=== PATIENT | female | born 1985 | race Caucasian/White ===

== ENCOUNTER 2017-11-26 23:09 | Emergency (ER) | payer MEDICAID, SELFPAY ==
[2017-11-26 23:10] VITALS: BP 135/77; PULSE 80; RESP 16; TEMP 37.6; O2SAT 100; BMI 34.7
--- NOTE | 2017-11-27 | ED.VISSUMM ---
- ER Visit Summary Date of Service: 11/27/17 Chief Complaint: URI-like illness History of Present Illness: The patient is a 32 F who presents with 1 week of congestion and rhinorrhea. Over the last 3 days she has also developed sore throat headache cough chills myalgias. She does have sick contacts with similar symptoms last week. No fever. No vomiting. She denies chest pain or shortness of breath. Physical Examination: Afebrile vitals unremarkable Tympanic membranes are clear Oropharynx is clear uvula midline Heart is regular rate and rhythm Lungs are clear Abdomen soft Alert Test Results: Not indicated Emergency Department Course and Treatment: Patient presents with a URI-like illness. She is well-appearing. She does not have signs suggestive of focal bacterial infection. I do not believe antibiotics are indicated. She was advised on supportive care. She understands return for new or worsening symptoms. She was discharged. Treatment Plan: [] Disposition: Discharge Impression: URI This note was generated with [employer] dictation software. It may contain incorrect words, spelling, and punctuation that were not noted in review of the chart prior to signing ED Disposition - Plan for ED Patient: Chief Complaint: Cold Sx Referrals: Mauro Kapoor MD [Primary Care Provider] -
--- NOTE | 2017-11-27 00:02 | ED.DEP ---
ED Disposition - Plan for ED Patient: Chief Complaint: Cold Sx Instructions: ED Upper Resp Infec No Abx Tx Referrals: Mauro Kapoor MD [Primary Care Provider] -
[2017-11-27 00:06] VITALS: BP 121/78; PULSE 80; RESP 17; O2SAT 97
== END 2017-11-27 00:07 | disposition home or self-care (01) ==
PROVIDERS: Emergency Provider Emergency Medicine; Family Provider Family Medicine; PCP Family Medicine
DX: J06.9 Acute upper respiratory infection, unspecified (principal)
CPT/HCPCS: 99282

== ENCOUNTER 2018-11-22 14:18 | Emergency (ER) | payer MEDICAID, SELFPAY ==
[2018-11-22 14:19] VITALS: BP 118/73; PULSE 69; RESP 18; TEMP 36.6; O2SAT 100; BMI 30.1
--- NOTE | 2018-11-22 15:14 | ED.VISSUMM ---
- ER Visit Summary Date of Service: 11/22/18 Chief Complaint: Rash History of Present Illness: The patient is a 33 F who presents with a rash to her lower legs that began 4 days ago. Patient states she was at a bonfire and thinks she may have come in contact with poison oak or poison jose m. Patient states the rash is pruritic. Patient states the rash started around her ankle and has spread proximally. Patient denies any lesions in her upper extremities. Patient denies any joint pain. Patient states she was able to express some drainage from the first vesicle prior to the rash is spreading. Patient denies any fevers or chills. Patient denies any other new exposures. Physical Examination: Vital signs are stable. Patient is afebrile. Patient is in no acute distress. Oral mucosa is pink and moist. Neck is supple. Trachea is midline. There is full range of motion. Skin is warm and dry. There are a few vesicles over the lower legs bilaterally. There is an area of linear vesicles. There is no crusting or drainage noted. There are no lesions on the palms or soles. There are no petechia noted. There is no calf tenderness or swelling. Pedal pulses are equal bilaterally. Sensation was intact to light touch in all digits. Emergency Department Course and Treatment: The rash is consistent with rhus dermatitis. Patient was given a prescription for Kenalog cream. Patient was instructed to follow-up with her primary care physician in 5 to 7 days. Patient understood and was agreeable with the plan. All questions were answered. Disposition: Discharge home Impression: Rhus dermatitis This note was generated with [employer] dictation software. It may contain incorrect words, spelling, and punctuation that were not noted in review of the chart prior to signing ED Disposition - Plan for ED Patient: Disposition: Home or Assisted Living Diagnosis: Rhus dermatitis Prescriptions: Triamcinolone 0.1% Cream [Kenalog] 1 applic TOPICAL BID #1 tube Prescription Printed Referrals: Mauro Kapoor MD [Primary Care Provider] - 5-7 Days
== END 2018-11-22 15:42 | disposition home or self-care (01) ==
LOC: ED 15:32
PROVIDERS: Emergency Provider Emergency Medicine
DX: L23.7 Allergic contact dermatitis due to plants, except food (principal); E05.90 Thyrotoxicosis, unspecified without thyrotoxic crisis or storm
CPT/HCPCS: 99282

== ENCOUNTER 2019-04-12 22:43 | Emergency (ER) | payer MEDICAID, SELFPAY ==
[2019-04-12 22:44] VITALS: BP 108/71; PULSE 78; RESP 14; TEMP 36.9; O2SAT 96; BMI 30.3
--- NOTE | 2019-04-12 22:55 | RAD_ITS ---
STUDY: X-RAY - LEFT ANKLE REASON FOR EXAM: Female, 34 years old. Rolled ankle TECHNIQUE: 3 view(s) of the ankle. COMPARISON: None. FINDINGS: Normal visualized distal tibia and fibula. Normal medial and lateral malleoli. Normal tibiotalar articulation and ankle mortise. Normal visualized talus and calcaneus. The visualized subtalar, talonavicular, calcaneocuboid and tarsal articulations are normal. The soft tissue structures are unremarkable. RAD/Ankle min 3 Views IMPRESSION: Normal x-ray examination of the ankle. Electronically Signed: Amadou Cifuentes DO at 23:21 EST Tel [phone], Service support ,
--- NOTE | 2019-04-12 22:55 | ED.VISSUMM ---
- ER Visit Summary Date of Service: 04/12/19 Chief Complaint: Left ankle pain History of Present Illness: The patient is a 34 F who has left ankle pain. She injured it about an hour ago. Somebody picked her up and when they put her back down she rolled the ankle on a step. She had an inversion injury. She has pain on the lateral part of the ankle. Worse with movement and walking. She took nothing for it. No previous injuries or surgeries to the ankle. Physical Examination: Left ankle exam reveals tenderness over the lateral malleolus. There is no swelling. She has 2+ DP pulses. No tenderness to the fifth metatarsal or fibular head. Range of motion is painful. Test Results: Left ankle x-rays interpreted by myself are negative for fracture Emergency Department Course and Treatment: Patient was given Motrin for pain. She will be given an Aircast here. She does not want crutches as she has to go to work tomorrow. She will continue NSAIDs at home. She will ice and elevate when she can. She will follow-up with her PCP Treatment Plan: [] Disposition: Discharge Impression: Left ankle sprain This note was generated with [employer] dictation software. It may contain incorrect words, spelling, and punctuation that were not noted in review of the chart prior to signing ED Disposition - Plan for ED Patient: Referrals: Jordy Hernandez MD [Primary Care Provider] -
[2019-04-12] MEDS: Ibuprofen 600 MG Tablet PO (23:00)
--- NOTE | 2019-04-12 23:11 | ED.DEP ---
ED Disposition - Plan for ED Patient: Disposition: Home or Assisted Living Instructions: Sprain, Ankle, with X-Ray Referrals: Jordy Hernandez MD [Primary Care Provider] -
== END 2019-04-12 23:38 | disposition home or self-care (01) ==
PROVIDERS: Emergency Provider Emergency Medicine; Family Provider Family Medicine; PCP Family Medicine
DX: S93.402A Sprain of unspecified ligament of left ankle, initial encounter (principal); X50.1XXA Overexertion from prolonged static or awkward postures, initial encounter; Y93.89 Activity, other specified; Y92.9 Unspecified place or not applicable
CPT/HCPCS: 73610; 99283

== ENCOUNTER 2020-11-07 13:41 | Emergency (ER) | payer MEDICAID, SELFPAY ==
[2020-11-07 13:42] VITALS: BP 122/75; PULSE 85; RESP 16; TEMP 36.9; O2SAT 97; BMI 34.9
--- NOTE | 2020-11-07 14:06 | US_ITS ---
STUDY: ABDOMINAL ULTRASOUND - RIGHT UPPER QUADRANT REASON FOR VISIT: Female, 35 years old RUQ pain, worse with eating TECHNIQUE: Ultrasound evaluation of the right upper quadrant was performed with real-time and static acosta-scale imaging. TECHNICAL QUALITY: Adequate. COMPARISON: None. FINDINGS: Liver: The liver measures 14.0 cm. There is increased echogenicity consistent with fatty infiltration. The bile ducts are within normal limits. There is hepatic color flow. The direction of portal flow is hepatopetal. There is no demonstrated mass lesion. Gallbladder: Normal distended gallbladder. The gallbladder wall measures 2 mm. There is a negative sonographic Lubin''s sign. There is no pericholecystic fluid. There are no gallstones. Common Bile Duct (C.B.D.): The common bile duct measures 5 mm. Pancreas: There is nonvisualization of the pancreas due to overlying bowel gas. t. Right Kidney: Normal size of the right kidney. The right kidney measures 10.9 cm. Normal renal cortex. The right cortex measures 2.8 cm. There is no demonstrated renal mass or cyst. There is no right hydronephrosis. US/Abdomen Limited IMPRESSION: Fatty infiltration of the liver. Electronically Signed: Melvin Lawrence MD at 15:46 EDT Tel , Service support ,
--- NOTE | 2020-11-07 14:08 | EDS_ITS ---
HPI HPI - GI History of Present Illness Chief Complaint: Flank Pain Informant: patient Narrative Narrative: Patient is a 35-year-old female with a past medical history of hypothyroidism who presents to the emergency department for right upper quadrant pain. This does wrap around to her back on that side. She has never had this before. It started 3 hours prior to arrival. She currently rates her pain as an 8 out of 10. She has not tried anything for it. She did try to eat today which seemed to make it worse. She denies any previous abdominal surgeries. She denies any urinary symptoms. No change in bowel movements. No nausea or vomiting. No fevers or chills. She denies any chest pain or shortness of breath associated with this. [facility] Medical History (Updated 11/07/20 @ 16:[address] Lester Barkley DO) Hx: UTI (urinary tract infection) Hypothyroid Home Medications fluticasone propionate 1 spray INTRANASAL DAILY PRN 11/07/20 [History Last Taken Unknown] levothyroxine 75 mcg PO DAILY 11/07/20 [History Last Taken Unknown] Allergy/AdvReac Type Severity Reaction Status Date / Time ciprofloxacin [From Cipro] AdvReac Vomiting Verified 11/07/20 13:44 ciprofloxacin HCl AdvReac Vomiting Verified 11/07/20 13:44 [From Cipro] Surgical History (Updated 11/07/20 @ 14:01 by Antonia Cortez) Hx of tonsillectomy Social History Smoking Status: Never smoker ROS ROS ED Constitutional Constitutional ED: Denies chills or fever(s) Eyes Eyes: Denies change in vision ENT ENT ED: Denies epistaxis or rhinorrhea Cardiovascular Cardiovascular: Denies chest pain or palpitations Respiratory/Chest Respiratory/Chest: Denies cough, dyspnea or dyspnea on exertion Gastrointestinal Gastrointestinal: Reports abdominal pain; Denies diarrhea, nausea or vomiting Genitourinary Genitourinary ED: Denies dysuria, hematuria or urinary frequency Musculoskeletal Musculoskeletal: Denies back pain or neck pain Integumentary Denies rash Neurologic Neurologic: Denies dizziness, headache(s) or weakness EXAM Physical Exam Const Vital Signs: 11/07/20 13:42 11/07/20 16:36 Temperature 98.5 F Temperature Source Temporal Pulse Rate 85 67 Respiratory Rate 16 18 Blood Pressure 122/75 H 110/83 H Blood Pressure Mean 90 92 Pulse Ox 97 99 Oxygen Delivery Method Room Air Room Air Positive well nourished and well developed General Appearance ED: well developed and NAD HEENT Reports normocephalic, head/scalp atraumatic and moist mucous membranes Eyes PERRL and EOMs intact bilaterally Neck supple Chest Wall inspection of chest normal Resp normal respiratory effort and clear to auscultation bilaterally Auscultation: Negative for rales, rhonchi or wheezes Cardio regular rate, regular rhythm and no murmurs GI GI Narrative: Abdomen is soft. Right upper quadrant tenderness. Positive Lubin sign. No rebound or guarding. Negative Rovsing sign no pain over McBurney's point. Back/Spine General Back: CVA tenderness Extremity normal to inspection General Extremety ED: Negative for edema or tenderness General Extremity: Negative for edema Neuro oriented x3, CN's II-XII intact bilaterally and no sensory deficits noted Sensorium / Orientation: alert Motor Exam: strength 5/5 throughout Psych mental status grossly normal Skin no rashes or lesions noted MDM MDM MDM Narrative Medical decision making narrative: Patient presents to the emergency department for right upper quadrant abdominal pain for the past 3 hours. Upon arrival to the ED vital signs within normal limits. She does appear uncomfortable but in no acute distress. She does have a positive Lubin sign. Will check basic lab work and obtain ultrasound of the right upper quadrant. She is given a dose of Dilaudid for symptomatic treatment. Patient's lab work did not reveal high white blood cell count. Her liver enzymes are within normal limits. She has mild elevation of her lipase. Ultrasound was obtained with a positive Lubin sign but this did not show any signs of cholecystitis or cholelithiasis. She still having pain so CT scan was then performed. This was only significant for corpus luteum cyst. Do not feel this is what is causing her symptoms currently. She otherwise feels like this has down. She is now saying she was eating [employer] at the time of this. This can still be gallbladder pain. She is advised to avoid fatty foods. She is to advance her diet only as tolerated. Return precautions are reviewed including any worsening pain, inability to keep down liquids and solids. She understands and agreeable to plan. Discharged home in stable condition. She is to follow- up with her PCP. Lab Data Labs: Laboratory Results - last 24 hr 11/07/20 11/07/20 11/07/20 14:15 14:15 14:15 WBC 6.3 RBC 4.82 Hgb 13.5 Hct 42.5 MCV 88.2 MCH 28.0 MCHC 31.8 L RDW Std Deviation 40.9 RDW Coeff of Todd 12.8 Plt Count 341 MPV 9.4 Immature Gran % (Auto) 0.600 Neut % (Auto) 54.1 Lymph % (Auto) 29.7 Carson % (Auto) 9.4 Eos % (Auto) 5.4 H Baso % (Auto) 0.8 Absolute Neuts (auto) 3.4 Absolute Lymphs (auto) 1.87 Nucleated RBC % 0 Sodium 140 Potassium 3.7 Chloride 106 Carbon Dioxide 28.0 Anion Gap 6 BUN 14 Creatinine 0.87 Estim Creat Clear Calc 66.81 Est GFR (MDRD) Af Amer 94 Est GFR (MDRD) Non-Af 78 BUN/Creatinine Ratio 16.1 Glucose 108 H Calcium 8.6 Total Bilirubin 0.30 AST 16 ALT 25 Alkaline Phosphatase 79 Total Protein 6.9 Albumin 3.4 Globulin 3.5 Albumin/Globulin Ratio 1.0 Lipase 472 H Urine Color Yellow Urine Clarity Sl. Cloudy Urine pH 6.0 Ur Specific Heidrick 1.020 Urine Protein Negative Urine Glucose (UA) Normal Urine Ketones Negative Urine Occult Blood Negative Urine Nitrite Negative Urine Bilirubin Negative Urine Urobilinogen Normal Ur Leukocyte Esterase 25 H Urine RBC 0 SEEN Urine WBC 0-5 SEEN Ur Squamous Epith Cells 5-10 SEEN Urine Bacteria 1+ Urine Mucus 0 SEEN Urine Test Negative Radiography Diagnostic Testing: Radiology Impression Abdomen Ultrasound 11/07/20 14:06 IMPRESSION: Fatty infiltration of the liver. Electronically Signed: Melvin Lawrence MD at 15:46 EDT Tel , Service support , Abdomen/Pelvis CT 11/07/20 16:02 IMPRESSION: 5 cm corpus luteum cyst right ovary. Electronically Signed: Melvin Lawrence MD at 16:47 EDT Tel , Service support , Discharge Plan Triage Chief Complaint: Flank Pain ED Provider: Lester Barkley Dx/Rx/DC Orders Clinical Impression: Abdominal pain, Corpus luteum cyst Instructions: Abdominal Pain, ED Ovarian Cyst Prescriptions: No Action levothyroxine 75 mcg tablet 75 mcg PO DAILY RF: 0 fluticasone propionate 50 mcg/actuation spray,suspension 1 spray INTRANASAL DAILY PRN (Reason: Allergy Symptoms) RF: 0 Primary Care Provider: Jordy Hernandez Referrals: Jordy Hernandez MD [Primary Care Provider] - 3-5 Days Disposition Disposition: Home, Self Care
[2020-11-07] MEDS: HYDROmorphone 1 MG/ML Syringe 0.5 MG IV (14:23)
[2020-11-07 14:26] LABS: Mucous, Urine 0 SEEN /hpf (<or=2+); Red Blood Cells-Urine 0 SEEN /hpf (0-5)
[2020-11-07 14:31] LABS: Absolute Lymphocyte Count 1.87 X10^3/uL (0.83-4.51); Absolute Neutrophil Count 3.4 X10^3/uL (2.0-7.7); Basophil# 0.05 X10^3/uL; Basophil% 0.8 % (0-1); Eosinophil# 0.34 X10^3/uL; Eosinophils% 5.4 % (0-5); Hematocrit 42.5 % (37-47); Hemoglobin 13.5 g/dL (12.0-15.0); Lymphocyte # 1.87 X10^3/ul (0.83-4.51); Lymphocyte % 29.7 % (19-41); Mean Corp Hgb Conc 31.8 g/dL (32-36); Mean Corpuscular Volume 88.2 fL (81-99); Mean Platelet Vol. 9.4 fl (6.2-12.0); Monocyte# 0.59 X10^3/uL; Monocyte% 9.4 % (0-10); NRBC Flagged by Analyzer 0 % (0-5); Neutrophil # 3.41 X10^3/uL (2.7-7.7); Neutrophil % 54.1 % (47-70); Platelet Count 341 K/mm3 (150-450); RBC Distribution Width CV 12.8 % (11.6-14.6); RBC Distribution Width SD 40.9 fl (35.1-43.9); Red Blood Count 4.82 M/mm3 (4.2-5.4); White Blood Count 6.3 K/mm3 (4.4-11.0)
[2020-11-07 14:35] LABS: Color, Urine Yellow (Yellow); Glucose, Dipstick Normal (Normal); Ketone-Dipstick Negative (Negative); Leukocyte Esterase-Dipstick 25 /ul (Negative); Nitrite-Dipstick Negative (Negative); Occult Blood-Urine Negative /ul (Negative); Protein-Dipstick Negative (Negative); Urine Bilirubin Dipstick Negative (Negative); Urine Clarity Sl. Cloudy (Clear); Urine Urobilinogen Normal (Normal)
[2020-11-07 14:42] LABS: Bacteria 1+ /hpf (None Seen); Internal QC Validated? YES +Cl - CLEAR BKGD; Squamous Epithelial Cells - UA 5-10 SEEN /hpf (5-10); White Blood Cells 0-5 SEEN /hpf (0-5)
[2020-11-07 14:43] LABS: Pregnancy, Urine Negative Negative
[2020-11-07 14:45] LABS: AST(SGOT) 16 U/L (15-37); Alanine Aminotransfer ALT/SGPT 25 U/L (13-56); Albumin, Serum 3.4 g/dL (3.2-5.0); Alkaline Phosphatase 79 U/L (45-117); Anion Gap 6 (5-15); BUN 14 mg/dL (7-18); BUN/Creat Ratio 16.1 RATIO (10-20); Calcium,Total 8.6 mg/dL (8.5-10.1); Chloride 106 mmol/L (98-107); Creatinine, Serum 0.87 mg/dL (0.55-1.02); EST Glomerular Filtration Rate 78 mL/min (>60); Est Glom Filt Rate - Afr Amer 94 mL/min (>60); Estimated Creatinine Clearance 66.81 ml/min; Globulin 3.5 g/dL (2.2-4.2); Glucose 108 mg/dL (74-106); Lipase 472 U/L (73-393); Potassium 3.7 mmol/L (3.5-5.1); Protein, Total 6.9 g/dL (6.4-8.2); Sodium Level 140 mmol/L (136-145)
--- NOTE | 2020-11-07 16:02 | CT_ITS ---
STUDY: CT ABDOMEN AND PELVIS WITH CONTRAST REASON FOR EXAM: Female, 35 years old. RUQ pain, flank pain RADIATION DOSAGE (If Supplied By Facility): CTDIvol = ( 13.66 ) mGy, DLP = ( 1077.57 ) mGycm TECHNIQUE: Transaxial images were obtained from the dome of the diaphragm to the symphysis pubis without oral contrast. IV 100mL Isovue-300 was administered. Sagittal and coronal images were reconstructed. Individualized dose optimization techniques were used for this CT. COMPARISON: 10/14/2012 FINDINGS: The visualized lung bases are unremarkable. The visualized portions of the heart are within normal limits. Normal liver. Normal gallbladder and extrahepatic biliary system. Normal spleen. Normal pancreas. Normal bilateral adrenal glands. Normal right kidney. Normal left kidney. Normal visualized stomach. Normal small intestine. Normal colon. The appendix is visualized and appears normal. Normal abdominal aorta. Normal inferior vena cava. Normal retroperitoneum. Normal urinary bladder. 5 cm corpus luteum cyst of the right ovary. Normal abdominal wall. Normal osseous structures. CT/Abdomen/Pelvis W IV Cont ONLY IMPRESSION: 5 cm corpus luteum cyst right ovary. Electronically Signed: Melvin Lawrence MD at 16:47 EDT Tel , Service support ,
[2020-11-07 16:36] VITALS: BP 110/83; PULSE 67; RESP 18; O2SAT 99
--- NOTE | 2020-11-07 16:50 | ED.RN ---
pt still states pain 7/10 after dilaudid. pt does not want more pain medication at this time. states she would like the lights off and to try to nap.
== END 2020-11-07 17:06 | disposition home or self-care (01) ==
PROVIDERS: Emergency Provider Emergency Medicine; PCP Family Medicine
DX: R10.11 Right upper quadrant pain (principal); N83.10 Corpus luteum cyst of ovary, unspecified side
CPT/HCPCS: 74177; 76705; 80053; 81001; 81025; 83690; 85025; 96374; 99283; Q9967; A4216

== ENCOUNTER 2021-01-07 14:08 | Emergency (ER) | payer MEDICAID, SELFPAY ==
[2021-01-07 14:10] VITALS: BP 137/91; PULSE 90; RESP 18; TEMP 37.3; O2SAT 97; BMI 35.3
[2021-01-07 14:12] VITALS: BP 137/91; PULSE 90; RESP 18; TEMP 37.3; O2SAT 97
--- NOTE | 2021-01-07 16:22 | EX.ED.DYSGE1 ---
HPI History of Present Illness Chief Complaint: Sore Throat Informant: patient Onset/Context/Timing Onset: Days Context: Gradual Onset Timing: Continuous Quality: Congested Location: Maxillary sinuses, right greater than left Worsened by: Nothing Relieved by: Nothing Narrative Narrative: Patient presents with sore throat and sinus pressure that has been getting worse over the past several days. 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 Patient states this feels similar to prior sinus infections. Patient states she has pain in both ears. Patient also admits to some mild pain in the right side of her neck. Patient denies any difficulty swallowing or difficulty breathing. Patient denies any fevers or chills. Patient states she has not been vaccinated for COVID-19. Patient states she does not want to get the COVID-19 vaccine. [facility] Medical History Hx: UTI (urinary tract infection) Hypothyroid Home Medications fluticasone propionate 1 spray INTRANASAL DAILY PRN 11/07/20 [History Last Taken Unknown] levothyroxine 75 mcg PO DAILY 11/07/20 [History Last Taken Unknown] fluticasone propionate [Flonase Allergy Relief] 2 spray INTRANASAL DAILY #16 g 01/07/21 [Rx Last Taken Unknown] Allergy/AdvReac Type Severity Reaction Status Date / Time ciprofloxacin [From Cipro] AdvReac Vomiting Verified 01/07/21 14:10 ciprofloxacin HCl AdvReac Vomiting Verified 01/07/21 14:10 [From Cipro] Surgical History Hx of tonsillectomy Social History Smoking Status: Never smoker ROS ROS ED Constitutional Constitutional ED: Denies chills or fever(s) Eyes Eyes: Denies blurry vision or change in vision ENT ENT ED: Reports ear pain and sore throat; Denies rhinorrhea Cardiovascular Cardiovascular: Denies chest pain or palpitations Respiratory/Chest Respiratory/Chest: Denies cough or dyspnea Gastrointestinal Gastrointestinal: Denies nausea or vomiting Genitourinary Genitourinary ED: Denies dysuria or hematuria Musculoskeletal Musculoskeletal: Reports neck pain; Denies back pain Integumentary Denies abscess or rash Neurologic Neurologic: Denies headache(s) or weakness Allergic/Immunologic Allergic/Immunologic ED: Denies mouth swelling or urticaria EXAM Physical Exam Const Vital Signs: 01/07/21 14:10 01/07/21 14:12 Temperature 99.1 F 99.1 F Temperature Source Temporal Temporal Pulse Rate 90 90 Respiratory Rate 18 18 Blood Pressure 137/91 H 137/91 H Blood Pressure Mean 106 106 Pulse Ox 97 97 Oxygen Delivery Method Room Air Room Air Positive well nourished and well developed General Appearance ED: well developed HEENT Reports TM's clear and moist mucous membranes HEENT Narrative: Oropharynx shows some mild erythema. There are no exudates. Tympanic Membrane ED: Yes TM's clear Eyes PERRL and EOMs intact bilaterally Neck supple and no JVD Neck Narrative: There is some mildly tender anterior cervical adenopathy on the right. Resp normal respiratory effort and clear to auscultation bilaterally Cardio regular rate and regular rhythm Neuro oriented x3, CN's II-XII intact bilaterally and no sensory deficits noted Sensorium / Orientation: alert Motor Exam: strength 5/5 throughout Psych mental status grossly normal MDM MDM MDM Narrative Medical decision making narrative: Rapid strep was obtained and was negative. COVID-19 rapid antigen was obtained and was negative. Patient was advised of her findings. Patient was instructed to drink plenty of fluids. Patient was instructed to take Tylenol or ibuprofen as needed for pain. Patient was given a prescription for Flonase. Patient was instructed to follow-up with her primary care physician in 5 to 7 days. Patient understood and was agreeable with the plan. All questions were answered. Discharge Plan Triage Chief Complaint: Sore Throat ED Provider: Lj Becerril Dx/Rx/DC Orders Clinical Impression: Sinusitis, acute maxillary Instructions: ED Sinusitis (No Antibiotics) Prescriptions: New fluticasone propionate [Flonase Allergy Relief] 50 mcg/actuation spray,suspension 2 spray intranasal DAILY Qty: 16 RF: 0 No Action levothyroxine 75 mcg tablet 75 mcg PO DAILY RF: 0 fluticasone propionate 50 mcg/actuation spray,suspension 1 spray INTRANASAL DAILY PRN (Reason: Allergy Symptoms) RF: 0 Primary Care Provider: Sujata Huynh Referrals: Sujata Huynh MD [Primary Care Provider] - 5-7 Days Disposition Disposition: Home, Self Care
== END 2021-01-07 18:18 | disposition home or self-care (01) ==
PROVIDERS: Emergency Provider Emergency Medicine
DX: J01.00 Acute maxillary sinusitis, unspecified (principal); E03.9 Hypothyroidism, unspecified; Z79.899 Other long term (current) drug therapy
CPT/HCPCS: 87426; 87880; 99282

== ENCOUNTER 2022-12-14 21:24 | Emergency (ER) | payer MEDICAID, SELFPAY ==
[2022-12-14 21:27] VITALS: BP 163/114; PULSE 105; RESP 18; TEMP 37.7; O2SAT 99; BMI 36.3
[2022-12-14 22:41] VITALS: BP 163/114; PULSE 105; RESP 18; TEMP 37.7; O2SAT 99
[2022-12-14 23:03] VITALS: BP 141/75; PULSE 100; RESP 18; TEMP 36.6; O2SAT 99
--- NOTE | 2022-12-14 23:14 | EDS_ITS ---
HPI History of Present Illness Chief Complaint: General Illness Informant: patient Narrative Narrative: Patient is a 37-year-old female with past medical history of hypothyroidism. She states she was at her daughter's softball game about 2 hours prior to arrival when she suddenly developed shaking chills and sensation of feeling unwell. She denies any known sick contacts and she states she has been just mild nasal congestion but denies any real cough or sore throat. She denies any concern for and she states there has been no nausea vomiting diarrhea or dysuria. However with the sudden onset of symptoms she was concerned for an infectious process and comes in for evaluation [facility] Medical History Hx: UTI (urinary tract infection) Hypothyroid Home Medications levothyroxine 75 mcg tablet 125 mcg PO DAILY 11/07/20 [History Last Taken Unknown] omeprazole 40 mg capsule,delayed release 40 mg PO DAILY 12/14/22 [History Last Taken Unknown] potassium chloride 20 mEq tablet,extended release(part/cryst) 20 meq PO DAILY 12/14/22 [History Last Taken Unknown] prednisone 20 mg tablet 40 mg (2 x 20 mg) PO DAILY 5 days #10 tabs 12/15/22 [Rx Last Taken Unknown] Allergy/AdvReac Type Severity Reaction Status Date / Time ciprofloxacin [From Cipro] AdvReac Vomiting Verified 12/14/22 21:27 Surgical History Hx of tonsillectomy Social History Smoking Status: Never smoker ROS ROS ED Constitutional Constitutional ED: Reports chills, fever(s) and subjective ENT ENT ED: Reports rhinorrhea; Denies sore throat Cardiovascular Cardiovascular: Denies chest pain Respiratory/Chest Respiratory/Chest: Denies cough or dyspnea Gastrointestinal Gastrointestinal: Denies abdominal pain, diarrhea, nausea or vomiting Genitourinary Genitourinary ED: Denies dysuria Musculoskeletal Musculoskeletal: Reports myalgias Integumentary Denies rash Neurologic Neurologic: Reports headache(s) Hematologic/Lymphatic Hematologic/Lymphatic: Denies easy bleeding or easy bruising EXAM Physical Exam Const Vital Signs: 12/14/22 21:27 12/14/22 22:41 12/14/22 23:03 Temperature 99.8 F H 99.8 F H 98 F Temperature Source Temporal Temporal Temporal Pulse Rate 105 H 105 H 100 Respiratory Rate 18 18 18 Blood Pressure 163/114 H 163/114 H 141/75 H Blood Pressure Mean 130 130 97 Pulse Ox 99 99 99 Oxygen Delivery Method Room Air Positive well nourished and well developed General Appearance ED: well developed HEENT Reports moist mucous membranes HEENT Narrative: Nasal mucosa is hyperemic and boggy slightly greatest on the right. There is cobblestoning in the posterior pharynx consistent with sinus drainage without airway edema or compromise. Bilateral TMs are retracted without secondary changes to suggest infection Eyes PERRL and EOMs intact bilaterally Neck supple Neck Narrative: No nuchal rigidity or meningeal signs present Resp normal respiratory effort and clear to auscultation bilaterally Cardio regular rate and regular rhythm GI normal to inspection, nondistended, normoactive bowel sounds, non-tender, non- distended and no masses GI Narrative: No voluntary guarding or rigidity Auscultation: normoactive bowel sounds Palpation: soft Back/Spine no CVA tenderness Extremity normal to inspection Neuro oriented x3, CN's II-XII intact bilaterally and no sensory deficits noted Sensorium / Orientation: alert Motor Exam: strength 5/5 throughout Psych mental status grossly normal Skin no rashes or lesions noted MDM MDM MDM Narrative Medical decision making narrative: Patient presented to the ER with low-grade fever. She reported sudden onset of subjective fevers and chills with mild congestion. Differential diagnosis is COVID versus other viral upper respiratory tract infection versus pneumonia or early viral versus bacterial pharyngitis. On exam breath sounds are clear she has no signs of respiratory distress she satting 98 to 100% on room air. Abdomen is soft without organ enlargement or pain and she denies any dysuria or concern for . Physical exam does not suggest a bacterial pharyngitis or signs of peritonsillar abscess or epiglottitis. Therefore at this time as her physical exam suggest she has the development of a viral upper respiratory tract infection without signs of respiratory distress or need for supplemental oxygen and do not feel there is need for further testing and patient can be discharged home. History & Record Review Discussion w/independent historian: Patient Discharge Plan Triage Chief Complaint: General Illness ED Provider: Malachi Goodman Dx/Rx/DC Orders Clinical Impression: Viral syndrome, Hypothyroidism Instructions: ED Viral Syndrome (Adult) Prescriptions: New prednisone 20 mg tablet 40 mg PO DAILY 5 Days Qty: 10 0RF No Action levothyroxine 75 mcg tablet 125 mcg PO DAILY Patient Comments: TK 1 T PO QD OES FOR THYROID omeprazole 40 mg capsule,delayed release(DR/EC) 40 mg PO DAILY Patient Comments: TAKE 1 CAPSULE BY MOUTH ONCE DAILY potassium chloride 20 mEq tablet,ER particles/crystals 20 meq PO DAILY Patient Comments: TAKE 1 TABLET BY MOUTH ONCE DAILY Stand Alone Forms: ED Work / School Excuse Primary Care Provider: Sujata Huynh Referrals: Sujata Huynh MD [Primary Care Provider] - Activity Restrictions/Additional Instructions: Your exam today indicate you have a viral infection. Fever from this will typically last 3 days but can go as long as a week. Take [id number] Tylenol and/or Motrin for fever control and keep yourself well-hydrated. If your fever lasts longer than 7 days or you have worsening of symptoms or any further concerns please return to the hospital for repeat evaluation Disposition Disposition: Home, Self Care Discharge Date/Time: 12/14/22 23:21
--- NOTE | 2022-12-14 23:21 | ED.RN ---
PT ON PHONE IN ROOM WITH NO SIGNS OF DISTRESS. REVIEWED WITH PT APPROPRIATE INTERVENTIONS TO ATTEMPT AND WHEN TO COME TO ER FOR SYMPTOMS.
== END 2022-12-14 23:21 | disposition home or self-care (01) ==
PROVIDERS: Emergency Provider Emergency Medicine; Visit Provider Emergency Medicine
DX: B34.9 Viral infection, unspecified (principal); E03.9 Hypothyroidism, unspecified; Z79.899 Other long term (current) drug therapy
CPT/HCPCS: 99282

== ENCOUNTER 2025-05-07 18:22 | Emergency (ER) | payer BC, SELFPAY ==
[2025-05-07 18:24] VITALS: BP 136/94; PULSE 78; RESP 18; TEMP 36.8; O2SAT 100; BMI 34.8
[2025-05-07 18:42] LABS: Mucous, Urine 0 SEEN /hpf (<or=2+); Red Blood Cells-Urine 0 SEEN /hpf (0-5)
[2025-05-07 19:01] LABS: Color, Urine Straw (Yellow); Glucose, Dipstick Normal (Normal); Ketone-Dipstick Negative (Negative); Leukocyte Esterase-Dipstick Negative /ul (Negative); Nitrite-Dipstick Negative (Negative); Occult Blood-Urine Negative /ul (Negative); Protein-Dipstick Negative (Negative); Specific Gravity, Urine 1.005 (1.002-1.030); Urine Bilirubin Dipstick Negative (Negative)
[2025-05-07 19:29] LABS: Squamous Epithelial Cells - UA 0-5 SEEN /hpf (5-10)
[2025-05-07 20:23] VITALS: BP 138/103; PULSE 72; RESP 16; O2SAT 98
--- OUTSIDE RECORDS SUMMARY | 2025-05-07 21:53 | XMS RPT_ITS | CCD ---
Author Organization [facility] Care Team Providers Care Store Facility Technician Name Role Phone Lex Ulloa Unavailable Unavailable Lex Ulloa J Unavailable Unavailable Dominick Lomax Unavailable Unavailable Dominick Lomax Unavailable Unavailable Argueta, Akila S Unavailable Unavailable Argueta, Akila S Unavailable Unavailable DayNoah J. Unavailable Unavailable Day Noah J. Unavailable Unavailable Yang, Khris R Unavailable Unavailable Yang, Khris R Unavailable Unavailable Artemio, Lex J Unavailable Unavailable Atremio, Lex J Unavailable Unavailable Lulu, Demetrio Unavailable Unavailable Lulu, Demetrio Unavailable Unavailable DayNoah J. Unavailable Unavailable DayNoah J. Unavailable Unavailable Vivar, Dillan R Unavailable Unavailable Vivar, Dillan R Unavailable Unavailable Malachi Hickman. Unavailable Unavailabl e Malachi Hickman J. Unavailable Unavailabl e ARTEMIO LEX KHRIS Unavailable Unavailable Sokari, Telemate Unavailable Unavailable Sokari, Telemate Unavailable Unavailable No Doctor Assigned, Nodr Unavailable Unavail able Ivanauskas, Saulius Unavailable Unavailable Ivanauskas, Saulius Unavailable Unavailable Alberto Kapoor Unavailable Unavailab Jordy Alvarado Primary Care Provider [phone] NO, PHYSICIAN Primary Care Unavailable LAURA CHILDRESS Attending UnavailJordy Cedillo Primary Care Provider No, Physician Primary Care Provider Unavailabl e NO, PHYSICIAN Primary Care Unavailable NICO ALMENDAREZ Attending Unavailable TANESHANICO MAYA Admitting Unavailable WIN, NYAN Attending Unavailable WIN, NYAN Referring Unavailable WIN, NYAN Primary Care Unavailable WIN, NYAN Attending Unavailable WIN, NYAN Referring Unavailable WIN, NYAN Primary Care Unavailable WIN, NYAN Attending Unavailable WIN, NYAN Referring Unavailable WIN, NYAN Primary Care Unavailable Unavailable Primary Care Provider Unavailabl e LINO, LAURIE Consulting Unavailable LINO, LAURIE Referring Unavailable JEREMY ROB MD Admitting Unavailable JEREMY ROB MD Primary Care Unavailable JEREMY ROB MD Attending Unavailable PROVIDER, UNKNOWN Consulting Unavailable PROVIDER, UNKNOWN Consulting Unavailable LINO, LAURIE Consulting Unavailable LINO, LAURIE Referring Unavailable JEFF GONZALEZ DO Admitting Unavailable JEFF GONZALEZ DO Primary Care Unavailable JEFF GONZALEZ DO Attending Unavailable PROVIDER, UNKNOWN Consulting Unavailable PROVIDER, UNKNOWN Consulting Unavailable Malachi Goodman Attending Unavailable Lino, Laurie Primary Care Unavailable Kingsley Hernandez MD Primary Care Provider [phone] PHYSICIAN, NONE Primary Care Physician Unavailab Tesha PARMAR, DR SULLIVAN Primary Care Unavailable SILVESTRE SIDDIQUI Attending Unavailable UCHE CHOI Attending Sanna morris PHYSICIAN, NONE Primary Care Unavailable LINO PARMAR, DR SULLIVAN Primary Care Physician [phone] LINO, LAURIE Primary Care Unavailable TAO HAN Attending UnavailLAURIE Garcia Primary Care Unavailable SARAH NIXON Attending Unavailable ANJALI ZHANG DO Attending Unavailab Tesha PARMAR, DR SULLIVAN Primary Care Unavailable ANJALI ZHANG DO Attending Unavailab Tesha PARMAR, DR SULLIVAN Primary Care Unavailable LINO PARMAR, DR SULLIVAN Primary Care Unavailable DAI KELLER Attending Tierra Huynh MD, Laurie Primary Care Provider Allergies Allergy Classification Reported Allergen(s) Allergy Type Date of Onset Reaction(s) Facility (2 sources) ciprofloxacin; Translations: [Cipro] Drug Allergy [facility] Repository (13 sources) Sulfamethoxazole / Trimethoprim; Translations: [Unknown] Drug Allergy 7 Nausea and Vomiting, GI Intolerance, Other: See Comments [facility] Repository (16 sources) Ciprofloxacin; Translations: [CIPROFLOXACIN] Drug Allergy 7 Nausea and Vomiting, Dyspepsia, GI Intolerance, GI Upset [facility] (1 source) Ciprofloxacin Drug Allergy 3 [facility] Repository Medications Current Medications Medication Drug Class(es) Dates Sig (Normalized) Sig (Original) acetaminophen 325 mg / HYDROcodone bitartrate 5 mg oral tablet (1 source) Opioid Agonist Start: 09-07-2024 End: 09-12-2024 take 1 tablet by mouth every four hours as needed for pain Odum 325- 5 mg oral tablet Dose = 1 tab(s), Oral, q4h, PRN as needed for pain, X 5 day(s), # 20 tab(s), 0 Refill(s), Pharmacy: [facility], Status post laparoscopy with lysis of adhesions, 154.94, cm, 09/07/24 7:19:00 EDT, Height, 81.36, kg, 09/07/24 7:19:00 EDT, Dosing Weight Start Date: 09/07/24 Stop Date: 09/12/24 Status: Ordered Quantity: 20.0 Unit: tab(s) Repeat number: 1 Indications: Other specified postprocedural states; amoxicillin 500 mg oral capsule (1 source) Penicillin-class Antibacterial Start: 06-09-2023 End: 06-19-2023 amoxicillin 500 mg oral capsule Dose : 500 mg = 1 cap(s), Oral, BID, X 10 day(s), # 20 cap(s), 0 Refill(s), 06/19/23 7:55:00 AM EST Start Date: 06/09/23 Stop Date: 06/19/23 Status: Ordered amoxicillin 875 mg / clavulanate 125 mg oral tablet (1 source) Penicillin-class Antibacterial Start: 09-30-2018 End: 10-10-2018 take 1 tablet by mouth twice daily amoxicillin-clavula mert (AUGMENTIN) 875-125 mg per tablet Indications: Sinusitis, unspecified chronicity, unspecified location Take 1 (one) tablet by mouth 2 (two) times a day for 10 days . 20 tablet 0 09/30/2018 10/10/2018 Active azithromycin 250 mg oral tablet (3 sources) Macrolide Antimicrobial Start: 12-21-2019 End: 12-25-2019 take 1 tablet by mouth once daily azithromycin 250 MG tablet 250 mg PO Once Daily X 4 days 4 tablet 0 12/21/2019 12/25/2019 Active Start: 12-21-2019 End: 12-21-2019 azithromycin 250 MG tablet T lyle 500 mg X1 then 250 mg PO Once Daily X 4 days 5 tablet 0 12/21/2019 12/21/2019 Discontinued (Reorder) Start: 12-21-2019 End: 12-21-2019 azithromycin (ZITHROMAX) tab let 500 mg ciprofloxacin 3 mg/ml / dexamethasone 1 mg/ml otic suspension (1 source) Corticosteroid, Quinolone Antimicrobial Start: 06-09-2023 End: 06-16-2023 Ciprodex 0.3%-0.1% otic suspension Dose = 4 drop(s), Ear, left, BID, X 7 day(s), # 7.5 mL, 0 Refill(s) Start Date: 06/09/23 Stop Date: 06/16/23 Status: Ordered escitalopram 10 mg oral tablet (2 sources) Serotonin Reuptake Inhibitor Start: 09-09-2020 take 1 tablet by mouth once daily escitalopram oxalate (LEXAPRO) 10 mg tablet Indications: Anxiety with depression Take 1 tablet by mouth once daily. 30 tablet 2 09/09/2020 Active Comment on above: Take 1 tablet by gayle once daily. herbal/nutritional product (1 source) Start: 08-24-2024 take 1 capsule by mouth once daily herbal/nutritiona l product 1 capsule, Oral, Daily, 0 Refill(s) Start Date: 08/24/24 Status: Ordered Repeat number: 1 ibuprofen 600 mg oral tablet (7 sources) Nonsteroidal Anti-inflammatory Drug Start: 09-07-2024 ibuprofen 600 mg oral tablet Dose : 600 mg = 1 tab(s), Oral, QID, PRN as needed for pain, # 120 tab(s), 1 Refill(s), Pharmacy: [id number], 154.94, cm, 09/07/24 7:19:00 EDT, Height, kg, 09/07/24 7:19:00 EDT, Dosing Weight Start Date: 09/07/24 Status: Ordered Quantity: 120.0 Unit: tab(s) Repeat number: 2 Start: 12-21-2019 End: 12-21-2019 ibuprofen (MOTRIN) tablet 40 0 mg Start: 07-07-2016 End: 03-28-2019 take 1 tablet by mouth every six hours as needed ibuprofen 800 MG Tab take 1 tablet by mouth every 6 hours as needed.. 20 tablet 0 07/07/2016 03/28/2019 Discontinued (Therapy completed) levothyroxine sodium 0.125 mg oral tablet (16 sources) l-Thyroxine Start: 08-24-2024 levothyroxine 125 mcg (0.125 mg) oral tablet Dose : 125 mcg = 1 tab(s), Oral, qDayAC, 0 Refill(s) Start Date: 08/24/24 Status: Ordered Repeat number: 1 Start: 11-07-2020 take 125 ug by mouth once antonio y Levothyroxine Active 125 MCG PO DAILY November 07, 2020 12:00am Start: 09-09-2020 take 1 tablet by gayle th once daily levothyroxine (SYNTHROID) 75 mcg tablet Indications: Acquired hypothyroidism Take 1 tablet by mouth once daily. 90 tablet 2 09/09/2020 Active Start: 01-18-2020 take 1 tablet by gayle th once daily levothyroxine 75 MCG tablet Take 1 tablet by mouth daily. 30 tablet 3 01/18/2020 Active Start: 05-24-2017 End: 01-18-2020 take 1 tablet by mouth once daily for thyroid dysfunction levothyroxine 50 MCG Tab tablet TK 1 T PO QD OES FOR THYROID 3 05/24/2017 01/18/2020 Discontinued Comment on above: Take 1 tablet by gayle th once daily. loratadine 10 mg oral tablet (1 source) Start: 10-01-19 End: 09-30-19 take 1 tablet by mouth once daily loratadine (CLARITIN) 10 mg tablet Indications: Sinusitis, unspecified chronicity, unspecified location Take 1 (one) tablet (10 mg total) by mouth daily . 30 tablet 0 09/30/2018 09/30/2019 Active omeprazole 40 mg delayed release oral capsule (1 source) Proton Pump Inhibitor Start: 12-15-19 take 40 mg by mouth once daily Omeprazole Active 40 MG PO DAILY December 14, 2022 12:00am ondansetron 4 mg disintegrating oral tablet (6 sources) Serotonin-3 Receptor Antagonist Start: 09-08-19 25 ondansetron 4 mg oral tablet, disintegrating Dose : 4 mg = 1 tab(s), Oral, q6h, PRN Nausea/Vomiting, # 20 tab(s), 0 Refill(s), Pharmacy: [id number], 154.94, cm, 09/07/24 7:19:00 EDT, Height, kg, 09/07/24 7:19:00 EDT, Dosing Weight Start Date: 09/07/24 Status: Ordered Quantity: 20.0 Unit: tab(s) Repeat number: 1 Start: 06-25-2017 End: 03-28-2019 take 1 tablet by mouth every eight hours as needed for nausea ondansetron 4 MG Tab Dispersible tablet Indications: Cyst of right ovary Take 1 tablet by mouth every 8 hours as needed for Nausea. Place on tongue 10 tablet 0 06/25/2017 03/28/2019 Discontinued (Therapy completed) microencapsulated potassium chloride 20 meq extended release oral tablet (1 source) Start: 12-14-2022 take 20 mEq by mouth once daily Potassium Chloride Active 20 MEQ PO DAILY December 14, 2022 12:00am progesterone 100 mg oral capsule (1 source) Progesterone Start: 08-24-2024 progesterone 1 00 mg oral capsule Dose : 100 mg = 1 cap(s), Oral, qHS, 0 Refill(s) Start Date: 08/24/24 Status: Ordered Repeat number: 1 Completed/Discontinued Medications Medication Drug Class(es) Dates Sig (Normalized) Sig (Original) 1 ml dexamethasone phosphate 4 mg/ml injection (2 sources) Corticosteroid Start: 02-28-2019 End: 02-28-2019 dexamethasone (DECADRON) injection 2 mg Start: 02-28-2019 End: 02-28-2019 dexamethasone (DECADRON) inj ection 2 mg diclofenac sodium 50 mg delayed release oral tablet (5 sources) Nonsteroidal Anti-inflammatory Drug Start: 06-25-2017 End: 03-28-2019 take 1 tablet by mouth twice daily diclofenac sodium [address] Indications: Cyst of right ovary Take 1 tablet by mouth 2 times daily. 10 tablet 0 06/25/2017 03/28/2019 Discontinued (Therapy completed) fluticasone propionate 0.05 mg/actuat metered dose nasal spray (15 sources) Corticosteroid Start: 11-07-2020 End: 12-14-2022 take 1 spray(s) nasal route once daily Fluticasone Propionate (Flonase Allergy Relief) 50 mcg/actuation spray,suspension Discontinued 2 SPRAY INTRANASAL DAILY January 07, 2021 12:00am December 14, 2022 11:03pm administer 1 spray into each nostril daily Start: 09-30-2018 End: 09-30-2019 take 2 spray(s) nasal route once daily fluticasone propionate (FLONASE) 50 mcg/actuation nasal spray Indications: Sinusitis, unspecified chronicity, unspecified location Instill 2 (two) sprays into each nostril daily . 16 g 0 09/30/2018 09/30/2019 Active Start: 07-22-2018 take 1 spray(s) nasa l route once daily fluticasone (FLONASE) 50 mcg/actuation nasal spray Indications: Sinusitis Use 1 Markesan in each nostril once daily. 16 g 5 07/22/2018 Active Start: 06-14-2015 fluticasone 50 MCG/ACT Suspension nasal spray 1 spray. 0 06/14/2015 Active Comment on above: Use 1 Markesan in each nostril once daily. 2 ml triamcinolone acetonide 40 mg/ml prefilled syringe (2 sources) Corticosteroid Start: 02-28-2019 End: 02-28-2019 triamcinolone (KENALOG-40) injection 0.5 mL Start: 02-28-2019 End: 02-28-2019 triamcinolone (KENALOG-40) i njection 0.5 mL Problems Active Problems Problem Classification Problem Date Documented Date Episodic/Chronic Abdominal pain (1 source) Abdominal pain; Translations: [Unspecified abdominal pain] 11-07-2020 Episodic Allergic reactions (2 sources) Allergy status to other antibiotic agents status; Translations: [Contact dermatitis due to Genus Toxicodendron] Onset: 10-28-2022 11-23-2018 Episodic Endometriosis (1 source) Endometriosis; Translations: [Deep endometriosis of bilateral ovaries] Onset: 09-07-2024 Fever of unknown origin (1 source) Fever, unspecified; Translations: [Fever, unspecified] Onset: 12-17-2022 Episodic Inflammatory diseases of female pelvic organs (2 sources) Female pelvic peritoneal adhesions (postinfective); Translations: [Female pelvic peritoneal adhesions] Onset: 09-07-2024 Episodic Nonmalignant breast conditions (2 sources) Pain of breast; Translations: [Breast pain] Episodic Other connective tissue disease (4 sources) Pain in right foot; Translations: [Pain in right foot] Other ear and sense organ disorders (1 source) Otitis externa of left ear; Translations: [Unspecified otitis externa, left ear] Onset: 06-09-2023 Chronic Other nutritional; endocrine; and metabolic disorders (2 sources) Obese class I; Translations: [Obesity (BMI 30.0-34.9)] Onset: 01-10-2020 01-10-2020 Other nutritional; endocrine; and metabolic disorders (1 source) Insulin resistance; Translations: [Insulin resistance] Other screening for suspected conditions (not mental disorders or infectious disease) (1 source) Patient encounter status; Translations: [Encounter for screening mammogram for malignant neoplasm of breast] 03-24-2023 Episodic Otitis media and related conditions (2 sources) Non-suppurative otitis media; Translations: [Otitis media] Onset: 06-09-2023 Episodic Ovarian cyst (2 sources) Corpus luteum cyst; Translations: [Corpus luteum cyst of ovary, unspecified side] Onset: 06-20-2024 11-07-2020 Episodic Residual codes; unclassified (1 source) Other specified postprocedural states; Translations: [Other specified postprocedural states] Onset: 09-07-2024 Episodic Residual codes; unclassified (1 source) Acquired absence of ovaries, unilateral; Translations: [Acquired absence of ovaries, unilateral] Onset: 09-07-2024 Episodic Residual codes; unclassified (1 source) Past history of procedure; Translations: [Other specified postprocedural states] Onset: 09-07-2024 Episodic Residual codes; unclassified (1 source) Acquired absence of ovary; Translations: [Acquired absence of ovaries, unilateral] Onset: 09-07-2024 Episodic Thyroid disorders (6 sources) Hypothyroidism; Translations: [Hema thyroiditis] Onset: 04-12-2018 04-12-2018 Chronic Past or Other Problems Problem Classification Problem Date Documented Date Episodic/Chronic Conditions associated with dizziness or vertigo (2 sources) Lightheadedness; Translations: [Dizziness and giddiness] Onset: 09-30-2012 09-30-2012 Episodic Medical examination/evaluatio n (2 sources) Encounter for general adult medical examination without abnormal findings; Translations: [Encounter for general adult medical examination without abnormal findings] Onset: 12-16-2016 Episodic Nonspecific chest pain (4 sources) Chest pain, unspecified; Translations: [Other chest pain] Onset: 10-28-2022 Episodic Other complications of (1 source) Asymptomatic bacteriuria in ; Translations: [Asymptomatic bacteriuria in ] Onset: 05-18-2006 Resolved: 12-21-2006 09-12-2024 Episodic Other connective tissue disease (8 sources) Plantar fasciitis; Translations: [Plantar fasciitis] Onset: 03-28-2019 03-28-2019 Episodic Other female genital disorders (2 sources) Female genital organ symptoms; Translations: [Unspecified condition associated with female genital organs and menstrual cycle] Onset: 10-22-2006 10-22-2006 Episodic Other and delivery including normal (1 source) Normal in primigravida; Translations: [Encounter for supervision of normal first , unspecified trimester] Onset: 04-15-2006 Resolved: 12-21-2006 09-12-2024 Episodic Other upper respiratory infections (4 sources) Sinusitis; Translations: [Acute maxillary sinusitis] Onset: 09-30-2012 01-07-2021 Episodic Unclassified (1 source) Bilateral endometriosis of ovaries; Translations: [Deep endometriosis of bilateral ovaries] Onset: 09-07-2024 Viral infection (3 sources) Viral disease; Translations: [Viral infection, unspecified] Onset: 07-03-2014 12-14-2022 Episodic Results Test Name Value Interpretation Reference Range Facility [facility] 10-12-2024 [facility] Telephone (GEOVANNA) MILI THOMPSON ([id number]) 1985 F Date Time Provider Department 10/12/24 ARCELIA CARDOSO During your visit today, we recorded the following information about you: Allergies As of Date: 10/12/2024 Noted Allergy Reaction BACTRIM (SULFAMETHOXAZOLE-TRIME TH*03/23/2017 14 - Other: See Comments Comments: makes me feel funny CIPRO (CIPROFLOXACIN) 05/18/2006 8 - GI Upset Date Reviewed: 06/20/2024 Reviewed by: Eliza Negro RT(R) - Fully Assessed Prescriptions as of 10/12/2024 - levothyroxine (SYNTHROID) 75 mcg tablet Take 1 tablet by mouth once daily. - escitalopram oxalate (LEXAPRO) 10 mg tablet Take 1 tablet by mouth once daily. - fluticasone (FLONASE) 50 mcg/actuation nasal spray Use 1 Markesan in each nostril once daily. 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 Pathology Reports Accession: Collected Date/Time: Received Date/Time: Pathologist: [id number] 09/07/2024 09:00 EDT 09/08/2024 08:41 EDT GIOVANNY FLETCHER MD Final Surgical Pathology Report DIAGNOSIS: RIGHT TUBE AND OVARY WITH LEFT FALLOPIAN TUBE: - ENDOMETRIOSIS CLINICAL INFORMATION: Procedure: SINGLE INCISION LAPAROSCOPIC SURGERY, RIGHT SALPINGO - OOPHORECTOMY, LEFT SALPINGECTOMY Preoperative diagnosis: RIGHT LOWER QUADRANT PAIN, ENDOMETRIOSIS OF OVARY Postoperative diagnosis: RIGHT LOWER QUADRANT PAIN, ENDOMETRIOSIS OF OVARY SPECIMEN: A RIGHT TUBE AND OVARY LEFT TUBE GROSS DESCRIPTION: All parts labelled with patient name and [id number] Received in formalin labelled right tube and ovary with left fallopian tube Are 2 undesignated fimbriated tube segments, shorter segment measuring 3 x 0.5 cm (inked black). Longer segment of fallopian tube measuring 4 x 0.6 cm. Also in the container is multiple fragments of ovarian tissue combined weighing 21 g with an aggregate measurement of 5.5 x 4 x 2.6 cm. A1 -black inked fallopian tube, A2 -longer fallopian tube, A3 -A5-traffic workforce representative right ovary. RS-5 Noah Russo, Pathologists' Dip Dyer (ASCP) Performed by NOAH RUSSO MICROSCOPIC DESCRIPTION: The microscopic examination is performed, except in the case of Gross Only. Verified by Pathology Report verified by [facility] GIOVANNY FLETCHER Sign out Date: 09/11/2024 13:35 Performing Lab: [facility], [address] [place] [address] Pathology Dept Disclaimer If ancillary studies were utilized, the following Laboratory Developed Test (LDT) disclaimer will apply: Under CLIA requirements, [facility] is qualified to perform high complexity testing. For all ancillary stains, positive and negative controls stain appropriately. Performance characteristics of immunohistochemical and chromogenic in-situ hybridization tests have been determined by [facility]. These tests are used for clinical purposes, They should not be regarded as investigational or for research. . Normal [facility] .Auto Diffon 09-07-2024 Basophil, Absolute 0.1 10 3/mcL Normal 0.0-0.3 [facility] Comment on above: Performed By: #### A BOGEL, CBC, ABSGEL, ADIFF, ANEU #### [address] [address] Basophils/100 WBC (Bld) 1.1 % Normal 0.0-2.5 [facility] Comment on above: Performed By: #### A BOGEL, CBC, ABSGEL, ADIFF, ANEU #### [address] [address] Eosinophil, Absolute 0.3 10 3/mcL Normal 0.0-0.7 [facility] Comment on above: Performed By: #### A BOGEL, CBC, ABSGEL, ADIFF, ANEU #### [address] [address] Eosinophils/100 WBC (Bld) 5.9 % Normal 0.0-6.0 [facility] Comment on above: Performed By: #### A BOGEL, CBC, ABSGEL, ADIFF, ANEU #### [address] [address] Lymphocyte, Absolute 1.5 10 3/mcL Normal 0.9-4.3 [facility] Comment on above: Performed By: #### A BOGEL, CBC, ABSGEL, ADIFF, ANEU #### [address] [address] Lymphocytes/100 WBC (Bld) 31.8 % Normal 20.0-40.0 [facility] Comment on above: Performed By: #### A BOGEL, CBC, ABSGEL, ADIFF, ANEU #### [address] [address] Monocyte, Absolute 0.5 10 3/mcL Normal 0.1-1.4 [facility] Comment on above: Performed By: #### A BOGEL, CBC, ABSGEL, ADIFF, ANEU #### [address] [address] Monocytes/100 WBC (Bld) 9.6 % Normal 2.0-13.0 [facility] Comment on above: Performed By: #### A BOGEL, CBC, ABSGEL, ADIFF, ANEU #### [address] [address] Neutrophils/100 WBC (Bld) 51.6 % Normal 50.0-75.0 [facility] Comment on above: Performed By: #### A BOGEL, CBC, ABSGEL, ADIFF, ANEU #### [address] [address] .NEUABSon 09-07-2024 Neutrophil, Absolute 2.4 10 3/mcL Normal 2.3-8.1 [facility] Comment on above: Performed By: #### A BOGEL, CBC, ABSGEL, ADIFF, ANEU #### [address] [address] ABO/Rh (Gel)on 09-07-2024 ABO/Rh Interp Positive Invalid Interpretation Code [facility] Comment on above: Performed By: #### A BOGEL, CBC, ABSGEL, ADIFF, ANEU #### [address] [address] ABS (Gel)on 09-07-2024 ABSC Interp (Gel) Negative Normal [facility] Comment on above: Performed By: #### A EMANUEL, CBC, ABSGEL, ADIFF, ANEU #### [address] [address] CBCon 09-07-2024 Erythrocyte distribution width (RBC) [Ratio] 14.0 % Normal 11.5-15.5 [facility] Comment on above: Performed By: #### A EMANUEL, CBC, ABSGEL, ADIFF, ANEU #### [place] [address] Hematocrit (Bld) [Volume fraction] 42.5 % Normal 34.0-46.0 [facility] Comment on above: Performed By: #### A EMANUEL, CBC, ABSGEL, ADIFF, ANEU #### [place] [address] Hgb 14.3 G/dL Normal 12.0-16.0 [facility] Comment on above: Performed By: #### A OCTAVIAEL, CBC, ABSGEL, ADIFF, ANEU #### [address] [address] MCH (RBC) [Entitic mass] 27.3 pg Normal 27.0-33.0 [facility] Comment on above: Performed By: #### A OCTAVIAEL, CBC, ABSGEL, ADIFF, ANEU #### [place] [address] MCHC 33.7 G/dL Normal 32.0-36.0 [facility] Comment on above: Performed By: #### A OCTAVIAEL, CBC, ABSGEL, ADIFF, ANEU #### [place] [address] MCV (RBC) [Entitic vol] 80.8 fL Normal 80.0-99.0 [facility] Comment on above: Performed By: #### A OCTAVIAEL, CBC, ABSGEL, ADIFF, ANEU #### [place] [address] Platelet 340 10 3/mcL Normal 150-450 [facility] Comment on above: Performed By: #### A OCTAVIAEL, CBC, ABSGEL, ADIFF, ANEU #### [place] [address] Platelet mean volume (Bld) [Entitic vol] 8.0 fL Normal 6.6-10.5 [facility] Comment on above: Performed By: #### A OCTAVIAEL, CBC, ABSGEL, ADIFF, ANEU #### [place] [address] RBC 5.26 10 6/mcL Normal 4.10-5.30 [facility] Comment on above: Performed By: #### A OCTAVIAEL, CBC, ABSGEL, ADIFF, ANEU #### [place] [address] WBC 4.7 10 3/mcL Normal 4.5-10.8 [facility] Comment on above: Performed By: #### A OCTAVIAEL, CBC, ABSGEL, ADIFF, ANEU #### [place] [address] LABORATORYOrdered By: Jose De Jesus Li on 09-07-2024 ABO and Rh group Nom (Bld) Blood group A Rh(D) positive Invalid Interpretation Code AO BB Auto SS Blood group antibody screen Ql Negative ABSC (09/07/24 7:13 AM) Normal AO BB Auto SS HCG ( test) Ql Negative (09/07/24 7:13 AM) Normal AO Manual Urine SS test (u) int Not detected Invalid Interpretation Code AO Manual Urine SS LABORATORYOrdered By: SYSTEM SYSTEM on 09-07-2024 Basophils (Bld) [#/Vol] 0.1 103/mcL Normal 0.0 - 0.3 10^3/mcL AO Workflow SS Basophils/100 WBC (Bld) 1.1 % Normal 0.0 - 2.5 % AO Workflow SS Eosinophil, Absolute 0.3 103/mcL Normal 0.0 - 0 .7 10^3/mcL AO Workflow SS Eosinophils/100 WBC (Bld) 5.9 % Normal 0.0 - 6.0 % AO Workflow SS Erythrocyte distribution width (RBC) [Ratio] 14.0 % Normal 11.5 - 15.5 % AO Workflow SS Hematocrit (Bld) [Volume fraction] 42.5 % Normal 34.0 - 46.0 % AO Workflow SS Hemoglobin (Bld) [Mass/Vol] 14.3 G/dL Normal 12.0 - 16.0 G/dL AO Workflow SS Lymphocytes (Bld) [#/Vol] 1.5 103/mcL Normal 0.9 - 4.3 10^3/mcL AO Workflow SS Lymphocytes/100 WBC (Bld) 31.8 % Normal 20.0 - 40.0 % AO Workflow SS MCH (RBC) [Entitic mass] 27.3 pg Normal 27.0 - 33.0 pg AO Workflow SS MCHC 33.7 G/dL Normal 32.0 - 36.0 G/dL AO Workflow SS MCV (RBC) [Entitic vol] 80.8 fL Normal 80.0 - 99.0 fL AO Workflow SS Monocytes (Bld) [#/Vol] 0.5 103/mcL Normal 0.1 - 1.4 10^3/mcL AO Workflow SS Monocytes/100 WBC (Bld) 9.6 % Normal 2.0 - 13.0 % AO Workflow SS Neutrophils (Bld) [#/Vol] 2.4 103/mcL Normal 2.3 - 8.1 10^3/mcL AO Workflow SS Neutrophils/100 WBC (Bld) 51.6 % Normal 50.0 - 75.0 % AO Workflow SS Platelet mean volume (Bld) [Entitic vol] 8.0 fL Normal 6.6 - 10.5 fL AO Workflow SS Platelets (Bld) [#/Vol] 340 103/mcL Normal 150 - 450 10^3/mcL AO Workflow SS RBC (Bld) [#/Vol] 5.26 106/mcL Normal 4.10 - 5.3 0 10^6/mcL AO Workflow SS WBC (Bld) [#/Vol] 4.7 103/mcL Normal 4.5 - 10.8 10^3/mcL AO Workflow SS PREGUon 09-07-2024 HCG ( test) Ql (U) Negative Normal [facility] Comment on above: Performed By: #### P REGU #### [place] [id number] test (u) int Not detected Invalid Interpretation Code [facility] Comment on above: Performed By: #### P REGU #### [place] [id number] [place], [place] [address] MRI PELVIS W/ +W/O CONTRASTo n 06-30-2024 MRI PELVIS W/ +W/O CONTRAST ORIGINAL EXAMINATION: MRI OF THE PELVIS WITHOUT AND WITH CONTRAST, 06/29/2024 4:03 pm TECHNIQUE: Multiplanar multisequence MRI of the pelvis was performed without and with the administration of intravenous contrast. COMPARISON: No comparison is available at time of dictation. HISTORY: Reason for exam: Right ovarian cyst noted on ultrasound performed at [facility]. FINDINGS: UTERUS: The uterus measures 8.5 x 5.7 x 5.1 cm. Borderline thickening of the junctional zone measuring 1.3 cm with heterogeneity of the myometrium. The endometrium appears heterogeneous measuring approximately 2.0 cm (4:22). CERVIX:Multiple nabothian cysts. VAGINA: Normal. RIGHT OVARY: The right ovary measures 5.5 x 3.6 x 2.1 cm. Abnormal appearance of the right ovary containing multiple T1 intrinsically hypertense lesions that demonstrate varying degrees of T2 shading. These lesions measure up to approximately 2.2 cm. There appears to be significant distension of the right fallopian tube containing T1 hyperintense material. Evaluation for enhancement is limited due to intrinsic T1 hyperintensity. No significant internal enhancement of the lesion is identified. LEFT OVARY: The left ovary measures 3.1 x 3.6 x 2.7 cm. Follicular changes are noted. There is a 2.6 cm cystic lesion within the left ovary a demonstrates peripheral wall enhancement possibly representing an involuting corpus luteal cyst. COLLECTING SYSTEM: Normal ureters, bladder, and urethra. LYMPH NODES AND MESENTERY: No pathologically enlarged pelvic lymph nodes. BONES: Normal Marrow Signal SUPERFICIAL SOFT TISSUES: Normal pelvic wall. OTHER: There is trace somewhat loculated fluid within the ureterovesical space and within the right adnexa. IMPRESSION: Multiple T1 intrinsically hyperintense lesions with T2 shading measuring up to 2.2 cm within the right ovary are favored to represent endometriomas. There appears to be associated significant right hematosalpinx. 2.6 cm left ovarian cystic lesion with peripheral wall enhancement is favored to represent a benign corpus luteal cyst. Findings suggesting mild adenomyosis. Nonspecific heterogeneous and borderline thickened appearance of the endometrium. Consider correlation with tissue sampling. Trace somewhat loculated fluid within the uterovesical space and along the right adnexa. I have personally reviewed the images of this examination and agree with the resident's findings and interpretations. Interpreted by: Giovanny Vásquez Preliminary Report By: Benjamín Ortega Electronically signed By Giovanny Vásquez Dictated Date: 06/30/2024 9:19:44 AM Prelim Date: 06/30/2024 5:33:32 PM Sign Date: 06/30/2024 5:33:32 PM Ordering Provider: DAI NOEL [facility] CBC W Auto Differential pane l (Bld)on 06-20-2024 Basophils (Bld) [#/Vol] 0.07 10*3/uL Normal <0.11 [facility] Comment on above: Order Comment: Speci men Type: BLOOD SPECIMENOrdering Facility: [facility] Address: [address] [place] [address] Performed By: #### 5 7021-8 ####[facility] LABIA [id number] [place] [address] [place] Basophils/100 WBC (Bld) 0.7 % Normal [facility] Comment on above: Order Comment: Speci men Type: BLOOD SPECIMENOrdering Facility: [facility] Address: [address] [place] [address] Performed By: #### 5 7021-8 ####[facility] LABIA [id number] [place] [address] [place] Differential cell count method Nom (Bld) Auto Normal [facility] Comment on above: Order Comment: Speci men Type: BLOOD SPECIMENOrdering Facility: [facility] Address: [address] [place] [address] Performed By: #### 5 7021-8 ####[facility] LABIA [id number] [place] [address] [place] Eosinophils (Bld) [#/Vol] 0.32 10*3/uL Normal <0.46 [facility] Comment on above: Order Comment: Speci men Type: BLOOD SPECIMENOrdering Facility: [facility] Address: [address] [place] [address] Performed By: #### 5 7021-8 ####[facility] LABIA [id number] [place] [address] [place] Eosinophils/100 WBC (Bld) 3.3 % Normal [facility] Comment on above: Order Comment: Speci men Type: BLOOD SPECIMENOrdering Facility: [facility] Address: [address] [place] [address] Performed By: #### 5 7021-8 ####[facility] LABIA [id number] [place] [address] [place] Erythrocyte distribution width (RBC) [Ratio] 13.5 % Normal 11.5-15.0 [facility] Comment on above: Order Comment: Speci men Type: BLOOD SPECIMENOrdering Facility: [facility] Address: [address] [place] [address] Performed By: #### 5 7021-8 ####[facility] [id number] [place] [address] [place] Hematocrit (Bld) [Volume fraction] 41.3 % Normal 36.0-46.0 [facility] Comment on above: Order Comment: Speci men Type: BLOOD SPECIMENOrdering Facility: [facility] Address: [address] [place] [address] Performed By: #### 5 7021-8 ####[facility] LABIA [id number] [place] [address] [place] Hemoglobin (Bld) [Mass/Vol] 13.3 g/dL Normal 11.5-15.5 [facility] Comment on above: Order Comment: Speci men Type: BLOOD SPECIMENOrdering Facility: [facility] Address: [address] [place] [address] Performed By: #### 5 7021-8 ####[facility] [id number] [address] Immature granulocytes (Bld) [#/Vol] 0.05 10*3/uL Normal <0.10 [facility] Comment on above: Order Comment: Speci men Type: BLOOD SPECIMENOrdering Facility: [facility] Address: [address] [place] [address] Performed By: #### 5 7021-8 ####[facility] LABIA [id number] [place] [address] [facility] Immature granulocytes/100 WBC (Bld) 0.5 % Normal [facility] Comment on above: Order Comment: Speci men Type: BLOOD SPECIMENOrdering Facility: [facility] Address: [address] [place] [address] Performed By: #### 5 7021-8 ####[facility] [id number] [place] [address] [place] Lymphocytes (Bld) [#/Vol] 3.00 10*3/uL Normal 1.00-4.00 [facility] Comment on above: Order Comment: Speci men Type: BLOOD SPECIMENOrdering Facility: [facility] Address: [address] [place] [address] Performed By: #### 5 7021-8 ####[facility] [id number] [address] STATES [facility] Lymphocytes/100 WBC (Bld) 30.9 % Normal [facility] Comment on above: Order Comment: Speci men Type: BLOOD SPECIMENOrdering Facility: [facility] Address: [address] [place] [address] Performed By: #### 5 7021-8 ####[facility] [id number] [place] [address] [place] MCH (RBC) [Entitic mass] 27.4 pg Normal 26.0-34.0 [facility] Comment on above: Order Comment: Speci men Type: BLOOD SPECIMENOrdering Facility: [facility] Address: [address] [place] [address] Performed By: #### 5 7021-8 ####[facility] [id number] [address] [place] MCHC (RBC) [Mass/Vol] 32.2 g/dL Normal 30.5-36.0 [facility] Comment on above: Order Comment: Speci men Type: BLOOD SPECIMENOrdering Facility: [facility] Address: [address] [place] [address] Performed By: #### 5 7021-8 ####[facility] LABIA [id number] [place] [address] [place] MCV (RBC) [Entitic vol] 85.0 fL Normal 80.0-100.0 [facility] Comment on above: Order Comment: Speci men Type: BLOOD SPECIMENOrdering Facility: [facility] Address: [address] [place] [address] Performed By: #### 5 7021-8 ####[facility] LABIA [id number] [place] [address] [place] Monocytes (Bld) [#/Vol] 0.95 10*3/uL High <0.87 [facility] Comment on above: Order Comment: Speci men Type: BLOOD SPECIMENOrdering Facility: [facility] Address: [address] [place] [address] Performed By: #### 5 7021-8 ####[facility] LABIA [id number] [place] [address] [place] Monocytes/100 WBC (Bld) 9.8 % Normal [facility] Comment on above: Order Comment: Speci men Type: BLOOD SPECIMENOrdering Facility: [facility] Address: [address] [place] [address] Performed By: #### 5 7021-8 ####[facility] LABIA [id number] [place] [address] [place] Neutrophils (Bld) [#/Vol] 5.31 10*3/uL Normal 1.45-7.50 [facility] Comment on above: Order Comment: Speci men Type: BLOOD SPECIMENOrdering Facility: [facility] Address: [address] [place] [address] Performed By: #### 5 7021-8 ####[facility] LABIA [id number] [place] [address] [place] Neutrophils/100 WBC (Bld) 54.8 % Normal [facility] Comment on above: Order Comment: Speci men Type: BLOOD SPECIMENOrdering Facility: [facility] Address: [address] [place] [address] Performed By: #### 5 7021-8 ####[facility] [id number] [place] [address] [place] Nucleated RBC (Bld) [#/Vol] 10*3/uL Normal <0.01 [facility] Comment on above: Order Comment: Speci men Type: BLOOD SPECIMENOrdering Facility: [facility] Address: [address] [place] [address] Performed By: #### 5 7021-8 ####[facility] [id number] [place] [address] [place] Nucleated RBC/100 WBC (Bld) [Ratio] 0.0 /[address] [facility] Comment on above: Order Comment: Speci men Type: BLOOD SPECIMENOrdering Facility: [facility] Address: [address] [place] [address] Performed By: #### 5 7021-8 ####[facility] [id number] [place] [address] [place] Platelet mean volume (Bld) [Entitic vol] 9.2 fL Normal 9.0-12.7 [facility] Comment on above: Order Comment: Speci men Type: BLOOD SPECIMENOrdering Facility: [facility] Address: [address] [place] [address] Performed By: #### 5 7021-8 ####[facility] [id number] [place] [address] [place] Platelets (Bld) [#/Vol] 386 10*3/uL Normal 150-400 [facility] Comment on above: Order Comment: Speci men Type: BLOOD SPECIMENOrdering Facility: [facility] Address: [address] [place] [address] Performed By: #### 5 7021-8 ####[facility] LABIA [id number] [place] [address] [place] RBC (Bld) [#/Vol] 4.86 10*6/uL Normal 3.90-5.20 [facility] Comment on above: Order Comment: Speci men Type: BLOOD SPECIMENOrdering Facility: [facility] Address: [address] [place] [address] Performed By: #### 5 7021-8 ####[facility] LABIA [id number] [place] [address] [place] WBC (Bld) [#/Vol] 9.70 10*3/uL Normal 3.70-11.00 [facility] Comment on above: Order Comment: Speci men Type: BLOOD SPECIMENOrdering Facility: [facility] Address: [address] [place] [address] Performed By: #### 5 7021-8 ####[facility] [id number] [place] [address] [facility] OF [place] CT ABD/PEL W IVCONon 025 CT ABD/PEL W IVCON * * *Final Report* * * DATE OF EXAM: Jun 20 2024 1:31AM [facility] [place]/PEL W IV[place] / PROCEDURE REASON: RLQ abdominal pain (Age >= 14y) * * * * Physician Interpretation * * * * EXAMINATION: CT ABDOMEN AND PELVIS WITH IV CONTRAST CLINICAL HISTORY: Right flank pain and right lower quadrant abdominal pain TECHNIQUE: CT of the abdomen and pelvis was performed using standard technique, scanning from just above the dome of the diaphragm to the symphysis pubis. MQ: CTAP_3 Contrast: IV: 100 ml of Omnipaque 350 : ml of CT Radiation dose: Integrated Dose-length product (DLP) for this visit = 751.5 mGy*cm. CT Dose Reduction Employed: Automated exposure control (AEC) COMPARISON: None. RESULT: Liver: No mass. Biliary: No bile duct dilation. Gallbladder is unremarkable. Spleen: No mass. No splenomegaly. Pancreas: No mass or duct dilation. Adrenals: No mass. Kidneys: Subcentimeter lesions that are too small to characterize but likely benign. Punctate, nonobstructing calculus in the left kidney (image 149/series 4). Otherwise, no nephrolithiasis, hydronephrosis or acute pyelonephritis. GI tract: No dilation or wall thickening. The distal tip of the appendix is obscured with the right ovarian mass. Otherwise, the appendix is normal with no inflammation of the mesoappendiceal fat or dilatation. Small stool burden. No pneumatosis or intra-abdominal free air. Lymph nodes: No abdominal or pelvic lymphadenopathy. Mesentery/Peritoneum: No ascites or mass. Retroperitoneum: No mass. Vasculature: - Abdominal aorta and iliac arteries: No aneurysm. - Celiac and SMA: Patent without stenosis. There is subtle stranding of fat adjacent to the celiac trunk is may suggest fibrotic changes or some inflammation with no suspicious wall thickening. - Portal venous system (SMV, splenic vein, portal vein and branches): Patent. - Hepatic veins: Pelvis: The bladder is poorly filled with no intraluminal calculi. No gross enlargement of the uterus with thickened endometrial cavity measuring 1.6 cm with a fluid tracking into the endocervical canal. Multilocular right adnexal cystic mass measuring 7.6 cm containing septations and some calcifications. Recommend further characterization with pelvic ultrasound with Doppler preferably during this admission. The left ovary is prominent in size and containing 2.2 cm cyst. Bones/Soft Tissues: No compression deformities in the spine. No bowel containing ventral or inguinal hernia. Lower thorax: The heart size is normal. Subpleural compressive atelectasis in the dependent regions of the lower lobes. No pericardial effusion, pneumothorax or pleural effusion. Localizer images: No additional findings. IMPRESSION: 7.6 cm, multilocular right adnexal cystic mass can be concerning for neoplastic process. Recommend further imaging with pelvic ultrasound with Doppler. The distal tip of the appendix is obscured by the right adnexal mass. Otherwise, the appendix is normal with no findings to suggest acute appendicitis. No bowel obstruction, pneumatosis or intra-abdominal free air. Nonobstructive, punctate, left nephrolithiasis with no hydronephrosis or findings to suggest acute obstructive uropathy. Yard Pilot: DARRIUS Transcribe Date/Time: Jun 20 2024 3:17A Dictated by : SAURAV AVALOS MD This examination was interpreted and the report reviewed and electronically signed by: SAURAV AVALOS MD on Jun 20 2024 3:25AM EST [id number] Normal [facility] Comprehensive metabolic 2000 panelon 06-20-2024 Albumin [Mass/Vol] 4.0 g/dL Normal 3.9-4.9 [facility] Comment on above: Order Comment: Speci men Type: BLOOD SPECIMENOrdering Facility: [facility] Address: [address] [place] [address] Performed By: #### 2 4323-8, 3040-3 ####[facility] LABCLIA [id number] [place] [address] [place] ALP [Catalytic activity/Vol] 66 U/L Normal 34-123 [facility] Comment on above: Order Comment: Speci men Type: BLOOD SPECIMENOrdering Facility: [facility] Address: [address] [place] [address] Performed By: #### 2 4323-8, 3040-3 ####[facility] LABCLIA [id number] [place] [address] [place] ALT [Catalytic activity/Vol] 21 U/L Normal 7-38 [facility] Comment on above: Order Comment: Speci men Type: BLOOD SPECIMENOrdering Facility: [facility] Address: [address] [place] [address] Performed By: #### 2 4323-8, 3040-3 ####[facility] LABCLIA [id number] [place] [address] [place] Anion gap [Moles/Vol] 9 mmol/L Normal 8-15 [facility] Comment on above: Order Comment: Speci men Type: BLOOD SPECIMENOrdering Facility: [facility] Address: [address] [place] [address] Performed By: #### 2 4323-8, 3040-3 ####[facility] LABCLIA [id number] [place] [address] [place] AST [Catalytic activity/Vol] 19 U/L Normal 13-35 [facility] Comment on above: Order Comment: Speci men Type: BLOOD SPECIMENOrdering Facility: [facility] Address: [address] [place] [address] Performed By: #### 2 4323-8, 0-3 ####[facility] LABCLIA [id number] [place] [address] [place] Bilirubin [Mass/Vol] 0.2 mg/dL Normal 0.2-1.3 [facility] Comment on above: Order Comment: Speci men Type: BLOOD SPECIMENOrdering Facility: [place] Address: [address] [place] [address] Performed By: #### 2 4323-8, 3039-3 ####[facility] LABIA [id number] [place] [address] [place] Calcium [Mass/Vol] 9.3 mg/dL Normal 8.5-10.2 [facility] Comment on above: Order Comment: Speci men Type: BLOOD SPECIMENOrdering Facility: [facility] Address: [address] [place] [address] Performed By: #### 2 4323-8, 3039-3 ####[facility] [id number] [place] [address] [place] Chloride [Moles/Vol] 100 mmol/L Normal 98-107 [facility] Comment on above: Order Comment: Speci men Type: BLOOD SPECIMENOrdering Facility: [facility] Address: [address] [place] [address] Performed By: #### 2 4323-8, 3039-3 ####[facility] LABIA [id number] [place] [address] [place] CO2 [Moles/Vol] 26 mmol/L Normal 22-30 [facility] Comment on above: Order Comment: Speci men Type: BLOOD SPECIMENOrdering Facility: [facility] Address: [address] [place] [address] Performed By: #### 2 4323-8, 0-3 ####[facility] LABIA [id number] [place] [address] [place] Creatinine [Mass/Vol] 0.78 mg/dL Normal 0.58-0.96 [facility] Comment on above: Order Comment: Speci men Type: BLOOD SPECIMENOrdering Facility: [facility] Address: [address] [place] [address] Performed By: #### 2 4323-8, 0-3 ####[facility] LABCLIA [id number] [place] [address] [place] Creatinine and Glomerular filtration rate.predicted panel (S/P/Bld) 98 mL/min/1.73m??? Normal >=60 [facility] Comment on above: Order Comment: Dae men Type: BLOOD SPECIMENOrdering Facility: [facility] Address: [address] [place] [address] Result Comment: Sarah mated Glomerular Filtration Rate (eGFR) is calculated using the 2020 CKD-EPI creatinine equation. This equation utilizes serum creatinine, sex, and age as parameters. The creatinine assay has traceable calibration to isotope dilution-mass spectrometry. Refer to KDIGO guidelines for clinical interpretation. In patients with unstable renal function, e.g. those with acute kidney injury, the eGFR may not accurately reflect actual GFR. Performed By: #### 2 4323-8, 0-3 ####[facility] LABIA [id number] [place] [address] [place] Glucose [Mass/Vol] 93 mg/dL Normal 74-99 [facility] Comment on above: Order Comment: Dae alex Type: BLOOD SPECIMENOrdering Facility: [facility] Address: [address] [place] [address] Result Comment: The [place] [employer] (ADA) provides guidance for cutoff values for fasting glucose and random glucose. The ADA defines fasting as no caloric intake for at least 8 hours. Fasting plasma glucose results between 100 to 125 mg/dL indicate increased risk for diabetes (prediabetes). Fasting plasma glucose results greater than or equal to 126 mg/dL meet the criteria for diagnosis of diabetes. In the absence of unequivocal hyperglycemia, results should be confirmed by repeat testing. In a patient with classic symptoms of hyperglycemia or hyperglycemic crisis, random plasma glucose results greater than or equal to 200 mg/dL meet the criteria for diagnosis of diabetes. Reference: Standards of Medical Care in Diabetes 2016, [place] [employer]. Diabetes Care. 2016.39(Suppl 1). Performed By: #### 2 4323-8, 3040-3 ####[facility] LABIA [id number] [place] [address] [place] Potassium [Moles/Vol] 4.0 mmol/L Normal 3.7-5.1 [facility] Comment on above: Order Comment: Speci men Type: BLOOD SPECIMENOrdering Facility: [facility] Address: [address] [place] [address] Performed By: #### 2 4323-8, 304-3 ####[facility] [id number] [place] [address] [place] Protein [Mass/Vol] 7.0 g/dL Normal 6.3-8.0 [facility] Comment on above: Order Comment: Speci men Type: BLOOD SPECIMENOrdering Facility: [facility] Address: [address] [place] [address] Performed By: #### 2 4323-8, 3039-3 ####[facility] [id number] [place] [address] [place] Sodium [Moles/Vol] 135 mmol/L Low 136-144 [facility] Comment on above: Order Comment: Speci men Type: BLOOD SPECIMENOrdering Facility: [place] Address: [address] [place] [address] Performed By: #### 2 4323-8, 0-3 ####[facility] LABIA [id number] [place] [address] [place] Urea nitrogen [Mass/Vol] 13 mg/dL Normal 7-21 [facility] Comment on above: Order Comment: Speci men Type: BLOOD SPECIMENOrdering Facility: [facility] Address: [address] [place] [address] Performed By: #### 2 4323-8, 3040-3 ####[facility] LABIA [id number] [place] [address] [place] ED NOTEon 06-20-2024 ED NOTE HNO ID: [id number] Author: LOPEZ, MARISSA, RN Service: Nursing Author Type: Registered Nurse Type: ED Notes Filed: 06/20/2024 02:30 Note Text: Received report from Clau Cochran RN. [facility] ED NOTE HNO ID: [id number] Author: RUFINO MARIN RN Service: ? Author Type: Registered Nurse Type: ED Notes Filed: 06/20/2024 00:10 Note Text: Pt with right sided flank pain radiating through the front. Pt unable to sleep tonight due to pain. [facility] ED PROV NOTEon 06-20-2024 ED PROV NOTE HNO ID: [id number] Author: TAO HAN MD Service: ? Author Type: Physician Type: ED Provider Notes Filed: 06/20/2024 06:39 Note Text: ED CONTINUATION OF CARE NOTE Code Status: Full Code Assumed care from: Dr. Srinivasan Presentation / Findings / Interventions / Plan / Items to Follow Up: This patient was signed out to me pending an abdominal CT. Abdominal CT does show a 7.6 cm multilocular right adnexal cystic mass which could be concerning for a neoplastic process. Therefore I did order a pelvic ultrasound. This shows an enlarged right ovary containing complex multilocular cystic lesion 6.8 cm. There are venous and arterial flow and waveforms to the bilateral ovaries. Patient felt much better after administration of Toradol. Therefore I do feel patient is appropriate for outpatient follow-up. Clinical Impressions as of 06/20/24 0640 Cyst of right ovary Medical Decision Making SIGNATURE: Tao Han MD PATIENT NAME: Mili Thompson DATE: June 20, 2024 TIME: 6:39 AM PAGER/CONTACT #: TAO HAN 06/20/24 0639 [facility] ED PROV NOTE HNO ID: [id number] Author: VERO SRINIVASAN DO Service: ? Author Type: Physician Type: ED Provider Notes Filed: 06/20/2024 00:59 Note Text: ED Provider Note Patient Name: Mili Thompson : 1985 SERVICE DATE: 06/20/24 History Patient presents with: Flank Pain Patient is a 39-year-old female presenting to the emergency department chief complaint of right sided pain and right lower quadrant pain. Patient states that this started almost 3 hours ago. She states she was lying in bed when it started. She was fine before that. She states the pain fluctuates in intensity has little bit of nausea associated with it. She states it starts in her low back radiates down to her right lower quadrant. She denies any dysuria frequency or urgency. She admits to nausea but no vomiting. She states she has a history of ovarian cyst rupturing but this feels different. She is never had kidney stone before. She denies any vaginal discharge vaginal bleeding or concerns for STDs. She states the pain does not get worse with movement. She denies any pain going down her legs. She denies any loss of bowel or bladder function. She states the pain is on the right side. She states she is never had anything quite like this before. 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: No PAST MEDICAL HISTORY Diagnosis Date Hypothyroidism Migraine, unspecified, with intractable migraine, so stated, without mention of status migrainosus Migraine Urinary tract infection, site not specified Recurrent UTI's PAST SURGICAL HISTORY Procedure Laterality Date REMOVAL OF TONSILS,<12 Y/O Tonsillectomy FAMILY HISTORY Problem Relation Age of Onset Thyroid Mother other (breast lumps) Mother benign Asthma Father Emphysema Father Diabetes Maternal Grandmother Diabetes Paternal Grandmother Cervical Cancer Paternal Grandmother Heart Paternal Grandfather IN Asthma Brother Social History Tobacco Use Smoking status: Never Smokeless tobacco: Never Substance and Sexual Activity Alcohol use: Yes Comment: once a month,NOT WHILE Drug use: No Sexual activity: Yes Partners: Male ALLERGIES Allergen Reactions Bactrim [Sulfametho* Other: See Comments makes me feel funny Cipro [Ciprofloxaci* GI Upset Review of Systems All other systems reviewed and are negative. Physical Exam Vitals [06/20/24 0011] BP Pulse Temp Temp src Resp SpO2 Weight Height 159/86 64 36.2 ?C (97.2 ?F) -- 16 97 % 87.8 kg (193 lb 9 oz) -- Physical Exam Vitals and nursing note reviewed. Constitutional: General: She is not in acute distress. Appearance: Normal appearance. She is not ill-appearing, toxic-appearing or diaphoretic. HENT: Head: Normocephalic and atraumatic. Mouth/Throat: Mouth: Mucous membranes are moist. Pharynx: Oropharynx is clear. Eyes: General: No scleral icterus. Conjunctiva/sclera: Conjunctivae normal. Cardiovascular: Rate and Rhythm: Normal rate and regular rhythm. Pulses: Normal pulses. Heart sounds: No murmur heard. Pulmonary: Effort: Pulmonary effort is normal. Breath sounds: Normal breath sounds. No stridor. No wheezing or rhonchi. Abdominal: General: Abdomen is flat. There is no distension. Palpations: Abdomen is soft. Tenderness: There is abdominal tenderness. There is no right CVA tenderness, left CVA tenderness, guarding or rebound. Comments: Right lower quadrant and right low back tenderness. No CVA tenderness. No midline tenderness or vertebral step-offs. Musculoskeletal: General: No swelling. Right lower leg: No edema. Left lower leg: No edema. Skin: General: Skin is warm and dry. Capillary Refill: Capillary refill takes less than 2 seconds. Findings: No rash. Neurological: General: No focal deficit present. Mental Status: She is alert. Mental status is at baseline. Psychiatric: Mood and Affect: Mood normal. Behavior: Behavior normal. Diagnostic Testing ED Labs Ordered and Reviewed - No data to display Procedures ED Course / Clinical Impression MDM / Disposition / Plan Patient was hemodynamically stable nonseptic nontoxic upon arrival. This point my differential diagnosis includes but is not limited to kidney stone, pyelonephritis, ectopic , ovarian cyst rupture, ovarian torsion. At this point I am to get lab work, and can start with CT scan of then pelvis get a urinalysis. Here chemistry panel did not show any significant abnormality CBC was unremarkable test was negative urinalysis did not show any obvious signs of infection lipase was normal. At this point patient is pending CT scan of then pelvis. Patient signed over to my colleague Dr. Han. I did discuss the case with Dr. Han. I felt as though if the CAT scan does not show any any etiology of the patient's symptoms that I would order a pelvic ultrasound tofurther evaluate for possible ovarian pathology S (more content not included)... Normal [facility] HCG QUALITATIVEon 06-20-2024 HCG, QUALITATIVE Negative Normal Negative [facility] Comment on above: Order Comment: Speci men Type: BLOOD SPECIMENOrdering Facility: [facility] Address: [address] [place] [address] Performed By: #### H ####[facility] LABCLIA [id number] [place] [address] [place] Lipase SerPl-cCncon 06-20-19 25 Lipase [Catalytic activity/Vol] 31 U/L Normal 16-61 [facility] Comment on above: Order Comment: Speci men Type: BLOOD SPECIMENOrdering Facility: [facility] Address: [address] [place] [address] Performed By: #### 2 4323-8, 3040-3 ####[facility] LABCLIA [id number] [place] [address] [place] US DOPPLER COMPLETEon 2024 US DOPPLER COMPLETE * * *Final Report* * * DATE OF EXAM: Jun 20 2024 4:25AM UDU 1059 - US FEMALE PELVIS TRANSABD LTD / UDU 1060 - US FEMALE PELVIS TRANSVAG / UDU 1033 - US DOPPLER COMPLETE / PROCEDURE REASON: Ovarian torsion * * * * Physician Interpretation * * * * EXAM: US FEMALE PELVIS TRANSABD LTD, US FEMALE PELVIS TRANSVAG, US DOPPLER COMPLETE INDICATION: Ovarian torsion, right flank/right lower quadrant pain COMPARISON: CT 06/20/2024 TECHNIQUE: Grayscale transverse and sagittal transabdominal and transvaginal images were obtained of the pelvis. Transvaginal images were necessary to better assess anatomic detail. The ovaries were examined with grayscale, color Doppler, and spectral waveform analysis. FINDINGS: Uterus Orientation: Anteverted Size: 10.5 x 4.9 x 4.3 cm Mass: None Cervix: Nabothian cysts. Trace fluid in the endocervical canal. Endometrium: Thickness: 1.2 cm. Right ovary: Size: 8.4 x 7.4 x 7 cm Mass/Cyst: Multilocular cystic lesion without solid component (6.8 x 4.8 x 4.6 cm). Internal echoes and septations. Inner wall appears grossly smooth, but suboptimally assessed. Unable to assess color score. Vascularity: Venous and arterial color flow and waveforms to the right ovary. Left ovary: Size: 3.5 x 4 x 2.8 cm Mass/Cyst: None Other: Normal sonographic appearance. Vascularity: Venous and arterial color flow and waveforms to the left ovary. Free fluid: No free fluid. IMPRESSION: 1. Enlarged right ovary containing complex multilocular cystic lesion (6.8 cm). Suggest gynecologic consult and short term follow-up ultrasound or MRI, if not excised. 2. Unable to exclude intermittent right ovarian torsion/detorsion in the proper clinical setting. ACTIONABLE RESULT: FOLLOW-UP Acuity: Actionable Findings: Female reproductive tract (pelvis, adnexa) Routing code: [email or web address] Recommendation: Unlisted Recommendation (see report) Time Frame: At the discretion of the clinical team. COMMUNICATION: Results will be communicated with the ordering provider via [employer] staff message or phone message by [facility] within 2 business days of report finalization. --END OF FINDING-- Yard Pilot: [email or web address] Transcribe Date/Time: Jun 20 2024 6:08A Dictated by : JENNIFER CHIANG MD This examination was interpreted and the report reviewed and electronically signed by: JENNIFER CHIANG MD on Jun 20 2024 6:25AM EST [id number] ACTIONABLE Invalid Interpretation Code [facility] US FEMALE PELVIS TRANSABD LT Don 06-20-2024 US FEMALE PELVIS TRANSABD LTD * * *Final Report* * * DATE OF EXAM: Jun 20 2024 4:25AM UDU 1059 - US FEMALE PELVIS TRANSABD LTD / UDU 1060 - US FEMALE PELVIS TRANSVAG / UDU 1033 - US DOPPLER COMPLETE / PROCEDURE REASON: Ovarian torsion * * * * Physician Interpretation * * * * EXAM: US FEMALE PELVIS TRANSABD LTD, US FEMALE PELVIS TRANSVAG, US DOPPLER COMPLETE INDICATION: Ovarian torsion, right flank/right lower quadrant pain COMPARISON: CT 06/20/2024 TECHNIQUE: Grayscale transverse and sagittal transabdominal and transvaginal images were obtained of the pelvis. Transvaginal images were necessary to better assess anatomic detail. The ovaries were examined with grayscale, color Doppler, and spectral waveform analysis. FINDINGS: Uterus Orientation: Anteverted Size: 10.5 x 4.9 x 4.3 cm Mass: None Cervix: Nabothian cysts. Trace fluid in the endocervical canal. Endometrium: Thickness: 1.2 cm. Right ovary: Size: 8.4 x 7.4 x 7 cm Mass/Cyst: Multilocular cystic lesion without solid component (6.8 x 4.8 x 4.6 cm). Internal echoes and septations. Inner wall appears grossly smooth, but suboptimally assessed. Unable to assess color score. Vascularity: Venous and arterial color flow and waveforms to the right ovary. Left ovary: Size: 3.5 x 4 x 2.8 cm Mass/Cyst: None Other: Normal sonographic appearance. Vascularity: Venous and arterial color flow and waveforms to the left ovary. Free fluid: No free fluid. IMPRESSION: 1. Enlarged right ovary containing complex multilocular cystic lesion (6.8 cm). Suggest gynecologic consult and short term follow-up ultrasound or MRI, if not excised. 2. Unable to exclude intermittent right ovarian torsion/detorsion in the proper clinical setting. ACTIONABLE RESULT: FOLLOW-UP Acuity: Actionable Findings: Female reproductive tract (pelvis, adnexa) Routing code: WH_1 Recommendation: Unlisted Recommendation (see report) Time Frame: At the discretion of the clinical team. COMMUNICATION: Results will be communicated with the ordering provider via [employer] staff message or phone message by [facility] within 2 business days of report finalization. --END OF FINDING-- Yard Pilot: [email or web address] Transcribe Date/Time: Jun 20 2024 6:08A Dictated by : JENNIFER CHIANG MD This examination was interpreted and the report reviewed and electronically signed by: JENNIFER CHIANG MD on Jun 20 2024 6:25AM EST [id number] ACTIONABLE Invalid Interpretation Code [facility] US FEMALE PELVIS TRANSVAGon 06-20-2024 US FEMALE PELVIS TRANSVAG * * *Final Report* * * DATE OF EXAM: Jun 20 2024 4:25AM UDU 1059 - US FEMALE PELVIS TRANSABD LTD / UDU 1060 - US FEMALE PELVIS TRANSVAG / UDU 1033 - US DOPPLER COMPLETE / PROCEDURE REASON: Ovarian torsion * * * * Physician Interpretation * * * * EXAM: US FEMALE PELVIS TRANSABD LTD, US FEMALE PELVIS TRANSVAG, US DOPPLER COMPLETE INDICATION: Ovarian torsion, right flank/right lower quadrant pain COMPARISON: CT 06/20/2024 TECHNIQUE: Grayscale transverse and sagittal transabdominal and transvaginal images were obtained of the pelvis. Transvaginal images were necessary to better assess anatomic detail. The ovaries were examined with grayscale, color Doppler, and spectral waveform analysis. FINDINGS: Uterus Orientation: Anteverted Size: 10.5 x 4.9 x 4.3 cm Mass: None Cervix: Nabothian cysts. Trace fluid in the endocervical canal. Endometrium: Thickness: 1.2 cm. Right ovary: Size: 8.4 x 7.4 x 7 cm Mass/Cyst: Multilocular cystic lesion without solid component (6.8 x 4.8 x 4.6 cm). Internal echoes and septations. Inner wall appears grossly smooth, but suboptimally assessed. Unable to assess color score. Vascularity: Venous and arterial color flow and waveforms to the right ovary. Left ovary: Size: 3.5 x 4 x 2.8 cm Mass/Cyst: None Other: Normal sonographic appearance. Vascularity: Venous and arterial color flow and waveforms to the left ovary. Free fluid: No free fluid. IMPRESSION: 1. Enlarged right ovary containing complex multilocular cystic lesion (6.8 cm). Suggest gynecologic consult and short term follow-up ultrasound or MRI, if not excised. 2. Unable to exclude intermittent right ovarian torsion/detorsion in the proper clinical setting. ACTIONABLE RESULT: FOLLOW-UP Acuity: Actionable Findings: Female reproductive tract (pelvis, adnexa) Routing code: WH_1 Recommendation: Unlisted Recommendation (see report) Time Frame: At the discretion of the clinical team. COMMUNICATION: Results will be communicated with the ordering provider via [employer] staff message or phone message by [facility] within 2 business days of report finalization. --END OF FINDING-- Yard Pilot: [email or web address] Transcribe Date/Time: Jun 20 2024 6:08A Dictated by : JENNIFER CHIANG MD This examination was interpreted and the report reviewed and electronically signed by: JENNIFER CHIANG MD on Jun 20 2024 6:25AM EST [id number] ACTIONABLE Invalid Interpretation Code [facility] Urinalysis complete panel (U )on 06-20-2024 Bacteria LM.HPF (Urine sed) [#/Area] Rare Abnormal None Seen [facility] Comment on above: Order Comment: Speci men Type: URINE SPECIMENOrdering Facility: [facility] Address: [address] [place] [address] [place] [address] Performed By: #### 2 4356-8 ####[facility] LABCLIA [id number] [place] [address] [place] Bilirubin Ql (U) Negative Normal Negative [facility] Comment on above: Order Comment: Speci men Type: URINE SPECIMENOrdering Facility: [facility] Address: [address] [place] [address] Performed By: #### 2 4356-8 ####[facility] LABIA [id number] [place] [address] [place] Clarity (Unsp spec) Clear Normal Clear [facility] Comment on above: Order Comment: Speci men Type: URINE SPECIMENOrdering Facility: [facility] Address: [address] [place] [address] Performed By: #### 2 4356-8 ####[facility] LABIA [id number] [place] [address] [place] Color (U) Yellow Normal Yellow [facility] Comment on above: Order Comment: Speci men Type: URINE SPECIMENOrdering Facility: [facility] Address: [address] [place] [address] Performed By: #### 2 4356-8 ####[facility] LABIA [id number] [place] [address] [place] Epithelial cells LM.HPF (Urine sed) [#/Area] Few Normal [facility] Comment on above: Order Comment: Speci men Type: URINE SPECIMENOrdering Facility: [facility] Address: [address] [place] [address] Performed By: #### 2 4356-8 ####[facility] LABCLIA [id number] [place] [address] [place] Glucose Test strip (U) [Mass/Vol] Negative Normal Negative [facility] Comment on above: Order Comment: Speci men Type: URINE SPECIMENOrdering Facility: [facility] Address: [address] [place] [address] Performed By: #### 2 4356-8 ####[facility] LABCLIA [id number] [place] [address] [place] Hemoglobin Ql (U) Negative Normal Negative [facility] Comment on above: Order Comment: Speci men Type: URINE SPECIMENOrdering Facility: [facility] Address: [address] [place] [address] Performed By: #### 2 4356-8 ####[facility] LABIA [id number] [place] [address] [place] Ketones Ql (U) Negative Normal Negative [facility] Comment on above: Order Comment: Speci men Type: URINE SPECIMENOrdering Facility: [facility] Address: [address] [place] [address] Performed By: #### 2 4356-8 ####[facility] [id number] [address] [place] [facility] Leukocyte esterase Test strip Ql (U) Negative Normal Negative [facility] Comment on above: Order Comment: Speci men Type: URINE SPECIMENOrdering Facility: [facility] Address: [address] [place] [address] Performed By: #### 2 4356-8 ####[facility] [id number] [place] [address] [place] Nitrite Ql (U) Negative Normal Negative [facility] Comment on above: Order Comment: Speci men Type: URINE SPECIMENOrdering Facility: [facility] Address: [address] [place] [address] Performed By: #### 2 4356-8 ####[facility] LABIA [id number] [place] [address] [place] pH (U) 6.5 [pH] Normal 5.0-8.0 [facility] Comment on above: Order Comment: Speci men Type: URINE SPECIMENOrdering Facility: [facility] Address: [address] [place] [address] Performed By: #### 2 4356-8 ####[facility] LABIA [id number] [place] [address] [place] Protein (U) [Mass/Vol] Negative Normal Negative [facility] Comment on above: Order Comment: Speci men Type: URINE SPECIMENOrdering Facility: [facility] Address: [address] [place] [address] Performed By: #### 2 4356-8 ####[facility] LABIA [id number] [place] [address] [place] RBC LM.HPF (Urine sed) [#/Area] 0-3 /HPF Normal 0-3 /HPF [facility] Comment on above: Order Comment: Speci men Type: URINE SPECIMENOrdering Facility: [facility] Address: [address] [place] [address] Performed By: #### 2 4356-8 ####[facility] [id number] [place] [address] [place] Specific gravity (U) [Rel density] 1.015 Normal 1.005-1.030 [facility] Comment on above: Order Comment: Speci men Type: URINE SPECIMENOrdering Facility: [facility] Address: [address] [place] [address] Performed By: #### 2 4356-8 ####[facility] [id number] [place] [address] [place] [facility] Urobilinogen Ql (U) 0.2 EU/dL Normal 0.2-1.0 EU/dL [facility] Comment on above: Order Comment: Speci men Type: URINE SPECIMENOrdering Facility: [facility] Address: [address] [place] [address] Performed By: #### 2 4356-8 ####[facility] LABIA [id number] [place] [address] [place] WBC LM.HPF (Urine sed) [#/Area] 0-5 /HPF Normal 0-5 /HPF [facility] Comment on above: Order Comment: Speci men Type: URINE SPECIMENOrdering Facility: [facility] Address: [address] [place] [address] Performed By: #### 2 4356-8 ####[facility] LABIA [id number] [place] [address] [place] CBC W Auto Differential pane l (Bld)on 11-01-2023 Basophils (Bld) [#/Vol] 0.04 10*3/uL Normal <0.11 [facility] Comment on above: Order Comment: Speci men Type: BLOOD SPECIMENOrdering Facility: [facility] Address: [address] [place] [address] Performed By: #### 5 7021-8 ####[facility] LABCLIA [id number] [place] [address] [place] Basophils/100 WBC (Bld) 0.5 % Normal [facility] Comment on above: Order Comment: Speci men Type: BLOOD SPECIMENOrdering Facility: [facility] Address: [address] [place] [address] Performed By: #### 5 7021-8 ####[facility] [id number] [address] [place] [facility] Differential cell count method Nom (Bld) Auto Normal [facility] Comment on above: Order Comment: Speci men Type: BLOOD SPECIMENOrdering Facility: [facility] Address: [address] [place] [address] Performed By: #### 5 7021-8 ####[facility] LABIA [id number] [place] [address] [place] Eosinophils (Bld) [#/Vol] 0.36 10*3/uL Normal <0.46 [facility] Comment on above: Order Comment: Speci men Type: BLOOD SPECIMENOrdering Facility: [facility] Address: [address] [place] [address] Performed By: #### 5 7021-8 ####[facility] LABIA [id number] [address] [place] [facility] Eosinophils/100 WBC (Bld) 4.4 % Normal [facility] Comment on above: Order Comment: Speci men Type: BLOOD SPECIMENOrdering Facility: [facility] Address: [address] [place] [address] Performed By: #### 5 7021-8 ####[facility] LABIA [id number] [place] [address] [place] Erythrocyte distribution width (RBC) [Ratio] 13.5 % Normal 11.5-15.0 [facility] Comment on above: Order Comment: Speci men Type: BLOOD SPECIMENOrdering Facility: [facility] Address: [address] [place] [address] Performed By: #### 5 7021-8 ####[facility] LABIA [id number] [place] [address] [place] Hematocrit (Bld) [Volume fraction] 42.1 % Normal 36.0-46.0 [facility] Comment on above: Order Comment: Speci men Type: BLOOD SPECIMENOrdering Facility: [facility] Address: [address] [place] [address] Performed By: #### 5 7021-8 ####[facility] [id number] [place] [address] [place] Hemoglobin (Bld) [Mass/Vol] 13.4 g/dL Normal 11.5-15.5 [facility] Comment on above: Order Comment: Speci men Type: BLOOD SPECIMENOrdering Facility: [facility] Address: [address] [place] [address] Performed By: #### 5 7021-8 ####[facility] [id number] [place] [address] [place] Immature granulocytes (Bld) [#/Vol] 0.03 10*3/uL Normal <0.10 [facility] Comment on above: Order Comment: Speci men Type: BLOOD SPECIMENOrdering Facility: [facility] Address: [address] [place] [address] Performed By: #### 5 7021-8 ####[facility] LABIA [id number] [address] [place] Immature granulocytes/100 WBC (Bld) 0.4 % Normal [facility] Comment on above: Order Comment: Speci men Type: BLOOD SPECIMENOrdering Facility: [facility] Address: [address] [place] [address] Performed By: #### 5 7021-8 ####[facility] LABIA [id number] [address] Lymphocytes (Bld) [#/Vol] 2.70 10*3/uL Normal 1.00-4.00 [facility] Comment on above: Order Comment: Speci men Type: BLOOD SPECIMENOrdering Facility: [facility] Address: [address] [place] [address] Performed By: #### 5 7021-8 ####[facility] LABIA [id number] [address] Lymphocytes/100 WBC (Bld) 32.8 % Normal [facility] Comment on above: Order Comment: Speci men Type: BLOOD SPECIMENOrdering Facility: [facility] Address: [address] [place] [address] Performed By: #### 5 7021-8 ####[facility] [id number] [address] STATES [facility] MCH (RBC) [Entitic mass] 27.6 pg Normal 26.0-34.0 [facility] Comment on above: Order Comment: Speci men Type: BLOOD SPECIMENOrdering Facility: [facility] Address: [address] [place] [address] Performed By: #### 5 7021-8 ####[facility] LABIA [id number] [address] MCHC (RBC) [Mass/Vol] 31.8 g/dL Normal 30.5-36.0 [facility] Comment on above: Order Comment: Speci men Type: BLOOD SPECIMENOrdering Facility: [facility] Address: [address] [place] [address] Performed By: #### 5 7021-8 ####[facility] [id number] [address] MCV (RBC) [Entitic vol] 86.8 fL Normal 80.0-100.0 [facility] Comment on above: Order Comment: Speci men Type: BLOOD SPECIMENOrdering Facility: [facility] Address: [address] [place] [address] Performed By: #### 5 7021-8 ####[facility] LABCLIA [id number] [place] [address] [place] Monocytes (Bld) [#/Vol] 0.89 10*3/uL High <0.87 [facility] Comment on above: Order Comment: Speci men Type: BLOOD SPECIMENOrdering Facility: [facility] Address: [address] [place] [address] Performed By: #### 5 7021-8 ####[facility] LABIA [id number] [address] [place] Monocytes/100 WBC (Bld) 10.8 % Normal [facility] Comment on above: Order Comment: Speci men Type: BLOOD SPECIMENOrdering Facility: [facility] Address: [address] [place] [address] Performed By: #### 5 7021-8 ####[facility] LABIA [id number] [place] [address] [place] Neutrophils (Bld) [#/Vol] 4.22 10*3/uL Normal 1.45-7.50 [facility] Comment on above: Order Comment: Speci men Type: BLOOD SPECIMENOrdering Facility: [facility] Address: [address] [place] [address] Performed By: #### 5 7021-8 ####[facility] LABIA [id number] [place] [address] [place] Neutrophils/100 WBC (Bld) 51.1 % Normal [facility] Comment on above: Order Comment: Speci men Type: BLOOD SPECIMENOrdering Facility: [facility] Address: [address] [place] [address] Performed By: #### 5 7021-8 ####[facility] LABIA [id number] [place] [address] [place] Nucleated RBC (Bld) [#/Vol] 10*3/uL Normal <0.01 [facility] Comment on above: Order Comment: Speci men Type: BLOOD SPECIMENOrdering Facility: [facility] Address: [address] [place] [address] Performed By: #### 5 7021-8 ####[facility] LABIA [id number] [place] [address] [place] Nucleated RBC/100 WBC (Bld) [Ratio] 0.0 /[address] [facility] Comment on above: Order Comment: Speci men Type: BLOOD SPECIMENOrdering Facility: [facility] Address: [address] [place] [address] Performed By: #### 5 7021-8 ####[facility] [id number] [address] [place] Platelet mean volume (Bld) [Entitic vol] 9.6 fL Normal 9.0-12.7 [facility] Comment on above: Order Comment: Speci men Type: BLOOD SPECIMENOrdering Facility: [facility] Address: [address] [place] [address] Performed By: #### 5 7021-8 ####[facility] [id number] [place] [address] [place] Platelets (Bld) [#/Vol] 343 10*3/uL Normal 150-400 [facility] Comment on above: Order Comment: Speci men Type: BLOOD SPECIMENOrdering Facility: [facility] Address: [address] [place] [address] Performed By: #### 5 7021-8 ####[facility] LABIA [id number] [place] [address] [place] RBC (Bld) [#/Vol] 4.85 10*6/uL Normal 3.90-5.20 [facility] Comment on above: Order Comment: Speci men Type: BLOOD SPECIMENOrdering Facility: [facility] Address: [address] [place] [address] Performed By: #### 5 7021-8 ####[facility] LABCLIA [id number] [place] [address] [place] WBC (Bld) [#/Vol] 8.24 10*3/uL Normal 3.70-11.00 [facility] Comment on above: Order Comment: Speci men Type: BLOOD SPECIMENOrdering Facility: [facility] Address: [address] [place] [address] Performed By: #### 5 7021-8 ####[facility] LABCLIA [id number] [place] [address] [place] [facility] [place] Comprehensive metabolic 2000 panelon 11-01-2023 Albumin [Mass/Vol] 4.0 g/dL Normal 3.9-4.9 [facility] Comment on above: Order Comment: Speci men Type: BLOOD SPECIMENOrdering Facility: [facility] Address: [address] [place] [address] Performed By: #### 1 9123-9, 79365-2, [id number] ####[facility] LABIA [id number] [place] [address] [place] ALP [Catalytic activity/Vol] 81 U/L Normal 34-123 [facility] Comment on above: Order Comment: Speci men Type: BLOOD SPECIMENOrdering Facility: [facility] Address: [address] [place] [address] Performed By: #### 1 9123-9, 00912-3, [id number] ####[facility] LABCLIA [id number] [place] [address] [place] [facility] ALT [Catalytic activity/Vol] 54 U/L High 7-38 [facility] Comment on above: Order Comment: Speci men Type: BLOOD SPECIMENOrdering Facility: [facility] Address: [address] [place] [address] Performed By: #### 1 9123-9, 01246-5, [id number] ####[facility] LABCLIA [id number] [place] [address] [place] Anion gap [Moles/Vol] 11 mmol/L Normal 8-15 [facility] Comment on above: Order Comment: Speci men Type: BLOOD SPECIMENOrdering Facility: [facility] Address: [address] [place], [place] [address] Performed By: #### 1 9123-9, 33852-2, [id number] ####[facility] LABCLIA [id number] [place] [address] [place] AST [Catalytic activity/Vol] 36 U/L High 13-35 [facility] Comment on above: Order Comment: Speci men Type: BLOOD SPECIMENOrdering Facility: [facility] Address: [address] [place] [address] Performed By: #### 1 9123-9, 42771-8, [id number] ####[facility] LABCLIA [id number] [place] [address] [place] Bilirubin [Mass/Vol] 0.2 mg/dL Normal 0.2-1.3 [facility] Comment on above: Order Comment: Speci men Type: BLOOD SPECIMENOrdering Facility: [place] Address: [address] [place] [address] Performed By: #### 1 9123-9, 77194-5, [id number] ####[facility] LABCLIA [id number] [place] [address] [place] Calcium [Mass/Vol] 8.9 mg/dL Normal 8.5-10.2 [facility] Comment on above: Order Comment: Speci men Type: BLOOD SPECIMENOrdering Facility: [facility] Address: [address] [place], [place] [address] Performed By: #### 1 9123-9, 19046-5, [id number] ####[facility] LABCLIA [id number] [place] [address] [place] Chloride [Moles/Vol] 101 mmol/L Normal 98-107 [facility] Comment on above: Order Comment: Speci men Type: BLOOD SPECIMENOrdering Facility: [facility] Address: [address] [place], [place] [address] Performed By: #### 1 9123-9, 81398-2, [id number] ####[facility] LABCLIA [id number] [place] [address] [place] CO2 [Moles/Vol] 23 mmol/L Normal 22-30 [facility] Comment on above: Order Comment: Speci men Type: BLOOD SPECIMENOrdering Facility: [facility] Address: [address] [place] [address] Performed By: #### 1 9123-9, , [id number] ####[facility] LABCLIA [id number] [place] [address] [place] Creatinine [Mass/Vol] 0.83 mg/dL Normal 0.58-0.96 [facility] Comment on above: Order Comment: Speci men Type: BLOOD SPECIMENOrdering Facility: [facility] Address: [address] [place] [address] Performed By: #### 1 9123-9, , [id number] ####[facility] [id number] [place] [address] [place] Creatinine and Glomerular filtration rate.predicted panel (S/P/Bld) 92 mL/min/1.73m??? Normal >=60 [facility] Comment on above: Order Comment: Speci men Type: BLOOD SPECIMENOrdering Facility: [facility] Address: [address] [place] [address] Result Comment: Sarah mated Glomerular Filtration Rate (eGFR) is calculated using the 2020 CKD-EPI creatinine equation. This equation utilizes serum creatinine, sex, and age as parameters. The creatinine assay has traceable calibration to isotope dilution-mass spectrometry. Refer to KDIGO guidelines for clinical interpretation. In patients with unstable renal function, e.g. those with acute kidney injury, the eGFR may not accurately reflect actual GFR. Performed By: #### 1 9123-9, , [id number] ####[facility] LABCLIA [id number] [place] [address] [place] Glucose [Mass/Vol] 92 mg/dL Normal 74-99 [facility] Comment on above: Order Comment: Speci men Type: BLOOD SPECIMENOrdering Facility: [facility] Address: [address] [place] [address] Result Comment: The [place] [employer] (ADA) provides guidance for cutoff values for fasting glucose and random glucose. The ADA defines fasting as no caloric intake for at least 8 hours. Fasting plasma glucose results between 100 to 125 mg/dL indicate increased risk for diabetes (prediabetes). Fasting plasma glucose results greater than or equal to 126 mg/dL meet the criteria for diagnosis of diabetes. In the absence of unequivocal hyperglycemia, results should be confirmed by repeat testing. In a patient with classic symptoms of hyperglycemia or hyperglycemic crisis, random plasma glucose results greater than or equal to 200 mg/dL meet the criteria for diagnosis of diabetes. Reference: Standards of Medical Care in Diabetes 2016, [place] [employer]. Diabetes Care. 2016.39(Suppl 1). Performed By: #### 1 9123-9, 21122-8, [id number] ####[facility] LABCLIA [id number] [place] [address] [place] Potassium [Moles/Vol] 4.0 mmol/L Normal 3.7-5.1 [facility] Comment on above: Order Comment: Speci men Type: BLOOD SPECIMENOrdering Facility: [facility] Address: [address] [place] [address] Performed By: #### 1 9123-9, 42179-1, [id number] ####[facility] LABCLIA [id number] [place] [address] [place] Protein [Mass/Vol] 7.1 g/dL Normal 6.3-8.0 [facility] Comment on above: Order Comment: Speci men Type: BLOOD SPECIMENOrdering Facility: [facility] Address: [address] [place] [id number] Performed By: #### 1 9123-9, 08497-9, [id number] ####[facility] LABCLIA [id number] [place] [address] [place] Sodium [Moles/Vol] 135 mmol/L Low 136-144 [facility] Comment on above: Order Comment: Speci men Type: BLOOD SPECIMENOrdering Facility: [facility] Address: [address] [place] [address] Performed By: #### 1 9123-9, 79963-7, [id number] ####[facility] LABCLIA [id number] [place] [address] [facility] Urea nitrogen [Mass/Vol] 11 mg/dL Normal 7-21 [facility] Comment on above: Order Comment: Speci men Type: BLOOD SPECIMENOrdering Facility: [facility] Address: [address] [place], [place] [address] Performed By: #### 1 9123-9, 52386-7, [id number] ####[facility] LABCLIA [id number] [place] [address] [facility] ECG COMPLETEon 11-01-2023 ECG COMPLETE Ventricular Rate : 6 0 BPM Atrial Rate : 60 BPM P-R Interval : 114 ms QRS Duration : 74 ms Q-T Interval : 408 ms QTC Calculation(Bazett) : 408 ms Calculated P [employer] [place] : 27 degrees Calculated R [employer] [place] : 30 degrees Calculated T [place] : 24 degrees Normal sinus rhythm No significant ST segment changes Nonischemic ECG No previous ECGs available Confirmed by SARAH NIXON DO ([id number]) on 11/02/2023 12:24:31 AM NAME : MILI THOMPSON PID : [id number] : 1985 Gender : Female Race : ORD : [id number] Procedure Date : Nov 01 2023 20:08:37 Edit Date : Nov 02 2023 00:24:34 Diagnosis: Normal sinus rhythm No significant ST segment changes Nonischemic ECG No previous ECGs available Confirmed by SARAH NIXON DO ([id number]) on 11/02/2023 12:24:31 AM Test Reason : HCS Location : 3 : ED Overread By : SARAH NIXON DO Edited By : SARAH NIXON DO Referred By : , Acquired by : eduarda [facility] ED NOTEon 11-01-2023 ED NOTE HNO ID: [id number] Author: ZEUS MARES, RN Service: Nursing Author Type: Registered Nurse Type: ED Notes Filed: 11/01/2023 22:40 Note Text: PT IN ED ROOM 3 FROM TRIAGE. PER PT SHE HAS BEEN HAVING CP THAT STARTED TODAY AROUND 1730 AND RADIATED TO HER BACK. PT HAS HX OF ACID REFLUX AND STATES THIS PAIN SHE HAS IS NOTHING LIKE ACID REFLUX. PT STATES THE PAIN WAS PRESSURE AND DISCOMFORT. PT STATES SHE HAS FAMILY HX OF IN, NONE HERSELF THOUGH. BILATERAL LUNG SOUNDS CLEAR IN BOTH BASES. HEART SOUNDS S1,S2. VITAL SIGNS OBTAINED, DISTRICT COURT JUDGE APPLIED. CALL LIGHT WITHIN REACH, Normal [facility] ED PROV NOTEon 11-01-2023 ED PROV NOTE HNO ID: [id number] Author: SARAH NIXON DO Service: Emergency Medicine Author Type: Physician Type: ED Provider Notes Filed: 11/02/2023 00:02 Note Text: ED Provider Note Patient Name: Mili Thompson : 1985 SERVICE DATE: 11/01/23 History Patient presents with: Chest Pain: Pain between shoulder blades and in chest since 1729 Ms. Thompson is a 38-year-old female who presents to the ED for evaluation of chest pain. Patient states that she was in earlier today when she developed an epigastric abdominal pain that radiated towards her back. Patient states that she had similar chest pain about a year ago. Her symptoms were ultimately attributed to acid reflux but she has been taking omeprazole daily without much change to her symptoms. Patient states that she ate some spicy food last night but had an overall normal set of meals today. Patient states that when she went home she tried to lie down and this seemed to make the pain worse. Patient denied any significant associated nausea, vomiting or diaphoresis. Denies significant associated shortness of breath. Patient states she has some family history of heart disease however she has no known issues herself. She reported a normal stress test and echocardiogram about 1 year ago. Patient has any calf pain, lower extremity swelling, known malignancy, recent surgery, recent travel, hormone use, hemoptysis or prior DVT/PE. Patient denies any recent cough or illness. Denies any associated fever or chills. Denies any numbness or weakness in her extremities. Patient states that her symptoms are currently quite improved. PAST MEDICAL HISTORY Diagnosis Date Hypothyroidism Migraine, unspecified, with intractable migraine, so stated, without mention of status migrainosus Migraine Urinary tract infection, site not specified Recurrent UTI's PAST SURGICAL HISTORY Procedure Laterality Date REMOVAL OF TONSILS,<12 Y/O Tonsillectomy FAMILY HISTORY Problem Relation Age of Onset Thyroid Mother other (breast lumps) Mother benign Asthma Father Emphysema Father Diabetes Maternal Grandmother Diabetes Paternal Grandmother Cervical Cancer Paternal Grandmother Heart Paternal Grandfather [place] Asthma Brother Social History Tobacco Use Smoking status: Never Smokeless tobacco: Never Substance and Sexual Activity Alcohol use: Yes Comment: once a month,NOT WHILE Drug use: No Sexual activity: Yes Partners: Male ALLERGIES Allergen Reactions Bactrim [Sulfametho* Other: See Comments makes me feel funny Cipro [Ciprofloxaci* GI Upset Review of Systems All pertinent positives and negatives as per HPI, otherwise negative. Physical Exam Vitals [11/01/232001] BP Pulse Temp Temp src Resp SpO2 Weight Height 135/105 80 36.5 ?C (97.7 ?F) Oral 20 100 % 89.9 kg (198 lb 3.1 oz) 1.549 m (5' 1) Physical Exam Vitals and nursing note reviewed. Constitutional: General: She is not in acute distress. Appearance: She is not ill-appearing, toxic-appearing or diaphoretic. HENT: Head: Normocephalic. Nose: Nose normal. No congestion. Mouth/Throat: Mouth: Mucous membranes are moist. Eyes: General: No scleral icterus. Pupils: Pupils are equal, round, and reactive to light. Cardiovascular: Rate and Rhythm: Normal rate and regular rhythm. Pulses: Normal pulses. Heart sounds: No murmur heard. Comments: Distal pulses equal and intact in all four extremities. No calf pain or peripheral edema. Pulmonary: Effort: Pulmonary effort is normal. No respiratory distress. Breath sounds: Normal breath sounds. Abdominal: General: Abdomen is flat. Tenderness: There is no abdominal tenderness. There is no guarding. Comments: No abdominal tenderness to palpation Musculoskeletal: General: No swelling or deformity. Normal range of motion. Cervical back: Normal range of motion. No tenderness. Skin: General: Skin is warm. Capillary Refill: Capillary refill takes less than 2 seconds. Findings: No rash. Neurological: General: No focal deficit present. Mental Status: She is alert and oriented to person, place, and time. Motor: No weakness. Psychiatric: Mood and Affect: Mood normal. Behavior: Behavior normal. Diagnostic Testing ED Labs Ordered and Reviewed COMPLETE BLOOD COUNT AND DIFFERENTIAL - Abnormal; Notable for the following components: Result Value Ref Range Abs Davis 0.89 (*) <0.87 k/uL All other components within normal limits COMPREHENSIVE METABOLIC PANEL - Abnormal; Notable for the following components: AST 36 (*) 13 - 35 U/L ALT 54 (*) 7 - 38 U/L Sodium 135 (*) 136 - 144 mmol/L All other components within normal limits MAGNESIUM - Normal HIGH SENSITIVITY TROPONIN T (INITIAL) - Normal HIGH SENSITIVITY TROPONIN T (SECOND) Procedures ED Course / Clinical Impression Clinical Impressions as of 11/01/23 2338 Chest pain of uncertain etiology MDM / Di (more content not included)... Normal [facility] HIGH SENSITIVITY TROPONIN T (INITIAL)on 11-01-2023 Troponin T.cardiac High sensitivity method [Mass/Vol] <6 Normal <12 [facility] Comment on above: Order Comment: Dae johnson Type: BLOOD SPECIMENOrdering Facility: [facility] Address: [address] [place] [address] Result Comment: When assessing risk for acute coronary syndromes: In patients undergoing blood draw greater than or equal to 2 hours from symptom onset, with history of very low to moderate risk and non-ischemic ECG, an initial hs-Troponin T less than 12 ng/L AND a 1 hour delta hs-Troponin T less than 3 ng/L should be considered very low risk for 30 day MACE. Performed By: #### 1 9123-9, 41313-0, [id number] ####[facility] LABCLIA [id number] [address] [facility] HIGH SENSITIVITY TROPONIN T (SECOND)on 11-01-2023 Troponin T.cardiac High sensitivity method [Mass/Vol] <6 Normal <12 [facility] Comment on above: Order Comment: Dae johnson Type: BLOOD SPECIMENOrdering Facility: [facility] Address: [address] [place] [address] Result Comment: When assessing risk for acute coronary syndromes: In patients undergoing blood draw greater than or equal to 2 hours from symptom onset, with history of very low to moderate risk and non-ischemic ECG, an initial hs-Troponin T less than 12 ng/L AND a 1 hour delta hs-Troponin T less than 3 ng/L should be considered very low risk for 30 day MACE. Performed By: #### L [id number] ####[facility] LABCLIA [id number] [place] [address] [facility] [place] Magnesium SerPl-mCncon 10-31 Magnesium [Mass/Vol] 2.0 mg/dL Normal 1.7-2.3 [facility] Comment on above: Order Comment: Speci men Type: BLOOD SPECIMENOrdering Facility: [facility] Address: [address] [place] [address] [place] [address] Performed By: #### 1 9123-9, 16453-3, [id number] ####[facility] LABCLIA [id number] [address] [place] XR CHEST 2V FRONTAL/LATon XR CHEST 2V FRONTAL/LAT * * *Final Report* * * DATE OF EXAM: Nov 01 2023 9:25PM UDX 5291 - XR CHEST 2V FRONTAL/LAT / PROCEDURE REASON: Chest Pain * * * * Physician Interpretation * * * * EXAMINATION: CHEST RADIOGRAPH (2 VIEW FRONTAL and LATERAL) CLINICAL HISTORY: Chest Pain MQ: [id number] EXAM DATE/TIME: 11/01/2023 9:25 PM COMPARISON: No relevant prior studies available. RESULT: Lines, tubes, and devices: None. Lungs and pleura: No consolidation. No lung mass. No pleural effusion. No pneumothorax. Cardiomediastinal silhouette: Normal cardiomediastinal silhouette. Bones and soft tissues: Unremarkable. IMPRESSION: No acute radiographic abnormality. Yard Pilot: DARRIUS Transcribe Date/Time: Nov 01 2023 9:27P Dictated by : ZEB ARANDA MD This examination was interpreted and the report reviewed and electronically signed by: ZEB ARANDA MD on Nov 01 2023 9:28PM EST [id number] Normal [facility] MA MAMMOGRAM SCREENING BILAT ERAL W/TOMOon 04-30-2023 MA MAMMOGRAM SCREENING BILATERAL W/RAOUL ORIGINAL FROM: [place] [address] [place], [place] [address] PROCEDURE FOR: MILI THOMPSON [address] [place] [address] Home: PID#: [id number] Exam#: [id number] : 1985 Age: 38 TO: UCHE ROBERTSON [address] [facility] [address] [place], [place] [address] EXAMINATION: SCREENING DIGITAL BILATERAL MAMMOGRAM WITH TOMOSYNTHESIS, 04/16/2023 TECHNIQUE: Screening mammography of the bilateral breasts was performed with tomosynthesis. 2D standard and 3D tomosynthesis combination imaging performed through both breasts in the MLO and CC projection. Computer aided detection was utilized in the interpretation of this exam. COMPARISON: None HISTORY: Screening. FINDINGS: BREAST DENSITY: Heterogeneously dense There are no significant masses or calcifications. IMPRESSION: No mammographic evidence of malignancy. Continued screening with annual mammograms is recommended. BIRADS: MAMMOGRAM BI-RADS: 1: Negative RECALL: 1 year screening RECALL TYPE: mammo LETTER SENT: Normal BI-RADS 1 and 2 Interpreted by: Jose Rafael Mckenna MD Preliminary Report By: Jose Rafael Mckenna MD Electronically signed By Jose Rafael Mckenna MD Dictated Date: 04/30/2023 9:38:03 AM Prelim Date: 04/30/2023 10:45:44 AM Sign Date: 04/30/2023 10:45:44 AM Ordering Provider: UCHE ROBERTSON CLINICAL: Outside mamms. Bobbin Handler: EMILY GRAYSON RT (R)(M) letter sent: Normal BI-RADS 1 and 2 Mammogram BI-RADS: 1 Negative Normal [facility] ([place] Emergency Department Summary on 12-15-2022 Emergency Department Summary [facility] Medical Records Department [address] [place] [address] Emergency Department Summary 12/14/22 MR#: [id number] Acct: [id number] Name: MILI THOMPSON Rep #: [id number] : 1985 37 From: Malachi Goodman DO PCP: Dr. Laurie Huynh MD Status:DEP ER Location: ED HPI History of Present Illness Chief Complaint: General Illness Informant: patient Narrative Narrative: Patient is a 37-year-old female with past medical history of hypothyroidism. She states she was at her daughter's softball game about 2 hours prior to arrival when she suddenly developed shaking chills and sensation of feeling unwell. She denies any known sick contacts and she states she has been just mild nasal congestion but denies any real cough or sore throat. She denies any concern for and she states there has been no nausea vomiting diarrhea or dysuria. However with the sudden onset of symptoms she was concerned for an infectious process and comes in for evaluation [facility] Medical History Hx: UTI (urinary tract infection) Hypothyroid Home Medications levothyroxine 75 mcg tablet 125 mcg PO DAILY 11/07/20 [History Last Taken Unknown] omeprazole 40 mg capsule,delayed release 40 mg PO DAILY 12/14/22 [History Last Taken Unknown] potassium chloride 20 mEq tablet,extended release(part/cryst) 20 meq PO DAILY 12/14/22 [History Last Taken Unknown] prednisone 20 mg tablet 40 mg (2 x 20 mg) PO DAILY 5 days #10 tabs 12/15/22 [Rx Last Taken Unknown] Allergy/AdvReac Type Severity Reaction Status Date / Time ciprofloxacin [From Cipro] AdvReac Vomiting Verified 12/14/22 21:27 Surgical History Hx of tonsillectomy Social History Smoking Status: Never smoker ROS ROS ED Constitutional Constitutional ED: Reports chills, fever(s) and subjective ENT ENT ED: Reports rhinorrhea; Denies sore throat Cardiovascular Cardiovascular: Denies chest pain Respiratory/Chest Respiratory/Chest: Denies cough or dyspnea Gastrointestinal Gastrointestinal: Denies abdominal pain, diarrhea, nausea or vomiting Genitourinary Genitourinary ED: Denies dysuria Musculoskeletal Musculoskeletal: Reports myalgias Integumentary Denies rash Neurologic Neurologic: Reports headache(s) Hematologic/Lymphatic Hematologic/Lymphatic: Denies easy bleeding or easy bruising EXAM Physical Exam Const Vital Signs: 12/14/22 21:27 12/14/22 22:41 12/14/22 23:03 Temperature 99.8 F H 99.8 F H 98 F Temperature Source Temporal Temporal Temporal Pulse Rate 105 H 105 H 100 Respiratory Rate 18 18 18 Blood Pressure 163/114 H 163/114 H 141/75 H Blood Pressure Mean 130 130 97 Pulse Ox 99 99 99 Oxygen Delivery Method Room Air Positive well nourished and well developed General Appearance ED: well developed HEENT Reports moist mucous membranes HEENT Narrative: Nasal mucosa is hyperemic and boggy slightly greatest on the right. There is cobblestoning in the posterior pharynx consistent with sinus drainage without airway edema or compromise. Bilateral TMs are retracted without secondary changes to suggest infection Eyes PERRL and EOMs intact bilaterally Neck supple Neck Narrative: No nuchal rigidity or meningeal signs present Resp normal respiratory effort and clear to auscultation bilaterally Cardio regular rate and regular rhythm GI normal to inspection, nondistended, normoactive bowel sounds, non-tender, non-distended and no masses GI Narrative: No voluntary guarding or rigidity Auscultation: normoactive bowel sounds Palpation: soft Back/Spine no CVA tenderness Extremity normal to inspection Neuro oriented x3, CN's II-XII intact bilaterally and no sensory deficits noted Sensorium / Orientation: alert Motor Exam: strength 5/5 throughout Psych mental status grossly normal Skin no rashes or lesions noted MDM MDM MDM Narrative Medical decision making narrative: Patient presented to the ER with low-grade fever. She reported sudden onset of subjective fevers and chills with mild congestion. Differential diagnosis is COVID versus other viral upper respiratory tract infection versus pneumonia or early viral versus bacterial pharyngitis. On exam breath sounds are clear she has no signs of respiratory distress she satting 98 to 100% on room air. Abdomen is soft without organ enlargement or pain and she denies any dysuria or concern for . Physical exam does not suggest a bacterial pharyngitis or signs of peritonsillar abscess or epiglottitis. Therefore at this time as her physical exam suggest she has the development of a viral upper respiratory tract infection without signs of re (more content not included)... Normal [facility] EMERGENCY REPORTon 3 EMERGENCY REPORT [facility] EMERGENCY ROOM REPORT NAME ACCOUNT SEX AGE ADMIT DISCHARGE PT MED. RECORD# NUMBER DATE DATE TYPE MILI THOMPSON [id number] F 37 10/28/22 10/29/22 2 R [id number] ROOM: 301MO DATE OF : 1985 DICTATING PHYSICIAN: Wayne Carson ADDENDUM DIAGNOSTIC DATA: D-dimer came back normal at 129. BNP normal at 14. TSH was mildly elevated at 8.13. Lipase was normal at 130. Sodium 139, potassium 3.4, chloride 103, CO2 26.5, glucose 89, BUN 15, creatinine 0.82, AST 19, alk phos 79, total bilirubin 0.2. ALT normal at 47, anion gap normal at 13. Troponin normal at 6.5. CBC showed a white count of 7.3. Hemoglobin 13.4, hematocrit 40.2, platelet count 383,000. Chest x-ray showed no acute infiltrate or failure. EMERGENCY DEPARTMENT COURSE AND TREATMENT: I did talk to Dr. Rob and explained that the nitro past I gave her here did help her chest pain. He was agreeable to admitting her as an observation status for further cardiac workup. I discussed this with the patient and she was agreeable with that treatment plan. DIAGNOSIS: Chest pain. Dictated By: Wayne Carson DO 10/29/22 00:35 JOB #: [id number] Transcribed By: angel 10/29/22 23:39 Electronically signed by: E-Sign: Dr. Wayne Carson D.O. 11/03/22 23:12 Page 1 of 1 MILI THOMPSON Emergency Room Report Normal [facility] EMERGENCY REPORT [facility] EMERGENCY ROOM REPORT NAME ACCOUNT SEX AGE ADMIT DISCHARGE PT MED. RECORD# NUMBER DATE DATE TYPE MILI THOMPSON [id number] F 37 10/28/22 10/29/22 2 R [id number] ROOM: 301NM DATE OF : 1985 DICTATING PHYSICIAN: Wayne Carson TIME SEEN: 2140 hours. HISTORY OF PRESENT ILLNESS: The patient is a 37-year-old white female complaining of rather sudden onset of midsternal chest pain that she states was severe at the time when she was driving home from [employer] today. She rated it 8-9/10. She described it as pressure and tightness and it did radiate to her back between her shoulder blades. She states that started about 1 to 2 hours ago. Now that I have given her some nitroglycerin paste, she states the pain is starting to feel better. She denied any shortness of breath to me, but her daughter at the bedside said that she looked short of breath. She denied any nausea or vomiting. Denied any diaphoresis. PAST MEDICAL HISTORY: Hypothyroidism. PAST SURGICAL HISTORY: Tonsillectomy and adenoidectomy. MEDICATIONS: Levothyroxine. ALLERGIES: Cipro. SOCIAL HISTORY: She is not a smoker. Denies alcohol or drug use. Lives at home with family. REVIEW OF SYSTEMS: Does admit to chest pain and questionable shortness of breath. Denies cough, sputum, wheezing, abdominal pain, nausea, vomiting, diarrhea, constipation, melena, hematochezia, headache, numbness, unsteady gait, weakness, neck or back pain. No joint pain. Denies any skin rashes, swelling, hives, hay fever, swollen glands. Did admit to chest pain radiating through to her back. Further review of systems is negative. PHYSICAL EXAM: Blood pressure 135/91, pulse 76, respirations 18, temperature 97.7, pulse ox 98% on room air. Weight is 197 pounds. The patient is alert and oriented x3. The patient is in no acute distress. Pleasant and cooperative. HEENT: Head appears atraumatic. Pupils are equal and reactive to light. Red reflex is intact bilaterally. Extraocular muscles are intact. No conjunctival injection. No scleral icterus or lid edema. TMs are intact bilaterally. No erythema noted. No external auditory canal edema or bleeding. Nose exhibits no rhinorrhea or epistaxis. Mucous membranes Page 1 of 2 MILI THOMPSON Emergency Room Report MILI THOMPSON : 1985 are moist. No pharyngeal erythema. Uvula is midline and elevates. NECK: Supple. Trachea is midline. No JVD or lymphadenopathy. No posterior cervical tenderness. No nuchal rigidity. LUNGS: Lungs are clear to auscultation in all lung guido. No adventitious sounds are noted. No accessory muscle use. CV: Heart rate and rhythm are regular without murmur. ABDOMEN: Soft and nontender with normoactive bowel sounds x4 quadrants. No guarding or rigidity. No rebound. No palpable abdominal masses. No hepatosplenomegaly. BACK: No midline or paraspinal region tenderness. No increased paraspinal muscle rigidity. Negative Lloyds sign. EXTREMITIES: No edema or cyanosis. Peripheral pulses are intact. No motor or sensory deficits are noted. Hand hand etcher helper are strong and symmetric. SKIN: Skin is warm and dry. No diaphoresis or rash. NEURO: The patient is alert and oriented x4. No motor or sensory deficits noted. Speech is normal. No conversational dyspnea. DIAGNOSTIC DATA: EKG was done at 2151 hours and shows normal sinus rhythm at 68 beats per minute. No acute ST segment changes were noted. [place] is approximately 30 degrees. EMERGENCY DEPARTMENT COURSE AND TREATMENT: Presently I do have a cardiac workup pending. I did give the patient some nitroglycerin paste here and she states her chest pain is resolving. Then we will reevaluate. DIAGNOSIS: Chest pain. Dictated By: Wayne Carson DO 10/28/22 23:26 JOB #: [id number] Transcribed By: angel 10/29/22 23:20 Electronically signed by: E-Sign: Dr. Wayne Carson D.O. 11/03/22 23:11 Page 2 of 2 MILI THOMPSON Emergency Room Report Normal [facility] CBC + DIFFon 10-29-2022 Baso # 0.10 x10EE3/UL Normal 0.00 - 0.10 [facility] Comment on above: Performed By: #### 2 [id number] #### [place] [address] Basophils/100 WBC (Bld) 0.7 % Normal 0.0 - 2.0 [facility] Comment on above: Performed By: #### 2 61139 #### [place] [address] CBC + DIFF Normal [facility] Comment on above: Result Comment: CBC- COMPLETE BLOOD COUNT Performed By: #### 2 63960 #### [place] [address] EO # 0.30 x10EE3/UL Normal 0.00 - 0.50 [facility] Comment on above: Performed By: #### 2 19190 #### [place] [id number] Eosinophils/100 WBC (Bld) 4.5 % Normal 0.0 - 7.0 [facility] Comment on above: Performed By: #### 2 26815 #### [place] [address] Erythrocyte distribution width (RBC) [Ratio] 13.5 % Normal 12.0 - 15.6 [facility] Comment on above: Performed By: #### 2 77479 #### [facility],[address] [place] [address] Hematocrit (Bld) [Volume fraction] 40.2 % Normal 34.0 - 46.0 [facility] Comment on above: Performed By: #### 2 65768 #### [facility],[address] [place] [address] Hemoglobin (Bld) [Mass/Vol] 13.4 g/dL Normal 12.0 - 16.0 [facility] Comment on above: Performed By: #### 2 32694 #### [facility],[address] [place] [address] Lymph # 2.60 x10EE3/UL Normal 0.80 - 2.80 [facility] Comment on above: Performed By: #### 2 95013 #### [facility],[address] [place] [address] Lymphocytes/100 WBC (Bld) 35.5 % Normal 20.0 - 45.0 [facility] Comment on above: Performed By: #### 2 82457 #### [facility],[address] [place] [address] MANUAL DIFF N/A Normal [facility] Comment on above: Performed By: #### 2 38806 #### [facility],[address] [place], [place] [id number] MCH (RBC) [Entitic mass] 28 pg Normal 27 - 33 [facility] Comment on above: Performed By: #### 2 02599 #### [facility],[address] [place] [address] MCHC 33 X10 3 Normal 32 - 36 [facility] Comment on above: Performed By: #### 2 87571 #### [facility],[address] [place] [address] MCV (RBC) [Entitic vol] 85 fL Normal 80 - 99 [facility] Comment on above: Performed By: #### 2 69931 #### [facility],[address] [place] [address] Davis # 0.70 x10EE3/UL Normal 0.20 - 1.00 [facility] Comment on above: Performed By: #### 2 74356 #### [facility],[address] [place] [address] MONOS % 9.9 % Normal 0.0 - 10.0 [facility] Comment on above: Performed By: #### 2 23443 #### [facility],[address] [place] [address] Morphology Vance (Bld) [Interp] N/A Normal [facility] Comment on above: Performed By: #### 2 25734 #### [facility],[address] [place] [address] Neut # 3.60 x10EE3/UL Normal 1.50 - 7.10 [facility] Comment on above: Performed By: #### 2 21531 #### [facility],[address] [place] [address] Neutrophils/100 WBC (Bld) 49.4 % Normal 46.0 - 76.0 [facility] Comment on above: Performed By: #### 2 54890 #### [facility],[address] [place] [address] PLATELET 383 x10EE3/UL Normal 150 - 450 [facility] Comment on above: Performed By: #### 2 38717 #### [facility],[address] [place] [address] Platelet mean volume (Bld) [Entitic vol] 8.1 fL Normal 6.6 - 10.5 [facility] Comment on above: Result Comment: AUTO MATED DIFFERENTIAL Performed By: #### 2 89419 #### [facility],[address] [place] [address]01 RBC 4.72 x 10EE6/UL Normal 4.10 - 5.30 [facility] Comment on above: Performed By: #### 2 56860 #### [facility],[address] [place] [address]113 WBC 7.3 x 10EE3/UL Normal 4.5 - 10.8 [facility] Comment on above: Performed By: #### 2 43896 #### [facility],[address] [place] [address]773 CHEST 1 VIEWon 10-29-2022 CHEST 1 VIEW [place] [address] Patient: MILI THOMPSON Phone#: : 1985 Age: 37 Gender: F Pt. Type: ER Account: [id number] Location: [facility] Ordering: WAYNE CARSON Exam Date: 10/28/2022/22:18 Family Phys: LAURIE LINO Charge Code: [id number] Physician: Sweet Grass Order #: [id number] Dose#: PROCEDURE: X-RAY CHEST 1 VIEW COMPARISON: None. INDICATIONS: Chest pain. FINDINGS: LUNGS: Normal. No significant pulmonary parenchymal abnormalities. VASCULATURE: Normal. Unremarkable pulmonary vasculature. CARDIAC: Normal. No cardiac silhouette abnormality or cardiomegaly. MEDIASTINUM: Normal. No visible mass or adenopathy. PLEURA: Normal. No effusion or pleural thickening. BONES: Normal. No fracture or visible bony lesion. OTHER: Negative. CONCLUSION: No acute disease. Dictated by: Bree Baum MD on 10/29/2022 at 9:46 Approved by: Bree Baum MD on 10/29/2022 at 9:47 Normal [facility] CMP with eGFRon 10-29-2022 AGE 37 years Normal [facility] Comment on above: Performed By: #### 2 47135 #### [facility],[address] [place] [address] 13426 Albumin [Mass/Vol] 3.4 g/dL Normal 3.4 - 5.0 [facility] Comment on above: Performed By: #### 2 07298 #### [facility],[address] [place] [address] 43750 Albumin/Globulin [Mass ratio] 0.9 {ratio} Normal 0.9 - 1.6 [facility] Comment on above: Performed By: #### 2 58803 #### [facility],[address] [place] [address] 17863 ALK PHOS 79 U/L Normal 46 - 116 [facility] Comment on above: Performed By: #### 2 68017 #### [facility],[address] [place] [address] 60724 ALT [Catalytic activity/Vol] 47 U/L Normal 14 - 59 [facility] Comment on above: Performed By: #### 2 25936 #### [facility],[address] [place] [address] 46135 Anion gap [Moles/Vol] 13 mmol/L Normal 10 - 20 [facility] Comment on above: Performed By: #### 2 74689 #### [facility],[address] [place] [address] 58363 AST [Catalytic activity/Vol] 19 U/L Normal 13 - 39 [facility] Comment on above: Performed By: #### 2 40921 #### [facility],[address] [place] [address] 9[address]80 B/C RATIO 18 ratio Normal 0 - 30 [facility] Comment on above: Performed By: #### 2 98340 #### [facility],[address] [place] [address] 02458 Bilirubin [Mass/Vol] 0.2 mg/dL Normal 0.2 - 1.0 [facility] Comment on above: Performed By: #### 2 92461 #### [facility],[address] [place] [address] 5[address]30 Calcium [Mass/Vol] 8.9 mg/dL Normal 8.5 - 10.1 [facility] Comment on above: Performed By: #### 2 70224 #### [facility],[address] [place] [address] 31706 Chloride [Moles/Vol] 103 mmol/L Normal 98 - 107 [facility] Comment on above: Performed By: #### 2 52779 #### [facility],[address] [place] [address] 64050 CMP with eGFR Normal [facility] Comment on above: Result Comment: COMP REHENSIVE METABOLIC PANEL Performed By: #### 2 58178 #### [facility],[address] [place] [address] 45524 CO2 [Moles/Vol] 26.5 mmol/L Normal 21.0 - 32.0 [facility] Comment on above: Performed By: #### 2 67540 #### [facility],[address] [place] [address] 78349 Creatinine [Mass/Vol] 0.82 mg/dL Normal 0.55 - 1.02 [facility] Comment on above: Performed By: #### 2 99761 #### [facility],[address] [place] [address]24 GFR/1.73 sq M.predicted among non-blacks MDRD (S/P/Bld) [Vol rate/Area] mL/min/{1.73_m2} Normal 60 - 999 [facility] Comment on above: Performed By: #### 2 33938 #### [facility],[address] [place] [address] Result Comment: ACCO RDING TO THE NATIONAL KIDNEY DISEASE EDUCATION PROGRAM(NKDE), A NORMAL eGFR IS A VALUE GREATER THAN OR EQUAL TO 60 ML/MIN/1.73 SQ METERS. CHRONIC KIDNEY DISEASE: <60mL/MIN/1.73 SQ METERS KIDNEY FAILURE: <15mL/MIN/1.73 SQ METERS THIS TEST SHOULD ONLY BE USED FOR PATIENTS 18 YEARS OF AGE AND OLDER. Globulin (S) [Mass/Vol] 3.7 g/dL Normal 1.5 - 3.8 [facility] Comment on above: Performed By: #### 2 48215 #### [facility],[address] [place] [address] 14252 Glucose [Mass/Vol] 89 mg/dL Normal 74 - 106 [facility] Comment on above: Performed By: #### 2 35212 #### [facility],[address] [place] [address]20 Potassium [Moles/Vol] 3.4 mmol/L Low 3.5 - 5.1 [facility] Comment on above: Performed By: #### 2 07158 #### [facility],[address] [place] [address] 05599 Protein [Mass/Vol] 7.1 g/dL Normal 6.4 - 8.2 [facility] Comment on above: Performed By: #### 2 10850 #### [facility],[address] [place] [address] 52790 Sodium [Moles/Vol] 139 mmol/L Normal 136 - 145 [facility] Comment on above: Performed By: #### 2 20071 #### [facility],[address] [place] [address] 99340 Urea nitrogen [Mass/Vol] 15 mg/dL Normal 7 - 18 [facility] Comment on above: Performed By: #### 2 68411 #### [facility],[address] [place] [address] 0[address] CORONAVIRUS PCR - [facility] 10-29-2022 SARS-CoV-2 (COVID-19) RNA MARISSA+probe Ql (Unsp spec) Negative Normal NORMAL: NEGATIVE [facility] Comment on above: Performed By: #### 2 29317 #### [facility],[address] [place] [address] 13990 SEND TO IC? NO Normal [facility] Comment on above: Result Comment: DENITA JIMENEZS FAXED TO INFECTION CONTROL. SARS-CoV-2 THIS TEST IS BEING USED UNDER THE FDA EUA PROCEDURE. THIS ASSAY HAS BEEN VALIDATED IN THE [facility] FOR USE WITH NASOPHARYNGEAL SPECIMENS IN [facility]. INTERPRETIVE DATA LABORATORY TEST RESULTS SHOULD ALWAYS BE CONSIDERED IN THE CONTEXT OF CLINICAL OBSERVATIONS AND EPIDEMIOLOGICAL DATA IN MAKING FINAL DIAGNOSIS AND PATIENT MANAGEMENT DECISIONS. PATIENT MANAGEMENT SHOULD FOLLOW CURRENT CDC GUIDELINES. A POSITIVE TEST RESULT FOR COVID-19 INDICATES THAT RNA FROM SARS-CoV-2 WAS DETECTED, AND THE PATIENT IS INFECTED WITH THE VIRUS AND PRESUMED TO BE CONTAGIOUS. A NEGATIVE TEST RESULT FOR THIS TEST MEANS THAT SARS-CoV-2 RNA WAS NOT PRESENT IN THE SPECIMEN ABOVE THE LIMIT OF DETECTION. HOWEVER, A NEGATVIE RESULT DOES NOT RULE OUT COVID-19 AND SHOULD NOT BE USED THE SOLE BASIS FOR TREATMENT OR PATIENT MANAGEMENT DECISIONS. A NEGATIVE RESULT DOES NOT EXCLUDE THE POSSIBILITY OF COVID-19. WHEN DIAGNOSTIC TESTING IS NEGATIVE, THE POSSIBLILTY OF A FALSE NEGATIVE RESULT SHOULD BE CONSIDERED IN THE CONTEXT OF A PATIENT'S RECENT EXPOSURES AND THE PRESENCE OF CLINICAL SIGNS AND SYMPTOMS CONSISTENT WITH COVID-19. THE POSSIBILITY OF A FALSE NEGATIVE RESULT SHOULD ESPECIALLY BE CONSIDERED IF THE PATIENT'S RECENT EXPOSURES OR CLINICAL PRESENTATION INDICATE THAT COVID-19 IS LIKELY, AND DIAGNOSTIC TESTS FOR OTHER CAUSES OF ILLNESS (e.g., OTHER RESPIRATORY ILLNESS) ARE NEGATIVE. IF COVID-19 IS STILL SUSPECTED BASED ON EXPOSURE HISTORY TOGETHER WITH OTHER CLINICAL FINDINGS, RE-TESTED SHOULD BE CONSIDERED BY HEALTHCARE PROVIDERS IN CONSULTATION WITH PUBLIC HEALTH AUTHORITIES. Performed By: #### 2 97030 #### [facility],[address] [place] [address] CV ECHO COMPLETE 3 CV ECHO [place] [address] Patient: MILI THOMPSON Phone#: : 1985 Age: 37 Gender: F Pt. Type: ER Account: [id number] Location: [facility] Ordering: JEREMY ROB Exam Date: 10/29/2022/9:44 Family Phys: LAURIE HUYNH Charge Code: [id number] Physician: [facility] Order #: [id number] Dose#: PROCEDURE: ECHOCARDIOGRAM WITH DOPPLER AND COLOR FLOW INDICATIONS: Chest pain COMPARISON: None. TECHNIQUE: A 2-D ultrasound, color spectral Doppler and M-mode evaluation of the heart and great vessels. PATIENT MEASUREMENTS: Height (in.): 61 BSA: 1.9 Weight (lbs.): 196 BP: 106/67 Recycle Driver: CRISTINA M MODE 2D MEASUREMENTS AND CALCULATIONS: LVIDd: 4.25 cm LVIDs: 2.66 cm IVSd: 0.98 cm LVPWd: 0.89 cm LVOT diam: 1.8 cm FS: 37.53 % Ao Root diam: 2.59 cm LA diam: 3.0 cm LA Volume Index: 18 mL/m2 LA A4 Area: 17.42 cm2 RA A4 Area: 10 cm2 RVDd: 2.87 cm TAPSE: 25 mm DOPPLER MEASUREMENTS AND CALCULATIONS MITRAL MV E MAX kang: 0.84 m/s MV A MAX kang: 0.66 m/s MV E-A ratio: 1.27 Lat Peak E' Kang 15 cm/sec Septal Peak E' KAGN 11 cm/sec AORTIC Ao V2 max: 1.44 m/s Ao max P.25 mm[Hg] Continued Report - Page 2 of 3 Patient: MILI THOMPSON Phone#: : 1985 Age: 37 Gender: F Pt. Type: ER Account: [id number] Location: [facility] Ordering: JEREMY ROB Exam Date: 10/29/2022/9:44 Family Phys: LAURIE HUYNH Charge Code: [id number] Physician: Sweet Grass Order #: [id number] Dose#: LV V1 Max 1.15 m/s LV V1 Max PG 5.29 mm[Hg] PULMONIC PA V2 Max 0.97 m/s PA Max PG 3.75 mm[Hg] TRICUSPID TR Max Kang 2.40 m/s TR max PG 23.26 mm[Hg] RVSP 26 mm Hg 2D/M-MODE AND COLOR FLOW LEFT VENTRICLE: Left ventricle is normal in size and thickness. Systolic ejection fraction is 55-60%. There are no regional wall motion abnormality seen. Diastolic function is normal WALL MOTION: 1 - Basal anterior: Normal. 7 - Mid anterior: Normal. 13 - Apical anterior: Normal. 2 - Basal anteroseptal: Normal. 8 - Mid anteroseptal: Normal. 14 - Apical septal: Normal. 3 - Basal inferoseptal: Normal. 9 - Mid inferoseptal: Normal. 15 - Apical inferior: Normal. 4 - Basal inferior: Normal. 10-Mid inferior: Normal. 16 - Apical lateral: Normal. 5 - Basal inferolateral: Normal. 11-Mid inferolateral: Normal. 6 - Basal anterolateral: Normal. 12-Mid anterolateral: Normal. RIGHT VENTRICLE: Right ventricle is normal in size and systolic function LEFT ATRIUM: Left atrium is normal size. RIGHT ATRIUM: Right atrium is normal in size. ATRIAL SEPTUM: There is no large interatrial shunt seen. PFO was not assessed. MITRAL VALVE: Mitral valve appears normal in structure. There is trivial regurgitation and no stenosis seen. TRICUSPID VALVE: Tricuspid valve appears normal in structure there is trivial regurgitation no stenosis seen. AORTIC VALVE: Aortic valve is trileaflet. There is no regurgitation or stenosis seen. PULMONIC VALVE: Pulmonic valve is inadequately visualized. Doppler shows no significant regurgitation or stenosis AORTIC ROOT: Aortic root is normal in size. AORTIC ARCH: Inadequately visualized DESC THORACIC AORTA: Inadequately visualized IVC/SVC: IVC is normal in size with more than 50% collapse of inspiration. Estimated right atrial pressure is 3 mm Hg PULMONARY VEINS: Normal pulmonic vein flow PERICARDIUM: There is no pericardial effusion seen CONCLUSION: 1. Left ventricle is normal in size and thickness. Systolic ejection fraction is 55-60% with normal wall motion. 2. There are no significant valvular dysfunction seen 3. Right ventricle is normal in size and systolic function Continued Report - Page 3 of 3 Patient: MILI THOMPSON Phone#: : 1985 Age: 37 Gender: F Pt. Type: ER Account: [id number] Location: [facility] Ordering: JEREMY ROB Exam Date: 10/29/2022/9:44 Family Phys: ANALENCHO LINO Charge Code: [id number] Physician: [facility] Grass Order #: [id number] Dose#: 4. Estimated right ventricular systolic pressure is 26 mm Hg. Dictated by: MAO MART MD on 10/29/2022 at 11:10 Approved by: MAO MART MD on 10/29/2022 at 11:18 Normal [facility] D-DIMER, QUANTITATIVEon 06- D-DIMER QUANT 129 ng/ml Normal 0 - 230 [facility] Comment on above: Performed By: #### 2 21039 #### [facility],[address] [place] [address]483 D-DIMER, QUANTITATIVE Normal [facility] Comment on above: Result Comment: HOLLEY T D-DIMER Performed By: #### 2 35276 #### [facility],[address] [place] [address]253 LIPASEon 10-29-2022 Lipase [Catalytic activity/Vol] 130.0 U/L Normal 73.0 - 393 [facility] Comment on above: Performed By: #### 2 [id number] #### [facility],[address] [place] [address] 10271 LIPID PROFILEon 10-29-2022 Cholesterol [Mass/Vol] 143 mg/dL Normal 0 - 240 [facility] Comment on above: Performed By: #### 2 [id number] #### [facility],[address] [place] [address] 77506 Cholesterol in HDL [Mass/Vol] 45 mg/dL Normal 40 - 60 [facility] Comment on above: Performed By: #### 2 [id number] #### [facility],[address] [place] [address] 43286 Cholesterol in LDL [Mass/Vol] 86 mg/dL Normal 0 - 129 [facility] Comment on above: Performed By: #### 2 36642 #### [facility],[address] [place] [address] 90542 Cholesterol.total/Ch olesterol in HDL [Mass ratio] 3.2 {ratio} Normal 0.0 - 5.0 [facility] Comment on above: Performed By: #### 2 [id number] #### [facility],[address] [place] [address] 49843 Lipid 1996 panel Normal [facility] Comment on above: Result Comment: LIPI D PROFILE Performed By: #### 2 [id number] #### [facility],[address] [place] [address] 42772 Triglyceride [Mass/Vol] 59 mg/dL Normal 0 - 150 [facility] Comment on above: Performed By: #### 2 73604 #### [facility],[address] [place], [place] [id number] NM CARDIAC STRESS (SPECT) W/ TREADMILLon 10-29-2022 NM CARDIAC STRESS (SPECT) W/TREADMILL [place] [address] Patient: MILI THOMPSON Phone#: : 1985 Age: 37 Gender: F Pt. Type: ER Account: [id number] Location: [facility] Ordering: JEREMY ROB Exam Date: 10/29/2022/7:18 Family Phys: LAURIE LINO Charge Code: [id number] Physician: Sweet Grass Order #: [id number] Dose#: PROCEDURE: CARDIAC STRESS SPECT WITH TREADMILL EXERCISE HISTORY: Patient is a 37-year-old female with chest pain COMPARISON: None. INDICATIONS: Chest pain TECHNIQUE: Resting and stress SPECT images acquired in the horizontal long, vertical long and short axis views. Protocol: Saeid Duration: 06:36 minutes Peak Heart Rate: 166 bpm, which is 91% of maximum predicted heart rate. Workload: 7.90 METs REST DOSE: 11.2 mCi Sestamibi. STRESS DOSE: 32.9 mCi Sestamibi. INTERPRETATION: Resting Images: Resting images showed mild perfusion defect in the mid to distal anterior wall which improved with stress. This probably from breast attenuation artifact as seen in rotating planar images. Stress Images: Stress images showed normal perfusion/homogeneous radiotracer uptake of the left ventricle. Gated SPECT/wall motion: Calculated ejection fraction is systolic ejection fraction 59%. There are no regional wall motion abnormality seen. TID ratio is 1.1 CONCLUSION: 1. Nuclear stress test showed no conclusive evidence of reversible ischemia or infarct. 2. The calculated ejection fraction is 59% with normal wall motion. 3. TID ratio is normal. Dictated by: MAO MART MD on 10/29/2022 at 12:00 Approved by: MAO MART MD on 10/29/2022 at 12:03 Normal [facility] NM EXERCISE STRESS TEST (W/C ARDIAC STUDYon 10-29-2022 NM EXERCISE STRESS TEST (W/CARDIAC STUDY [place] [address] Patient: MILI THOMPSON Phone#: : 1985 Age: 37 Gender: F Pt. Type: Out Account: [id number] Location: [facility] Ordering: JEREMY ROB Exam Date: 10/29/2022/7:31 Family Phys: ANALENCHO LINO Charge Code: 750691 Physician: Sweet Grass Order #: [id number] Dose#: PROCEDURE: ELECTROCARDIOGRAM STRESS TEST HISTORY: Patient is a 37-year-old female with with history of hypothyroidism COMPARISON: None. INDICATIONS: Chest pain TECHNIQUE: Electrocardiogram stress test was performed using the protocol listed below. STRESS RESULTS: Protocol: Saeid Duration: 06:36minutes Reason for termination: Dyspnea Resting Heart Rate: 61 bpm. Resting Blood Pressure: 101/61 mmHg Peak Heart Rate: 166 which is 91% of maximum predicted heart rate Peak Blood Pressure: 138/83 occurred 5:50 into exercise Workload: 7.90 METs. Symptoms with stress: Patient did not complain of any chest pain with stress. She had shortness of breath which improved during recovery. EKG Data EKG at Baseline: EKG at baseline showed sinus bradycardia at 59 BPM. Otherwise normal EKG EKG with Stress: EKG with stress showed sinus tachycardia at 164 BPM. There are no ST or T- wave changes from baseline to suggest inducible ischemia. CONCLUSION: 1. Patient did not complain of any chest pain with stress. Stress test was ended due to shortness of breath 2. Patient was able to achieve fair workload capacity. She had appropriate heart rate and blood pressure response with stress 3. Stress EKG is negative for inducible ischemia. 4. Nuclear images will be reported separately. Continued Report - Page 2 of 2 Patient: MILI THOMPSON Phone#: : 1985 Age: 37 Gender: F Pt. Type: Out Account: [id number] Location: [facility] Ordering: JEREMY ROB Exam Date: 10/29/2022/7:31 Family Phys: LAURIE HUYNH Charge Code: [id number] Physician: Sweet Grass Order #: [id number] Dose#: Dictated by: MAO MART MD on 10/29/2022 at 10:32 Approved by: MAO MART MD on 10/29/2022 at 10:34 Normal [facility] NT-proBNPon 10-29-2022 Natriuretic peptide B (Bld) [Mass/Vol] 14 pg/mL Normal 0 - 125 [facility] Comment on above: Performed By: #### 2 [id number] #### [facility],[address] [place] [address] 21238 TROPONIN I, HIGH SENSITIVITY on 10-29-2022 HS TROPONIN 4.3 pg/mL Normal 0.0 - 51.4 [facility] Comment on above: Performed By: #### 2 82523 #### [facility],[address] [place] [address] 08300 HS TROPONIN 4.2 pg/mL Normal 0.0 - 51.4 [facility] Comment on above: Performed By: #### 2 63535 #### [facility],[address] [place] [address] 14012 HS TROPONIN 6.5 pg/mL Normal 0.0 - 51.4 [facility] Comment on above: Performed By: #### 2 32669 #### [facility],[address] [place] [address] 55698 TSHon 10-29-2022 TSH Qn 8.13 m[IU]/L High 0.35 - 3.74 [facility] Comment on above: Performed By: #### 2 83631 #### [facility],[address] [place] [address] 73029 EMERGENCY REPORTon 3 EMERGENCY REPORT [facility] EMERGENCY ROOM REPORT NAME ACCOUNT SEX AGE ADMIT DISCHARGE PT MED. RECORD# NUMBER DATE DATE TYPE MILI THOMPSON [id number] F 37 05/24/22 05/24/22 3 R [id number] ROOM: ER DATE OF : 1985 DICTATING PHYSICIAN: Jeff Gonzalez HISTORY OF PRESENT ILLNESS: Mili Thompson is a 37-year-old female who presents to the emergency department with left ear pain. She states that it started over the last 2 to 3 days, and she attempted to use a cotton swab without much relief. She felt like it was impacted. She denies any tinnitus or auditory losses, otherwise well without complaints. No mastoid pain. No headaches or double vision or blurred vision. PAST MEDICAL HISTORY: Medical history is within normal limits. No acute medical problems. PAST SURGICAL HISTORY: No surgical history. ALLERGIES: No significant allergies. SOCIAL HISTORY: No recent hospitalizations. She is up-to-date on vaccinates. She is otherwise well. REVIEW OF SYSTEMS: Review of systems is pertinent for left ear pain. Remainder of the review of systems is negative. PHYSICAL EXAMINATION: GENERAL APPEARANCE: This is a 37-year-old female who appears well and is in no acute distress. She is hemodynamically stable. HEENT: Head is atraumatic and normocephalic. Ears: Left ear shows external auditory canal that is erythematous. No evidence of malignant otitis externa. TM appears erythematous and bulging. Left mastoid is nontender to palpation. Left tragus is tender to palpation. Right ear is within normal limits. Nose: No nasal septal hematoma. Throat: Uvula is midline. Oropharynx is within normal limits. NECK: No cervical adenopathy. C-spine is nontender to palpation. No step-offs or deformities. RESPIRATORY: Lungs are clear to auscultation bilaterally without wheezes, rhonchi, or rales. CARDIAC: Regular rate and rhythm. No murmurs, rubs, or gallops. ABDOMEN: Reveals a soft and nontender. No rebound or guarding. No CVA tenderness and nondistended. NEUROLOGIC: Strength and sensation is within normal limits in bilateral upper and lower extremities. Pulses 2+ in DP, PT, and radial pulses. MEDICAL DECISION MAKING/EMERGENCY DEPARTMENT COURSE AND TREATMENT: The patient is a 37-year-old female who presents to the emergency department with ear pain on the left side. She appears well and is in no acute distress. Page 1 of 2 MILI THOMPSON Emergency Room Report MILI THOMPSON : 1985 She is hemodynamically stable. Physical exam is concerning for both otitis externa and otitis media. I have a low suspicion for a mastoiditis. I have a low suspicion for necrotizing otitis externa. PLAN/DISPOSITION: I feel that the patient can be safely discharged home. She was given a dose of Augmentin here, and will be sent a prescription for Ofloxacin drops for the otitis externa. The patient was discharged in hemodynamically stable condition. Dictated By: Jeff Gonzalez DO 05/25/22 01:20 JOB #: [id number] Transcribed By: am 05/26/22 09:24 Electronically signed by: Dr. Jeff Gonzalez DO 06/16/22 15:07 Page 2 of 2 MILI THOMPSON Emergency Room Report Normal [facility] ED PROV NOTEon 11-15-2021 ED PROV NOTE HNO ID: [id number] Author: Provider [facility] Service: ? Author Type: Physician Type: ED Provider Notes Filed: 11/15/2021 5:22 AM Note Text: [place] [address] HEALTH INFORMATION MANAGEMENT EMERGENCY DEPARTMENT REPORT Patient: MILI THOMPSON SARAH NIXON D.O. [id number] 83 [id number] F Status: DEP ER ED Date of Service: 11/15/21 CHIEF COMPLAINT: 36-year-old female with chief complaint of left ear pain. HISTORY OF PRESENT ILLNESS: The patient states over the last 3 days she has had increasing left ear pain. She had traveled to a water park a few days ago and has had increasing pain since then. She states she has had swimmer's ear in the remote past, but it has been years since she had this issue. The patient denies any hearing loss or sensation of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 23-Feb-2020 04:15:[id number] PHYSICAL EXAM Image Comments: Physical Exam: Appearance: Alert, oriented , cooperative, in no acute distress. Well nourished & well hydrated. Skin: Intact, dry skin, no lesions, rash, petechiae or purpura. Eyes: PERRLA, EOMs intact, Conjunctiva pink with no redness or exudates. Sinus pressure over maxillary sinuses bilaterally right more than left cornea anterior chamber are clear, Eyelids without lesions. No scleral icterus. ENT: Hearing grossly intact. External auditory canals patent, tympanic membranes intact with visible landmarks. Nares patent, mucus membranes moist. Dentition without lesions. Pharynx clear, uvula midline. Neck: Supple, without meningismus. Thyroid not palpable. Trachea at midline. No lymphadenopathy. Pulmonary: Clear bilaterally with good chest wall excursion. No rales, rhonchi or wheezing. No accessory muscle use or stridor. Cardiac: Normal S1, S2 without murmur, rub, gallop or extrasystole. Musculoskeletal: Full range of motion. no pain, edema, or deformity. Pulses full and equal. No cyanosis, clubbing, or edema. Neurological: Appropriate for age, no weakness, no focal findings identified. Psychiatric: Appropriate mood and affect. MEDICAL DECISION MAKING/ED COURSE MDM/ED COURSE: Presentation appears to be inflammatory, infectious in process. I do not believe patient needs any imaging at this point. She was given a dose of amoxicillin, ibuprofen point sinusitis. CLINICAL IMPRESSION Diagnosis/Annotation: ED Dx Name:Acute sinusitis Code:J01.90 Dispostion: discharged ATTESTATION CRITICAL CARE TIME Is this a critically ill patient: no Electronic Signatures: Nydia Valentin) (Signed 23-Feb-2020 04:35) Authored: ED Notes, HPI, PMH, ROS, PE, Results/Vital Signs, MDM/ED Course, Clinical Impression, Attestation, Chart Review, Scores Last Updated: 23-Feb-2020 04:35 by Nydia Valentin () References: 1. Data Referenced From Triage - ED 23-Feb-2020 04:15 Normal [facility] Triage - EDon 02-23-2020 Triage - ED Quick Triage: Are You no Have You Given In The Last 6 Weeksno Are You Currently Breastfeedingno The patient and/or guardian verbally acknowledges placement for services into the following (when Urgent Care Service hours are operating):emergency department Chart Review: PRIMARY ASSESSMENT MILI THOMPSON's primary assessment is Within Defined Limits. The airway is open and patent. Breathing spontaneous and unlabored with clear breath sounds bilaterally. Circulation is normal with good peripheral pulses. Skin is warm and dry and color is normal for race. ARRIVAL INFORMATION Means of Arrival: Ambulatory Mode of Arrival: private vehicle Arrival From: home Accompanied By: self CHIEF COMPLAINT MILI THOMPSON is a Female patient with a chief complaint of headache (right sided headache started yesterday feels like sinus infection per patient.. Took pain reliever helped but then did not take anything this morning. the day before she had episode of vomiting but did resolve.). Triage Date/Time: 23-Feb-2020 04:15 Pain Rating (0-10): 7 = Severe Pain location: right head Vital Signs: Temperature: F ( C) taken oral Blood Pressure: 122/83 Mean: Heart Rate: 78 Respiratory Rate: 18 Pulse Oximetry: 97% Height: 5 feet 1.00 inches. 154.9 CM Weight: 184.3 pounds. Calculated 83.6 kg. (stated) Calculated BMI (kg/m2): 34.842 Calculated BSA (m2) 1.90 Clarissa Coma Scale: Best Eye Response: (E4) spontaneous Best Motor Response: (M6) obeys commands Best Verbal Response: (V5) oriented Huson Score: 15 Allergies: no Last menstrual period: 06-Feb-2020 Patient has homicidal thoughts: no BRYANT: 3V Symptom Notes: . Symptoms Are POSITIVE For: congestion, facial pain and photophobia. Symptoms Are Negative For: blurred vision and eye pain. Last Known Well: unknown Risk Screens Suicide Risk Screen In the Past Month: Have you wished you were or wished you could go to sleep and not wake up no In the Past Month: Have you had any actual thoughts of killing yourself no In Your Lifetime: Have you ever done anything, started to do anything, or prepared to do anything to end your life no Finch Fall Scale Screening Has the patient fallen before (or is the patient in the ED as a result of a fall) has not had a fall Does the patient have an impaired gait does not have impaired gait Is the patient cognitively impaired not cognitively impaired Interventions: Finch Fall Interventions: LOW INTERVENTIONS: *patient oriented to surroundings and call system, * patient/family falls education completed and documented, *patients fall status communicated during bedside handoff, *whiteboard updated, *mode of toileting discussed with patient, *bed in low position with brakes locked, *call light in reach, * non-skid footwear PAST MEDICAL HISTORY Immunization History: Last Known Tetanus Immunization: Unknown TRAVEL HISTORY Travel History Coronavirus Screening: no exposure or symptoms PAIN Pain Scale Used: MARINA Pain Rating (0-10): 7 = Severe Past Medical History: Past Medical History Reviewedyes hypothyroid: Past Medical History, Active Electronic Signatures: Génesis MillsDESHAWN) (Signed 23-Feb-2020 04:20) Authored: Quick Triage, Risk Screens, Pain, Arrival, ABCD, Immunizations, Chart Review, Scores, Past Medical History Last Updated: 23-Feb-2020 04:20 by Génesis Mills (DESHAWN) [facility] ANTI THYROGLOBULIN ABon - Thyroglobulin Ab Qn 3.5 [IU]/mL [facility] Comment on above: Result Comment: Thyr oglobulin Antibody measured by [employer] Methodology Reference range: 0.0 to 0.9 Unit: IU/mL PERFORMED AT [facility] Performed By: #### L T4, HANG, LTPO, LATHY ####Testing performed at [address] [place] [address] INSULIN, FASTINGon 0 INSULIN, FASTING 10.4 [facility] Comment on above: Result Comment: Refe rence range: 2.6 to 24.9 Unit: uIU/mL PERFORMED AT [facility] Performed By: #### L T4, HANG, LTPO, LATHY ####Testing performed at [address] [place] [address] THYROID PEROXIDASEon 020 TPO AB 11 [facility] Comment on above: Result Comment: Refe rence range: 0 to 34 Unit: IU/mL PERFORMED AT [facility] Performed By: #### L T4, HANG, LTPO, LATHY ####Testing performed at [address] [place] [address] THYROXINE (T4)on 01-12-2020 T4 [Mass/Vol] 4.5 ug/dL [facility] Comment on above: Result Comment: Refe rence range: 4.5 to 12.0 Unit: ug/dL PERFORMED AT [facility] Performed By: #### L T4, HANG, LTPO, LATHY ####Testing performed at [address] [place] [address] CMP FASTINGon 01-11-2020 A:G RATIO 1.2 RATIO Low 1.3-2.2 [facility] Comment on above: Performed By: #### L T4, HANG, LTPO, LATHY ####Testing performed at [facility], [id number] [place] [address] Albumin [Mass/Vol] 3.8 G/dl Normal 3.5-5.0 [facility] Comment on above: Performed By: #### L T4, HANG, LTPO, LATHY ####Testing performed at [facility], [id number] [place] [address] ALP [Catalytic activity/Vol] 64 U/L Normal 38-126 [facility] Comment on above: Performed By: #### L T4, HANG, LTPO, LATHY ####Testing performed at [facility], [id number] [place] [address] ALT [Catalytic activity/Vol] 14 U/L Normal <35 [facility] Comment on above: Performed By: #### L T4, HANG, LTPO, LATHY ####Testing performed at [facility], [id number] [place] [address] AST [Catalytic activity/Vol] 20 U/L Normal 14-36 [facility] Comment on above: Performed By: #### L T4, HANG, LTPO, LATHY ####Testing performed at [facility], [id number] [place] [address] Bilirubin [Mass/Vol] 0.5 mg/dL Normal 0.2-1.[address] [facility] Comment on above: Performed By: #### L T4, HAGN, LTPO, LATHY ####Testing performed at [facility], [id number] [place] [address] Calcium [Mass/Vol] 9.1 mg/dL Normal 8.4-10.2 [facility] Comment on above: Performed By: #### L T4, HANG, LTPO, LATHY ####Testing performed at [facility], [id number] [place] [address] Chloride [Moles/Vol] 107 mmol/L Normal 98-[address] [facility] Comment on above: Result Comment: Nani mustafa note: Triglyceride levels of 600mg/dL or higher may positively bias chloride results by approximately 2.1 mmol Performed By: #### L T4, HANG, LTPO, LATHY ####Testing performed at [address] [address] CO2 [Moles/Vol] 26 mmol/L Normal 22-30 [facility] Comment on above: Performed By: #### L T4, HANG, LTPO, LATHY ####Testing performed at [address] [address] Creatinine [Mass/Vol] 0.70 mg/dL Normal 0.7-1.2 [facility] Comment on above: Performed By: #### L T4, HANG, LTPO, LATHY ####Testing performed at [address] [address] EST. GFR, >60 [facility] Comment on above: Performed By: #### L T4, HANG, LTPO, LATHY ####Testing performed at [address] [address] EST. GFR,Non >60 [facility] Comment on above: Performed By: #### L T4, HANG, LTPO, LATHY ####Testing performed at [address] [address] GFR/1.73 sq M predicted among non-blacks MDRD (S/P/Bld) [Vol rate/Area] Average GFR for 30-39 years old = 109. Normal [facility] Comment on above: Result Comment: Inspector Raw [place] louie Kidney disease, GFR = <60. Kidney failure, GFR = <15. The GFR estimate is not adjusted for extreme body surface area or acute process, nor has it been validated for women or ethnic groups other than and . Performed By: #### L T4, HANG, LTPO, LATHY ####Testing performed at [facility], [id number] [place] [address] Glucose [Mass/Vol] 93 mg/dL Normal 70-100 [facility] Comment on above: Result Comment: NORMAL <100 mg/dL PREDIABETES 101-126 mg/dL DIABETES 126 mg/dL or higher Performed By: #### L T4, HANG, LTPO, LATHY ####Testing performed at [facility], [id number] [place] [address] Potassium [Moles/Vol] 4.1 mmol/L Normal 3.5-5.1 [facility] Comment on above: Performed By: #### L T4, HANG, LTPO, LATHY ####Testing performed at [facility], [address] [place] [address] Protein [Mass/Vol] 6.9 g/dL Normal 6.3-8.2 [facility] Comment on above: Performed By: #### L T4, HANG, LTPO, LATHY ####Testing performed at [facility], [address] [place] [address] Sodium [Moles/Vol] 138 mmol/L Normal 137-145 [facility] Comment on above: Performed By: #### L T4, HANG, LTPO, LATHY ####Testing performed at [facility], [id number] [place] [address], [place] [address] Urea nitrogen [Mass/Vol] 13 mg/dL Normal 7-20 [facility] Comment on above: Performed By: #### L T4, HANG, LTPO, LATHY ####Testing performed at [facility], [address] [place] [address] FREE T4on 01-11-2020 Free T4 [Mass/Vol] 0.95 ng/dL Normal 0.78-2.19 [facility] TSHon 01-11-2020 TSH Qn 5.300 uIU/ML High 0.46-4.68 [facility] Comment on above: Performed By: #### L T4, HANG, LTPO, LATHY ####Testing performed at [facility], [id number] [place] [address] Provider Note - ED v2on 07-15 Provider Note - ED v2 Provider Note - ED v2: Chart Review: ED NOTES ED NOTES: CC: Sore throat HPI: Ms. Garces is a 34 y/o WF presenting with c/o sore throat, nasal congestion, slight cough and sinus pressure. Symptoms have been present for 4d. Pt says symptos started after she was exposed to the elements while outside with daughter managing her broken down vehicle. Pt states it is improved only slightly with some OTC agents (ibuprofen), but finds it is persistent and nagging. Pt denies any CP, visual drainage, neck pain, ear ache, or recent travel. Pt denies drooling, difficulty tolerating ones own saliva. PT denies any N/V/D, visual disturbance, dyspnea, GARCIA, PND, or lip, tongue, cheek, or neck swelling. 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 Constitutional/General: Alert and oriented x3, well appearing. HEAD: AT/NC NOSE: + congestion, inferior turbinate engorged THROAT: no posterior pharynx asymmetry, tonsils are absent, pharynx is mildly erythematous EARS: EAC patent/no D/C and TM nonbulging/nonerythemat ous, normal mastoid exam on palpation MOUTH: left lower lip perioral lesions does not appear to be HSV (she claims is a pimple), tongue midline, uvula midline & symmetric SINUSES: NT/symmetric maxillary, frontal, ethmoid sinuses, Respiratory: nonlabored respirations, CTA on auscultation of all quadrants Cardiovascular: S1/S2 normal, RRR, no murmurs Musculoskeletal: Moves all extremities x4, warm and well perfused Integument: Skin warm and dry, no rashes. Lymphatic: No lymphadenopathy noted. Neurologic: CN II-XII intact grossly Psychiatric: Normal affect. HISTORY OF PRESENTING ILLNESS MILI is a 34 year old Female and was seen by me at 26-Jul-2019 10:50. Triage Information: Most recent Vital Sign Value Date PAST MEDICAL HISTORY ATTESTATION: I have reviewed and confirmed nurse's/medic's notes for patient's medications, allergies, medical history, and surgical history ALLERGIES/INTOLERANCES: Allergy Allergen: Cipro Type: Drug Reaction: Other HEALTH HISTORY: No documented data. 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 Encourage patient to wash hands frequently, encourage patient to cover her cough, she was prescribed an antibiotic should symptoms persist. In 7 days, she was understanding and her willingness to cooperate with recommendation. Patient was discharged. CLINICAL IMPRESSION Diagnosis/Annotation: ED Dx Name:Acute viral sinusitis Code:J01.90 Dispostion: discharged Type: home ATTESTATION CRITICAL CARE TIME Is this a critically ill patient: no Electronic Signatures: Eugene Barreto (PAC) (Signed 26-Jul-2019 11:44) Authored: Provider Note - ED v2 Last Updated: 26-Jul-2019 11:44 by Eugene Barreto (PAC) [facility] MAMMO DIAGNOSTIC WITH RAOUL B ILATERALon 06-02-2019 MAMMO DIAGNOSTIC WITH RAOUL BILATERAL EXAM: MAMMO DIAGNOSTIC WITH RAOUL BILATERAL, US BREAST LIMITED UNILATERAL RIGHT HISTORY: right breast pain Pain in the lateral aspect of the right breast. The patient does not indicate a palpable area of concern at this time. No reported family history of breast cancer. COMPARISON: None, this is the patient's baseline exam. TECHNIQUE: 2-D and 3-D tomosynthesis diagnostic mammograms of both breasts. Computer-aided detection was utilized in the interpretation. Targeted ultrasound of the right breast was performed. FINDINGS: DIAGNOSTIC BILATERAL MAMMOGRAPHY: Breast composition: The breasts are extremely dense which lowers the sensitivity of mammography. There is no dominant mass, significant asymmetry, architectural distortion, or suspicious grouping of microcalcifications. ULTRASOUND RIGHT BREAST: Ultrasound was performed in the patient's area of pain. At the area of pain, there are several simple cysts. Largest measures 0.9 x 0.5 x 0.8 cm at the 10 o'clock position. Additional cyst measures 0.6 x 0.3 x 0.2 cm at the 10 o'clock position, 0.4 x 0.2 x 0.3 cm at the 11 o'clock position, and 0.5 x 0.3 x 0.3 cm at the 9 o'clock position. There was no solid mass, distortion of the breast architecture, or abnormal areas of acoustic shadowing. IMPRESSION: 1. No mammographic evidence of malignancy. 2. Ultrasound over the patient's area of pain shows several subcentimeter cysts measuring up to 9 mm. BI-RADS 2 - Benign, no evidence of malignancy. Normal interval followup is recommended in 12 months. OVERALL ASSESSMENT- BENIGN A letter of notification will be sent to the patient regarding the results. Normal [facility] 06-02-2019 IMPRESSION: 1. No mammographic evidence of malignancy. 2. Ultrasound over the patient's area of pain shows several subcentimeter cysts measuring up to 9 mm. BI-RADS 2 - Benign, no evidence of malignancy. Normal interval followup is recommended in 12 months. OVERALL ASSESSMENT- BENIGN A letter of notification will be sent to the patient regarding the results. [facility] EXAM: MAMMO DIAGNOST IC WITH RAOUL BILATERAL, US BREAST LIMITED UNILATERAL RIGHT HISTORY: right breast pain Pain in the lateral aspect of the right breast. The patient does not indicate a palpable area of concern at this time. No reported family history of breast cancer. COMPARISON: None, this is the patient's baseline exam. TECHNIQUE: 2-D and 3-D tomosynthesis diagnostic mammograms of both breasts. Computer-aided detection was utilized in the interpretation. Targeted ultrasound of the right breast was performed. FINDINGS: DIAGNOSTIC BILATERAL MAMMOGRAPHY: Breast composition: The breasts are extremely dense which lowers the sensitivity of mammography. There is no dominant mass, significant asymmetry, architectural distortion, or suspicious grouping of microcalcifications. ULTRASOUND RIGHT BREAST: Ultrasound was performed in the patient's area of pain. At the area of pain, there are several simple cysts. Largest measures 0.9 x 0.5 x 0.8 cm at the 10 o'clock position. Additional cyst measures 0.6 x 0.3 x 0.2 cm at the 10 o'clock position, 0.4 x 0.2 x 0.3 cm at the 11 o'clock position, and 0.5 x 0.3 x 0.3 cm at the 9 o'clock position. There was no solid mass, distortion of the breast architecture, or abnormal areas of acoustic shadowing. ilab User, Interfaces - 06/02/2019 1:58 PM EST EXAM: MAMMO DIAGNOSTIC WITH RAOUL BILATERAL, US BREAST LIMITED UNILATERAL RIGHT HISTORY: right breast pain Pain in the lateral aspect of the right breast. The patient does not indicate a palpable area of concern at this time. No reported family history of breast cancer. COMPARISON: None, this is the patient's baseline exam. TECHNIQUE: 2-D and 3-D tomosynthesis diagnostic mammograms of both breasts. Computer-aided detection was utilized in the interpretation. Targeted ultrasound of the right breast was performed. FINDINGS: DIAGNOSTIC BILATERAL MAMMOGRAPHY: Breast composition: The breasts are extremely dense which lowers the sensitivity of mammography. There is no dominant mass, significant asymmetry, architectural distortion, or suspicious grouping of microcalcifications. ULTRASOUND RIGHT BREAST: Ultrasound was performed in the patient's area of pain. At the area of pain, there are several simple cysts. Largest measures 0.9 x 0.5 x 0.8 cm at the 10 o'clock position. Additional cyst measures 0.6 x 0.3 x 0.2 cm at the 10 o'clock position, 0.4 x 0.2 x 0.3 cm at the 11 o'clock position, and 0.5 x 0.3 x 0.3 cm at the 9 o'clock position. There was no solid mass, distortion of the breast architecture, or abnormal areas of acoustic shadowing. IMPRESSION IMPRESSION: 1. No mammographic evidence of malignancy. 2. Ultrasound over the patient's area of pain shows several subcentimeter cysts measuring up to 9 mm. BI-RADS 2 - Benign, no evidence of malignancy. Normal interval followup is recommended in 12 months. OVERALL ASSESSMENT- BENIGN A letter of notification will be sent to the patient regarding the results. [facility] US BREAST LIMITED UNILATERAL RIGHTon 06-02-2019 US BREAST LIMITED UNILATERAL RIGHT EXAM: MAMMO DIAGNOSTIC WITH RAOUL BILATERAL, US BREAST LIMITED UNILATERAL RIGHT HISTORY: right breast pain Pain in the lateral aspect of the right breast. The patient does not indicate a palpable area of concern at this time. No reported family history of breast cancer. COMPARISON: None, this is the patient's baseline exam. TECHNIQUE: 2-D and 3-D tomosynthesis diagnostic mammograms of both breasts. Computer-aided detection was utilized in the interpretation. Targeted ultrasound of the right breast was performed. FINDINGS: DIAGNOSTIC BILATERAL MAMMOGRAPHY: Breast composition: The breasts are extremely dense which lowers the sensitivity of mammography. There is no dominant mass, significant asymmetry, architectural distortion, or suspicious grouping of microcalcifications. ULTRASOUND RIGHT BREAST: Ultrasound was performed in the patient's area of pain. At the area of pain, there are several simple cysts. Largest measures 0.9 x 0.5 x 0.8 cm at the 10 o'clock position. Additional cyst measures 0.6 x 0.3 x 0.2 cm at the 10 o'clock position, 0.4 x 0.2 x 0.3 cm at the 11 o'clock position, and 0.5 x 0.3 x 0.3 cm at the 9 o'clock position. There was no solid mass, distortion of the breast architecture, or abnormal areas of acoustic shadowing. IMPRESSION: 1. No mammographic evidence of malignancy. 2. Ultrasound over the patient's area of pain shows several subcentimeter cysts measuring up to 9 mm. BI-RADS 2 - Benign, no evidence of malignancy. Normal interval followup is recommended in 12 months. OVERALL ASSESSMENT- BENIGN A letter of notification will be sent to the patient regarding the results. Normal [facility] Provider Note - ED v2on 05-17 Provider Note - ED v2 Provider Note - ED v2: Chart Review: ED NOTES ED NOTES: ====HPI==== Patient reports she's had 2-3 days of left ear pain. She denies any fevers any change in hearing or discharge from the ear. She denies any injury. She states that symptoms seem to be worsening each day and she has concern that there may been infection as the cause and therefore presents for evaluation Character: Severity: Mild to moderate Exacerbated by: Nothing Improved by: Nothing Recently seen by: Denies ====Review of Systems==== 10 point system review is negative except for those specifically mentioned in history of present illness ====Physical Exam==== Constitutional/General: Alert and conversant, well appearing, nontoxic, and in NAD. Head: Normocephalic and atraumatic. Eyes: PER, conjunctive normal, sclera nonicteric, subconjunctival layer is pink. Mouth: handling secretions, no trismus, moist mucous membranes Ears: Bilateral canals are normal. Right TM is normal. The left TM is retracted but has no changes to suggest infection Neck: Supple, full ROM, no stridor, no crepitus, no meningeal signs. Trachea at midline. Respiratory: not in respiratory distress. Lungs are clear to auscultation Chest: normal chest movement Musculoskeletal: Moves all extremities, warm and well perfused Integument: Skin warm and dry, no rashes. Neurologic: GCS 15, no focal deficits Psychiatric: Normal affect. ====ED Course and Medical Decision Making==== Patient arrived afebrile there were no changes to suggest otitis externa or malignant otitis. Exam showed pressure within the eustachian tube which is most likely the cause of the patient's pain. At this time I do not feel patient needs antibiotics as are no obvious changes concerning for infection or be placed on steroids to help reduce the pressure Portions of this note were dictated by speech recognition. An attempt at proof reading was made to minimize errors. Minor errors in shopper insights manager may be present. Please call if questions.. HISTORY OF PRESENTING ILLNESS MILI is a 34 year old Female and was seen by me at 27-May-2019 00:40 for a chief complaint of ear pain . Triage Information: Most recent Vital Sign Value Date Temp (F): 97.5 05-27-2019 00:50 Temp (C): 36.4 05-27-2019 00:50 Heart Rate (beats/min): 79 05-27-2019 00:50 Respirations (breaths/min): 18 05-27-2019 00:50 SpO2 (%): 98 05-27-2019 00:50 BP Systolic (mm Hg): 115 05-27-2019 00:50 BP Diastolic (mm Hg): 73 05-27-2019 00:50 PAST MEDICAL HISTORY ATTESTATION: I have reviewed and confirmed nurse's/medic's notes for patient's medications, allergies, medical history, and surgical history ALLERGIES/INTOLERANCES: Allergy Allergen: Cipro Type: Drug Reaction: Rash HEALTH HISTORY: No documented data. OUTPATIENT MEDICATIONS: Home Medications Review Status for Reconciliation: N/A Med Status: N/A No documented data. SIGNIFICANT EVENTS: No documented data. 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 Data Referenced From Triage - ED 27-May-2019 00:50 Normal [facility] Risk Screen - Adult Emergenc yon 05-27-2019 Risk Screen - Adult Emergency Preferred Language: Preferred Language: Preferred Language for Discussing Health Care (patient/designee)Cindy stevenson Advanced Directives: Advance Directive/DNRno Family Violence Adult: Abuse Screen: Are you or have you been threatened or abused physically, emotionally, or sexually by anyoneno Learning Assessment (Patient): Learning Assessment (Patient): Patient is Able to be Assessed for Learningyes Factors Influencing Readiness to Learnnone Factors that Impact Ability to Learnnone Devices/Methods Used to Communicatenone Learning Preferencesverbal instruction; written material Cultural Considerationsnone Developmental Considerationsnone Quaker Considerationsnone Other Learnersspouse Learning Assessment (Other Learner): Learning Assessment (Other Learner): Other learner availableno Pressure Injury/TB/Substance: Pressure Injury: Pressure Injury Present on Admissionno Do you have a coughno Admission Risk Screen: Significant IndicatorsComplete CAGE: CAGE: Is this an injured patient at a Trauma Center ([facility] [place] rodrigues/[place]): no Electronic Signatures: Ayala Rendon (SUPV) (Signed 27-May-2019 00:58) Authored: Preferred Language, Advanced Directives, Family Violence Adult, Learning Assessment (Patient), Learning Assessment (Other Learner), Pressure Injury/TB/Substance, CAGE Last Updated: 27-May-2019 00:58 by Ayala Rendon (SUPV) Normal [facility] T3on 05-27-2019 T3 92 ng/dL Normal 71-180 [facility] Comment on above: Result Comment: PERF ORMED AT [facility] Performed By: #### L IVR #### Testing performed at [address] [place] [address] #### LT3 #### Testing performed at [facility] [address] [place] [address] [place] [address] Triage - EDon 05-27-2019 Triage - ED Quick Triage: Are You no Have You Given In The Last 6 Weeksno Are You Currently Breastfeedingno Chart Review: CHIEF COMPLAINT MILI THOMPSON is a Female patient with a chief complaint of ear pain. Onset of the Complaint: 25-May-2019 Triage Date/Time: 27-May-2019 00:50 Pain Rating (0-10): 7 = Severe Pain location: lt ear Vital Signs: Temperature: 97.5F ( 36.4C) taken oral Blood Pressure: 115/73 Mean: Heart Rate: 79 Respiratory Rate: 18 Pulse Oximetry: 98% on room air, no respiratory support. Height: 5 feet 1.00 inches. 154.9 CM Weight: 168.0 pounds. Calculated 76.2 kg. (stated) Calculated BMI (kg/m2): 31.757 Calculated BSA (m2) 1.81 Cough lasting greater than 3 weeks: no Patient immunocompromised related to: N/A Travel outside of [place]: no Allergies: yes Last menstrual period: 08-May-2019 Patient has homicidal thoughts: no BRYANT: 4 Risk Screens Suicide Risk Screen In the Past Month: Have you wished you were or wished you could go to sleep and not wake up no In the Past Month: Have you had any actual thoughts of killing yourself no In Your Lifetime: Have you ever done anything, started to do anything, or prepared to do anything to end your life no Finch Fall Scale Screening Has the patient fallen before (or is the patient in the ED as a result of a fall) has not had a fall Does the patient have an impaired gait does not have impaired gait Is the patient cognitively impaired not cognitively impaired Interventions: Finch Fall Interventions: low interventions except: patient oriented to surroundings and call system PAIN Pain Scale Used: MARINA Pain Rating (0-10): 7 = Severe Past Medical History: Past Medical History Reviewedyes Electronic Signatures: Ayala Rendon (SUPV) (Signed 27-May-2019 00:56) Authored: Triage, Past Medical History Last Updated: 27-May-2019 00:56 by Ayala Rendon (SUP) [facility] FAX REQUESTon 05-26-2019 FAX TO [facility] Comment on above: Performed By: #### T 42 #### [place] [address] FAX TO [facility] Comment on above: Performed By: #### L IVR #### [place] [address] #### LT3 #### Testing performed at [facility] [address] [place] [address] FREE T4on 05-26-2019 Free T4 [Mass/Vol] 1.04 ng/dL Normal 0.78-2.19 [facility] Comment on above: Performed By: #### T 42 #### [place] [address] LIVER PANELon 05-26-2019 Albumin [Mass/Vol] 4.3 g/dL Normal 2.9-5.3 [facility] Comment on above: Performed By: #### L IVR #### Testing performed at [address] [address] #### LT3 #### Testing performed at [address] [place] [address] ALP [Catalytic activity/Vol] 57 U/L Normal 38-126 [facility] Comment on above: Performed By: #### L IVR #### Testing performed at [address] [address] #### LT3 #### Testing performed at [facility] [address] [place], [place] [address] [place] [address] ALT [Catalytic activity/Vol] 15 U/L Normal 9-52 [facility] Comment on above: Performed By: #### L IVR #### Testing performed at [address] [address] #### LT3 #### Testing performed at [address] [place] [address] AST [Catalytic activity/Vol] 18 U/L Normal 14-36 [facility] Comment on above: Performed By: #### L IVR #### Testing performed at [address] [address] #### LT3 #### Testing performed at [address] [place] [address] Bilirubin [Mass/Vol] 0.4 mg/dL Normal 0.2-1.[address] [facility] Comment on above: Performed By: #### L IVR #### Testing performed at [address] [address] #### LT3 #### Testing performed [address] [facility] [place] [address] Bilirubin.direct [Mass/Vol] 0.0 mg/dL Normal 0-0.4 [facility] Comment on above: Performed By: #### L IVR #### Testing performed at [address] [place] [address] #### LT3 #### Testing performed at [address] [address] Protein [Mass/Vol] 7.4 g/dL Normal 6.3-8.2 [facility] Comment on above: Performed By: #### L IVR #### Testing performed at [address] [address] #### LT3 #### Testing performed at [address] [address] SENDOUT TESTon 05-26-2019 SENDOUT TEST EBV ANTIBODY PROFILE [id number] [facility] Normal [facility] Comment on above: Performed By: #### L IVR #### Testing performed at [address] [address] #### LT3 #### Testing performed at [address] [address] FAX REQUESTon 05-19-2019 FAX TO Normal [facility] TSHon 05-19-2019 TSH Qn 3.710 uIU/ML Normal 0.46-4.68 [facility] LOWER EXTREMITY INJECTION: r ight plantar fasciaon 02-28-2019 Luana Emerson PM 02/28/2019 2:53 PM LOWER EXTREMITY INJECTION: right plantar fascia Date/Time: 02/28/2019 2:37 PM Supporting Documentation Indications: pain Procedure Details Procedure: tendon sheath / ligament injection Location: foot - right plantar fascia Needle size: 25 G Approach: plantar (medial-plantar) Medication Verification: I have personally verified and performed the final check of the medication(s) used in this procedure prior to administration. The following items were included during the verification process for medication(s) administered: drug name, strength, volume, expiration, physical integrity and appearance of the medication(s). Medications administered: 0.5 mL triamcinolone 40 MG/ML; 2 mg dexamethasone 4 MG/ML Patient tolerance: patient tolerated the procedure well with no immediate complications Consent: Consent was obtained prior to the procedure after discussion of the risks, benefits and alternatives, and expected outcomes were discussed with the patient. The possibilities of reaction to medication, bleeding, infection, the need for additional procedures, failure to diagnosis a condition, and creating a complication requiring operation were discussed with the patient. The patient concurred with the proposed plan, giving consent. Patient was prepped in the usual sterile fashion with chlorhexidine [facility] Otheron 02-22-2019 IMPRESSION: No acute osseous abnormality. Mild degenerative change of the first MTP joint. Mild calcaneal enthesopathy. [facility] EXAM: XR FOOT RIGHT THREE VIEWS HISTORY: Right foot pain. COMPARISON: None. TECHNIQUE: Three views are performed FINDINGS: The bone mineralization is normal. There is no acute fracture or subluxation. There is mild degenerative change involving the first MTP joint as evidenced by small osteophyte formation. There is mild calcaneal enthesopathy. No destructive osseous lesion is identified. [facility] User, Interfaces - 02/22/2019 3:58 PM EDT EXAM: XR FOOT RIGHT THREE VIEWS HISTORY: Right foot pain. COMPARISON: None. TECHNIQUE: Three views are performed FINDINGS: The bone mineralization is normal. There is no acute fracture or subluxation. There is mild degenerative change involving the first MTP joint as evidenced by small osteophyte formation. There is mild calcaneal enthesopathy. No destructive osseous lesion is identified. IMPRESSION IMPRESSION: No acute osseous abnormality. Mild degenerative change of the first MTP joint. Mild calcaneal enthesopathy. [facility] XR FOOT RIGHT 3 VIEWSon XR FOOT RIGHT 3 VIEWS EXAM: XR FOOT RIGHT THREE VIEWS HISTORY: Right foot pain. COMPARISON: None. TECHNIQUE: Three views are performed FINDINGS: The bone mineralization is normal. There is no acute fracture or subluxation. There is mild degenerative change involving the first MTP joint as evidenced by small osteophyte formation. There is mild calcaneal enthesopathy. No destructive osseous lesion is identified. IMPRESSION: No acute osseous abnormality. Mild degenerative change of the first MTP joint. Mild calcaneal enthesopathy. Normal [facility] XR Knee 3 Views Lefton 12-31 XR Knee 3 Views Left Exam Date/Time:12/31/2017 16:58 EDTReason for Exam:Pain, TraumaticReportSTUDY:XR Knee 3 Views Left; 12/31/2017 4:58 pmINDICATION:Pain, Traumatic.COMPARISON:No neACCESSION NUMBER(S):[id number] CLINICIAN:Jv PetitFINDINGS:Thre e views left knee demonstrate no osseous, articular, or soft tissue abnormality.IMPRESSION: Normal radiographic examination left knee. FINAL REPORT Dictated: 12/31/2017 5:12 pm Timothy Shoemaker MD CSigned (Electronic Signature): 12/31/2017 5:12 pmSigned by: Timothy Shoemaker MD Technologist: [facility] Normal [facility] Auto Diffon 10-29-2017 Basophils Auto #/vol (Bld) 0.1 E3/mcL Normal 0.0-0.2 [facility] Comment on above: Order Comment: Order Added by Discern Expert. Performed By: #### 2 [id number] ####CLARISSA [id number] [place] [address] Basophils/100 WBC Auto (Bld) 0.8 % Normal 0.0-2.0 [facility] Comment on above: Order Comment: Order Added by Discern Expert. Performed By: #### 2 [id number] ####CLARISSA [id number] [place] [address] Eos Absolute 0.4 E3/mcL Normal 0.0-0.7 [facility] Comment on above: Order Comment: Order Added by Discern Expert. Performed By: #### 2 [id number] ####CLARISSA [id number] [place] [address] Eosinophils/100 WBC Auto (Bld) 5.3 % Normal 0.0-11.0 [facility] Comment on above: Order Comment: Order Added by Discern Expert. Performed By: #### 2 [id number] ####CLARISSA [id number] [place] [address] Lymphocytes Auto #/vol (Bld) 2.6 E3/mcL Normal 1.2-3.4 [facility] Comment on above: Order Comment: Order Added by Discern Expert. Performed By: #### 2 [id number] ####CLARISSA [id number] [place] [address] Lymphocytes/100 WBC Auto (Bld) 31.4 % Normal 20.0-55.0 [facility] Comment on above: Order Comment: Order Added by Discern Expert. Performed By: #### 2 [id number] ####CLARISSA [id number] [place] [address] Davis Absolute 0.7 E3/mcL Normal 0.0-0.7 [facility] Comment on above: Order Comment: Order Added by Discern Expert. Performed By: #### 2 [id number] ####CLARISSA [id number] [place] [address] Monocytes/100 WBC Auto (Bld) 8.1 % Normal 0.0-10.0 [facility] Comment on above: Order Comment: Order Added by Discern Expert. Performed By: #### 2 [id number] ####CLARISSA [address] [place] [address] Neutro Absolute 4.5 E3/mcL Normal 1.4-6.5 [facility] Comment on above: Order Comment: Order Added by Discern Expert. Performed By: #### 2 [id number] ####CLARISSA [address]zo[address] [place] [address] Neutro Auto 54.4 % Normal 37.0-75.0 [facility] Comment on above: Order Comment: Order Added by Discern Expert. Performed By: #### 2 [id number] ####CLARISSA NgQxqQyja9497 [place] [address] BMPon 10-29-2017 Creatinine mass conc 0.9 mg/dL Normal 0.6-1.3 [facility] Comment on above: Performed By: #### 2 870841 ####CLARISSA NgFfuOlbx2809 [place] [address] Urea nitrogen mass conc 10 mg/dL Normal 7-18 [facility] Comment on above: Performed By: #### 2 192973 ####CLARISSA NgYflZntq7161 [place] [address] Urea nitrogen/Creatinine mass ratio 11.1 ratio Normal 5.4-30.0 [facility] Comment on above: Performed By: #### 2 733215 ####CLARISSA NgRnfUsio2853 [place] [address] Calcium mass conc 9.4 mg/dL Normal 8.4-10.2 [facility] Comment on above: Performed By: #### 2 113204 ####CLARISSA TxfDace[address] [place] [address] Chloride molar conc 105 mmol/L Normal 98-107 [facility] Comment on above: Performed By: #### 2 144949 ####CLARISSA BvfUvkq8829 [place] [address] CO2 molar conc 27.6 mmol/L Normal 24.0-30.0 [facility] Comment on above: Performed By: #### 2 106371 ####CLARISSA GupLaeb[address]32 [place] [address] Glucose mass conc 93 mg/dL Normal 70-99 [facility] Comment on above: Performed By: #### 2 090512 ####CLARISSA GlhGsja8111 [place] [address] Potassium molar conc 3.8 mmol/L Normal 3.5-5.1 [facility] Comment on above: Performed By: #### 2 843695 ####CLARISSA FxbSwyf3801 [place] [address] Sodium molar conc 139 mmol/L Normal 136-145 [facility] Comment on above: Performed By: #### 2 373595 ####CLARISSA ZfsSvnl8359 [place] [address] CBC w/ Auto Diffon 8 Erythrocyte distribution width Auto Ratio (RBC) 12.8 % Normal 11.5-14.5 [facility] Comment on above: Performed By: #### 2 350524 ####CLARISSA NouOkhr2401 [place] [address] Hematocrit Auto Volume Fraction (Bld) 42.3 % Normal 36.0-48.0 [facility] Comment on above: Performed By: #### 2 793846 ####CLARISSA MphLahm[address] [place] [address] Hemoglobin mass conc (Bld) 14.2 g/dL Normal 12.0-16.0 [facility] Comment on above: Performed By: #### 2 277257 ####CLARISSALilia NgPkwVure4213 [place] [address] MCH Auto Entitic mass (RBC) 28.8 pg Normal 27.0-31.0 [facility] Comment on above: Performed By: #### 2 752114 ####CLARISSA [address] [place] [id number] MCHC Auto mass conc (RBC) 33.7 g/dL Normal 33.0-37.0 [facility] Comment on above: Performed By: #### 2 385479 ####CLARISSA [address] [place] [id number] MCV Auto Entitic volume (RBC) 85.5 fL Normal 78.0-100.0 [facility] Comment on above: Performed By: #### 2 792126 ####CLARISSA [address] [place] [id number] Platelet mean volume Auto Entitic volume (Bld) 8.3 fL Normal 7.4-11.0 [facility] Comment on above: Performed By: #### 2 657861 ####CLARISSA [address] [place] [address] Platelets Auto #/vol (Bld) 319 E3/mcL Normal 130-400 [facility] Comment on above: Performed By: #### 2 531091 ####CLARISSA [address] [place] [id number] RBC Auto #/vol (Bld) 4.95 E6/mcL Normal 3.90-5.40 [facility] Comment on above: Performed By: #### 2 037317 ####CLARISSA [address] [place] [address] WBC Auto #/vol (Bld) 8.2 E3/mcL Normal 3.6-11.0 [facility] Comment on above: Performed By: #### 2 577868 ####CLARISSA [address] [place] [address] D-Dimeron 10-29-2017 D-Dimer <0.22 Normal <=0.50 [facility] Comment on above: Result Comment: Norm al D Dimer level indicates no Deep Vein Thrombosis (DVT) or Pulmonary Embolism (PE).Elevated D Dimer level indicates additional studies and clinical assessments are indicated to conclude diagnosis of Deep Vein Thromobsis (DVT) or Pulmonary Embolism (PE). Performed By: #### 2 [id number] ####CLARISSA [facility] [address] [place] [id number] Magnesiumon 10-29-2017 Magnesium mass conc 2.0 mg/dL Normal 1.7-2.8 [facility] Comment on above: Performed By: #### 2 797473 ####CLARISSA UafPhmc[address] [place] [address] PTon 10-29-2017 INR Coag RelTime (PPP) 1.1 {INR} Normal 1.0-1.2 [facility] Comment on above: Result Comment: INR Recommended Therapeuptic Ranges: Prophylaxis/treatment of DVT and PE?2.0-3.0 Prevention of systemic embolism?.2.0-3.0 Mechanical prosthetic values?2.5-3.5 CRITICAL VALUES?.>4.0 Performed By: #### 2 327664 ####CLARISSA [facility] [address]ux[address] [place] [address] Prothrombin time (PT) Coag time (PPP) 13.3 second(s) Normal 11.6-14.6 [facility] Comment on above: Performed By: #### 2 922909 ####CLARISSA [facility] [address]qs[address] [place] [address] PTTon 10-29-2017 aPTT Coag time (Bld) 27.7 second(s) Normal 23.2-36.4 [facility] Comment on above: Performed By: #### 2 869349 ####CLARISSA Hematology [facility] [address] [place] [address] PTT Control Ratioon 10-30-19 18 PTT Ratio 0.9 ratio Normal 0.8-1.2 [facility] Comment on above: Order Comment: Order added by Discern Expert. Performed By: #### 8 [id number] ####CLARISSA [facility]emat[facility] [address] [place] [address] Troponin-Ion 10-29-2017 Troponin I.cardiac mass conc ng/mL Normal .00-.03 [facility] Comment on above: Performed By: #### 2 161770 ####CLARISSA ZamObtd3303 [place] [address] XR Chest 2 Viewson 8 INR Coag RelTime (Bld) Exam Date/Time:10/28/2017 22:02 EDTReason for Exam:Chest painReportSTUDY:XR Chest 2 Views; 10/28/2017 10:02 pmINDICATION:Chest pain.COMPARISON:None.AC CESSION NUMBER(S):[id number] CLINICIAN:Philly CamachoiFINDINGS:Chest two views. The trachea is midline. The cardiomediastinal silhouette is within normal limits. There is no consolidation, pleural effusion or pneumothorax.IMPRESSION :1. No consolidation. FINAL REPORT Dictated: 10/28/2017 10:53 pm Fernie Bojorquez MD MSigned (Electronic Signature): 10/28/2017 10:53 pmSigned by: Fernie Bojorquez MD Technologist: SR Ardon [facility] XR Spine Cervical 6 or More Viewson 10-29-2017 INR Coag RelTime (Bld) Exam Date/Time:10/28/2017 22:02 EDTReason for Exam:bilateral arm pain;Neck PainReportSTUDY:XR Spine Cervical 6 or More Views; 10/28/2017 10:02 pmINDICATION:Neck Pain.COMPARISON:None.AC CESSION NUMBER(S):[id number] CLINICIAN:Philly BarnettCHNIQUE:Cervica l spine 8imagesFINDINGS:Cervica l spine is seen to C7-T1 level. Cervical spine: There is no acute fracture or malalignment. Disc spaces are preserved. The uncovertebral and facet joints are congruent. The prevertebral soft tissue is normal. There is normal relationship of the dens with lateral masses of C1 on the open-mouth view. There is no evidence of dynamic instability between flexion and extension.IMPRESSION:No rmal radiographs of the cervical spine FINAL REPORT Dictated: 10/28/2017 10:53 pm Fernie Bojorquez MDgned (Electronic Signature): 10/28/2017 10:53 pmSigned by: Fernie Bojorquez MD Technologist: [facility] eGFRon 10-29-2017 eGFR AA >60 [facility] Comment on above: Order Comment: Order added by Discern Expert. Performed By: #### 1 [id number] ####CLARISSA [address] [place] [id number] GFR/1.73 sq M predicted among non-blacks MDRD vol rate/area (S/P/Bld) mL/min/{1.73_m2} [facility] Comment on above: Order Comment: Order added by Discern Expert. Performed By: #### 1 [id number] ####CLARISSA [address] [place] [address] CBC with Diffon 04-18-2017 Basophils Auto #/vol (Bld) 0.1 K/mcL Normal 0-0.2 [facility] Comment on above: Performed By: #### C BCDIF, LIPASE, CMET ####Unless otherwise noted, all testing performed by [address] [id number]: [id number] Director: Cristofer Causey M.D. Basophils/100 WBC Auto (Bld) 0.9 % Normal [facility] Comment on above: Performed By: #### C BCDIF, LIPASE, CMET ####Unless otherwise noted, all testing performed by [address] [phone]: [id number] Director: Cristofer Causey M.D. Eosinophils 0.3 K/mcL Normal 0-0.5 [facility] Comment on above: Performed By: #### C BCDIF, LIPASE, CMET ####Unless otherwise noted, all testing performed by [address] [phone]: [id number] Director: Cristofer Causey M.D. Eosinophils/100 leukocytes 4.4 % Normal [facility] Comment on above: Performed By: #### C BCDIF, LIPASE, CMET ####Unless otherwise noted, all testing performed by [address] [phone]: [id number] Director: Cristofer Causey M.D. Erythrocyte distribution width Auto Ratio (RBC) 13.2 % Normal 10.0-14.4 [facility] Comment on above: Performed By: #### C BCDIF, LIPASE, CMET ####Unless otherwise noted, all testing performed by [address] [phone]: [id number] Director: Cristofer Causey M.D. Erythrocytes (RBC) 4.82 M/mcL Normal 3.7-5.0 [facility] Comment on above: Performed By: #### C BCDIF, LIPASE, CMET ####Unless otherwise noted, all testing performed by [address] [phone]: [id number] Director: Cristofer Causey M.D. Hematocrit (HCT) 41.0 % Normal 34.4-44.8 [facility] Comment on above: Performed By: #### C BCDIF, LIPASE, CMET ####Unless otherwise noted, all testing performed by [address] [phone]: [id number] Director: Cristofer Causey M.D. Hemoglobin mass conc (Bld) 14.0 g/dL Normal 11.6-15.4 [facility] Comment on above: Performed By: #### C BCDIF, LIPASE, CMET ####Unless otherwise noted, all testing performed by [address] [phone]: [id number] Director: Cristofer Causey M.D. Lymphocytes 1.9 K/mcL Normal 1.0-3.7 [facility] Comment on above: Performed By: #### C BCDIF, LIPASE, CMET ####Unless otherwise noted, all testing performed by [address] [phone]: [id number] Director: Cristofer Causey M.D. Lymphocytes/100 leukocytes 31.5 % Normal [facility] Comment on above: Performed By: #### C BCDIF, LIPASE, CMET ####Unless otherwise noted, all testing performed by [address] [phone]: [id number] Director: Cristofer Causey M.D. MCH 29.1 pg Normal 27.9-33.9 [facility] Comment on above: Performed By: #### C BCDIF, LIPASE, CMET ####Unless otherwise noted, all testing performed by [address] [phone]: [id number] Director: Cristofer Causey M.D. MCHC mass conc (RBC) 34.2 g/dL Normal 33.1-35.1 [facility] Comment on above: Performed By: #### C BCDIF, LIPASE, CMET ####Unless otherwise noted, all testing performed by [address] [phone]: [id number] Director: Cristofer Causey M.D. MCV 85.1 fL Normal 82.6-98.9 [facility] Comment on above: Performed By: #### C BCDIF, LIPASE, CMET ####Unless otherwise noted, all testing performed by [address] [phone]: [id number] Director: Cristofer Causey M.D. Monocytes 0.6 K/mcL Normal 0.1-0.6 [facility] Comment on above: Performed By: #### C BCDIF, LIPASE, CMET ####Unless otherwise noted, all testing performed by [address] [phone]: [id number] Director: Cristofer Causey M.D. Monocytes/100 leukocytes 9.8 % Normal [facility] Comment on above: Performed By: #### C BCDIF, LIPASE, CMET ####Unless otherwise noted, all testing performed by [address] [phone]: [id number] Director: Cristofer Causey M.D. Neutrophils 3.2 K/mcL Normal 1.2-6.9 [facility] Comment on above: Performed By: #### C BCDIF, LIPASE, CMET ####Unless otherwise noted, all testing performed by [address] [phone]: [id number] Director: Cristofer Causey M.D. Platelet mean volume (PMV) 7.8 fL Normal 7.0-10.6 [facility] Comment on above: Performed By: #### C BCDIF, LIPASE, CMET ####Unless otherwise noted, all testing performed by [address] [phone]: [id number] Director: Cristofer Causey M.D. Platelets 255 K/mcL Normal 162-402 [facility] Comment on above: Performed By: #### C BCDIF, LIPASE, CMET ####Unless otherwise noted, all testing performed by [address] [phone]: [id number] Director: Cristofer Causey M.D. Segmented Neut % 53.4 % Normal [facility] Comment on above: Performed By: #### C BCDIF, LIPASE, CMET ####Unless otherwise noted, all testing performed by [address] [phone]: [id number] Director: Cristofer Causey M.D. WBC (Leukocytes) 5.9 K/mcL Normal 3.4-10.6 [facility] Comment on above: Performed By: #### C BCDIF, LIPASE, CMET ####Unless otherwise noted, all testing performed by [address] [phone]: [id number] Director: Cristofer Causey M.D. CT ABDO,PELVIS IV CONTRAST O Sky 04-18-2017 CT ABDO,PELVIS IV CONTRAST ONLY Final ReportAccession No: [id number] Performed: Apr 18 2017 7:11AMExamination: CT ABDO,PELVIS IV CONTRAST ONLYClinical history: Right lower quadrant pain.CT of the abdomen and pelvis with IV contrast 04/18/2017 7:11 AMCOMPARISON: None.TECHNIQUE: Following administration of 100cc Isovue 370 IV, contiguoushelical axial images were obtained from above the hemidiaphragm throughthe ischial tuberosities. Coronal and sagittal reformatted images werealso performed.FINDINGS:The partially visualized lung bases are clear.The liver, gallbladder, spleen, pancreas, kidneys, and adrenals arenormal in appearance.There is mucosal hyperenhancement and loops of the distal small bowel.There is a small amount of fluid in the right lower quadrant, surroundingthe appendix, which is normal in size measuring 6-7 mm. No evidence forbowel obstruction.No free air.Follicles are present bilaterally with a dominant 3.2 cm follicle or cystin the right ovary.The bladder is contracted.The aorta is normal in caliber. The visceral branches are patent. Nolymphadenopathy.No acute osseous abnormality is identified.IMPRESSION:M ild mucosal hyperenhancement in the distal small bowel with a smallamount of right lower quadrant free fluid. The appendix is in thislocation however is collapsed and within normal limits for size. Whilethe possibility of early acute appendicitis should be considered, aninflammatory process in the distal small bowel is considered more likely.Interpreting Physician: NITA MCKEE M.D.Trans: : cc: Normal [facility] Comprehensive Metabolic Pane maria ines 04-18-2017 Alanine aminotransferase (ALT) 46 U/L Normal 14-65 [facility] Comment on above: Result Comment: This test result might be falsely depressed or falsely elevated onsamples drawn from patients taking Sulfasalazine and Sulfapyridine.Venipuncture should occur prior to taking either of these drugs. Performed By: #### C BCDIF, LIPASE, CMET ####Unless otherwise noted, all testing performed by [facility], [place] [phone]: [id number] Director: Cristofer Causey M.D. Albumin 3.2 g/dL Normal 3.2-5.2 [facility] Comment on above: Performed By: #### C BCDIF, LIPASE, CMET ####Unless otherwise noted, all testing performed by [address] [phone]: [id number] Director: Cristofer Causey M.D. Alkaline phosphatase (ALP) 83 U/L Normal 40-140 [facility] Comment on above: Performed By: #### C BCDIF, LIPASE, CMET ####Unless otherwise noted, all testing performed by [address] [phone]: [id number] Director: Cristofer Causey M.D. Aspartate aminotransferase (AST) 22 U/L Normal 0-45 [facility] Comment on above: Result Comment: This test result might be falsely depressed or falsely elevated onsamples drawn from patients taking Sulfasalazine and Sulfapyridine.Venipuncture should occur prior to taking either of these drugs. Performed By: #### C BCDIF, LIPASE, CMET ####Unless otherwise noted, all testing performed by [address] [phone]: [id number] Director: Cristofer Causey M.D. Bilirubin (total) 0.4 mg/dL Normal 0.3-1.2 [facility] Comment on above: Performed By: #### C BCDIF, LIPASE, CMET ####Unless otherwise noted, all testing performed by [address] [phone]: [id number] Director: Cristofer Causey M.D. Calcium 8.7 mg/dL Normal 8.4-10.2 [facility] Comment on above: Performed By: #### C BCDIF, LIPASE, CMET ####Unless otherwise noted, all testing performed by [place] [phone]: [id number] Director: Cristofer Causey M.D. Chloride 109 mmol/L High 98-108 [facility] Comment on above: Performed By: #### C BCDIF, LIPASE, CMET ####Unless otherwise noted, all testing performed by [place] [phone]: [id number] Director: Cristofer Causey M.D. CO2 24 mmol/L Normal 21-32 [facility] Comment on above: Performed By: #### C BCDIF, LIPASE, CMET ####Unless otherwise noted, all testing performed by [place] [phone]: [id number] Director: Cristofer Causey M.D. Creatinine 0.84 mg/dL Normal 0.40-1.10 [facility] Comment on above: Performed By: #### C BCDIF, LIPASE, CMET ####Unless otherwise noted, all testing performed by [place] [phone]: [id number] Director: Cristofer Causey M.D. eGFR (black) mL/min/{1.73_m2} Normal [facility] Comment on above: Result Comment: Afri can [facility] GFR Calc Performed By: #### C BCDIF, LIPASE, CMET ####Unless otherwise noted, all testing performed by [address] [phone]: [id number] Director: Cristofer Causey M.D. eGFR (non-black) mL/min/{1.73_m2} Normal [facility] Comment on above: Result Comment: Non- GFR CalceGFR is an estimated Glomerular Filtration Rate based on the valueof the patient's serum creatinine. In outpatients, eGFR should be usedas a helpful tool in screening for CKD. In inpatients or patients withacute renal failure, eGFR represents the GFR at the moment of the drawand should be used with caution. Performed By: #### C BCDIF, LIPASE, CMET ####Unless otherwise noted, all testing performed by [address] [phone]: [id number] Director: Cristofer Causey M.D. Glucose mass conc 92 mg/dL Normal 70-99 [facility] Comment on above: Result Comment: This test result might be falsely depressed or falsely elevated onsamples drawn from patients taking Sulfasalazine and Sulfapyridine.Venipuncture should occur prior to taking either of these drugs. Performed By: #### C BCDIF, LIPASE, CMET ####Unless otherwise noted, all testing performed by [address] [place], [place] [phone]: [id number] Director: Cristofer Causey M.D. Potassium molar conc 4.0 mmol/L Normal 3.5-5.1 [facility] Comment on above: Performed By: #### C BCDIF, LIPASE, CMET ####Unless otherwise noted, all testing performed by [address] [phone]: [id number] Director: Cristofer Causey M.D. Protein 6.7 g/dL Normal 6.0-8.0 [facility] Comment on above: Performed By: #### C BCDIF, LIPASE, CMET ####Unless otherwise noted, all testing performed by [place] [phone]: [id number] Director: Cristofer Causey M.D. Sodium 141 mmol/L Normal 135-145 [facility] Comment on above: Performed By: #### C BCDIF, LIPASE, CMET ####Unless otherwise noted, all testing performed by [address]CLIA: [id number] Director: Cristofer Causey M.D. Urea nitrogen 11 mg/dL Normal 8-25 [facility] Comment on above: Performed By: #### C BCDIF, LIPASE, CMET ####Unless otherwise noted, all testing performed by [address]8[address]CLIA: [id number] Director: Cristofer Causey M.D. Lipaseon 04-18-2017 Lipase 130 U/L Normal 73-393 [facility] Comment on above: Performed By: #### C BCDIF, LIPASE, CMET ####Unless otherwise noted, all testing performed by [address]8[address]CLIA: [id number] Director: Cristofer Causey M.D. Test,Urine Qualon 04-18-2017 HCG.beta subunit ( test) Ql (U) Negative Normal Negative [facility] Comment on above: Result Comment: Rapi d test procedural control acceptable.If a negative result is obtained but is suspected, hCG levelsmay be too low or urine may be too dilute for detection. Another specimenshould be collected after 48-72 hours and tested. If waiting 48 hours isnot medically advisable, the test result should be confirmed with a moresensitive quantitative serum hCG test. Performed By: #### C BCDIF, LIPASE, CMET ####Unless otherwise noted, all testing performed by [place] [phone]: [id number] Director: Cristofer Causey M.D. Urinalysis, Routineon 2016 Bilirubin,Urine Negative Normal NEG;NEGATIVE [facility] Comment on above: Performed By: #### C BCDIF, LIPASE, CMET ####Unless otherwise noted, all testing performed by [address]8[address]CLIA: [id number] Director: Cristofer Causey M.D. Blood,Urine Large Abnormal NEG;NEGATIVE [facility] Comment on above: Performed By: #### C BCDIF, LIPASE, CMET ####Unless otherwise noted, all testing performed by [address] [phone]: [id number] Director: Cristofer Causey M.D. Ketone,Urine Negative Normal NEG;NEGATIVE [facility] Comment on above: Performed By: #### C BCDIF, LIPASE, CMET ####Unless otherwise noted, all testing performed by [address] [phone]: [id number] Director: Cristofer Causey M.D. Leuk.Esterase,Urine Small Abnormal Negative [facility] Comment on above: Performed By: #### C BCDIF, LIPASE, CMET ####Unless otherwise noted, all testing performed by [address] [phone]: [id number] Director: Cristofer Causey M.D. Mucus, Urine Rare Abnormal None Seen [facility] Comment on above: Performed By: #### C BCDIF, LIPASE, CMET ####Unless otherwise noted, all testing performed by [address]CLIA: [id number] Director: Cristofer Causey M.D. Nitrite,Urine Negative Normal NEG;NEGATIVE [facility] Comment on above: Performed By: #### C BCDIF, LIPASE, CMET ####Unless otherwise noted, all testing performed by [address] [phone]: [id number] Director: Cristofer Causey M.D. Protein,Urine Negative Normal NEG;NEGATIVE [facility] Comment on above: Performed By: #### C BCDIF, LIPASE, CMET ####Unless otherwise noted, all testing performed by [address] [phone]: [id number] Director: Cristofer Causey M.D. Specific Waldo,Urine 1.018 Normal 1.003-1.029 [facility] Comment on above: Performed By: #### C BCDIF, LIPASE, CMET ####Unless otherwise noted, all testing performed by [place] [phone]: [id number] Director: Cristofer Causey M.D. Squamous Epithelial 4 /HPF Normal 0-[address] [facility] Comment on above: Performed By: #### C BCDIF, LIPASE, CMET ####Unless otherwise noted, all testing performed by [place] [phone]: [id number] Director: Cristofer Causey M.D. Urine, bacteria in sediment Occasional Abnormal NS;RARE [facility] Comment on above: Performed By: #### C BCDIF, LIPASE, CMET ####Unless otherwise noted, all testing performed by [place] [phone]: [id number] Director: Cristofer Causey M.D. Urine, character Hazy Normal [facility] Comment on above: Performed By: #### C BCDIF, LIPASE, CMET ####Unless otherwise noted, all testing performed by [place] [phone]: [id number] Director: Cristofer Causey M.D. Urine, color Dk Yellow Normal [facility] Comment on above: Performed By: #### C BCDIF, LIPASE, CMET ####Unless otherwise noted, all testing performed by [phone]: [id number] Director: Cristofer Causey M.D. Urine, erythrocytes in sediment by area /[HPF] High 0-5 [facility] Comment on above: Performed By: #### C BCDIF, LIPASE, CMET ####Unless otherwise noted, all testing performed by [address] [phone]: [id number] Director: Cristofer Causey M.D. Urine, glucose presence Negative Normal NEG;NEGATIVE [facility] Comment on above: Performed By: #### C BCDIF, LIPASE, CMET ####Unless otherwise noted, all testing performed by [address] [phone]: [id number] Director: Cristofer Causey M.D. Urine, leukocytes in sedmiment [HPF] High 0-5 [facility] Comment on above: Performed By: #### C BCDIF, LIPASE, CMET ####Unless otherwise noted, all testing performed by [place] [phone]: [id number] Director: Cristofer Causey M.D. Urine, pH 5.0 [pH] Normal 4.5-8.0 [facility] Comment on above: Performed By: #### C BCDIF, LIPASE, CMET ####Unless otherwise noted, all testing performed by [address] [phone]: [id number] Director: Cristofer Causey M.D. Urobilinogen,Urine < 2.0 Normal <2 [facility] Comment on above: Performed By: #### C BCDIF, LIPASE, CMET ####Unless otherwise noted, all testing performed by [address] [phone]: [id number] Director: Cristofer Causey M.D. FS Urineon 11-16-2 017 HCG.beta subunit ( test) Ql (U) Negative Normal Negative [facility] Comment on above: Result Comment: Rapi d test procedural control acceptable.Testing performed at [facility], [address] [place] [address]; Medical Voice Coach Venecia Cao. Performed By: #### C BCDIF, LIPASE, CMET ####Unless otherwise noted, all testing performed by [address] [phone]: [id number] Director: Cristofer Causey M.D. FS Urinalysison 04-01-2017 Bilirubin,Urine Moderate Abnormal Negative [facility] Comment on above: Performed By: #### C BCDIF, LIPASE, CMET ####Unless otherwise noted, all testing performed by [address] [phone]: [id number] Director: Cristofer Causey M.D. Blood,Urine Large Abnormal Negative [facility] Comment on above: Performed By: #### C BCDIF, LIPASE, CMET ####Unless otherwise noted, all testing performed by [address] [phone]: [id number] Director: Cristofer Causey M.D. Ketone,Urine 15 mg/dL Abnormal Negative [facility] Comment on above: Performed By: #### C BCDIF, LIPASE, CMET ####Unless otherwise noted, all testing performed by [address] [phone]: [id number] Director: Cristofer Causey M.D. Leuk.Esterase,Urine Small Abnormal Negative [facility] Comment on above: Performed By: #### C BCDIF, LIPASE, CMET ####Unless otherwise noted, all testing performed by [address] [phone]: [id number] Director: Cristofer Causey M.D. Nitrite,Urine Positive Abnormal NEG;NEGATIVE [facility] Comment on above: Performed By: #### C BCDIF, LIPASE, CMET ####Unless otherwise noted, all testing performed by [address] [phone]: [id number] Director: Cristofer Causey M.D. Protein,Urine >=300 Abnormal Negative [facility] Comment on above: Performed By: #### C BCDIF, LIPASE, CMET ####Unless otherwise noted, all testing performed by [address] [phone]: [id number] Director: Cristofer Causey M.D. Specific Waldo,Urine 1.025 Normal 1.003-1.029 [facility] Comment on above: Performed By: #### C BCDIF, LIPASE, CMET ####Unless otherwise noted, all testing performed by [address] [phone]: [id number] Director: Cristofer Causey M.D. Testing performed [facility] FSED Normal [facility] Comment on above: Result Comment: Test ing performed at [facility], [address] [place] [address]; Medical Voice Coach Beata Cao Performed By: #### C BCDIF, LIPASE, CMET ####Unless otherwise noted, all testing performed by [address] [phone]: [id number] Director: Cristofer Causey M.D. Urine, character Cloudy Normal [facility] Comment on above: Performed By: #### C BCDIF, LIPASE, CMET ####Unless otherwise noted, all testing performed by [address] [phone]: [id number] Director: Cristofer Causey M.D. Urine, color Brown Normal [facility] Comment on above: Performed By: #### C BCDIF, LIPASE, CMET ####Unless otherwise noted, all testing performed by [address] [phone]: [id number] Director: Cristofer Causey M.D. Urine, glucose presence 100 mg/dL Abnormal Negative [facility] Comment on above: Performed By: #### C BCDIF, LIPASE, CMET ####Unless otherwise noted, all testing performed by [address] [phone]: [id number] Director: Cristofer Causey M.D. Urine, pH 6.0 [pH] Normal 4.5-8.0 [facility] Comment on above: Performed By: #### C BCDIF, LIPASE, CMET ####Unless otherwise noted, all testing performed by [address] [phone]: [id number] Director: Cristofer Causey M.D. Urobilinogen,Urine 1.0 mg/dL Normal <2 [facility] Comment on above: Performed By: #### C BCDIF, LIPASE, CMET ####Unless otherwise noted, all testing performed by [address] [phone]: [id number] Director: Cristofer Causey M.D. CHEST PA AND LATERALon 03-01 CHEST PA AND LATERAL Final ReportAccession No: [id number] Performed: Feb 28 2017 10:00PMExamination: CHEST PA AND LATERALLightheaded, chest pain radiating down left arm.PA and lateral chest on 02/28/2017 at 9:55 PMCardiac chest leads overlie both hemithoraces. The lungs are adequatelyinflated bilaterally and clear. The cardiac and mediastinal silhouettesare unremarkable. The gricel are clear bilaterally.IMPRESSION: No radiographic evidence of acute cardiopulmonary disease.Interpreting Physician: YAQUELIN GAXIOLA D.O.Trans: : cc: Normal [facility] CBC with Diffon 02-28-2017 Basophils Auto #/vol (Bld) 0.1 K/mcL Normal 0-0.2 [facility] Comment on above: Performed By: #### P REGUR, UA ####Unless otherwise noted, all testing performed by [address] [phone]: [id number] Director: Cristofer Causey M.D. Basophils/100 WBC Auto (Bld) 1.1 % Normal [facility] Comment on above: Performed By: #### P REGUR, UA ####Unless otherwise noted, all testing performed by [address] [phone]: [id number] Director: Cristofer Padilla, M.D. Eosinophils 0.3 K/mcL Normal 0-0.5 [facility] Comment on above: Performed By: #### P REGUR, UA ####Unless otherwise noted, all testing performed by [address] [phone]: [id number] Director: Cristofer Causey M.D. Eosinophils/100 leukocytes 3.8 % Normal [facility] Comment on above: Performed By: #### P REGUR, UA ####Unless otherwise noted, all testing performed by [address] [phone]: [id number] Director: Cristofer Causey M.D. Erythrocyte distribution width Auto Ratio (RBC) 13.0 % Normal 10.0-14.4 [facility] Comment on above: Performed By: #### P REGUR, UA ####Unless otherwise noted, all testing performed by [address] [phone]: [id number] Director: Cristofer Causey M.D. Erythrocytes (RBC) 5.11 M/mcL High 3.7-5.0 [facility] Comment on above: Performed By: #### P REGUR, UA ####Unless otherwise noted, all testing performed by [address] [phone]: [id number] Director: Cristofer Causey M.D. Hematocrit (HCT) 43.6 % Normal 34.4-44.8 [facility] Comment on above: Performed By: #### P REGUR, UA ####Unless otherwise noted, all testing performed by [address], [place] [phone]: [id number] Director: Cristofer Causey M.D. Hemoglobin mass conc (Bld) 14.5 g/dL Normal 11.6-15.4 [facility] Comment on above: Performed By: #### P REGUR, UA ####Unless otherwise noted, all testing performed by [address] [phone]: [id number] Director: Cristofer Causey M.D. Lymphocytes 2.5 K/mcL Normal 1.0-3.7 [facility] Comment on above: Performed By: #### P REGUR, UA ####Unless otherwise noted, all testing performed by [address] [phone]: [id number] Director: Cristofer Causey M.D. Lymphocytes/100 leukocytes 37.1 % Normal [facility] Comment on above: Performed By: #### P REGUR, UA ####Unless otherwise noted, all testing performed by [address] [phone]: [id number] Director: Cristofer Causey M.D. MCH 28.4 pg Normal 27.9-33.9 [facility] Comment on above: Performed By: #### P REGUR, UA ####Unless otherwise noted, all testing performed by [address] [phone]: [id number] Director: Cristofer Causey M.D. MCHC mass conc (RBC) 33.3 g/dL Normal 33.1-35.1 [facility] Comment on above: Performed By: #### P REGUR, UA ####Unless otherwise noted, all testing performed by [address] [phone]: [id number] Director: Cristofer Causey M.D. MCV 85.3 fL Normal 82.6-98.9 [facility] Comment on above: Performed By: #### P REGUR, UA ####Unless otherwise noted, all testing performed by [address] [phone]: [id number] Director: Cristofer Causey M.D. Monocytes 0.7 K/mcL High 0.1-0.6 [facility] Comment on above: Performed By: #### P REGUR, UA ####Unless otherwise noted, all testing performed by [address] [phone]: [id number] Director: Cristofer Causey M.D. Monocytes/100 leukocytes 10.1 % Normal [facility] Comment on above: Performed By: #### P REGUR, UA ####Unless otherwise noted, all testing performed by [address] [phone]: [id number] Director: Cristofer Causey M.D. Neutrophils 3.3 K/mcL Normal 1.2-6.9 [facility] Comment on above: Performed By: #### P REGUR, UA ####Unless otherwise noted, all testing performed by [address] [phone]: [id number] Director: Cristofer Causey M.D. Platelet mean volume (PMV) 8.0 fL Normal 7.0-10.6 [facility] Comment on above: Performed By: #### P REGUR, UA ####Unless otherwise noted, all testing performed by [address] [phone]: [id number] Director: Cristofer Causey M.D. Platelets 332 K/mcL Normal 162-402 [facility] Comment on above: Performed By: #### P REGUR, UA ####Unless otherwise noted, all testing performed by [address] [phone]: [id number] Director: Cristofer Causey M.D. Segmented Neut % 47.9 % Normal [facility] Comment on above: Performed By: #### P REGUR, UA ####Unless otherwise noted, all testing performed by [address] [phone]: [id number] Director: Cristofer Causey M.D. WBC (Leukocytes) 6.8 K/mcL Normal 3.4-10.6 [facility] Comment on above: Performed By: #### P REGUR, UA ####Unless otherwise noted, all testing performed by [address] [phone]: [id number] Director: Cristofer Causey M.D. [facility] 02-28-2017 Alanine aminotransferase (ALT) 53 U/L Normal 14-65 [facility] Comment on above: Result Comment: This test result might be falsely depressed or falsely elevated onsamples drawn from patients taking Sulfasalazine and Sulfapyridine.Venipuncture should occur prior to taking either of these drugs. Performed By: #### P REGUR, UA ####Unless otherwise noted, all testing performed by [address] [phone]: [id number] Director: Cristofer Causey M.D. Albumin 3.4 g/dL Normal 3.2-5.2 [facility] Comment on above: Performed By: #### P REGUR, UA ####Unless otherwise noted, all testing performed by [phone]: [id number] Director: Cristofer Causey M.D. Alkaline phosphatase (ALP) 90 U/L Normal 40-140 [facility] Comment on above: Performed By: #### P REGUR, UA ####Unless otherwise noted, all testing performed by [place] [phone]: [id number] Director: Cristofer Causey M.D. Aspartate aminotransferase (AST) 32 U/L Normal 0-45 [facility] Comment on above: Result Comment: This test result might be falsely depressed or falsely elevated onsamples drawn from patients taking Sulfasalazine and Sulfapyridine.Venipuncture should occur prior to taking either of these drugs. Performed By: #### P REGUR, UA ####Unless otherwise noted, all testing performed by [address] [phone]: [id number] Director: Cristofer Causey M.D. Bilirubin (total) 0.2 mg/dL Low 0.3-1.2 [facility] Comment on above: Performed By: #### P REGUR, UA ####Unless otherwise noted, all testing performed by [address] [phone]: [id number] Director: Cristofer Causey M.D. Calcium 8.3 mg/dL Low 8.4-10.2 [facility] Comment on above: Performed By: #### P REGUR, UA ####Unless otherwise noted, all testing performed by [address] [phone]: [id number] Director: Cristofer Causey M.D. Chloride 106 mmol/L Normal 98-108 [facility] Comment on above: Performed By: #### P REGUR, UA ####Unless otherwise noted, all testing performed by [address] [phone]: [id number] Director: Cristofer Causey M.D. CO2 27 mmol/L Normal 21-32 [facility] Comment on above: Performed By: #### P REGUR, UA ####Unless otherwise noted, all testing performed by [address] [phone]: [id number] Director: Cristofer Causey M.D. Creatinine 1.01 mg/dL Normal 0.40-1.10 [facility] Comment on above: Performed By: #### P REGUR, UA ####Unless otherwise noted, all testing performed by [address] [phone]: [id number] Director: Cristofer Causey M.D. eGFR (black) mL/min/{1.73_m2} Normal [facility] Comment on above: Result Comment: Afri can [facility] GFR Calc Performed By: #### LALO FLETCHER ####Unless otherwise noted, all testing performed by [address] [phone]: [id number] Director: Cristofer Causey M.D. eGFR (non-black) mL/min/{1.73_m2} Normal [facility] Comment on above: Result Comment: Non- GFR CalceGFR is an estimated Glomerular Filtration Rate based on the valueof the patient's serum creatinine. In outpatients, eGFR should be usedas a helpful tool in screening for CKD. In inpatients or patients withacute renal failure, eGFR represents the GFR at the moment of the drawand should be used with caution. Performed By: #### LALO FLETCHER ####Unless otherwise noted, all testing performed by [address] [phone]: [id number] Director: Cristofer Causey M.D. Glucose mass conc 75 mg/dL Normal 70-99 [facility] Comment on above: Result Comment: This test result might be falsely depressed or falsely elevated onsamples drawn from patients taking Sulfasalazine and Sulfapyridine.Venipuncture should occur prior to taking either of these drugs. Performed By: #### P LALO ANDREWS ####Unless otherwise noted, all testing performed by [address] [phone]: [id number] Director: Cristofer Causey M.D. Potassium molar conc 3.9 mmol/L Normal 3.5-5.1 [facility] Comment on above: Performed By: #### P JULIANA UA ####Unless otherwise noted, all testing performed by [address] [phone]: [id number] Director: Cristofer Causey M.D. Protein 7.2 g/dL Normal 6.0-8.0 [facility] Comment on above: Performed By: #### P REGUR, UA ####Unless otherwise noted, all testing performed by [address] [phone]: [id number] Director: Cristofer Causey M.D. Sodium 139 mmol/L Normal 135-145 [facility] Comment on above: Performed By: #### P REGUR, UA ####Unless otherwise noted, all testing performed by [address] [phone]: [id number] Director: Cristofer Causey M.D. Urea nitrogen 11 mg/dL Normal 8-25 [facility] Comment on above: Performed By: #### P REGUR, UA ####Unless otherwise noted, all testing performed by [address] [phone]: [id number] Director: Cristofer Causey M.D. D-Dimeron 02-28-2017 D-Dimer < 0.27 Normal < .5 [facility] Comment on above: Result Comment: The D-Dimer cut-off value of 0.50 ug/mL (FEU) is useful for the exclusionof PE and as an aid in the diagnosis of DVT when used in conjunction withclinical assessment pre-test probabilities. Performed By: #### P REGUR, UA ####Unless otherwise noted, all testing performed by [address] [phone]: [id number] Director: Cristofer Causey M.D. ED Cardiac Troponin-Ion 02-14 Troponin I.cardiac mass conc ng/mL Normal < 45 [facility] Comment on above: Result Comment: Elev ation of troponin indicates some degree of myocardial necrosis butunless there is a significant rise and/or fall (if elevated) identified,it unlikely that an acute event has taken place Performed By: #### P REGUR, UA ####Unless otherwise noted, all testing performed by [address], [place] [phone]: [id number] Director: Cristofer Causey M.D. Lipaseon 02-28-2017 Lipase 210 U/L Normal 73-393 [facility] Comment on above: Performed By: #### C BCDIF, LIPASE, CMET ####Unless otherwise noted, all testing performed by [address], [place] [phone]: [id number] Director: Cristofer Causey M.D. Test,Urine Qualon 02-28-2017 HCG.beta subunit ( test) Ql (U) Negative Normal Negative [facility] Comment on above: Result Comment: Rapi d test procedural control acceptable.If a negative result is obtained but is suspected, hCG levelsmay be too low or urine may be too dilute for detection. Another specimenshould be collected after 48-72 hours and tested. If waiting 48 hours isnot medically advisable, the test result should be confirmed with a moresensitive quantitative serum hCG test. Performed By: #### C BCDIF, LIPASE, CMET ####Unless otherwise noted, all testing performed by [address], [place] [phone]: [id number] Director: Cristofer Causey M.D. Urinalysis, Routineon 2016 Bilirubin,Urine Negative Normal NEG;NEGATIVE [facility] Comment on above: Performed By: #### C BCDIF, LIPASE, CMET ####Unless otherwise noted, all testing performed by [address] [phone]: [id number] Director: Cristofer Causey M.D. Blood,Urine Negative Normal NEG;NEGATIVE [facility] Comment on above: Performed By: #### C BCDIF, LIPASE, CMET ####Unless otherwise noted, all testing performed by [address]8509CLIA: [id number] Director: Cristofer Causey M.D. Ketone,Urine Negative Normal NEG;NEGATIVE [facility] Comment on above: Performed By: #### C BCDIF, LIPASE, CMET ####Unless otherwise noted, all testing performed by [address] [phone]: [id number] Director: Cristofer Causey M.D. Leuk.Esterase,Urine Negative Normal Negative [facility] Comment on above: Performed By: #### C BCDIF, LIPASE, CMET ####Unless otherwise noted, all testing performed by [address] [phone]: [id number] Director: Cristofer Causey M.D. Nitrite,Urine Negative Normal NEG;NEGATIVE [facility] Comment on above: Performed By: #### C BCDIF, LIPASE, CMET ####Unless otherwise noted, all testing performed by [address], [place] [phone]: [id number] Director: Cristofer Causey M.D. Protein,Urine Negative Normal NEG;NEGATIVE [facility] Comment on above: Performed By: #### C BCDIF, LIPASE, CMET ####Unless otherwise noted, all testing performed by [address] [phone]: [id number] Director: Cristofer Causey M.D. Specific Waldo,Urine 1.019 Normal 1.003-1.029 [facility] Comment on above: Performed By: #### C BCDIF, LIPASE, CMET ####Unless otherwise noted, all testing performed by [address] [phone]: [id number] Director: Cristofer Causey M.D. Squamous Epithelial 3 /HPF Normal 0-[address] [facility] Comment on above: Performed By: #### C BCDIF, LIPASE, CMET ####Unless otherwise noted, all testing performed by [address] [phone]: [id number] Director: Cristofer Causey M.D. Urine, bacteria in sediment Rare Normal NS;RARE [facility] Comment on above: Performed By: #### C BCDIF, LIPASE, CMET ####Unless otherwise noted, all testing performed by [address] [phone]: [id number] Director: Cristofer Causey M.D. Urine, character Hazy Normal [facility] Comment on above: Performed By: #### C BCDIF, LIPASE, CMET ####Unless otherwise noted, all testing performed by [address] [phone]: [id number] Director: Cristofer Causey M.D. Urine, color Yellow Normal [facility] Comment on above: Performed By: #### C BCDIF, LIPASE, CMET ####Unless otherwise noted, all testing performed by [address] [phone]: [id number] Director: Cristofer Causey M.D. Urine, erythrocytes in sediment by area 1 /[HPF] Normal 0-5 [facility] Comment on above: Performed By: #### C BCDIF, LIPASE, CMET ####Unless otherwise noted, all testing performed by [address] [phone]: [id number] Director: Cristofer Causey M.D. Urine, glucose presence Negative Normal NEG;NEGATIVE [facility] Comment on above: Performed By: #### C BCDIF, LIPASE, CMET ####Unless otherwise noted, all testing performed by [address] [phone]: [id number] Director: Cristofer Causey M.D. Urine, leukocytes in sedmiment 6 /[HPF] High 0-5 [facility] Comment on above: Performed By: #### C BCDIF, LIPASE, CMET ####Unless otherwise noted, all testing performed by [address] [phone]: [id number] Director: Cristofer Causey M.D. Urine, pH 6.0 [pH] Normal 4.5-8.0 [facility] Comment on above: Performed By: #### C BCDIF, LIPASE, CMET ####Unless otherwise noted, all testing performed by [address] [phone]: [id number] Director: Cristofer Causey M.D. Urobilinogen,Urine < 2.0 Normal <2 [facility] Comment on above: Performed By: #### C BCDIF, LIPASE, CMET ####Unless otherwise noted, all testing performed by [address] [phone]: [id number] Director: Cristofer Causey M.D. CBC with Diffon 02-21-2017 Basophils Auto #/vol (Bld) 0.0 K/mcL Normal 0-0.2 [facility] Comment on above: Performed By: #### P REGUR, UA ####Unless otherwise noted, all testing performed by [address] [phone]: [id number] Director: Cristofer Causey M.D. Basophils/100 WBC Auto (Bld) 0.7 % Normal [facility] Comment on above: Performed By: #### P REGUR, UA ####Unless otherwise noted, all testing performed by [address] [id number]: [id number] Director: Cristofer Causey M.D. Eosinophils 0.3 K/mcL Normal 0-0.5 [facility] Comment on above: Performed By: #### P REGUR, UA ####Unless otherwise noted, all testing performed by [address] [phone]: [id number] Director: Cristofer Causey M.D. Eosinophils/100 leukocytes 4.3 % Normal [facility] Comment on above: Performed By: #### P REGUR, UA ####Unless otherwise noted, all testing performed by [address] [phone]: [id number] Director: Cristofer Causey M.D. Erythrocyte distribution width Auto Ratio (RBC) 13.2 % Normal 10.0-14.4 [facility] Comment on above: Performed By: #### P REGUR, UA ####Unless otherwise noted, all testing performed by [address] [phone]: [id number] Director: Cristofer Causey M.D. Erythrocytes (RBC) 4.81 M/mcL Normal 3.7-5.0 [facility] Comment on above: Performed By: #### P REGUR, UA ####Unless otherwise noted, all testing performed by [address] [phone]: [id number] Director: Cristofer Causey M.D. Hematocrit (HCT) 41.3 % Normal 34.4-44.8 [facility] Comment on above: Performed By: #### P REGUR, UA ####Unless otherwise noted, all testing performed by [address] [phone]: [id number] Director: Cristofer Causey M.D. Hemoglobin mass conc (Bld) 13.9 g/dL Normal 11.6-15.4 [facility] Comment on above: Performed By: #### P REGUR, UA ####Unless otherwise noted, all testing performed by [address] [phone]: [id number] Director: Cristofer Causey M.D. Lymphocytes 2.2 K/mcL Normal 1.0-3.7 [facility] Comment on above: Performed By: #### P REGUR, UA ####Unless otherwise noted, all testing performed by [address] [phone]: [id number] Director: Cristofer Causey M.D. Lymphocytes/100 leukocytes 36.5 % Normal [facility] Comment on above: Performed By: #### P REGUR, UA ####Unless otherwise noted, all testing performed by [address] [phone]: [id number] Director: Cristofer Causey M.D. MCH 28.9 pg Normal 27.9-33.9 [facility] Comment on above: Performed By: #### P REGUR, UA ####Unless otherwise noted, all testing performed by [address] [phone]: [id number] Director: Cristofer Causey M.D. MCHC mass conc (RBC) 33.6 g/dL Normal 33.1-35.1 [facility] Comment on above: Performed By: #### P REGUR, UA ####Unless otherwise noted, all testing performed by [address] [phone]: [id number] Director: Cristofer Causey M.D. MCV 85.9 fL Normal 82.6-98.9 [facility] Comment on above: Performed By: #### P REGUR, UA ####Unless otherwise noted, all testing performed by [address] [phone]: [id number] Director: Cristofer Causey M.D. Monocytes 0.7 K/mcL High 0.1-0.6 [facility] Comment on above: Performed By: #### P REGUR, UA ####Unless otherwise noted, all testing performed by [address] [phone]: [id number] Director: Cristofer Causey M.D. Monocytes/100 leukocytes 11.6 % Normal [facility] Comment on above: Performed By: #### P REGUR, UA ####Unless otherwise noted, all testing performed by [address] [phone]: [id number] Director: Cristofer Causey M.D. Neutrophils 2.9 K/mcL Normal 1.2-6.9 [facility] Comment on above: Performed By: #### P REGUR, UA ####Unless otherwise noted, all testing performed by [address] [phone]: [id number] Director: Cristofer Causey M.D. Platelet mean volume (PMV) 7.7 fL Normal 7.0-10.6 [facility] Comment on above: Performed By: #### P REGUR, UA ####Unless otherwise noted, all testing performed by [address] [phone]: [id number] Director: Cristofer Causey M.D. Platelets 259 K/mcL Normal 162-402 [facility] Comment on above: Performed By: #### P REGUR, UA ####Unless otherwise noted, all testing performed by [address] [phone]: [id number] Director: Cristofer Causey M.D. Segmented Neut % 46.9 % Normal [facility] Comment on above: Performed By: #### P REGUR, UA ####Unless otherwise noted, all testing performed by [address] [phone]: [id number] Director: Cristofer Causey M.D. WBC (Leukocytes) 6.1 K/mcL Normal 3.4-10.6 [facility] Comment on above: Performed By: #### P REGUR, UA ####Unless otherwise noted, all testing performed by [address] [phone]: [id number] Director: Cristofer Causey M.D. [facility] Alanine aminotransferase (ALT) 56 U/L Normal 14-65 [facility] Comment on above: Result Comment: This test result might be falsely depressed or falsely elevated onsamples drawn from patients taking Sulfasalazine and Sulfapyridine.Venipuncture should occur prior to taking either of these drugs. Performed By: #### P REGUR, UA ####Unless otherwise noted, all testing performed by [address] [phone]: [id number] Director: Cristofer Causey M.D. Albumin 3.2 g/dL Normal 3.2-5.2 [facility] Comment on above: Performed By: #### P REGUR, UA ####Unless otherwise noted, all testing performed by [address] [phone]: [id number] Director: Cristofer Causey M.D. Alkaline phosphatase (ALP) 81 U/L Normal 40-140 [facility] Comment on above: Performed By: #### P REGUR, UA ####Unless otherwise noted, all testing performed by [address] [phone]: [id number] Director: Cristofer Causey M.D. Aspartate aminotransferase (AST) 33 U/L Normal 0-45 [facility] Comment on above: Result Comment: This test result might be falsely depressed or falsely elevated onsamples drawn from patients taking Sulfasalazine and Sulfapyridine.Venipuncture should occur prior to taking either of these drugs. Performed By: #### P REGUR, UA ####Unless otherwise noted, all testing performed by [address] [phone]: [id number] Director: Cristofer Causey M.D. Bilirubin (total) 0.2 mg/dL Low 0.3-1.2 [facility] Comment on above: Performed By: #### P REGUR, UA ####Unless otherwise noted, all testing performed by [place] [place], [place] [phone]: [id number] Director: Cristofer Causey M.D. Calcium 8.8 mg/dL Normal 8.4-10.2 [facility] Comment on above: Performed By: #### P REGUR, UA ####Unless otherwise noted, all testing performed by [address] [phone]: [id number] Director: Cristofer Causey M.D. Chloride 106 mmol/L Normal 98-108 [facility] Comment on above: Performed By: #### P REGUR, UA ####Unless otherwise noted, all testing performed by [place] [phone]: [id number] Director: Cristofer Causey M.D. CO2 27 mmol/L Normal 21-32 [facility] Comment on above: Performed By: #### P REGUR, UA ####Unless otherwise noted, all testing performed by [address] [phone]: [id number] Director: Cristofer Causey M.D. Creatinine 0.80 mg/dL Normal 0.40-1.10 [facility] Comment on above: Performed By: #### P REGUR, UA ####Unless otherwise noted, all testing performed by [address] [phone]: [id number] Director: Cristofer Causey M.D. eGFR (black) mL/min/{1.73_m2} Normal [facility] Comment on above: Result Comment: Afri can [facility] [place] GFR Calc Performed By: #### P REGUR, UA ####Unless otherwise noted, all testing performed by [address] [phone]: [id number] Director: Cristofer Causey M.D. eGFR (non-black) mL/min/{1.73_m2} Normal [facility] Comment on above: Result Comment: Non- GFR CalceGFR is an estimated Glomerular Filtration Rate based on the valueof the patient's serum creatinine. In outpatients, eGFR should be usedas a helpful tool in screening for CKD. In inpatients or patients withacute renal failure, eGFR represents the GFR at the moment of the drawand should be used with caution. Performed By: #### P REGUR, UA ####Unless otherwise noted, all testing performed by [address] [phone]: [id number] Director: Cristofer Causey M.D. Glucose mass conc 73 mg/dL Normal 70-99 [facility] Comment on above: Result Comment: This test result might be falsely depressed or falsely elevated onsamples drawn from patients taking Sulfasalazine and Sulfapyridine.Venipuncture should occur prior to taking either of these drugs. Performed By: #### P REGUR, UA ####Unless otherwise noted, all testing performed by [address] [phone]: [id number] Director: Cristofer Causey M.D. Potassium molar conc 3.7 mmol/L Normal 3.5-5.1 [facility] Comment on above: Performed By: #### P REGUR, UA ####Unless otherwise noted, all testing performed by [address] [phone]: [id number] Director: Cristofer Causey M.D. Protein 6.9 g/dL Normal 6.0-8.0 [facility] Comment on above: Performed By: #### P REGUR, UA ####Unless otherwise noted, all testing performed by [address] [phone]: [id number] Director: Cristofer Causey M.D. Sodium 139 mmol/L Normal 135-145 [facility] Comment on above: Performed By: #### P REGUR, UA ####Unless otherwise noted, all testing performed by [address] [phone]: [id number] Director: Cristofer Causey M.D. Urea nitrogen 10 mg/dL Normal 8-25 [facility] Comment on above: Performed By: #### P REGUR, UA ####Unless otherwise noted, all testing performed by [address] [phone]: [id number] Director: Cristofer Causey M.D. Culture, Urineon 02-21-2017 Culture, Urine Test Name: Culture, Urine Culture Status: Final Culture Report: No significant growth. Micro Source: Urine Normal [facility] Comment on above: Performed By: #### P REGUR, UA ####Unless otherwise noted, all testing performed by [address] [phone]: [id number] Director: Cristofer Causey M.D. Test,Urine Qualon 02-21-2017 HCG.beta subunit ( test) Ql (U) Negative Normal Negative [facility] Comment on above: Result Comment: Rapi d test procedural control acceptable.If a negative result is obtained but is suspected, hCG levelsmay be too low or urine may be too dilute for detection. Another specimenshould be collected after 48-72 hours and tested. If waiting 48 hours isnot medically advisable, the test result should be confirmed with a moresensitive quantitative serum hCG test. Performed By: #### P REGUR, UA ####Unless otherwise noted, all testing performed by [address] [phone]: [id number] Director: Cristofer Causey M.D. Urinalysis, Routineon 2016 Bilirubin,Urine Negative Normal NEG;NEGATIVE [facility] Comment on above: Performed By: #### P REGUR, UA ####Unless otherwise noted, all testing performed by [address] [phone]: [id number] Director: Cristofer Causey M.D. Blood,Urine Moderate Abnormal NEG;NEGATIVE [facility] Comment on above: Performed By: #### P REGUR, UA ####Unless otherwise noted, all testing performed by [address] [phone]: [id number] Director: Cristofer Causey M.D. Ketone,Urine Negative Normal NEG;NEGATIVE [facility] Comment on above: Performed By: #### P REGUR, UA ####Unless otherwise noted, all testing performed by [address] [phone]: [id number] Director: Cristofer Causey M.D. Leuk.Esterase,Urine Small Abnormal Negative [facility] Comment on above: Performed By: #### P REGUR, UA ####Unless otherwise noted, all testing performed by [address] [phone]: [id number] Director: Cristofer Causey M.D. Mucus, Urine Occasional Abnormal None Seen [facility] Comment on above: Performed By: #### P REGUR, UA ####Unless otherwise noted, all testing performed by [address] [phone]: [id number] Director: Cristofer Causey M.D. Nitrite,Urine Negative Normal NEG;NEGATIVE [facility] Comment on above: Performed By: #### P REGUR, UA ####Unless otherwise noted, all testing performed by [address] [phone]: [id number] Director: Cristofer Causey M.D. Protein,Urine Negative Normal NEG;NEGATIVE [facility] Comment on above: Performed By: #### P REGUR, UA ####Unless otherwise noted, all testing performed by [address] [phone]: [id number] Director: Cristofer Causey M.D. Specific Waldo,Urine 1.024 Normal 1.003-1.029 [facility] Comment on above: Performed By: #### P REGUR, UA ####Unless otherwise noted, all testing performed by [address] [phone]: [id number] Director: Cristofer Causey M.D. Squamous Epithelial 4 /HPF Normal 0-[address] [facility] Comment on above: Performed By: #### P REGUR, UA ####Unless otherwise noted, all testing performed by [address] [phone]: [id number] Director: Cristofer Causey M.D. Trans. Epithelial < 1 Normal 0-3 [facility] Comment on above: Performed By: #### P REGUR, UA ####Unless otherwise noted, all testing performed by [address] [phone]: [id number] Director: Cristofer Causey M.D. Urine, bacteria in sediment Occasional Abnormal NS;RARE [facility] Comment on above: Performed By: #### P REGUR, UA ####Unless otherwise noted, all testing performed by [address] [phone]: [id number] Director: Cristofer Causey M.D. Urine, character Hazy Normal [facility] Comment on above: Performed By: #### P REGUR, UA ####Unless otherwise noted, all testing performed by [address] [phone]: [id number] Director: Cristofer Causey M.D. Urine, color Yellow Normal [facility] Comment on above: Performed By: #### P REGUR, UA ####Unless otherwise noted, all testing performed by [address] [phone]: [id number] Director: Cristofer Causey M.D. Urine, erythrocytes in sediment by area 4 /[HPF] Normal 0-5 [facility] Comment on above: Performed By: #### P REGUR, UA ####Unless otherwise noted, all testing performed by [address] [phone]: [id number] Director: Cristofer Causey M.D. Urine, glucose presence Negative Normal NEG;NEGATIVE [facility] Comment on above: Performed By: #### P REGUR, UA ####Unless otherwise noted, all testing performed by [place] [phone]: [id number] Director: Cristofer Causey M.D. Urine, leukocytes in sedmiment 15 /[HPF] High 0-5 [facility] Comment on above: Performed By: #### P REGUR, UA ####Unless otherwise noted, all testing performed by [address] [phone]: [id number] Director: Cristofer Causey M.D. Urine, pH 5.0 [pH] Normal 4.5-8.0 [facility] Comment on above: Performed By: #### P REGUR, UA ####Unless otherwise noted, all testing performed by [place] [phone]: [id number] Director: Cristofer Causey M.D. Urobilinogen,Urine < 2.0 Normal <2 [facility] Comment on above: Performed By: #### P REGUR, UA ####Unless otherwise noted, all testing performed by [place] [address], [place] [phone]: [id number] Director: Cristofer Causey M.D. FEMURon 12-31-2016 FEMUR Final ReportAccession No: [id number] Performed: Dec 31 2016 8:04PMExamination: LEFT FEMURFell yesterday, left lower extremity pain.Left femur on 12/31/2016 at 7:50 PMAP and lateral views were performed. The surrounding soft tissues areunremarkable. The joint spaces are well-maintained. No fractures or otheracute osseous abnormalities are identified.IMPRESSION: No radiographic evidence of acute osseous or jointabnormality.Portab le left lower leg on 12/31/2016 at 5:54 PMAP and lateral views were performed. The surrounding soft tissues areunremarkable. The joint spaces are well-maintained. No fractures or otheracute osseous abnormalities are identified.Pression: No radiographic evidence of acute osseous or joint abnormality.Portable left foot on 12/31/2016 at 7:55 PMAP, lateral and oblique views were performed. The surrounding softtissues are unremarkable. The joint spaces are fairly well-maintained. Nofractures or other acute osseous abnormalities are identified.IMPRESSION: No radiographic evidence of acute osseous or jointabnormality.Interp reting Physician: YAQUELIN GAXIOLA D.O.Trans: : cc: Normal [facility] FOOT 12-31-2016 FOOT Final ReportAccession No: [id number] Performed: Dec 31 2016 8:04PMExamination: LEFT FOOTFell yesterday, left lower extremity pain.Left femur on 12/31/2016 at 7:50 PMAP and lateral views were performed. The surrounding soft tissues areunremarkable. The joint spaces are well-maintained. No fractures or otheracute osseous abnormalities are identified.IMPRESSION: No radiographic evidence of acute osseous or jointabnormality.Portab le left lower leg on 12/31/2016 at 5:54 PMAP and lateral views were performed. The surrounding soft tissues areunremarkable. The joint spaces are well-maintained. No fractures or otheracute osseous abnormalities are identified.Pression: No radiographic evidence of acute osseous or joint abnormality.Portable left foot on 12/31/2016 at 7:55 PMAP, lateral and oblique views were performed. The surrounding softtissues are unremarkable. The joint spaces are fairly well-maintained. Nofractures or other acute osseous abnormalities are identified.IMPRESSION: No radiographic evidence of acute osseous or jointabnormality.Interp reting Physician: YAQUELIN GAXIOLA D.O.Trans: : cc: Normal [facility] LEG (TIBIA/FIBULA)on 017 LEG (TIBIA/FIBULA) Final ReportAccession No: [id number] Performed: Dec 31 2016 8:04PMExamination: LEFT LEG (TIBIA/FIBULA)Fell yesterday, left lower extremity pain.Left femur on 12/31/2016 at 7:50 PMAP and lateral views were performed. The surrounding soft tissues areunremarkable. The joint spaces are well-maintained. No fractures or otheracute osseous abnormalities are identified.IMPRESSION: No radiographic evidence of acute osseous or jointabnormality.Portab le left lower leg on 12/31/2016 at 5:54 PMAP and lateral views were performed. The surrounding soft tissues areunremarkable. The joint spaces are well-maintained. No fractures or otheracute osseous abnormalities are identified.Pression: No radiographic evidence of acute osseous or joint abnormality.Portable left foot on 12/31/2016 at 7:55 PMAP, lateral and oblique views were performed. The surrounding softtissues are unremarkable. The joint spaces are fairly well-maintained. Nofractures or other acute osseous abnormalities are identified.IMPRESSION: No radiographic evidence of acute osseous or jointabnormality.Interp reting Physician: YAQUELIN GAXIOLA D.O.Trans: : cc: Normal [facility] CBC with Diffon 12-16-2016 Basophils Auto #/vol (Bld) 0.0 K/mcL Normal 0-0.2 [facility] Comment on above: Performed By: #### C BCDIF, LIPASE, CMET ####Unless otherwise noted, all testing performed by [place] [address] [address], [place] [phone]: [id number] Director: Cristofer Causey M.D. Basophils/100 WBC Auto (Bld) 0.4 % Normal [facility] Comment on above: Performed By: #### C BCDIF, LIPASE, CMET ####Unless otherwise noted, all testing performed by [address] [phone]: [id number] Director: Cristofer Causey M.D. Eosinophils 0.1 K/mcL Normal 0-0.5 [facility] Comment on above: Performed By: #### C BCDIF, LIPASE, CMET ####Unless otherwise noted, all testing performed by [address]CLIA: [id number] Director: Cristofer Causey M.D. Eosinophils/100 leukocytes 1.3 % Normal [facility] Comment on above: Performed By: #### C BCDIF, LIPASE, CMET ####Unless otherwise noted, all testing performed by [address] [phone]: [id number] Director: Cristofer Causey M.D. Erythrocyte distribution width Auto Ratio (RBC) 13.4 % Normal 10.0-14.4 [facility] Comment on above: Performed By: #### C BCDIF, LIPASE, CMET ####Unless otherwise noted, all testing performed by [address] [phone]: [id number] Director: Cristofer Causey M.D. Erythrocytes (RBC) 4.88 M/mcL Normal 3.7-5.0 [facility] Comment on above: Performed By: #### C BCDIF, LIPASE, CMET ####Unless otherwise noted, all testing performed by [address] [phone]: [id number] Director: Cristofer Causey M.D. Hematocrit (HCT) 41.4 % Normal 34.4-44.8 [facility] Comment on above: Performed By: #### C BCDIF, LIPASE, CMET ####Unless otherwise noted, all testing performed by [address] [phone]: [id number] Director: Cristofer Causey M.D. Hemoglobin mass conc (Bld) 14.1 g/dL Normal 11.6-15.4 [facility] Comment on above: Performed By: #### C BCDIF, LIPASE, CMET ####Unless otherwise noted, all testing performed by [address] [phone]: [id number] Director: Cristofer Causey M.D. Lymphocytes 1.3 K/mcL Normal 1.0-3.7 [facility] Comment on above: Performed By: #### C BCDIF, LIPASE, CMET ####Unless otherwise noted, all testing performed by [address] [phone]: [id number] Director: Cristofer Causey M.D. Lymphocytes/100 leukocytes 20.5 % Normal [facility] Comment on above: Performed By: #### C BCDIF, LIPASE, CMET ####Unless otherwise noted, all testing performed by [address], [place] [phone]: [id number] Director: Cristofer Causey M.D. MCH 29.0 pg Normal 27.9-33.9 [facility] Comment on above: Performed By: #### C BCDIF, LIPASE, CMET ####Unless otherwise noted, all testing performed by [address] [phone]: [id number] Director: Cristofer Causey M.D. MCHC mass conc (RBC) 34.1 g/dL Normal 33.1-35.1 [facility] Comment on above: Performed By: #### C BCDIF, LIPASE, CMET ####Unless otherwise noted, all testing performed by [address] [phone]: [id number] Director: Cristofer Causey M.D. MCV 84.9 fL Normal 82.6-98.9 [facility] Comment on above: Performed By: #### C BCDIF, LIPASE, CMET ####Unless otherwise noted, all testing performed by [address] [phone]: [id number] Director: Cristofer Causey M.D. Monocytes 0.6 K/mcL Normal 0.1-0.6 [facility] Comment on above: Performed By: #### C BCDIF, LIPASE, CMET ####Unless otherwise noted, all testing performed by [address] [phone]: [id number] Director: Cristofer Padilla, M.D. Monocytes/100 leukocytes 9.0 % Normal [facility] Comment on above: Performed By: #### C BCDIF, LIPASE, CMET ####Unless otherwise noted, all testing performed by [address] [phone]: [id number] Director: Cristofer Causey M.D. Neutrophils 4.4 K/mcL Normal 1.2-6.9 [facility] Comment on above: Performed By: #### C BCDIF, LIPASE, CMET ####Unless otherwise noted, all testing performed by [address]8509CLIA: [id number] Director: Cristofer Causey M.D. Platelet mean volume (PMV) 7.9 fL Normal 7.0-10.6 [facility] Comment on above: Performed By: #### C BCDIF, LIPASE, CMET ####Unless otherwise noted, all testing performed by [address]CLIA: [id number] Director: Cristofer Causey M.D. Platelets 237 K/mcL Normal 162-402 [facility] Comment on above: Performed By: #### C BCDIF, LIPASE, CMET ####Unless otherwise noted, all testing performed by [address] [phone]: [id number] Director: Cristofer Causey M.D. Segmented Neut % 68.8 % Normal [facility] Comment on above: Performed By: #### C BCDIF, LIPASE, CMET ####Unless otherwise noted, all testing performed by [address], [place] [phone]: [id number] Director: Cristofer Causey M.D. WBC (Leukocytes) 6.4 K/mcL Normal 3.4-10.6 [facility] Comment on above: Performed By: #### C BCDIF, LIPASE, CMET ####Unless otherwise noted, all testing performed by [address] [phone]: [id number] Director: Cristofer Causey M.D. Chlamydia/Gonorrhoeae Amp RN Aon 12-16-2016 Chlamydia trach, Amp. RNA Genl Negative Normal Negative [facility] Comment on above: Performed By: #### C HLGCRNA ####Unless otherwise noted, all testing performed by [address] [phone]: [id number] Director: Cristofer Causey M.D. Neisseria Gonorrhoeae, Amp.RNA Negative Normal Negative [facility] Comment on above: Result Comment: Test Performed by [facility] [place] [address] Performed By: #### C HLGCRNA ####Unless otherwise noted, all testing performed by [address] [phone]: [id number] Director: Cristofer Causey M.D. Comprehensive Metabolic Pane [facility] 12-16-2016 Alanine aminotransferase (ALT) 71 U/L High 7-35 [facility] Comment on above: Result Comment: This test result might be falsely depressed or falsely elevated onsamples drawn from patients taking Sulfasalazine and Sulfapyridine.Venipuncture should occur prior to taking either of these drugs. Performed By: #### C BCDIF, LIPASE, CMET ####Unless otherwise noted, all testing performed by [address] [phone]: [id number] Director: Cristofer Causey M.D. Albumin 4.0 g/dL Normal 3.5-5.0 [facility] Comment on above: Performed By: #### C BCDIF, LIPASE, CMET ####Unless otherwise noted, all testing performed by [address] [phone]: [id number] Director: Cristofer Causey M.D. Alkaline phosphatase (ALP) 74 U/L Normal 25-100 [facility] Comment on above: Performed By: #### C BCDIF, LIPASE, CMET ####Unless otherwise noted, all testing performed by [address] [phone]: [id number] Director: Cristofer Causey M.D. Aspartate aminotransferase (AST) 58 U/L High 10-40 [facility] Comment on above: Performed By: #### C BCDIF, LIPASE, CMET ####Unless otherwise noted, all testing performed by [address] [phone]: [id number] Director: Cristofer Causey M.D. Bilirubin (total) 0.5 mg/dL Normal 0.3-1.2 [facility] Comment on above: Performed By: #### C BCDIF, LIPASE, CMET ####Unless otherwise noted, all testing performed by [address] [phone]: [id number] Director: Cristofer Causey M.D. Calcium 9.4 mg/dL Normal 8.4-10.2 [facility] Comment on above: Performed By: #### C BCDIF, LIPASE, CMET ####Unless otherwise noted, all testing performed by [address] [phone]: [id number] Director: Cristofer Causey M.D. Chloride 105 mmol/L Normal 99-111 [facility] Comment on above: Performed By: #### C BCDIF, LIPASE, CMET ####Unless otherwise noted, all testing performed by [place] [address]CLIA: [id number] Director: Cristofer Causey M.D. CO2 26 mmol/L Normal 23-32 [facility] Comment on above: Performed By: #### C BCDIF, LIPASE, CMET ####Unless otherwise noted, all testing performed by [place] [address]CLIA: [id number] Director: Cristofer Causey M.D. Creatinine 0.76 mg/dL Normal 0.4-1.1 [facility] Comment on above: Performed By: #### C BCDIF, LIPASE, CMET ####Unless otherwise noted, all testing performed by [place] [phone]: [id number] Director: Cristofer Causey M.D. eGFR (black) mL/min/{1.73_m2} Normal [facility] Comment on above: Performed By: #### C BCDIF, LIPASE, CMET ####Unless otherwise noted, all testing performed by [address] [phone]: [id number] Director: Cristofer Causey M.D. eGFR (non-black) mL/min/{1.73_m2} Normal [facility] Comment on above: Result Comment: eGFR is an estimated Glomerular Filtration Rate based on the valueof the patient's serum creatinine. In outpatients, eGFR should be usedas a helpful tool in screening for CKD. In inpatients or patients withacute renal failure, eGFR represents the GFR at the moment of the drawand should be used with caution. Performed By: #### C BCDIF, LIPASE, CMET ####Unless otherwise noted, all testing performed by [address] [phone]: [id number] Director: Cristofer Causey M.D. Glucose mass conc 89 mg/dL Normal 70-99 [facility] Comment on above: Performed By: #### C BCDIF, LIPASE, CMET ####Unless otherwise noted, all testing performed by [address] [phone]: [id number] Director: Cristofer Causey M.D. Potassium molar conc 4.0 mmol/L Normal 3.5-5.1 [facility] Comment on above: Performed By: #### C BCDIF, LIPASE, CMET ####Unless otherwise noted, all testing performed by [address] [phone]: [id number] Director: Cristofer Causey M.D. Protein 6.8 g/dL Normal 6.4-8.3 [facility] Comment on above: Performed By: #### C BCDIF, LIPASE, CMET ####Unless otherwise noted, all testing performed by [address] [phone]: [id number] Director: Cristofer Causey M.D. Sodium 138 mmol/L Normal 136-145 [facility] Comment on above: Performed By: #### C BCDIF, LIPASE, CMET ####Unless otherwise noted, all testing performed by [address] [phone]: [id number] Director: Cristofer Causey M.D. Urea nitrogen 11 mg/dL Normal 6-20 [facility] Comment on above: Performed By: #### C BCDIF, LIPASE, CMET ####Unless otherwise noted, all testing performed by [address] [phone]: [id number] Director: Cristofer Causey M.D. Lipaseon 12-16-2016 Lipase 23 U/L Normal 8-78 [facility] Comment on above: Performed By: #### C BCDIF, LIPASE, CMET ####Unless otherwise noted, all testing performed by [address] [phone]: [id number] Director: Cristofer Causey M.D. Test,Urine Qualon 12-16-2016 HCG.beta subunit ( test) Ql (U) Negative Normal Negative [facility] Comment on above: Result Comment: Rapi d test procedural control acceptable.If a negative result is obtained but is suspected, hCG levelsmay be too low or urine may be too dilute for detection. Another specimenshould be collected after 48-72 hours and tested. If waiting 48 hours isnot medically advisable, the test result should be confirmed with a moresensitive quantitative serum hCG test. Performed By: #### P LAOL ANDREWS ####Unless otherwise noted, all testing performed by [facility], [place] [phone]: [id number] Director: Cristofer Causey M.D. US TRANSVAGINAL NON OBon US TRANSVAGINAL NON OB Final ReportAccession No: [id number] Performed: Dec 16 2016 2:05PMExamination: US TRANSVAGINAL NON EN05-jxib-hnu female with left pelvic and back pain and negative pregnancytest in the emergency room.Pelvic ultrasound 12/16/2016 at 1:35 PM:FINDINGS: Transvaginal sonographic images of the pelvis were performed.The uterus is 9.3 x 4.7 x 5.1 cm. Endometrial stripe measures as much as17 mm thickness. There are nabothian cysts. The right ovary is 3.3 x 2.6x 2.3 cm for total volume of 10.4 cc. The left ovary is not clearlyidentified. There is normal vascular flow to the right ovary. Anqob-py-vaw fluid.IMPRESSION:1. Thickened endometrial stripe versus hyperechoic material withindistended endometrial cavity in the endometrial fundus. Thickenedendometrium may be related to the phase of the patient's menstrual cycle.The thickened hyperechoic area could also represent blood in theendometrial cavity. Follow-up ultrasound in six weeks is recommended toconfirm resolution of this appearance at a different phase of thepatient's mental cycle.2. Nabothian cysts.3. Nonvisualization of the left ovary. The pelvis could be furtherevaluated with contrast-enhanced pelvic MRI as clinically indicated.Interpreting Physician: DAIN MARTINEZ M.D.Trans: : cc: Normal [facility] Urinalysis, Routineon 2016 Bilirubin,Urine Negative Normal NEG;NEGATIVE [facility] Comment on above: Performed By: #### P REGUR, UA ####Unless otherwise noted, all testing performed by [address] [phone]: [id number] Director: Cristofer Causey M.D. Blood,Urine Negative Normal NEG;NEGATIVE [facility] Comment on above: Performed By: #### P REGUR, UA ####Unless otherwise noted, all testing performed by [address] [phone]: [id number] Director: Cristofer Causey M.D. Ketone,Urine Negative Normal NEG;NEGATIVE [facility] Comment on above: Performed By: #### P REGUR, UA ####Unless otherwise noted, all testing performed by [address] [phone]: [id number] Director: Cristofer Causey M.D. Leuk.Esterase,Urine Moderate Abnormal Negative [facility] Comment on above: Performed By: #### P REGUR, UA ####Unless otherwise noted, all testing performed by [address] [phone]: [id number] Director: Cristofer Causey M.D. Mucus, Urine Rare Abnormal None Seen [facility] Comment on above: Performed By: #### P REGUR, UA ####Unless otherwise noted, all testing performed by [address] [phone]: [id number] Director: Cristofer Causey M.D. Nitrite,Urine Negative Normal NEG;NEGATIVE [facility] Comment on above: Performed By: #### P REGUR, UA ####Unless otherwise noted, all testing performed by [address] [phone]: [id number] Director: Cristofer Causey M.D. Protein,Urine Negative Normal NEG;NEGATIVE [facility] Comment on above: Performed By: #### P REGUR, UA ####Unless otherwise noted, all testing performed by [address] [phone]: [id number] Director: Cristofer Causey M.D. Specific Waldo,Urine 1.020 Normal 1.003-1.029 [facility] Comment on above: Performed By: #### P REGUR, UA ####Unless otherwise noted, all testing performed by [address] [phone]: [id number] Director: Cristofer Causey M.D. Squamous Epithelial 8 /HPF Normal 0-[address] [facility] Comment on above: Performed By: #### P REGUR, UA ####Unless otherwise noted, all testing performed by [address] [phone]: [id number] Director: Cristofer Causey M.D. Urine, bacteria in sediment Few Abnormal NS;RARE [facility] Comment on above: Performed By: #### P REGUR, UA ####Unless otherwise noted, all testing performed by [address] [phone]: [id number] Director: Cristofer Causey M.D. Urine, character Hazy Normal [facility] Comment on above: Performed By: #### P REGUR, UA ####Unless otherwise noted, all testing performed by [address] [phone]: [id number] Director: Cristofer Causey M.D. Urine, color Yellow Normal [facility] Comment on above: Performed By: #### P REGUR, UA ####Unless otherwise noted, all testing performed by [address] [phone]: [id number] Director: Cristofer Causey M.D. Urine, glucose presence Negative Normal NEG;NEGATIVE [facility] Comment on above: Performed By: #### P REGUR, UA ####Unless otherwise noted, all testing performed by [address] [phone]: [id number] Director: Cristofer Causey M.D. Urine, leukocytes in sedmiment 20 /[HPF] High 0-5 [facility] Comment on above: Performed By: #### P REGUR, UA ####Unless otherwise noted, all testing performed by [address] [phone]: [id number] Director: Cristofer Causey M.D. Urine, pH 5.0 [pH] Normal 4.5-8.0 [facility] Comment on above: Performed By: #### P REGUR, UA ####Unless otherwise noted, all testing performed by [address] [phone]: [id number] Director: Cristofer Causey M.D. Urobilinogen,Urine < 2.0 Normal <2 [facility] Comment on above: Performed By: #### P REGUR, UA ####Unless otherwise noted, all testing performed by [address] [phone]: [id number] Director: Cristofer Causey M.D. Wet Prepon 12-16-2016 Wet Prep Test Name: Wet Prep Culture Status: Final Trichomonas vaginalis: None Seen Clue Cells: None Seen Yeast: None Seen Normal [facility] Comment on above: Performed By: #### W ETP ####Unless otherwise noted, all testing performed by [address] [phone]: [id number] Director: Cristofer Causey M.D. Vital Signs Date Time Vital Sign Value Performing Clinician Facility 09-07-2024 13:01-0400 Diastolic Blood Pressure Non-Invasive 71 mm[Hg] ANJALI ZHANG DO [facility] 09-07-2024 13:01-0400 Heart rate 72 /min ANJALI DHARMESHDONNA DO [facility] 09-07-2024 13:01-0400 Respiratory rate 16 /min ANJALI ZHANG DO [facility] 09-07-2024 13:01-0400 Systolic Blood Pressure Non-Invasive 116 mm[Hg] ANJALI SHEROCK DO [facility] 09-07-2024 12:35-0400 Diastolic Blood Pressure Non-Invasive 75 mm[Hg] ANJALI SHEROCK DO [facility] 04-24-2025 12:35-0400 Heart rate 88 /min ANJALI SHEROCK DO [facility] 09-07-2024 12:35-0400 Respiratory rate 18 /min ANJALI SHEROCK DO [facility] 09-07-2024 12:35-0400 Systolic Blood Pressure Non-Invasive 108 mm[Hg] ANJALI SHEROCK DO [facility] 09-07-2024 11:30-0400 Diastolic Blood Pressure Non-Invasive 70 mm[Hg] ANJALI SHEROCK DO [facility] 09-07-2024 11:30-0400 Heart rate 89 /min ANJALI SHEROCK DO [facility] 09-07-2024 11:30-0400 Respiratory rate 17 /min ANJALI SHEROCK DO [facility] 09-07-2024 11:30-0400 Systolic Blood Pressure Non-Invasive 114 mm[Hg] ANJALI SHEROCK DO [facility] 09-07-2024 10:52-0400 Body temperature 97.34 [degF] ANJALI SHEROCK DO [facility] 09-07-2024 10:45-0400 Respiratory Rate - Anes 22 br/min ANJALI SHEROCK DO [facility] 09-07-2024 10:40-0400 Respiratory Rate - Anes 23 br/min ANJALI SHEROCK DO [facility] 09-07-2024 10:35-0400 Respiratory Rate - Anes 6 br/min ANJALI SHEROCK DO [facility] 09-07-2024 06:56-0400 Body height 154.94 cm ANJALI ZHANG DO [facility] 09-07-2024 06:56-0400 Body temperature 98.24 [degF] ANJALI BARROSOOCK DO [facility] 09-07-2024 06:56-0400 Body weight 81.36 kg ANJALI ZHANG DO [facility] 09-07-2024 06:56-0400 Heart rate 76 /min ANJALI ZHANG DO [facility] 06-09-2023 07:23-0500 Body height 155 cm SILVESTRE SIDDIQUI MD [facility] 06-09-2023 07:23-0500 Body temperature 98.42 [degF] SILVESTRE SIDDIQUI MD [facility] 06-09-2023 07:23-0500 Body weight 88.6 kg SILVESTRE SIDDIQUI MD [facility] 06-09-2023 07:23-0500 Diastolic Blood Pressure Non-Invasive 84 mm[Hg] SILVESTRE SIDDIQUI MD [facility] 06-09-2023 07:23-0500 Heart rate 89 /min SILVESTRE SIDDIQUI MD [facility] 06-09-2023 07:23-0500 Respiratory rate 18 /min SILVESTRE SIDDIQUI MD [facility] 06-09-2023 07:23-0500 Systolic Blood Pressure Non-Invasive 125 mm[Hg] SILVESTRE SIDDIQUI MD [facility] 12-14-2022 23:03-0400 Body temperature 98 [degF] [facility] 12-14-2022 23:03-0400 Diastolic blood pressure 75 mm[Hg] [facility] 12-14-2022 23:03-0400 Heart rate 100 /min [facility] 12-14-2022 23:03-0400 Respiratory rate 18 /min [facility] 12-14-2022 23:03-0400 SaO2% (BldA) [Mass fraction] 99 % [facility] 12-14-2022 23:03-0400 Systolic blood pressure 141 mm[Hg] [facility] 12-14-2022 21:27-0400 Body height 154.94 cm [facility] 12-14-2022 21:27-0400 Body mass index (BMI) [Ratio] 36.3 kg/m2 [facility] 12-14-2022 21:27-0400 Body weight 87.27 kg [facility] 01-18-2020 08:35-0400 BMI (Body Mass Index) 34.58 kg/m2 [facility] 01-18-2020 08:35-0400 Body Temperature 98.01 [degF] [facility] 01-18-2020 08:35-0400 Body weight 83.01 kg [facility] 01-18-2020 08:35-0400 BP Diastolic 86 mm[Hg] [facility] 01-18-2020 08:35-0400 BP Systolic 117 mm[Hg] [facility] 01-18-2020 08:35-0400 Height 154.9 cm [facility] 01-18-2020 08:35-0400 Pulse (Heart Rate) 64 /min [facility] 01-10-2020 09:13-0400 BMI (Body Mass Index) 34.8 kg/m2 [facility] 01-10-2020 09:13-0400 Body Temperature 98.29 [degF] [facility] 01-10-2020 09:13-0400 Body weight 83.55 kg [facility] 01-10-2020 09:13-0400 BP Diastolic 78 mm[Hg] [facility] 01-10-2020 09:13-0400 BP Systolic 115 mm[Hg] [facility] 01-10-2020 09:13-0400 Height 154.9 cm [facility] 01-10-2020 09:13-0400 Pulse (Heart Rate) 71 /min [facility] 12-21-2019 06:53-0400 Height 154.9 cm [facility] 12-21-2019 06:52-0400 Body Temperature 97.11 [degF] [facility] 12-21-2019 06:52-0400 BP Diastolic 88 mm[Hg] [facility] 12-21-2019 06:52-0400 BP Systolic 131 mm[Hg] [facility] 12-21-2019 06:52-0400 Pulse (Heart Rate) 80 /min [facility] 12-21-2019 06:52-0400 Pulse Oximetry 97 % [facility] 12-21-2019 06:52-0400 Respiratory Rate 16 /min [facility] 03-28-2019 14:48-0500 BMI (Body Mass Index) 29.1 kg/m2 [facility] 03-28-2019 14:48-0500 Body weight 69.85 kg [place] [facility] 03-28-2019 14:48-0500 BP Diastolic 78 mm[Hg] [facility] 03-28-2019 14:48-0500 BP Systolic 116 mm[Hg] [facility] 03-28-2019 14:48-0500 Height 154.9 cm [place] [employer] 03-28-2019 14:48-0500 Pulse (Heart Rate) 96 /min [facility] 02-28-2019 14:15-0400 BMI (Body Mass Index) 29.85 kg/m2 [place] 02-28-2019 14:15-0400 Body weight 71.67 kg [place] [facility] 02-28-2019 14:15-0400 BP Diastolic 60 mm[Hg] [facility] 02-28-2019 14:15-0400 BP Systolic 116 mm[Hg] Jose [facility] 02-28-2019 14:15-0400 Height 154.9 cm [facility] 02-28-2019 14:15-0400 Pulse (Heart Rate) 70 /min [facility] 09-30-2018 12:41-0400 BMI (Body Mass Index) 31.82 kg/m2 [facility] 09-30-2018 12:41-0400 Body Temperature 98.1 [degF] [facility] 09-30-2018 12:41-0400 Body weight 76.39 kg [facility] 09-30-2018 12:41-0400 BP Diastolic 76 mm[Hg] [facility] 09-30-2018 12:41-0400 BP Systolic 112 mm[Hg] [facility] 09-30-2018 12:41-0400 Height 154.9 cm [facility] 09-30-2018 12:41-0400 Pulse (Heart Rate) 80 /min [facility] 09-30-2018 12:41-0400 Pulse Oximetry 97 % [facility] 09-30-2018 12:41-0400 Respiratory Rate 16 /min [facility] Encounters Encounter Date Encounter Type Care Provider Facility Start: 10-12-2024 End: 10-12-2024 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 Phone: [facility] Start: 09-07-2024 End: 09-07-2024 ambulatory ANJALI ZHANG DO Facility:[facility] Start: 09-07-2024 End: 09-07-2024 Manual pelvic examination ANJALI ZHANG DO [facility] Start: 08-24-2024 End: 08-24-2024 ambulatory ANJALI ZHANG DO Facility:[facility] Start: 06-29-2024 End: 06-29-[address] LAURIE HUYNH MD Facility:[facility] Start: 06-29-2024 End: 06-29-2024 Patient encounter procedure DAI NOEL 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 [facility] Start: 06-20-2024 End: 06-20-2024 Emergency department patient visit LAURIE HUYNH Facility:[id number] Start: 11-01-2023 End: 11-01-2023 Emergency department patient visit LAURIE HUYNH Facility:[id number] Start: 06-09-2023 End: 06-09-2023 Emergency department patient visit DR LAURIE HUYNH MD Facility:[facility] Start: 06-09-2023 End: 06-09-2023 Emergency department patient visit SILVESTRE SIDDIQUI MD [facility] Start: 04-16-2023 End: 04-17-2023 ambulatory UCHE ROBERTSON 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[employer] [place] Facility:[facility] Start: 04-16-2023 End: 04-16-2023 Patient encounter procedure UCHE ROBERTSON 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[employer]ER [place] [facility] Start: 03-24-2023 ambulatory Kingsley kumar MD Work Phone: Internal [facility] Start: 12-14-2022 End: 12-15-2022 Emergency department patient visit [facility] Facility:[facility] Start: 12-14-2022 End: 12-14-2022 Emergency department patient visit [facility] Work Phone: Start: 10-28-2022 End: 10-29-2022 ambulatory [facility] Start: 05-24-2022 End: 05-25-2022 Emergency department patient visit [facility] Start: 11-15-2021 End: 11-15-2021 Subsequent hospital visit by physician Provider [facility] Comment on above: EAR PAIN Start: 07-31-2021 End: 08-01-2021 ambulatory [facility] Start: 03-11-2021 End: 03-12-2021 ambulatory [facility] Start: 03-05-2021 End: 03-05-2021 Emergency department patient visit PHYSICIAN [facility] Start: 01-18-2020 End: 01-18-2020 Office outpatient visit 25 minutes Andres Mckeon Work Phone: [email or web address] Comment on above: Hema's thyroidi tis (Primary Dx); Hypothyroidism, unspecified type Start: 01-10-2020 End: 01-10-2020 Office outpatient new 30 minutes Andres Mckeon Work Phone: [email or web address] Comment on above: Hypothyroidism, unsp ecified type (Primary Dx); Insulin resistance Start: 12-21-2019 End: 12-21-2019 Emergency department patient visit Dominick Rodrigues Monie Work Phone: [employer] [facility] Start: 06-02-2019 End: 06-02-2019 Subsequent hospital visit by physician Jordy Hernandez Work Phone: [employer] [facility] Comment on above: Arrived Start: 03-28-2019 End: 03-28-2019 Office outpatient visit 15 minutes Jose Rafael Tucker Work Phone: [employer] [facility] Comment on above: Plantar fasciitis (P rimary Dx); Pain in right foot Start: 02-28-2019 End: 02-28-2019 Office outpatient new 30 minutes Jose Rafael Tucker Work Phone: [employer] [facility] Comment on above: Plantar fasciitis (P rimary Dx); Pain in right foot Start: 02-22-2019 End: 02-22-2019 Ancillary Orders Jordy Hernandez Work Phone: [employer] [facility] Comment on above: Right foot pain Arrived Start: 09-30-2018 Patient encounter procedure PHYSICIAN ALEKSANDR[facility] Start: 09-30-2018 End: 09-30-2018 Office outpatient visit 15 minutes Laura Childress Work Phone: [facility] Comment on above: Sinusitis, unspecifi ed chronicity, unspecified location (Primary Dx) Start: 06-10-2018 End: 06-10-2018 Patient encounter procedure Historical Provider Angus Peraza Registration Start: 12-31-2017 End: 12-31-2017 Emergency department patient visit Jv Petit Facility:[facility] Start: 12-31-2017 Patient encounter Facil [id number] Start: 10-28-2017 End: 10-29-2017 Emergency department patient visit Philly Harmon Facility:[facility] Start: 10-28-2017 Patient encounter Facil [id number] Start: 08-01-2017 End: 08-01-2017 Emergency department patient visit Malachi Babar Hickman Facility:[facility] Start: 05-14-2017 End: 05-14-2017 Emergency department patient visit Dillan R Cb Facility:[facility] Start: 04-18-2017 End: 04-18-2017 Emergency department patient visit Noah Rivera Facility:[facility] Start: 04-01-2017 End: 04-01-2017 Emergency department patient visit Demetrio Youssefqvi Facility:[facility] Start: 03-21-2017 End: 03-21-2017 Emergency department patient visit Lex Ulloa Facility:[facility] Start: 02-28-2017 End: 03-01-2017 Emergency department patient visit Khris Yang Facility:[facility] Start: 02-21-2017 End: 02-22-2017 Emergency department patient visit Noah Rivera Facility:[facility] Start: 02-18-2017 End: 02-18-2017 Emergency department patient visit Akila Argueta Facility:[facility] Start: 12-31-2016 End: 12-31-2016 Emergency department patient visit Dominick Nitamalcolm Lomax Facility:[facility] Start: 12-16-2016 End: 12-16-2016 Ambulatory LEX ULLOA [facility] Start: 12-16-2016 End: 12-16-2016 Emergency department patient visit Lex Tri Artemio Facility:[facility] Procedures Date Procedure Procedure Detail Performing Clinician Start: 06-02-2019 Ultrasonography of breast Jordy Hernandez Work Phone: Start: 06-02-2019 MG Breast Views Jordy Hernandez Work Phone: Start: 02-28-2019 Injection of tendon Marlon michael Tucker Work Phone: Start: 02-22-2019 X-ray of right foot Ramez lori Hernandez Work Phone: Start: 06-10-2018 End: 06-10-2018 LABS (OUTSIDE) Historical Provider Tonsillectomy ANJALI ANGELA DO Plan of Treatment Date Care Activity Detail Author Start: 08-19-2025 Tetanus vaccination TETANUS EVERY 10 YR [facility] Start: 08-19-2025 Urine microalbumin profile DTaP,Tdap,Td Vaccine (2 - Td or Tdap) [facility] Start: 01-15-2025 Influenza vaccination Influenz a Vaccine (Season Ended) [facility] Start: 01-16-2024 Covid-19 Vaccine ( season) Covid-19 Vaccine ( season) [facility] Start: 2023 Mammography Mammogram Screening [facility] Start: 2023 Screening for malign ant neoplasm of breast Mammogram Screening [facility] Start: 01-15-2023 Influenza vaccination Influenza Vacc ine (#1) [facility] Start: 12-14-2022 [facility] Start: 05-17-2022 Depression Assessment Depression Ass essment [facility] Start: 11-12-2021 Annual PCP Team Inspector Raw Quartz louie Disease Visit Annual PCP Team Chronic Disease Visit [facility] Start: 01-10-2021 TSH Qn TSH [facility] Start: 08-19-2020 HPV Testing HPV Testing [facility] Start: 08-19-2020 Pap Testing Pap Testing [facility] Start: 08-19-2020 Screening for malign ant neoplasm of cervix Cervical Cancer Screening [facility] Start: 05-19-2020 TSH Qn TSH [facility] Start: 02-22-2020 End: 01-17-2021 Free T4 [Mass/Vol] T4 FREE Lab Routine Hema's thyroiditis Expected: 02/22/2020 (Approximate), Expires: 01/17/2021 [facility] Comment on above: Expected: 02/22/2020 (Approximate), Expires: 01/17/2021 Start: 02-22-2020 End: 01-17-2021 T4 T4 Lab Routine Hema's thyroiditis Expected: 02/22/2020 (Approximate), Expires: 01/17/2021 [facility] Comment on above: Expected: 02/22/2020 (Approximate), Expires: 01/17/2021 Start: 02-22-2020 End: 01-17-2021 TSH Qn TSH Lab Routine Hema's thyroiditis Expected: 02/22/2020 (Approximate), Expires: 01/17/2021 [facility] Comment on above: Expected: 02/22/2020 (Approximate), Expires: 01/17/2021 Start: 01-18-2020 End: 01-18-2020 Office Visit 01/18/2020 Office Visit Endocrinology, Diabetes & Metabolism Andres Mckeon MD [address] [place] [address], [place] [address] [phone] [facility] Endocrinology Start: 01-16-2020 Influenza vaccination INFLUENZA VACC INE (#1) [facility] Start: 01-10-2020 End: 01-09-2021 Comprehensive metabolic 2000 panel COMPREHENSIVE METABOLIC PANEL Lab Routine Insulin resistance Expected: 01/10/2020, Expires: 01/09/2021 [facility] Comment on above: Expected: 01/10/2020 , Expires: 01/09/2021 Start: 01-10-2020 End: 01-09-2021 Free T4 [Mass/Vol] T4 FREE Lab Routine Hypothyroidism, unspecified type Expected: 01/10/2020, Expires: 01/09/2021 [facility] Comment on above: Expected: 01/10/2020 , Expires: 01/09/2021 Start: 01-10-2020 End: 01-09-2021 INSULIN INSULIN Lab Routine Insulin resistance Expected: 01/10/2020 (Approximate), Expires: 01/09/2021 [facility] Comment on above: Expected: 01/10/2020 (Approximate), Expires: 01/09/2021 Start: 01-10-2020 End: 01-09-2021 T4 T4 Lab Routine Hypothyroidism, unspecified type Expected: 01/10/2020, Expires: 01/09/2021 [facility] Comment on above: Expected: 01/10/2020 , Expires: 01/09/2021 Start: 01-10-2020 End: 01-09-2021 THYROGLOBULIN ANTIBODY THYROGLOBULIN ANTIBODY Lab Routine Hypothyroidism, unspecified type Expected: 01/10/2020, Expires: 01/09/2021 [facility] Comment on above: Expected: 01/10/2020 , Expires: 01/09/2021 Start: 01-10-2020 End: 01-09-2021 THYROID PEROXIDASE ANTIBODIES THYROID PEROXIDASE ANTIBODIES Lab Routine Hypothyroidism, unspecified type Expected: 01/10/2020, Expires: 01/09/2021 [facility] Comment on above: Expected: 01/10/2020 , Expires: 01/09/2021 Start: 01-10-2020 End: 01-09-2021 TSH Qn TSH Lab Routine Hypothyroidism, unspecified type Expected: 01/10/2020, Expires: 01/09/2021 [facility] Comment on above: Expected: 01/10/2020 , Expires: 01/09/2021 Start: 01-10-2020 End: 01-10-2020 Office Visit 01/10/2020 Office Visit Endocrinology, Diabetes & Metabolism Andres Mckeon MD [address] [place] [address] [phone] [facility] Endocrinology Start: 03-28-2019 End: 03-28-2019 Office Visit 03/28/2019 Office Visit Podiatry Jose Rafael Tucker, DPM [address] [place] [address] [phone] [facility] Start: 02-28-2019 End: 02-28-2019 Office Visit 02/28/2019 Office Visit Podiatry Jose Rafael Tucker DPM [address] [place] [address] [phone] [facility] Start: 02-24-2019 End: 02-24-2019 Office Visit 02/24/2019 Office Visit Dentistry [facility] Start: 01-15-2019 Influenza vaccination INFLUENZA VACC INE (#1) [facility] Start: 01-15-2019 Influenza vaccinatio n given SEQUENTIAL INFLUENZA VACCINE (Season Ended) [facility] Start: 02-11-2018 Hepatitis B Vaccine (2 of 3 - 19+ 3-dose series) Hepatitis B Vaccine (2 of 3 - 19+ 3-dose series) [facility] Start: 02-11-2004 Screening for malign ant neoplasm of cervix [facility] Work Phone: Start: 2002 Third diphtheria, tetanus and acellular pertussis (DTaP) vaccination TDAP (ADULT) [facility] Work Phone: Start: 2001 Anxiety Screening Anxiety Screening [facility] Start: 2001 Depression Screening Depression Scre ening [facility] Start: 2001 Tetanus vaccination TETANUS [facility] Work Phone: Start: 02-11-1996 HIV screening HIV SCREENING DISCUSSION [facility] Work Phone: Start: 1986 History and physical examination, annual for health maintenance Wellness Visit [facility] Start: 1983 Covid-19 Vaccine (#1) Covid-19 Vacci ne (#1) [facility] Start: 1983 Screening for malign ant neoplasm of cervix PAP SMEAR [facility] Start: 1983 Thyrotropin Qn TSH [facility] Work Phone: End: 04-22-2024 ANA SCREENING ANA SCREENING Radiology Routine Encounter for screening mammogram for breast cancer 1 Occurrences starting 03/24/2023 until 04/22/2024 [facility] Work Phone: Comment on above: 1 Occurrences starti ng 03/24/2023 until 04/22/2024 Patient Education ED Viral Syndr ome (Adult) [facility] Work Phone: Patient referral [facility] Work Phone: Immunizations Immunization Date Immunization Notes Care Provider Lashay can 04-20-2021 influenza virus vacc ine, unspecified formulation Arcelia Cardoso 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.[employer] Work Phone: [facility] 02-15-2019 influenza virus vacc ine, unspecified formulation Kingsley Hernandez MD Work Phone: [facility] 01-31-2018 tuberculin skin test ; purified protein derivative solution, intradermal Arcelia Cardoso 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.[employer]ER [employer] Work Phone: [facility] 01-19-2018 tuberculin skin test ; purified protein derivative solution, intradermal Arcelia Cardoso 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.TE[employer]ER [employer] Work Phone: [facility] 01-14-2018 hepatitis B vaccine, adult dosage Kingsley Hernandez MD Work Phone: [facility] 01-05-2018 influenza nasal, unspecified formulation Kingsley Hernandez MD Work Phone: [facility] 01-05-2018 influenza, injectabl e, quadrivalent, contains preservative Kingsley Hernandez MD Work Phone: [facility] 01-05-2018 influenza, injectabl e, quadrivalent, preservative free Kingsley Hernandez MD Work Phone: [facility] 01-05-2018 influenza virus vacc ine, unspecified formulation [facility] 08-20-2015 tetanus toxoid, redu ketty diphtheria toxoid, and acellular pertussis vaccine, adsorbed Kingsley Hernandez MD Work Phone: [facility] Payers Date Payer Category Payer Blue [facility] PPO OOS [id number] 2023 Unknown [id number] 2022 Self-pay [id number] 2022 Medicaid [employer] [id number] 2022-Present [phone] [address] [place] [address] Medicaid [id number] 2017 Unknown 2017 Unknown [id number] 2016 Unknown xxxxxxxxxxx [id number] 2016 Unknown LIZZETTE MENDIOLA [facility] [id number] 2016-Present [id number] 2016 Unknown [id number] 1983 Unknown [id number]. 903 1983 Unknown [id number]. 903 1983 Unknown [id number] [id number]. 903 1983 Unknown [id number] [id number]. 903 1983 Unknown [id number]. 903 1983 Unknown [id number]. 651 1983 Unknown [id number]. 651 1983 Unknown [id number] [id number]. 627 1983 Unknown [id number] [id number]. 627 1983 Unknown [id number] [id number]. 627 1983 Unknown [id number] [id number]. 627 1983 Unknown [id number] 627 Unknown [id number] 462 Social History Date Type Detail Facility Start: 03-22-2013 End: 06-25-2017 Tobacco smoking status NHIS Never smoker [facility] Start: 1985 Sex Assigned At Not on file [facility] Work Phone: Start: 03-28-2019 End: 01-10-2020 Alcohol intake Current non-drinker of alcohol (finding) [facility] Start: 03-22-2013 End: 01-18-2020 Tobacco use and exposure Never used ilab Exposure to SARS-CoV -2 (event) Not sure [facility] Start: 09-30-2018 History SDOH Alcohol Frequency 1 [facility] Start: 09-30-2018 Alcohol Comment rare [facility] Start: 06-25-2017 End: 06-20-2024 Alcohol intake No [facility] Start: 12-14-2022 Tobacco smoking stat us INIS Tobacco smoking consumption unknown [facility] Start: 1985 Sex Assigned At Female [facility] Start: 09-09-2020 Alcohol intake Current drinke r of alcohol (finding) [facility] Start: 09-09-2020 End: 06-20-2024 History of Social function [facility] Do you belong to any clubs or organizations such as uatsdin groups, unions, fraternal or athletic groups, or school groups? No [facility] Are you now , , , , never or living with a partner? [facility] How often to you hav e a drink containing alcohol? 2-4 times a month [facility] How many standard drinks containing alcohol do you have on a typical day? 3 or 4 [facility] How often do you hav e 6 or more drinks on 1 occasion? Never [facility] How hard is it for y ou to pay for the very basics like food, housing, medical care, and heating Not very hard [facility] Adult Depression Screening Assessment 2 [facility] Do you feel stress - tense, restless, nervous, or anxious, or unable to sleep at night because your mind is troubled all the time - these days [OSQ] Very much [facility] (I/We) worried elliott er (my/our) food would run out before (I/we) got money to buy more. Never true [facility] Start: 05-22-2019 Education 14 [facility] Tobacco smoking status [facility] Start: 04-01-2023 Sex Female (finding) [facility] NEGATED: Highlighted row [facility] Functional Status Date Assessment Result Facility 09-07-2024 Functional Status bilateral knee high applied/on [facility] 09-07-2024 Functional Status Maintained [facility] 06-09-2023 Functional Status ID band on, Call device within reach, Bed in low position, Wheels locked, Upper/Half-Length side-rails up [facility] 09-27-2014 Are you deaf, or do you have serious difficulty hearing No 09/27/2014 1:56 PM EDT Emmanuel Morales LPN No [facility] 09-27-2014 Are you blind, or do you have serious difficulty seeing, even when wearing glasses No 09/27/2014 1:56 PM EDT Emmanuel Morales LPN No [facility] 09-27-2014 Do you have serious difficulty walking or climbing stairs No 09/27/2014 1:56 PM HELENET Emmanuel Morales LPN No [facility] 09-27-2014 Do you have difficul ty dressing or bathing No 09/27/2014 1:56 PM EDT Emmanuel Morales LPN No [facility] 09-27-2014 Because of a physica l, mental, or emotional condition, do you have difficulty doing errands alone such as visiting a physician's office or shopping No 09/27/2014 1:56 PM EDT Emmanuel Morales LPN No [facility] Mental Status Date Assessment Result Facility 09-07-2024 [facility] 06-09-2023 Mental Status Oriented x 4 [facility] dory Espinoza 09-27-2014 Because of a physica l, mental, or emotional condition, do you have serious difficulty concentrating, remembering, or making decisions No 09/27/2014 1:56 PM EDT Emmanuel Morales LPN No [facility] Clinical Notes 05-18-2006 to 09-07-2024 Provider [facility] - 11/15/2021 3:04 AM EDT Note Date & Type Note Facility 09-07-2024 Hospital Discharge instructions Patient Education 09/07/2024 10:59:46 Cystoscopy Cystoscopy Cystoscopy is a procedure that is used to help diagnose and sometimes treat conditions that affect the lower urinary tract. The lower urinary tract includes the bladder and the urethra. The urethra is the tube that drains urine from the bladder. Cystoscopy is done using a thin, tube-shaped instrument with a light and camera at the end (cystoscope). The cystoscope may be hard or flexible, depending on the goal of the procedure. The cystoscope is inserted through the urethra, into the bladder. Cystoscopy may be recommended if you have: Urinary tract infections that keep coming back. Blood in the urine (hematuria). An inability to control when you urinate (urinary incontinence) or an overactive bladder. Unusual cells found in a urine sample. A blockage in the urethra, such as a urinary stone. Painful urination. An abnormality in the bladder found during an intravenous pyelogram (IVP) or CT scan. Cystoscopy may also be done to remove a sample of tissue to be examined under a microscope (biopsy). Tell a health care provider about: Any allergies you have. All medicines you are taking, including vitamins, herbs, eye drops, creams, and upva-jwv-ngisiuv medicines. Any problems you or family members have had with anesthetic medicines. Any blood disorders you have. Any surgeries you have had. Any medical conditions you have. Whether you are or may be . What are the risks? Generally, this is a safe procedure. However, problems may occur, including: Infection. Bleeding. Allergic reactions to medicines. Damage to other structures or organs. What happens before the procedure? Ask your health care provider about: ?Changing or stopping your regular medicines. This is especially important if you are taking diabetes medicines or blood thinners. ?Taking medicines such as aspirin and ibuprofen. These medicines can thin your blood. Do not take these medicines unless your health care provider tells you to take them. ?Taking wjvo-xii-pxojkwe medicines, vitamins, herbs, and supplements. Follow instructions from your health care provider about eating or drinking restrictions. Ask your health care provider what steps will be taken to help prevent infection. These may include: ?Washing skin with a germ-killing soap. ?Taking antibiotic medicine. You may have an exam or testing, such as: ? X-rays of the bladder, urethra, or kidneys. ?Urine tests to check for signs of infection. Plan to have someone take you home from the hospital or clinic. What happens during the procedure? You will be given one or more of the following: ?A medicine to help you relax (sedative). ?A medicine to numb the area (local anesthetic). The area around the opening of your urethra will be cleaned. The cystoscope will be passed through your urethra into your bladder. Germ-free (sterile) fluid will flow through the cystoscope to fill your bladder. The fluid will stretch your bladder so that your health care provider can clearly examine your bladder porter. Your doctor will look at the urethra and bladder. Your doctor may take a biopsy or remove stones. The cystoscope will be removed, and your bladder will be emptied. The procedure may vary among health care providers and hospitals. What can I expect after the procedure? After the procedure, it is common to have: Some soreness or pain in your abdomen and urethra. Urinary symptoms. These include: ?Mild pain or burning when you urinate. Pain should stop within a few minutes after you urinate. This may last for up to 1 week. ?A small amount of blood in your urine for several days. ?Feeling like you need to urinate but producing only a small amount of urine. Follow these instructions at home: Medicines Take zklt-rxq-rsevuqy and prescription medicines only as told by your health care provider. If you were prescribed an antibiotic medicine, take it as told by your health care provider. Do not stop taking the antibiotic even if you start to feel better. General instructions Return to your normal activities as told by your health care provider. Ask your health care provider what activities are safe for you. Do not drive for 24 hours if you were given a sedative during your procedure. Watch for any blood in your urine. If the amount of blood in your urine increases, call your health care provider. Follow instructions from your health care provider about eating or drinking restrictions. If a tissue sample was removed for testing (biopsy) during your procedure, it is up to you to get your test results. Ask your health care provider, or the department that is doing the test, when your results will be ready. Drink enough fluid to keep your urine pale yellow. Keep all follow-up visits as told by your health care provider. This is important. Contact a health care provider if you: Have pain that gets worse or does not get better with medicine, especially pain when you urinate. Have trouble urinating. Have more blood in your urine. Get help right away if you: Have blood clots in your urine. Have abdominal pain. Have a fever or chills. Are unable to urinate. Summary Cystoscopy is a procedure that is used to help diagnose and sometimes treat conditions that affect the lower urinary tract. Cystoscopy is done using a thin, tube-shaped instrument with a light and camera at the end. After the procedure, it is common to have some soreness or pain in your abdomen and urethra. Watch for any blood in your urine. If the amount of blood in your urine increases, call your health care provider. If you were prescribed an antibiotic medicine, take it as told by your health care provider. Do not stop taking the antibiotic even if you start to feel better. This information is not intended to replace advice given to you by your health care provider. Make sure you discuss any questions you have with your health care provider. Document Released: 04/30/2001 Document Revised: 04/25/2019 Document Reviewed: 04/25/2019 [employer] Patient Education 2020 [employer]. 09/07/2024 10:58:37 Nausea and Vomiting, Adult Nausea and Vomiting, Adult Nausea is the feeling that you have an upset stomach or that you are about to vomit. Vomiting is when stomach contents are thrown up and out of the mouth as a result of nausea. Vomiting can make you feel weak and cause you to become dehydrated. Dehydration can make you feel tired and thirsty, cause you to have a dry mouth, and decrease how often you urinate. Older adults and people with other diseases or a weak disease-fighting system (immune system) are at higher risk for dehydration. It is important to treat your nausea and vomiting as told by your health care provider. Follow these instructions at home: Watch your symptoms for any changes. Tell your health care provider about them. Follow these instructions to care for yourself at home. Eating and drinking Take an oral rehydration solution (ORS). This is a drink that is sold at pharmacies and retail stores. Drink clear fluids slowly and in small amounts as you are able. Clear fluids include water, ice chips, low-calorie sports drinks, and fruit juice that has water added (diluted fruit juice). Eat bland, whdt-ht-fmibrf foods in small amounts as you are able. These foods include bananas, applesauce, rice, lean meats, toast, and crackers. Avoid fluids that contain a lot of sugar or caffeine, such as energy drinks, sports drinks, and soda. Avoid alcohol. Avoid spicy or fatty foods. General instructions Take dbva-efl-kkfqqqb and prescription medicines only as told by your health care provider. Drink enough fluid to keep your urine pale yellow. Wash your hands often using soap and water. If soap and water are not available, use hand vice president quality assurance. Make sure that all people in your household wash their hands well and often. Rest at home while you recover. Watch your condition for any changes. Breathe slowly and deeply when you feel nauseated. Keep all follow-up visits as told by your health care provider. This is important. Contact a health care provider if: Your symptoms get worse. You have new symptoms. You have a fever. You cannot drink fluids without vomiting. Your nausea does not go away after 2 days. You feel light-headed or dizzy. You have a headache. You have muscle cramps. You have a rash. You have pain while urinating. Get help right away if: You have pain in your chest, neck, arm, or jaw. You feel extremely weak or you faint. You have persistent vomiting. You have vomit that is bright red or looks like black coffee grounds. You have bloody or black stools or stools that look like tar. You have a severe headache, a stiff neck, or both. You have severe pain, cramping, or bloating in your abdomen. You have difficulty breathing, or you are breathing very quickly. Your heart is beating very quickly. Your skin feels cold and clammy. You feel confused. You have signs of dehydration, such as: ?Dark urine, very little urine, or no urine. ?Cracked lips. ?Dry mouth. ?Sunken eyes. ?Sleepiness. ?Weakness. These symptoms may represent a serious problem that is an emergency. Do not wait to see if the symptoms will go away. Get medical help right away. Call your local emergency services (911 in the [place] Do not drive yourself to the hospital. Summary Nausea is the feeling that you have an upset stomach or that you are about to vomit. As nausea gets worse, it can lead to vomiting. Vomiting can make you feel weak and cause you to become dehydrated. Follow instructions from your health care provider about eating and drinking to prevent dehydration. Take nqtj-oqh-vlqceqd and prescription medicines only as told by your health care provider. Contact your health care provider if your symptoms get worse, or you have new symptoms. Keep all follow-up visits as told by your health care provider. This is important. This information is not intended to replace advice given to you by your health care provider. Make sure you discuss any questions you have with your health care provider. Document Released: 05/03/2006 Document Revised: 08/25/2019 Document Reviewed: 10/11/2018 [employer] Patient Education 2020 [employer]. 09/07/2024 10:58:29 Bilateral Salpingo-Oophorectomy, Care After Bilateral Salpingo-Oophorectomy, Care After This sheet gives you information about how to care for yourself after your procedure. Your health care provider may also give you more specific instructions. If you have problems or questions, contact your health care provider. What can I expect after the procedure? After the procedure, it is common to have: Abdominal pain. Some occasional vaginal bleeding (spotting). Tiredness. Symptoms of menopause, such as hot flashes, night sweats, or mood swings. Follow these instructions at home: Incision care Keep your incision area and your bandage (dressing) clean and dry. Follow instructions from your health care provider about how to take care of your incision. Make sure you: ?Wash your hands with soap and water before you change your dressing. If soap and water are not available, use hand vice president quality assurance. ?Change your dressing as told by your health care provider. ?Leave stitches (sutures), enzo, skin glue, or adhesive strips in place. These skin closures may need to stay in place for 2 weeks or longer. If adhesive strip edges start to loosen and curl up, you may trim the loose edges. Do not remove adhesive strips completely unless your health care provider tells you to do that. Check your incision area every day for signs of infection. Check for: ?Redness, swelling, or pain. ?Fluid or blood. ?Warmth. ?Pus or a bad smell. Activity Do not drive or use heavy machinery while taking prescription pain medicine. Do not drive for 24 hours if you received a medicine to help you relax (sedative) during your procedure. Take frequent, short walks throughout the day. Rest when you get tired. Ask your health care provider what activities are safe for you. Avoid activity that requires great effort. Also, avoid heavy lifting. Do not lift anything that is heavier than 10 lbs. (4.5 kg), or the limit that your health care provider tells you, until he or she says that it is safe to do so. Do not douche, use tampons, or have sex until your health care provider approves. General instructions To prevent or treat constipation while you are taking prescription pain medicine, your health care provider may recommend that you: ?Drink enough fluid to keep your urine clear or pale yellow. ?Take vqui-ggx-zbrqpgb or prescription medicines. ?Eat foods that are high in fiber, such as fresh fruits and vegetables, whole grains, and beans. ?Limit foods that are high in fat and processed sugars, such as fried and sweet foods. Take iwuf-phi-uspppru and prescription medicines only as told by your health care provider. Do not take baths, swim, or use a hot tub until your health care provider approves. Ask your health care provider if you can take showers. You may only be allowed to take sponge baths for bathing. Wear compression stockings as told by your health care provider. These stockings help to prevent blood clots and reduce swelling in your legs. Keep all follow-up visits as told by your health care provider. This is important. Contact a health care provider if: You have pain when you urinate. You have pus or a bad smelling discharge coming from your vagina. You have redness, swelling, or pain around your incision. You have fluid or blood coming from your incision. Your incision feels warm to the touch. You have pus or a bad smell coming from your incision. You have a fever. Your incision starts to break open. You have pain in the abdomen, and it gets worse or does not get better when you take medicine. You develop a rash. You develop nausea and vomiting. You feel lightheaded. Get help right away if: You develop pain in your chest or leg. You become short of breath. You faint. You have increased bleeding from your vagina. Summary After the procedure, it is common to have pain, bleeding in the vagina, and symptoms of menopause. Follow instructions from your health care provider about how to take care of your incision. Follow instructions from your health care provider about activities and restrictions. Check your incision every day for signs of infection and report any symptoms to your health care provider. This information is not intended to replace advice given to you by your health care provider. Make sure you discuss any questions you have with your health care provider. Document Released: 05/03/2006 Document Revised: 07/07/2019 Document Reviewed: 06/07/2017 [employer] Patient Education 2020 [employer]. 09/07/2024 10:57:34 General Anesthesia, Adult, Care After General Anesthesia, Adult, Care After This sheet gives you information about how to care for yourself after your procedure. Your health care provider may also give you more specific instructions. If you have problems or questions, contact your health care provider. What can I expect after the procedure? After the procedure, the following side effects are common: Pain or discomfort at the IV site. Nausea. Vomiting. Sore throat. Trouble concentrating. Feeling cold or chills. Weak or tired. Sleepiness and fatigue. Soreness and body aches. These side effects can affect parts of the body that were not involved in surgery. Follow these instructions at home: For at least 24 hours after the procedure: Have a responsible adult stay with you. It is important to have someone help care for you until you are awake and alert. Rest as needed. Do not: ?Participate in activities in which you could fall or become injured. ?Drive. ?Use heavy machinery. ?Drink alcohol. ?Take sleeping pills or medicines that cause drowsiness. ?Make important decisions or sign legal documents. ?Take care of children on your own. Eating and drinking Follow any instructions from your health care provider about eating or drinking restrictions. When you feel hungry, start by eating small amounts of foods that are soft and easy to digest (bland), such as toast. Gradually return to your regular diet. Drink enough fluid to keep your urine pale yellow. If you vomit, rehydrate by drinking water, juice, or clear broth. General instructions If you have sleep apnea, surgery and certain medicines can increase your risk for breathing problems. Follow instructions from your health care provider about wearing your sleep device: ?Anytime you are sleeping, including during daytime naps. ?While taking prescription pain medicines, sleeping medicines, or medicines that make you drowsy. Return to your normal activities as told by your health care provider. Ask your health care provider what activities are safe for you. Take ogbf-ykx-tdtwoqk and prescription medicines only as told by your health care provider. If you smoke, do not smoke without supervision. Keep all follow-up visits as told by your health care provider. This is important. Contact a health care provider if: You have nausea or vomiting that does not get better with medicine. You cannot eat or drink without vomiting. You have pain that does not get better with medicine. You are unable to pass urine. You develop a skin rash. You have a fever. You have redness around your IV site that gets worse. Get help right away if: You have difficulty breathing. You have chest pain. You have blood in your urine or stool, or you vomit blood. Summary After the procedure, it is common to have a sore throat or nausea. It is also common to feel tired. Have a responsible adult stay with you for the first 24 hours after general anesthesia. It is important to have someone help care for you until you are awake and alert. When you feel hungry, start by eating small amounts of foods that are soft and easy to digest (bland), such as toast. Gradually return to your regular diet. Drink enough fluid to keep your urine pale yellow. Return to your normal activities as told by your health care provider. Ask your health care provider what activities are safe for you. This information is not intended to replace advice given to you by your health care provider. Make sure you discuss any questions you have with your health care provider. Document Released: 08/09/2001 Document Revised: 05/06/2018 Document Reviewed: 12/17/2017 [employer] Patient Education 2020 [employer]. Follow Up Care 07/17/2024 09:46:25 With:ANJALI ZHANG Address: [address] [place] [address] [address] [place] [phone] Business (1) [facility] Note Discharge Instructions Thank you for allowing [facility] to assist you with your healthcare needs. The following is important discharge information regarding your hospital visit. Your Care Team WIN LAURIE PARMAR Your Diagnosis Deep endometriosis of bilateral ovaries Pelvic adhesions Status post laparoscopy with lysis of adhesions Status post right oophorectomy What to do next Follow Up Appointments Follow Up with ANJALI ZHANG Where:[address] [place] [address] [address] [place] [phone] Business (1) The Following Activity and Diet Have Been Ordered for You Discharge Activity - Ordered -- Sexual [place] Restricted, 2 weeks, 09/07/24 10:55:00 EDT Discharge Driving Restrictions - Ordered -- No driving until pain-free, 09/07/24 10:55:00 EDT Discharge Return to Work, School, or Sports - Ordered -- within 5-7 days, May return to: work, 09/07/24 10:55:00 EDT Discharge Diet - Ordered -- No changes were made to your diet during your hospital stay. Please resume your pre hospitalization diet on discharge., 09/07/24 10:55:00 EDT Allergies ciprofloxacin Sever nausea/vomiting Medications Please ask your primary doctor or pharmacist before taking any other medication not listed, including over the counter drugs, herbal medications, vitamins and or supplements as they may interact with your home medications. What How Much When Why Instructions Last Dose New acetaminophen-hydrocodone (Odum 325- 5 mg oral tablet) 1 tab(s) by mouth Every 4 hours as needed for as needed for pain Status post laparoscopy with lysis of adhesions Duration: 5 Days Pickup at [facility] New ibuprofen (ibuprofen 600 mg oral tablet) 1 tab(s) by mouth Four (4) times a day as needed for as needed for pain Refills: 1 Pickup at [facility] New ondansetron (ondansetron 4 mg oral tablet, disintegrating) 1 tab(s) by mouth Every 6 hours as needed for Nausea/Vomiting Pickup at [facility] Unchanged herbal/ nutritional product 1 capsule by mouth Every day Unchanged levothyroxine (levothyroxine 125 mcg (0.125 mg) oral tablet) 1 tab(s) by mouth Once a day before a meal Unchanged progesterone (progesterone 100 mg oral capsule) 1 cap by mouth Daily at bedtime Pharmacy Information [facility]: [address] [place], [place] [phone] Please take this list to your next doctor s visit. Bring all medications you take, including over the counter medications, herbals and other supplements with you to your doctor s visit. Patients and families are reminded to discard old lists and to update any records with all medication providers or retail pharmacies. Education Materials Cystoscopy Cystoscopy is a procedure that is used to help diagnose and sometimes treat conditions that affect the lower urinary tract. The lower urinary tract includes the bladder and the urethra. The urethra is the tube that drains urine from the bladder. Cystoscopy is done using a thin, tube-shaped instrument with a light and camera at the end (cystoscope). The cystoscope may be hard or flexible, depending on the goal of the procedure. The cystoscope is inserted through the urethra, into the bladder. Cystoscopy may be recommended if you have: Urinary tract infections that keep coming back. Blood in the urine (hematuria). An inability to control when you urinate (urinary incontinence) or an overactive bladder. Unusual cells found in a urine sample. A blockage in the urethra, such as a urinary stone. Painful urination. An abnormality in the bladder found during an intravenous pyelogram (IVP) or CT scan. Cystoscopy may also be done to remove a sample of tissue to be examined under a microscope (biopsy). Tell a health care provider about: Any allergies you have. All medicines you are taking, including vitamins, herbs, eye drops, creams, and gvdl-bqq-nfmyray medicines. Any problems you or family members have had with anesthetic medicines. Any blood disorders you have. Any surgeries you have had. Any medical conditions you have. Whether you are or may be . What are the risks? Generally, this is a safe procedure. However, problems may occur, including: Infection. Bleeding. Allergic reactions to medicines. Damage to other structures or organs. What happens before the procedure? Ask your health care provider about: ? Changing or stopping your regular medicines. This is especially important if you are taking diabetes medicines or blood thinners. ? Taking medicines such as aspirin and ibuprofen. These medicines can thin your blood. Do not take these medicines unless your health care provider tells you to take them. ? Taking wgbh-mjo-wpwxdcl medicines, vitamins, herbs, and supplements. Follow instructions from your health care provider about eating or drinking restrictions. Ask your health care provider what steps will be taken to help prevent infection. These may include: ? Washing skin with a germ-killing soap. ? Taking antibiotic medicine. You may have an exam or testing, such as: ? X-rays of the bladder, urethra, or kidneys. ? Urine tests to check for signs of infection. Plan to have someone take you home from the hospital or clinic. What happens during the procedure? You will be given one or more of the following: ? A medicine to help you relax (sedative). ? A medicine to numb the area (local anesthetic). The area around the opening of your urethra will be cleaned. The cystoscope will be passed through your urethra into your bladder. Germ-free (sterile) fluid will flow through the cystoscope to fill your bladder. The fluid will stretch your bladder so that your health care provider can clearly examine your bladder porter. Your doctor will look at the urethra and bladder. Your doctor may take a biopsy or remove stones. The cystoscope will be removed, and your bladder will be emptied. The procedure may vary among health care providers and hospitals. What can I expect after the procedure? After the procedure, it is common to have: Some soreness or pain in your abdomen and urethra. Urinary symptoms. These include: ? Mild pain or burning when you urinate. Pain should stop within a few minutes after you urinate. This may last for up to 1 week. ? A small amount of blood in your urine for several days. ? Feeling like you need to urinate but producing only a small amount of urine. Follow these instructions at home: Medicines Take jzxn-hzd-hibmhkp and prescription medicines only as told by your health care provider. If you were prescribed an antibiotic medicine, take it as told by your health care provider. Do not stop taking the antibiotic even if you start to feel better. General instructions Return to your normal activities as told by your health care provider. Ask your health care provider what activities are safe for you. Do not drive for 24 hours if you were given a sedative during your procedure. Watch for any blood in your urine. If the amount of blood in your urine increases, call your health care provider. Follow instructions from your health care provider about eating or drinking restrictions. If a tissue sample was removed for testing (biopsy) during your procedure, it is up to you to get your test results. Ask your health care provider, or the department that is doing the test, when your results will be ready. Drink enough fluid to keep your urine pale yellow. Keep all follow-up visits as told by your health care provider. This is important. Contact a health care provider if you: Have pain that gets worse or does not get better with medicine, especially pain when you urinate. Have trouble urinating. Have more blood in your urine. Get help right away if you: Have blood clots in your urine. Have abdominal pain. Have a fever or chills. Are unable to urinate. Summary Cystoscopy is a procedure that is used to help diagnose and sometimes treat conditions that affect the lower urinary tract. Cystoscopy is done using a thin, tube-shaped instrument with a light and camera at the end. After the procedure, it is common to have some soreness or pain in your abdomen and urethra. Watch for any blood in your urine. If the amount of blood in your urine increases, call your health care provider. If you were prescribed an antibiotic medicine, take it as told by your health care provider. Do not stop taking the antibiotic even if you start to feel better. This information is not intended to replace advice given to you by your health care provider. Make sure you discuss any questions you have with your health care provider. Document Released: 04/30/2001 Document Revised: 04/25/2019 Document Reviewed: 04/25/2019 [employer] Patient Education 2020 [employer] Nausea and Vomiting, Adult Nausea is the feeling that you have an upset stomach or that you are about to vomit. Vomiting is when stomach contents are thrown up and out of the mouth as a result of nausea. Vomiting can make you feel weak and cause you to become dehydrated. Dehydration can make you feel tired and thirsty, cause you to have a dry mouth, and decrease how often you urinate. Older adults and people with other diseases or a weak disease-fighting system (immune system) are at higher risk for dehydration. It is important to treat your nausea and vomiting as told by your health care provider. Follow these instructions at home: Watch your symptoms for any changes. Tell your health care provider about them. Follow these instructions to care for yourself at home. Eating and drinking Take an oral rehydration solution (ORS). This is a drink that is sold at pharmacies and retail stores. Drink clear fluids slowly and in small amounts as you are able. Clear fluids include water, ice chips, low-calorie sports drinks, and fruit juice that has water added (diluted fruit juice). Eat bland, eoit-uf-vhmesd foods in small amounts as you are able. These foods include bananas, applesauce, rice, lean meats, toast, and crackers. Avoid fluids that contain a lot of sugar or caffeine, such as energy drinks, sports drinks, and soda. Avoid alcohol. Avoid spicy or fatty foods. General instructions Take isep-rcx-monoroj and prescription medicines only as told by your health care provider. Drink enough fluid to keep your urine pale yellow. Wash your hands often using soap and water. If soap and water are not available, use hand vice president quality assurance. Make sure that all people in your household wash their hands well and often. Rest at home while you recover. Watch your condition for any changes. Breathe slowly and deeply when you feel nauseated. Keep all follow-up visits as told by your health care provider. This is important. Contact a health care provider if: Your symptoms get worse. You have new symptoms. You have a fever. You cannot drink fluids without vomiting. Your nausea does not go away after 2 days. You feel light-headed or dizzy. You have a headache. You have muscle cramps. You have a rash. You have pain while urinating. Get help right away if: You have pain in your chest, neck, arm, or jaw. You feel extremely weak or you faint. You have persistent vomiting. You have vomit that is bright red or looks like black coffee grounds. You have bloody or black stools or stools that look like tar. You have a severe headache, a stiff neck, or both. You have severe pain, cramping, or bloating in your abdomen. You have difficulty breathing, or you are breathing very quickly. Your heart is beating very quickly. Your skin feels cold and clammy. You feel confused. You have signs of dehydration, such as: ? Dark urine, very little urine, or no urine. ? Cracked lips. ? Dry mouth. ? Sunken eyes. ? Sleepiness. ? Weakness. These symptoms may represent a serious problem that is an emergency. Do not wait to see if the symptoms will go away. Get medical help right away. Call your local emergency services (911 in the [place] Do not drive yourself to the hospital. Summary Nausea is the feeling that you have an upset stomach or that you are about to vomit. As nausea gets worse, it can lead to vomiting. Vomiting can make you feel weak and cause you to become dehydrated. Follow instructions from your health care provider about eating and drinking to prevent dehydration. Take xxkw-lnp-meqlult and prescription medicines only as told by your health care provider. Contact your health care provider if your symptoms get worse, or you have new symptoms. Keep all follow-up visits as told by your health care provider. This is important. This information is not intended to replace advice given to you by your health care provider. Make sure you discuss any questions you have with your health care provider. Document Released: 05/03/2006 Document Revised: 08/25/2019 Document Reviewed: 10/11/2018 [employer] Patient Education 2020 [employer]. Bilateral Salpingo-Oophorectomy, Care After This sheet gives you information about how to care for yourself after your procedure. Your health care provider may also give you more specific instructions. If you have problems or questions, contact your health care provider. What can I expect after the procedure? After the procedure, it is common to have: Abdominal pain. Some occasional vaginal bleeding (spotting). Tiredness. Symptoms of menopause, such as hot flashes, night sweats, or mood swings. Follow these instructions at home: Incision care Keep your incision area and your bandage (dressing) clean and dry. Follow instructions from your health care provider about how to take care of your incision. Make sure you: ? Wash your hands with soap and water before you change your dressing. If soap and water are not available, use hand vice president quality assurance. ? Change your dressing as told by your health care provider. ? Leave stitches (sutures), enzo, skin glue, or adhesive strips in place. These skin closures may need to stay in place for 2 weeks or longer. If adhesive strip edges start to loosen and curl up, you may trim the loose edges. Do not remove adhesive strips completely unless your health care provider tells you to do that. Check your incision area every day for signs of infection. Check for: ? Redness, swelling, or pain. ? Fluid or blood. ? Warmth. ? Pus or a bad smell. Activity Do not drive or use heavy machinery while taking prescription pain medicine. Do not drive for 24 hours if you received a medicine to help you relax (sedative) during your procedure. Take frequent, short walks throughout the day. Rest when you get tired. Ask your health care provider what activities are safe for you. Avoid activity that requires great effort. Also, avoid heavy lifting. Do not lift anything that is heavier than 10 lbs. (4.5 kg), or the limit that your health care provider tells you, until he or she says that it is safe to do so. Do not douche, use tampons, or have sex until your health care provider approves. General instructions To prevent or treat constipation while you are taking prescription pain medicine, your health care provider may recommend that you: ? Drink enough fluid to keep your urine clear or pale yellow. ? Take lmba-mnt-ykyxgnd or prescription medicines. ? Eat foods that are high in fiber, such as fresh fruits and vegetables, whole grains, and beans. ? Limit foods that are high in fat and processed sugars, such as fried and sweet foods. Take mvnh-ggy-rnvgstc and prescription medicines only as told by your health care provider. Do not take baths, swim, or use a hot tub until your health care provider approves. Ask your health care provider if you can take showers. You may only be allowed to take sponge baths for bathing. Wear compression stockings as told by your health care provider. These stockings help to prevent blood clots and reduce swelling in your legs. Keep all follow-up visits as told by your health care provider. This is important. Contact a health care provider if: You have pain when you urinate. You have pus or a bad smelling discharge coming from your vagina. You have redness, swelling, or pain around your incision. You have fluid or blood coming from your incision. Your incision feels warm to the touch. You have pus or a bad smell coming from your incision. You have a fever. Your incision starts to break open. You have pain in the abdomen, and it gets worse or does not get better when you take medicine. You develop a rash. You develop nausea and vomiting. You feel lightheaded. Get help right away if: You develop pain in your chest or leg. You become short of breath. You faint. You have increased bleeding from your vagina. Summary After the procedure, it is common to have pain, bleeding in the vagina, and symptoms of menopause. Follow instructions from your health care provider about how to take care of your incision. Follow instructions from your health care provider about activities and restrictions. Check your incision every day for signs of infection and report any symptoms to your health care provider. This information is not intended to replace advice given to you by your health care provider. Make sure you discuss any questions you have with your health care provider. Document Released: 05/03/2006 Document Revised: 07/07/2019 Document Reviewed: 06/07/2017 [employer] Patient Education 2020 [employer]. General Anesthesia, Adult, Care After This sheet gives you information about how to care for yourself after your procedure. Your health care provider may also give you more specific instructions. If you have problems or questions, contact your health care provider. What can I expect after the procedure? After the procedure, the following side effects are common: Pain or discomfort at the IV site. Nausea. Vomiting. Sore throat. Trouble concentrating. Feeling cold or chills. Weak or tired. Sleepiness and fatigue. Soreness and body aches. These side effects can affect parts of the body that were not involved in surgery. Follow these instructions at home: For at least 24 hours after the procedure: Have a responsible adult stay with you. It is important to have someone help care for you until you are awake and alert. Rest as needed. Do not: ? Participate in activities in which you could fall or become injured. ? Drive. ? Use heavy machinery. ? Drink alcohol. ? Take sleeping pills or medicines that cause drowsiness. ? Make important decisions or sign legal documents. ? Take care of children on your own. Eating and drinking Follow any instructions from your health care provider about eating or drinking restrictions. When you feel hungry, start by eating small amounts of foods that are soft and easy to digest (bland), such as toast. Gradually return to your regular diet. Drink enough fluid to keep your urine pale yellow. If you vomit, rehydrate by drinking water, juice, or clear broth. General instructions If you have sleep apnea, surgery and certain medicines can increase your risk for breathing problems. Follow instructions from your health care provider about wearing your sleep device: ? Anytime you are sleeping, including during daytime naps. ? While taking prescription pain medicines, sleeping medicines, or medicines that make you drowsy. Return to your normal activities as told by your health care provider. Ask your health care provider what activities are safe for you. Take anqn-rvz-cgbwvdx and prescription medicines only as told by your health care provider. If you smoke, do not smoke without supervision. Keep all follow-up visits as told by your health care provider. This is important. Contact a health care provider if: You have nausea or vomiting that does not get better with medicine. You cannot eat or drink without vomiting. You have pain that does not get better with medicine. You are unable to pass urine. You develop a skin rash. You have a fever. You have redness around your IV site that gets worse. Get help right away if: You have difficulty breathing. You have chest pain. You have blood in your urine or stool, or you vomit blood. Summary After the procedure, it is common to have a sore throat or nausea. It is also common to feel tired. Have a responsible adult stay with you for the first 24 hours after general anesthesia. It is important to have someone help care for you until you are awake and alert. When you feel hungry, start by eating small amounts of foods that are soft and easy to digest (bland), such as toast. Gradually return to your regular diet. Drink enough fluid to keep your urine pale yellow. Return to your normal activities as told by your health care provider. Ask your health care provider what activities are safe for you. This information is not intended to replace advice given to you by your health care provider. Make sure you discuss any questions you have with your health care provider. Document Released: 08/09/2001 Document Revised: 05/06/2018 Document Reviewed: 12/17/2017 [employer] Patient Education 2020 [employer] Additional Information VACCINATE! IT SAVES LIVES! Members of the community who have not yet received the COVID-19 vaccine and would like to receive it can visit one of [facility] vaccine clinics. There are many vaccine clinic locations within the [facility]. For locations and available times, please visit [email or web address].coronavirus.[place] .gov/. It is important to note that some COVID mobile vaccine clinics are held outdoors and may be canceled in rainy or stormy conditions. To learn more about pediatric vaccinations (ages 5-11), we invite you to visit the [facility] webpage. [email or web address].[email or web address].org/page [email or web address]-Kbsmz-Umlvcxqywfl-Frequently -Asked-Questions.html To learn more about the COVID-19 vaccine, we invite you to visit the CDC website for a list of frequently asked questions.https://www.cdc.gov/coron avirus/2019-ncov/vaccines/faq.html [facility] Patient Portal Access Instructions: Stay connected with your healthcare team and access your personal medical information anytime with the [facility] Patient Portal. Please follow the directions below to create your [facility] account: 1.Access the email account you provided upon registration to the hospital/physician office.2.Look for an invitation email from [facility].3.Open the email and access the invitation link: Accept Invitation to [facility].4.Fill in the required guido to create your account. To access your account, visit [email or web address]. Click the blue button labeled Access Patient Portal and then log in with the username and password that you created in the steps above. You will be able to view your test results, lab results, a summary of your visits, upcoming appointments and more. There is also a convenient messaging option where you can send secure messages to your provider. In addition, you will have the ability to download any documents or summaries to your computer and/or send the information securely to a physician. Remember that your healthcare information is confidential, so carefully consider who you will allow to register on the [facility] Patient Portal for access to your information. You can also access the [facility] Patient Portal on the [employer] chris. Simply click on Patient Portal and then log into your account. If you would like to receive a full copy of your medical records, please contact the [facility] Medical Records Department by calling [phone], Wednesday through Wednesday between 8 a.m. and 4:30 p.m. HOW TO SAFELY DISPOSE OF PRESCRIPTION MEDICATIONS Please use one of the following methods to safely dispose of your unused medications. 1.Use a drug disposal kit: the drug disposal pouch allows you to safely discard your old and unused drugs. Ask your nurse to give you one when you are discharged.2.Visit a local take-back location: Many local pharmacies and police departments have programs that collect old and unwanted prescription drugs. Call your local pharmacy or go to http://[employer].Nutricate/4D2Jm9j to find one close to you.3.Make use of household items: Use cat litter or old coffee grounds to dispose medications if other options are not available. Mix your drugs with these household products, seal them in an airtight container and throw it into the garbage. Call [facility]: [phone] to be sure your drugs can be disposed of in this way. Some medicines may require a different approach.4.Never flush your medications down the toilet. IF YOU HAVE BEEN PRESCRIBED AN OPIOID FOR PAIN If you have been prescribed an opioid (such as hydrocodone, oxycodone or morphine), it is critical to understand the possible side effects and risks of opioid pain medications. Even when taken as directed, opioids can have several side effects including: Tolerance, meaning you might need to take more of a medication for the same pain relief. Nausea, vomiting and/or constipation. Sleepiness, dizziness, dry mouth, confusion, depression or itching. Physical dependence, meaning you have withdrawal symptoms when a medication is stopped, can develop within a few days. KNOW YOUR RESPONSIBILITIES It is important to know exactly how much and how often to take the opioid pain medications you are prescribed. Never take opioids in higher amounts or more often than prescribed. Do not combine opioids with alcohol or other drugs that cause drowsiness, such as benzodiazepines, also known as benzos, including diazepam and alprazolam, muscle relaxants or sleep aids. Never sell or share prescription opioids. This is illegal. Store opioids in a secure place and out of reach of others (including children, family, friends and visitors). The last page of this document has been signed and retained as a CHART COPY. Signatures Patient Education Materials Cystoscopy Nausea and Vomiting, Adult Bilateral Salpingo-Oophorectomy, Care After General Anesthesia, Adult, Care After Medication Leaflets My discharge plan and instructions have been reviewed and explained to me and I,MILI THOMPSON understand my current condition and have read and understand these discharge instructions. I have received a written copy of the plan/instructions. If I have questions, I am aware that I should contact my doctor. 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 Family's history: negative. Health Status Allergies: Allergic Reactions (Selected) Severity Not Documented Ciprofloxacin- Sever nausea/vomiting., Allergies (1) ActiveSeverityReaction ciprofloxacinSever nausea/vomiting Current medications: (Selected) Inpatient Medications Ordered LR 1,000 mL: 20 mL/hr, Intravenous Documented Medications Documented herbal/nutritional product: 1 capsule, Oral, Daily, 0 Refill(s) levothyroxine 125 mcg (0.125 mg) oral tablet: 125 mcg, 1 tab(s), Oral, qDayAC, 0 Refill(s) progesterone 100 mg oral capsule: 100 mg, 1 cap(s), Oral, qHS, 0 Refill(s), Medications (1) Active Scheduled: (0) Continuous: (1) Lactated Ringers 1,000 mL 1,000 mL, Intravenous, 20 mL/hr PRN: (0) Problem list: Active Problems (2) Hema's disease Lumbar pain Histories Past Medical History: No active or resolved past medical history items have been selected or recorded. Family History: No family history items have been selected or recorded. Procedure history: Tonsillectomy ([id number]). 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 Airway: Normal temporomandibular joint mobility. Mallampati classification: II (soft palate, fauces, uvula visible). Dentition Evaluation: Denies loose/chipped teeth, braces. Respiratory: Lungs are clear to auscultation, Respirations are non-labored. Cardiovascular: Normal rate, Regular rhythm. Neurologic: Alert, Oriented. Review / Management Results review: No qualifying data available , Lab results 09/07/2024 6:56 EDT Urinary Elimination Voiding, no difficulties IV Present Present Allergies Yes Anesthesia Extension Set Applied Yes Water Softener Service Supervisor On Yes Consent Form Signed Yes Patient Dressed In Hospital gown, No undergarments Pre-op Preparation Glasses removed CHG Preoperative Wash/Wipe Night before procedure, Day of procedure CHG Skin Prep Completed for Eligible Surgery History & Physical On Chart Yes Obstructive Sleep Apnea Assess Completed Yes Belongings At Bedside Pants, Shirt, Shoes, Undergarments NPO Status Maintained Allergy Band on and Verified Yes Patient ID Band on and Verified Yes Implants Verified Yes Pacemaker/AICD Verified Yes Site Verified by Patient/Family Yes Blood Consent Signed Yes Last Fluid Intake 09/06/2024 23:00 Last Food Intake 09/06/2024 21:30 09/07/2024 6:52 EDT Designated Person #1 We May Share PHI Carolyn Hawley [phone] Designated Person #1 Relationship Mother Privacy Restrictions Requested None Status No, per patient Sensory Deficits None Sleep Apnea Snore No Sleep Apnea Tired Yes Sleep Apnea Obstruction No Sleep Apnea Pressure No Sleep Apnea BMI No Sleep Apnea Age No Sleep Apnea Neck No Sleep Apnea Gender No Sleep Apnea Score 1 Diagnosed With Sleep Apnea No Advanced Directives No - refuses information Infectious Disease Symptoms Patient states no symptoms Infectious Disease Recent Exposure No Alcohol and Drug Use No Employee of Institutional Living No Health Care Employee No History of Exposure to TB No History of Positive Chest X-Ray for TB No History of Positive TB Skin Test No Homeless No Known Immunosuppression No Recent Immigrant No Resident of Institutional Living No Bloody Sputum No Fatigue No Fever No Loss of Appetite No Night Sweats No Persistent Cough > 3 Weeks No Weight Loss No Pre-Op Patient Education NPO after midnight, No makeup, No jewelry, Responsible Democrat, Aware of surgery location, Pre-op education done, 1 bottle CHG wash with instructions given, No ordered medications, SSI prevention handout given SN - Preprocedure Comments Spoke with patient, Verbalizes/Nonverbally indicates understanding Barriers to Learning None evident Teaching Method Explanation, Printed materials Preferred Spoken Language Jordanian Preferred Written Language Jordanian Teaching Evaluation Verbalizes/Nonverbally indicates understanding Safety Brochure Information Reviewed Yes [facility] Video Viewed No Patient's Current Physicians Patient's Current Physicians History of Malignant Hyperthermia No Discharge To, Anticipated Home independently Prev Test Positive/Diagnosis w/COVID-19 No Current Quarantine/Isolated any Illness No Any Contact with Sick Animals/Birds No Traveled Anywhere in Last 30 Days No Lost Weight Unintentionally Recently No Eat Poorly Due to Decreased Appetite No Total MST Score 0 No Personal Devices, Patient Valuables Contact lenses, Glasses, Orthodontic retainer Anesthesia/Transfusions Prior anesthesia Admission Note-Nursing Same Day Patient History . Assessment and Plan [place] [employer] Anesthesiologists (ASA) physical status classification: Class II. Anesthetic Preoperative Plan Anesthetic technique: General. Maintenance airway: Oral endotracheal tube. Postoperative pain management: Per surgeon. Risks discussed: nausea, vomiting, sore throat, dental injury, hypotension, allergic reaction, serious complications. Informed consent: signed by patient. Digitally Signed by KHRIS LESLIE on 09/07/2024 07:12 AM [facility] 06-20-2024 Note HNO ID: [id number] Author: RYAN PAZ RT(R) Service: Radiology Author Type: Technologist Type: Progress Notes Filed: 06/20/2024 04:27 Note Text: Radiology Service Progress Note PATIENT NAME: Mili Thompson DATE OF SERVICE: June 20, 2024 TIME: 4:26 AM PATIENT IDENTITY VERIFICATION COMPLETED USING TWO (2) IDENTIFIERS: Name and Date of confirmed by patient verbally. FALL SCREENING: Has the patient had 2 falls in the last year or 1 fall with injury or currently using an Ambulatory Assistive Device (Walker, Cane, Wheelchair, Crutches, etc.)? Emergency Room Patient: Screened in ED PATIENT GENDER DATA: Assigned female at . status: : No status: NO. PATIENT RELEVANT IMPLANT DATA REVIEWED: Not Applicable PATIENT PRESENTS WITH AN IMPLANTABLE OR ATTACHED WET CHEMISTRY ANALYST: No RADIOLOGY DEPARTMENT: Ultrasound pelvis ta/tv and doppler PERIPHERAL IV DATA: Not applicable SIGNED BY: RT Kaci(R) June 20, 2024 4:[address] [facility] 06-20-2024 Note HNO ID: [id number] Author: ELIZA NEGRO RT(R) Service: ? Author Type: Technologist Type: Progress Notes Filed: 06/20/2024 01:32 Note Text: Radiology Service Progress Note DATE OF SERVICE: June 20, 2024 TIME: 1:32 AM PATIENT IDENTITY VERIFICATION COMPLETED USING TWO (2) STANDARD IDENTIFIERS: Name and Date of confirmed by patient verbally. FALL SCREENING: Has the patient had 2 falls in the last year or 1 fall with injury or currently using an Ambulatory Assistive Device (Walker, Cane, Wheelchair, Crutches, etc.)? Emergency Room Patient: Screened in ED PATIENT GENDER DATA: Assigned female at . status: : No status: NO. PATIENT RELEVANT IMPLANT DATA REVIEWED: Not Applicable PATIENT PRESENTS WITH AN IMPLANTABLE OR ATTACHED WET CHEMISTRY ANALYST: No ALLERGIES: Reviewed and unchanged CONTRAST ALLERGY: NO. EXAM: CT -CONTRAST INDUCED NEPHROPATHY RISK FACTORS: Not applicable CREATININE: Creatinine Date Value Ref Range Status 06/20/2024 0.78 0.58 - 0.96 mg/dL Final 11/01/2023 0.83 0.58 - 0.96 mg/dL Final 11/12/2020 0.68 0.58 - 0.96 mg/dL Final Estimated Glomerular Filtration Rate Date Value Ref Range Status 06/20/2024 98 >=60 mL/min/1.73m? Final Comment: Estimated Glomerular Filtration Rate (eGFR) is calculated using the 2020 CKD-EPI creatinine equation. This equation utilizes serum creatinine, sex, and age as parameters. The creatinine assay has traceable calibration to isotope dilution-mass spectrometry. Refer to KDIGO guidelines for clinical interpretation. In patients with unstable renal function, e.g. those with acute kidney injury, the eGFR may not accurately reflect actual GFR. eGFR- Date Value Ref Range Status 11/12/2020 >60 Final P.O.C.T. RESULTS: POC done: Yes, See Lab Tab June 20, 2024 TREATMENT: N/A PERIPHERAL IV DATA: Inpatient - refer to [facility] documentation RADIOLOGY DEPARTMENT: CT; Exam(s) Completed: Abdomen/Pelvis SIGNATURE: RT Gracie(R) PATIENT NAME: Mili Thompson DATE: June 20, 2024 TIME: 1:[address] [facility] 06-09-2023 Hospital Discharge instructions Patient Education 06/09/2023 07:56:03 Otitis Media, Antibiotic Treatment (Adult) Middle Ear Infection (Adult) You have an infection of the middle ear, the space behind the eardrum. This is also called acute otitis media (AOM). Sometimes it is caused by the common cold. This is because congestion can block the internal passage (eustachian tube) that drains fluid from the middle ear. When the middle ear fills with fluid, bacteria can grow there and cause an infection. Oral antibiotics are used to treat this illness, not ear drops. Symptoms usually start to improve within 1 to 2 days of treatment. Home care The following are general care guidelines: Finish all of the antibiotic medicine given, even though you may feel better after the first few days. You may use ojdq-gzf-bjehnww medicine, such as acetaminophen or ibuprofen, to control pain and fever, unless something else was prescribed. If you have chronic liver or kidney disease or have ever had a stomach ulcer or gastrointestinal bleeding, talk with your healthcare provider before using these medicines. Do not give aspirin to anyone under 18 years of age who has a fever. It may cause severe illness or . Follow-up care Follow up with your healthcare provider, or as advised, in 2 weeks if all symptoms have not gotten better, or if hearing doesn't go back to normal within 1 month. When to seek medical advice Call your healthcare provider right away if any of these occur: Ear pain gets worse or does not improve after 3 days of treatment Unusual drowsiness or confusion Neck pain, stiff neck, or headache Fluid or blood draining from the ear canal Fever of 100.4 F (38 C) or as advised Seizure [id number] [employer]. [address] [place] [address], [place] [address]. All rights reserved. This information is not intended as a substitute for professional medical care. Always follow your healthcare professional's instructions. 06/09/2023 07:56:01 External Ear Infection (Adult) External Ear Infection (Adult) External otitis (also called swimmer s ear ) is an infection in the ear canal. It is often caused by bacteria or fungus. It can occur a few days after water gets trapped in the ear canal (from swimming or bathing). It can also occur after cleaning too deeply in the ear canal with a cotton swab or other object. Sometimes, hair care products get into the ear canal and cause this problem. Symptoms can include pain, fever, itching, redness, drainage, or swelling of the ear canal. Temporary hearing loss may also occur. Home care Do not try to clean the ear canal. This can push pus and bacteria deeper into the canal. Use prescribed ear drops as directed. These help reduce swelling and fight the infection. If an ear wick was placed in the ear canal, apply drops right onto the end of the wick. The wick will draw the medicine into the ear canal even if it is swollen closed. A cotton ball may be loosely placed in the outer ear to absorb any drainage. You may use acetaminophen or ibuprofen to control pain, unless another medicine was prescribed. Note: If you have chronic liver or kidney disease or ever had a stomach ulcer or GI bleeding, talk to your healthcare provider before taking any of these medicines. Do not allow water to get into your ear when bathing. Also, don't swim until the infection has cleared. Prevention Keep your ears dry. This helps lower the risk of infection. Dry your ears with a towel or general studies program chair after getting wet. Also, use ear plugs when swimming. Do not stick any objects in the ear to remove wax. If you feel water trapped in your ear, use ear drops right away. You can get these drops over the counter at most drugstores. They work by removing water from the ear canal. Follow-up care Follow up with your healthcare provider in 1 week, or as advised. When to seek medical advice Call your healthcare provider right away if any of these occur: Ear pain becomes worse or doesn t improve after 3 days of treatment Redness or swelling of the outer ear occurs or gets worse Headache Painful or stiff neck Drowsiness or confusion Fever of 100.4 F (38 C) or higher, or as directed by your healthcare provider Seizure [id number] [employer]. [address] [place] [address]. All rights reserved. This information is not intended as a substitute for professional medical care. Always follow your healthcare professional's instructions. Follow Up Care 06/09/2023 07:17:41 With:LAURIE HUYNH MD Address: [phone] When:2-4 days [facility] 06-09-2023 Note Discharge Instructions Thank you for allowing [facility] to assist you with your healthcare needs. The following is important discharge information regarding your hospital visit. Diagnosis from Today's Visit Ear pain Otitis externa of left ear Otitis media of left ear What to Do Next Instructions from Your Care Team No qualifying data available. Post Acute Orders No qualifying data available. You Need to Schedule the Following Appointments Follow Up with LAURIE HUYNH MD When Within 2-4 days Where: [phone] Allergies ciprofloxacin Medications Please ask your primary doctor or pharmacist before taking any other medication not listed, including over the counter drugs, herbal medications, vitamins and or supplements as they may interact with your home medications. What How Much When Instructions Last Dose New amoxicillin (amoxicillin 500 mg oral capsule) 1 cap by mouth Two (2) times a day Duration: 10 Days Printed Prescription New ciprofloxacin-dexamethasone otic (Ciprodex 0.3%-0.1% otic suspension) 4 Drops Left ear Two (2) times a day Duration: 7 Days Printed Prescription Please take this list to your next doctor s visit. Bring all medications you take, including over the counter medications, herbals and other supplements with you to your doctor s visit. Patients and families are reminded to discard old lists and to update any records with all medication providers or retail pharmacies. Medication Leaflets ciprofloxacin and dexamethasone otic (SIP kyle FLOX a sin and DEX a METH a sone [place] tik) Ciprofloxacin-Dexamethasone What is the most important information I should know about ciprofloxacin and dexamethasone otic? You should not use this medicine if you have a viral infection affecting your ear canal, including herpes.. What is ciprofloxacin and dexamethasone otic? Ciprofloxacin is an antibiotic. Dexamethasone is a steroid. Ciprofloxacin and dexamethasone otic (for the ear) is a combination medicine used to treat infections inside the ear (also called otitis media), and infections of the ear canal (also called otitis externa). Ciprofloxacin and dexamethasone may also be used for purposes not listed in this medication guide. What should I discuss with my healthcare provider before using ciprofloxacin and dexamethasone otic? You should not use this medicine if you are allergic to ciprofloxacin or dexamethasone, or if you have: a viral or fungal infection affecting your ear canal, including herpes; or if you are allergic to any antibiotic similar to ciprofloxacin, such as gatifloxacin, levofloxacin, moxifloxacin, Cipro, Levaquin, and others. Tell your doctor if you have ever had: severe ear pain; or hearing problems. Tell your doctor if you are or . Ciprofloxacin and dexamethasone should not be used on a child younger than 6 months old. How should I use ciprofloxacin and dexamethasone otic? Follow all directions on your prescription label and read all medication guides or instruction sheets. Use the medicine exactly as directed. Do not take by mouth. Otic medicine is for use only in the ears. Shake the medicine well just before each use. You may warm the medicine before use by holding the bottle in your hand for 1 or 2 minutes. Using cold ear drops can cause dizziness, especially in a child who has ear tubes in place. Wash your hands before using ear drops. To use the ear drops: Lie down or tilt your head with your ear facing upward. Open the ear canal by gently pulling your ear back, or pulling downward on the earlobe when giving this medicine to a child. Hold the dropper upside down over your ear and drop the correct number of drops into the ear. Stay lying down or with your head tilted for at least 2 minutes. You may use a small piece of cotton to plug the ear and keep the medicine from draining out. Do not touch the dropper tip or place it directly in your ear. It may become contaminated. Wipe the tip with a clean tissue but do not wash with water or soap. Use this medicine for the full prescribed length of time. Your symptoms may improve before the infection is completely cleared. Skipping doses may also increase your risk of further infection that is resistant to antibiotics. Call your doctor if your symptoms do not improve after 7 days of treatment, or if you have new symptoms. Store at room temperature away from moisture, heat, and light. Do not freeze. Throw away any unused medicine after your treatment is finished. What happens if I miss a dose? Use the medicine as soon as you can, but skip the missed dose if it is almost time for your next dose. Do not use two doses at one time. What happens if I overdose? An overdose of this medicine is not expected to be dangerous. Seek emergency medical attention or call the Poison Help line at if anyone has accidentally swallowed the medication. What should I avoid while using ciprofloxacin and dexamethasone otic? Avoid getting the medicine in your eyes. Avoid getting water in your ears while bathing or showering. Avoid swimming while you are treating an ear infection. Do not use other ear medications unless your doctor tells you to. What are the possible side effects of ciprofloxacin and dexamethasone otic? Get emergency medical help if you have signs of an allergic reaction: rash, hives, itching; dizziness, fast heartbeats, fluttering in your chest; difficult breathing; swelling of your face, lips, tongue, or throat. Call your doctor at once if you have drainage from your ears after you stop using this medicine, especially if it occurs 2 or more times within 6 months after you stop. Common side effects may include: ear itching or pain, ear discomfort or fullness; unusual taste in your mouth; feeling irritable; rash; or a buildup of debris in the ear canal. This is not a complete list of side effects and others may occur. Call your doctor for medical advice about side effects. You may report side effects to FDA at 9-162-FKU-3816. What other drugs will affect ciprofloxacin and dexamethasone otic? Medicine used in the ears is not likely to be affected by other drugs you use. But many drugs can interact with each other. Tell each of your healthcare providers about all medicines you use, including prescription and wlps-tax-tifqaug medicines, vitamins, and herbal products. Where can I get more information? Your pharmacist can provide more information about ciprofloxacin and dexamethasone otic. Remember, keep this and all other medicines out of the reach of children, never share your medicines with others, and use this medication only for the indication prescribed. Every effort has been made to ensure that the information provided by [employer]. ('[employer]') is accurate, up-to-date, and complete, but no guarantee is made to that effect. Drug information contained herein may be time sensitive. [employer] information has been compiled for use by healthcare practitioners and consumers in the [place] and therefore [employer] does not warrant that uses outside of the [place] are appropriate, unless specifically indicated otherwise. [employer] drug information does not endorse drugs, diagnose patients or recommend therapy. [employer] drug information is an informational resource designed to assist licensed healthcare practitioners in caring for their patients and/or to serve consumers viewing this service as a supplement to, and not a substitute for, the expertise, skill, knowledge and judgment of healthcare practitioners. The absence of a warning for a given drug or drug combination in no way should be construed to indicate that the drug or drug combination is safe, effective or appropriate for any given patient. [employer] does not assume any responsibility for any aspect of healthcare administered with the aid of information [employer] provides. The information contained herein is not intended to cover all possible uses, directions, precautions, warnings, drug interactions, allergic reactions, or adverse effects. If you have questions about the drugs you are taking, check with your doctor, nurse or pharmacist. Copyright [id number] [employer]. Version: 3.02. Revision Date: 02/03/2023. amoxicillin (am OX i carmen in) What is the most important information I should know about amoxicillin? You should not use this medicine if you are allergic to any penicillin antibiotic. What is amoxicillin? Amoxicillin is a penicillin antibiotic that is used to treat many different types of infection caused by bacteria, such as tonsillitis, bronchitis, pneumonia, and infections of the ear, nose, throat, skin, or urinary tract. Amoxicillin is also sometimes used together with another antibiotic called clarithromycin (Biaxin) to treat stomach ulcers caused by Helicobacter pylori infection. This combination is sometimes used with a stomach acid physician relations manager called lansoprazole (Prevacid). Amoxicillin may also be used for purposes not listed in this medication guide. What should I discuss with my healthcare provider before taking amoxicillin? You should not use this medicine if you are allergic to any penicillin antibiotic, such as ampicillin, dicloxacillin, oxacillin, penicillin, or ticarcillin. Tell your doctor if you have ever had: kidney disease; mononucleosis (also called 'mono'); diarrhea caused by taking antibiotics; or food or drug allergies (especially to a cephalosporin antibiotic such as Omnicef, Cefzil, Ceftin, Keflex, and others). It is not known whether this medicine will harm an unborn baby. Tell your doctor if you are or plan to become . Amoxicillin can make control pills less effective. Ask your doctor about using a non-hormonal control (condom, diaphragm, cervical cap, or contraceptive sponge) to prevent . It may not be safe to breastfeed while using this medicine. Ask your doctor about any risk. How should I take amoxicillin? Follow all directions on your prescription label and read all medication guides or instruction sheets. Use the medicine exactly as directed. Take this medicine at the same time each day. Some forms of amoxicillin may be taken with or without food. Check your medicine label to see if you should take your amoxicillin with food or not. Shake the oral suspension (liquid) before you measure a dose. Measure liquid medicine with the dosing syringe provided, or use a medicine dose-measuring device (not a kitchen spoon). You may mix the liquid with water, milk, baby formula, fruit juice, or minda maia. Drink all of the mixture right away. Do not save for later use. You must chew the chewable tablet before you swallow it. Swallow the regular tablet whole and do not crush, chew, or break it. You will need frequent medical tests. If you are taking amoxicillin with clarithromycin and/or lansoprazole to treat stomach ulcer, use all of your medications as directed. Read the medication guide or patient instructions provided with each medication. Do not change your doses or medication schedule without your doctor's advice. Use this medicine for the full prescribed length of time, even if your symptoms quickly improve. Skipping doses can increase your risk of infection that is resistant to medication. Amoxicillin will not treat a viral infection such as the flu or a common cold. Do not share this medicine with another person, even if they have the same symptoms you have. This medicine can affect the results of certain medical tests. Tell any doctor who treats you that you are using amoxicillin. Store at room temperature away from moisture, heat, and light. You may store liquid amoxicillin in a refrigerator but do not allow it to freeze. Throw away any liquid amoxicillin that is not used within 14 days after it was mixed at the pharmacy. What happens if I miss a dose? Skip the missed dose and use your next dose at the regular time. Do not use two doses at one time. What happens if I overdose? Seek emergency medical attention or call the Poison Help line at . What should I avoid while taking amoxicillin? Antibiotic medicines can cause diarrhea, which may be a sign of a new infection. If you have diarrhea that is watery or bloody, call your doctor before using anti-diarrhea medicine. What are the possible side effects of amoxicillin? Get emergency medical help if you have signs of an allergic reaction (hives, difficult breathing, swelling in your face or throat) or a severe skin reaction (fever, sore throat, burning eyes, skin pain, red or purple skin rash with blistering and peeling). Call your doctor at once if you have: severe stomach pain; or diarrhea that is watery or bloody (even if it occurs months after your last dose). Common side effects may include: nausea, vomiting, diarrhea; or rash. This is not a complete list of side effects and others may occur. Call your doctor for medical advice about side effects. You may report side effects to FDA at 1-886-TQX-9208. What other drugs will affect amoxicillin? Tell your doctor about all your other medicines, especially: any other antibiotics; allopurinol; probenecid; or a blood thinner--warfarin, Coumadin, Jantoven. This list is not complete. Other drugs may affect amoxicillin, including prescription and dopp-hul-bqopeom medicines, vitamins, and herbal products. Not all possible drug interactions are listed here. Where can I get more information? Your pharmacist can provide more information about amoxicillin. Remember, keep this and all other medicines out of the reach of children, never share your medicines with others, and use this medication only for the indication prescribed. Every effort has been made to ensure that the information provided by [employer]') is accurate, up-to-date, and complete, but no guarantee is made to that effect. Drug information contained herein may be time sensitive. [employer] information has been compiled for use by healthcare practitioners and consumers in the [place] and therefore [employer] does not warrant that uses outside of the [place] are appropriate, unless specifically indicated otherwise. [employer] drug information does not endorse drugs, diagnose patients or recommend therapy. [employer] drug information is an informational resource designed to assist licensed healthcare practitioners in caring for their patients and/or to serve consumers viewing this service as a supplement to, and not a substitute for, the expertise, skill, knowledge and judgment of healthcare practitioners. The absence of a warning for a given drug or drug combination in no way should be construed to indicate that the drug or drug combination is safe, effective or appropriate for any given patient. [employer] does not assume any responsibility for any aspect of healthcare administered with the aid of information [employer] provides. The information contained herein is not intended to cover all possible uses, directions, precautions, warnings, drug interactions, allergic reactions, or adverse effects. If you have questions about the drugs you are taking, check with your doctor, nurse or pharmacist. Copyright [id number] [employer]. Version: 02.14. Revision Date: 04/11/2019. Education Materials Middle Ear Infection (Adult) You have an infection of the middle ear, the space behind the eardrum. This is also called acute otitis media (AOM). Sometimes it is caused by the common cold. This is because congestion can block the internal passage (eustachian tube) that drains fluid from the middle ear. When the middle ear fills with fluid, bacteria can grow there and cause an infection. Oral antibiotics are used to treat this illness, not ear drops. Symptoms usually start to improve within 1 to 2 days of treatment. Home care The following are general care guidelines: Finish all of the antibiotic medicine given, even though you may feel better after the first few days. You may use vzpu-ysa-oyxkpmo medicine, such as acetaminophen or ibuprofen, to control pain and fever, unless something else was prescribed. If you have chronic liver or kidney disease or have ever had a stomach ulcer or gastrointestinal bleeding, talk with your healthcare provider before using these medicines. Do not give aspirin to anyone under 18 years of age who has a fever. It may cause severe illness or . Follow-up care Follow up with your healthcare provider, or as advised, in 2 weeks if all symptoms have not gotten better, or if hearing doesn't go back to normal within 1 month. When to seek medical advice Call your healthcare provider right away if any of these occur: Ear pain gets worse or does not improve after 3 days of treatment Unusual drowsiness or confusion Neck pain, stiff neck, or headache Fluid or blood draining from the ear canal Fever of 100.4 F (38 C) or as advised Seizure [id number] [employer]. [address] [place] [address], [place] [address]. All rights reserved. This information is not intended as a substitute for professional medical care. Always follow your healthcare professional's instructions. External Ear Infection (Adult) External otitis (also called swimmer s ear ) is an infection in the ear canal. It is often caused by bacteria or fungus. It can occur a few days after water gets trapped in the ear canal (from swimming or bathing). It can also occur after cleaning too deeply in the ear canal with a cotton swab or other object. Sometimes, hair care products get into the ear canal and cause this problem. Symptoms can include pain, fever, itching, redness, drainage, or swelling of the ear canal. Temporary hearing loss may also occur. Home care Do not try to clean the ear canal. This can push pus and bacteria deeper into the canal. Use prescribed ear drops as directed. These help reduce swelling and fight the infection. If an ear wick was placed in the ear canal, apply drops right onto the end of the wick. The wick will draw the medicine into the ear canal even if it is swollen closed. A cotton ball may be loosely placed in the outer ear to absorb any drainage. You may use acetaminophen or ibuprofen to control pain, unless another medicine was prescribed. Note: If you have chronic liver or kidney disease or ever had a stomach ulcer or GI bleeding, talk to your healthcare provider before taking any of these medicines. Do not allow water to get into your ear when bathing. Also, don't swim until the infection has cleared. Prevention Keep your ears dry. This helps lower the risk of infection. Dry your ears with a towel or general studies program chair after getting wet. Also, use ear plugs when swimming. Do not stick any objects in the ear to remove wax. If you feel water trapped in your ear, use ear drops right away. You can get these drops over the counter at most drugstores. They work by removing water from the ear canal. Follow-up care Follow up with your healthcare provider in 1 week, or as advised. When to seek medical advice Call your healthcare provider right away if any of these occur: Ear pain becomes worse or doesn t improve after 3 days of treatment Redness or swelling of the outer ear occurs or gets worse Headache Painful or stiff neck Drowsiness or confusion Fever of 100.4 F (38 C) or higher, or as directed by your healthcare provider Seizure [id number] [employer]. [address] [place] [address]. All rights reserved. This information is not intended as a substitute for professional medical care. Always follow your healthcare professional's instructions. Additional Information VACCINATE! IT SAVES LIVES! Members of the community who have not yet received the COVID-19 vaccine and would like to receive it can visit one of [facility] vaccine clinics. There are many vaccine clinic locations within the [facility]. For locations and available times, please visit [email or web address].[email or web address] /. It is important to note that some COVID mobile vaccine clinics are held outdoors and may be canceled in rainy or stormy conditions. To learn more about pediatric vaccinations (ages 5-11), we invite you to visit the [facility] webpage. [email or web address] -[email or web address] To learn more about the COVID-19 vaccine, we invite you to visit the CDC website for a list of frequently asked questions. https://www.cdc.gov/coronavirus/201 9-ncov/vaccines/faq.html [facility] Patient Portal Access Instructions: Stay connected with your healthcare team and access your personal medical information anytime with the [facility] Patient Portal. If you would like a full copy of your medical records please contact the [facility] Medical Records Department Wednesday through Wednesday between 8a.m. and 4:30p.m. Please follow the directions below to access the portal: 1.Access the email account you provided upon registration to the [facility].2.Look for an invitation email from [facility].3.Open the email and access the invitation link: Accept Invitation to [facility].Fill in the required guido to create your account. Sign into [email or web address] with your username and password that you created in the above steps to stay up to date. You can then view a summary of results, a summary of your visits, and the ability to download your summaries to your computer or send the information securely to a physician. Remember that your healthcare information is confidential, so carefully consider who you will allow to register on the [facility] Patient Portal for access to your information. You can also access the [facility] Patient Portal on the [email or web address] chris. Simply click on Health Records under Health Data and then click on the [employer] logo. HOW TO SAFELY DISPOSE OF PRESCRIPTION MEDICATIONS Please use one of the following methods to safely dispose of your unused medications. 1.Use a drug disposal kit: the drug disposal pouch allows you to safely discard your old and unused drugs. Ask your nurse to give you one when you are discharged.2.Visit a local take-back location: Many local pharmacies and police departments have programs that collect old and unwanted prescription drugs. Call your local pharmacy or go to http://[employer].Nutricate/5V8Vf7n to find one close to you.3.Make use of household items: Use cat litter or old coffee grounds to dispose medications if other options are not available. Mix your drugs with these household products, seal them in an airtight container and throw it into the garbage. Call [facility]: [phone] to be sure your drugs can be disposed of in this way. Some medicines may require a different approach.4.Never flush your medications down the toilet. IF YOU HAVE BEEN PRESCRIBED AN OPIOIDS FOR PAIN If you have been prescribed an opioid (such as hydrocodone, oxycodone or morphine), it is critical to understand the possible side effects and risks of opioid pain medications. Even when taken as directed, opioids can have several side effects including: Tolerance, meaning you might need to take more of a medication for the same pain relief. Nausea, vomiting and/or constipation. Sleepiness, dizziness, dry mouth, confusion, depression or itching. Physical dependence, meaning you have withdrawal symptoms when a medication is stopped ? this can develop within a few days. KNOW YOUR RESPONSIBILITIES It is important to know exactly how much and how often to take the opioid pain medications you are prescribed. Never take opioids in higher amounts or more often than prescribed. Do not combine opioids with alcohol or other drugs that cause drowsiness, such as benzodiazepines, also known as benzos, including diazepam and alprazolam, muscle relaxants or sleep aids. Never sell or share prescription opioids. This is illegal. Store opioids in a secure place and out of reach of others (including children, family, friends and visitors). The last page(s) of this document has been signed and retained as a CHART COPY Signatures Patient Education Materials Otitis Media, Antibiotic Treatment (Adult) External Ear Infection (Adult) Medication Leaflets ciprofloxacin and dexamethasone otic, amoxicillin My discharge plan and instructions have been reviewed and explained to me and I,MILI THOMPSON understand my current condition and have read and understand these discharge instructions. I have received a written copy of the plan/instructions. If I have questions, I am aware that I should contact my doctor. Patient/Director Work Signature: ____ Date/Time: Relationship to Patient: __ Witness Name/Signature: Date/Time: [facility] 12-11-2022 Hospital Discharge instructions Additional Instructions Your exam today indicate you have a viral infection. Fever from this will typically last 3 days but can go as long as a week. Take [id number] Tylenol and/or Motrin for fever control and keep yourself well-hydrated. If your fever lasts longer than 7 days or you have worsening of symptoms or any further concerns please return to the hospital for repeat evaluation [facility] Work Phone: 11-03-2022 Note [facility] HISTORY & PHYSICAL/DISCHARGE SUMMARY NAME ACCOUNT SEX AGE ADMIT DISCHARGE PT MED. RECORD# NUMBER DATE DATE TYPE MILI THOMPSON [id number] F 37 10/28/22 10/29/22 2 [id number] [place]OM: [facility] [place] DATE OF : 81 DICTATING PHYSICIAN: Jeremy Rob CHIEF COMPLAINT: Chest pain. HISTORY OF PRESENT ILLNESS: The patient is a 37-year-old female with a past medical history significant for hypothyroidism. She stated her medications were adjusted about 3 months ago; otherwise, she does not take any medications. She does get frequent heartburn. She came to the emergency room after she was driving in the car. She was a passenger. She experienced the onset of acute, sharp chest pain, which also radiated to her shoulder blade. She has not had any new medications. No new foods. For lunch, she did eat a taco from [employer] (Closed). When she had the episode, she stated she felt scared and anxious, and she just felt odd all over and came to the emergency room. Initial cardiac workup was negative including negative troponins and EKG. She had mentioned that she had a grandfather that at 50 with acute myocardial infarction. She was admitted overnight for observation and rule out acute coronary syndrome and cardiac testing. Upon evaluation this morning, she has no further chest pain. She does mention that she gets heartburn quite a bit. She does not take medications. She does drink warm milk. She cannot drink cold drinks because that gives her heartburn. PAST MEDICAL HISTORY: (1) Heartburn. (2) Hypothyroidism with medication adjustment about 3 months ago. PAST SURGICAL HISTORY: Tonsillectomy. MEDICATIONS: Current medications at home: Levothyroxine 125 mcg daily. ALLERGIES: Cipro. FAMILY HISTORY: Mother and father are both still living. They do not have coronary artery disease. She had a grandfather who had an acute IN at age 50. REVIEW OF SYSTEMS: She denies any headache, acute visual changes, chest pain as described above. No shortness of breath. She did feel anxious after the chest pain started. She denies having any heartburn yesterday. No abdominal pain, bowel or bladder changes. PHYSICAL EXAMINATION Page 1 of 3 MILI THOMPSON History Physical/Discharge Summary MILI THOMPSON :1985 GENERAL APPEARANCE: The patient was sitting up in bed in no acute distress. She was alert and cooperative. VITAL SIGNS: Blood pressure 106/67, heart rate 74, respirations 16, temperature 98.3, oxygen saturation 98% on room air, weight 196 pounds with BMI of 37.15. HEENT: Unremarkable. NECK: Neck is supple. No JVD. LUNGS: Normal respiratory effort, equal lung expansion, clear to auscultation bilaterally. HEART: Regular rate and rhythm. ABDOMEN: Positive bowel sounds, soft and nontender. EXTREMITIES: Free of edema. NEUROLOGIC: She is alert and able to answer questions appropriately. Speech is clear. DIAGNOSTIC DATA: CBC is unremarkable. D-dimer is within normal limits. On admission, sodium was 139, potassium 3.4. Kidney function, as well as liver function within normal limits. TSH was 8.13. Troponins negative, as well as Pro-BNP. Cholesterol was 143, HDL 45, LDL 86, triglycerides 59. IMPRESSION/PLAN: 1. Atypical chest pain. It was sharp in nature. Due to the family history of premature atherosclerotic disease, she was admitted to the hospital and kept overnight for observation on telemetry. No acute arrhythmia. No subsequent episodes of pain. She had a workup including laboratories as above, and also a cardiac workup and chest x-ray, which were negative. I did discuss with her frequent heartburn this needs to be evaluated, and I recommended at discharge she try famotidine 20 mg daily, followup with her primary care physician. She will see Dr. Huynh on November 03 at 8:45 a.m. She may need further evaluation with EGD. 2. Hypothyroidism. TSH is mildly elevated, but would not cause these symptoms. However, further studies need to be completed as an outpatient including a free T4 and followup with her primary care physician to see if she needed any further medication adjustment. 3. Above was discussed with the patient. All of her questions were answered, and she was discharged home in stable condition with above instructions. I evaluated the patient myself the above accurate E&M is done by me Demetria Rob MD Dictated by duke Byrne for Jeremy Rob M.D. Page 2 of 3 MILI THOMPSON History Physical/Discharge Summary MILI THOMPSON :1985 10/29/22 13:09 JOB #: [id number] Transcribed By: am 10/29/22 14:26 Electronically signed by: E-Sign: JEREMY ROB MD 11/03/22 09:40 Update to H&P: [ ] No changes: I have examined the patient and reviewed the H&P and there are no changes. [ ] As previously dictated with the following changes: (more content not included)... [facility] 11-15-[address] [place] [address] HEALTH INFORMATION MANAGEMENT EMERGENCY DEPARTMENT REPORT Patient: MILI THOMPSON JACOB Lazaro Wilson [id number] [id number] F Status: DEP ER ED Date of Service: 11/15/21 CHIEF COMPLAINT: 36-year-old female with chief complaint of left ear pain. HISTORY OF PRESENT ILLNESS: The patient states over the last 3 days she has had increasing left ear pain. She had traveled to a water park a few days ago and has had increasing pain since then. She states she has had swimmer's ear in the remote past, but it has been years since she had this issue. The patient denies any hearing loss or sensation of ear fullness. The patient denies any recent illness. She denies any cough, rhinorrhea, congestion, or sore throat. The patient has no history of diabetes or other immune-compromised state. REVIEW OF SYSTEMS: All pertinent positive and negatives as per HPI, otherwise negative. PAST MEDICAL HISTORY: Otitis externa. PAST SURGICAL HISTORY: Tonsillectomy. FAMILY HISTORY: None pertinent. SOCIAL HISTORY: Denies current tobacco, alcohol, or illicit drug use. ALLERGIES: To ciprofloxacin. MEDICATIONS: No listed daily medications. PHYSICAL EXAMINATION: VITAL SIGNS: Temperature 98.4, pulse 86, respirations 20, blood pressure 111/80, pulse ox 97% on room air. GENERAL: The patient is awake, alert, pleasantly conversant. No acute distress. HEENT: Atraumatic. No scleral icterus. No rhinorrhea or congestion. Right TM is clear. No abnormalities noted. Left external auditory canal with some erythema and some mild swelling. The canal itself is patent. The left TM is without bulging or erythema. Overall exam consistent with otitis externa. No swelling noted along the pinna. No other acute rashes noted along the outside surfaces of the ear. No mastoid tenderness bilaterally. Oropharynx is clear. Moist mucous membranes. NECK: No JVD or stiffness. LUNGS: Normal respiratory effort. No increased work of breathing. CARDIAC: Regular rate and rhythm. ABDOMEN: Soft, nondistended. MUSCULOSKELETAL: No joint pain or stiffness. NEUROLOGIC: Normal speech, normal gait. PSYCH: Appropriate mood and affect, very pleasant. SKIN: No rashes noted. MEDICAL DECISION MAKIN-year-old female presents to ED for left ear pain, worsening over the last 3 days. Has an exam consistent with otitis externa. The patient will be started on antibiotic drops for this. Plan to follow up with her primary care physician in 3 to 5 days to ensure continued improvement of her symptoms and for any further workup as necessary at that time. The patient given both written and verbal discharge instructions as well as strict return precautions. She was stable throughout her ED course and discharged home in the same condition. CLINICAL IMPRESSION: Left otitis externa. Report#: Dict ID [id number] / Int ID [id number] <Electronically signed by SARAH NIXON D.O.> 11/15/21 0519 SARAH NIXON D.O. cc: SARAH NIXON D.O.; No Physician << Signature on File>> Reported By: SARAH NIXON D.O. Signed By: SARAH NIXON D.O. Tests performed at: [address] [address] documented in this encounter [facility] 05-18-2006 History of Past i llness Narrative Problem Noted Date Diagnosed Date Resolved Date Asymptomatic bacteriuria in 05/18/2006 12/21/2006 Supervision of normal first 04/15/2006 12/21/2006 documented as of this encounter (statuses as of 03/29/2023) [facility] No data available for this section [facility] Evaluation noteNo assessment information available [facility] Work Phone: Evaluation note* Diagnosis Encounter for screening mammogram for breast cancer [facility] No data available for this section [facility] Progress note No data available for this section [facility] Reason for referral (narrative)* Diagnostic Procedure Only (Routine) - Pending Review Specialty Diagnoses / Procedures Referred By Contac t Referred To Contact [facility] Diagnoses Encounter for screening mammogram for breast cancer Procedures ANA SCREENING SCREENING MAMMOGRAPHY BI 2-VIEW BREAST INC CAD Kingsley Hernandez MD [address] [facility] [address] [address] [address] [facility] [address] [place] [address] Referral ID Status Reason Start Date Expiration Date Visits Requested Visits Authorized [id number] Pending Review Auto-Generat ed Referral 03/24/2023 04/22/2024 1 [facility] Summary Purpose Family History No Family History Records FoundNo Family History Records FoundNo Family History Records FoundNo Family History Records FoundNo Family History Records FoundNo Family History Records FoundNo Family History Records FoundNo Family History Records FoundNo Family History Records FoundNo Family History Records FoundNo Family History Records FoundNo Family History Records FoundNo Family History Records FoundNo Family History Records Found No data available for this section No Family History Records Found No data available for this section No Family History Records Found No data available for this section No Family History Records Found No data available for this section No Family History Records Found Advance Directives No Advanced Directives Records FoundDocuments on File Type Date Recorded Patient Director Work Expl anation Advance Directives/Living Will 07/07/2016 10:51 AM Documents on File Type Date Recorded Patient Director Work Expl anation Advance Directives/Living Will 07/07/2016 10:51 AM Advance Directive Response Recorded Date/ Time Living Will No December 14, 2022 11:03pm Power of Sessions Clerk No December 14 11:03pm Reason for Referral Status Reason Specialty Diagnoses / Procedures Referred By Contact Referred To Contact New Request Diagnoses Breast pain Procedures MAMMO DIAGNOSTIC WITH RAOUL BILATERAL Jordy Hernandez MD [address] [place] [address] Status Reason Specialty Diagnoses / Procedures Referred By Contact Referred To Contact New Request Diagnoses Breast pain Procedures US BREAST LIMITED UNILATERAL RIGHT Jordy Hernandez MD [address] [place] [address] Assessments Diagnosis Breast pain Mastodynia Diagnosis Hema's thyroiditis- Primary Chronic lymphocytic thyroiditis Hypothyroidism, unspecified type Diagnosis Plantar fasciitis- Primary Plantar fascial fibromatosis Pain in right foot Pain in limb Diagnosis Sinusitis, unspecified chronicity, unspecified location- Primary Diagnosis Right foot pain Pain in limb Diagnosis Right non-suppurative otitis media Nonsuppurative otitis media, not specified as acute or chronic Diagnosis Hypothyroidism, unspecified type- Primary Insulin resistance Dysmetabolic Syndrome X Diagnosis Plantar fasciitis- Primary Plantar fascial fibromatosis Pain in right foot Pain in limb History of Present Illness * Andres Mckeon MD - 01/18/2020 8:45 AM EDT History of Present Illness 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 She was diagnosed with hypothyroidism in 2018 for TSH = 5 and complaints of fatigue. She was started on levothyroxine, which she took for a year and a half without any subjective benefit. She discontinued thyroid hormone in May 2019 and has not yet had repeat blood work, but states that there is no worsening or no improvement since discontinuing levothyroxine. She wants to know what is wrong. Thyroid antibody status unknown. Of note, she does only get about 5 hours of sleep per night. No nocturia, just tossing and turning, and staying up late for her daughter's softball. She works day shift. She is a 10 pound weight gain over the past 6 months. Regular menses. No galactorrhea. No headaches. She does have some mild acanthosis. We sent her for blood work demonstrating TSH = 5.3. TSH was 3.7 while on 50 mg of levothyroxine. Review of Systems Vitals: Blood pressure 117/86, pulse 64, temperature 98 F (36.7 C), temperature source Temporal, height 1.549 m (5' 1), weight 83 kg (183 lb). Physical Exam Constitutional: General: She is not in acute distress. Appearance: She is not diaphoretic. HENT: Head: Normocephalic. Neck: Trachea: No tracheal deviation. Comments: Mild acanthosis on the back of the neck Cardiovascular: Rate and Rhythm: Normal rate. Pulmonary: Effort: Pulmonary effort is normal. Skin: General: Skin is warm and dry. Comments: Pale stria on the abdomen Neurological: Mental Status: She is alert and oriented to person, place, and time. Psychiatric: Judgment: Judgment normal. Neurologic Exam Mental Status Oriented to person, place, and time. Assessment and Plan Hema's thyroiditis: We discussed the significance of her positive antithyroglobulin antibodies. We will start levothyroxine 75 g daily, since TSH did not dropped below 2.5 on 50 g of levothyroxine with continued symptoms of hypothyroidism. We discussed proper administration of levothyroxine. We discussed signs and symptoms of thyroid hormone overreplacement. Fatigue: Hopefully will improve with levothyroxine therapy, once TSH is below 2.5 Insulin resistance syndrome: Normal fasting blood glucose with normal insulin levels. * Denita Swann - 01/18/2020 8:45 AM EDT Nurse Note: Review of Systems Constitutional: Positive for fatigue. Negative for chills, fever and unexpected weight change. HENT: No difficulty swallowing No change in voice Respiratory: Negative for cough, shortness of breath and wheezing. Cardiovascular: Negative for chest pain and palpitations. Gastrointestinal: Negative for constipation, diarrhea, nausea and vomiting. Musculoskeletal: Negative for neck pain. Neurological: Negative for tremors. Psychiatric/Behavioral: Negative for sleep disturbance. The patient is not nervous/anxious. Nursing Assessment: Physical Exam documented in this encounter* Jose Rafael Tucker DPM - 03/28/2019 3:20 PM EST Patient: Mili Thompson Date: 03/28/2019 Subjective: Mili Thompson is a 34 y.o. year old female who presents today for a follow-up of right heel pain. Patient has been compliant with the following therapies: supportive shoes, night splint, NSAIDS, plantar fasciitis sleeve and home physical therapy . The patient notes 90 % improvement. The patient has had 1 injection(s) this year. Allergies Allergen Reactions Ciprofloxacin Nausea and Vomiting and Dyspepsia Sulfamethoxazole-Trimethoprim Nausea and Vomiting Other reaction(s): GI Intolerance makes me feel funny Current Outpatient Medications Medication Sig fluticasone 50 MCG/ACT Suspension nasal spray 1 spray. levothyroxine 50 MCG Tab tablet TK 1 T PO QD OES FOR THYROID Past Medical History: Diagnosis Date Hypothyroidism Nurse Note: Review of Systems Constitutional: Negative for fever. HENT: Negative for tinnitus. Respiratory: Negative for shortness of breath. Cardiovascular: Negative for chest pain. Gastrointestinal: Negative for diarrhea and nausea. Genitourinary: Negative for flank pain. Musculoskeletal: Negative for myalgias. Skin: Negative for rash. Neurological: Negative for dizziness and headaches. Hematological: Does not bruise/bleed easily. Nursing Assessment: Physical Exam Social History Occupational History Not on file Tobacco Use Smoking status: Never Smoker Smokeless tobacco: Never Used Substance and Sexual Activity Alcohol use: No Drug use: No Sexual activity: Yes Partners: Male Comment: no control in use Vitals: 03/28/19 1448 BP: 116/78 Pulse: 96 Objective: The patient is appropriately dressed, articulate, awake, alert, and oriented, appears their stated age and appears to be in good health. Vascular: Dorsalis pedis and posterior tibial pulses are readily palpable and graded at 2/4 bilateral. Capillary filling time is <3 seconds at the level of the hallux rosangela bilateral. Dermatological: There is no evidence of edema, erythema, ecchymosis, open lesions, interdigital maceration or signs of bacterial or fungal infection bilateral lower extremities. Adequate fat padding to the inferior aspect of each heel appreciated. Skin color is noted to be normal. Skin texture is noted to be normal Neuro: Gross, Light and sharp sensations are intact to b/l LE Musculoskeletal: There is No tenderness on palpation of their right plantar medial calcaneal tubercle in the region of the origin of the plantar fascia and intrinsic musculature. No pain on medial-lateral compression of the calcaneus, with a strong posterior tibial tendon to manual resistance, and ankle joint dorsiflexion of 5 degrees with the knee extended bilateral. Assessment: Mili was seen today for plantar fasciitis. Diagnoses and all orders for this visit: Plantar fasciitis Pain in right foot Plan: I have recommended continued use of current treatment plan with the addition of the following: Patient instructed to avoid barefoot and to wear a supportive shoe while active Continue with the belt stretch. Continue to ice as directed Continue with: supportive shoes, night splint, NSAIDS, plantar fasciitis sleeve and home physical therapy We discussed an injection today and the patient did not agree to an injection today. Return to clinic in PRN for re-evaluation, call with any questions or re-appoint if needed. Procedures * Dinah Loza LPN - 03/28/2019 3:20 PM EST Nurse Note: Review of Systems Constitutional: Negative for fever. HENT: Negative for tinnitus. Respiratory: Negative for shortness of breath. Cardiovascular: Negative for chest pain. Gastrointestinal: Negative for diarrhea and nausea. Genitourinary: Negative for flank pain. Musculoskeletal: Negative for myalgias. Skin: Negative for rash. Neurological: Negative for dizziness and headaches. Hematological: Does not bruise/bleed easily. Nursing Assessment: Physical Exam documented in this encounter* Laura Childress MD - 09/30/2018 12:46 PM EDT PATIENT NAME: Mili Thompson [facility] [address] [place] [id number] : 1985 DATE OF VISIT: 09/30/2018 #: [id number] PROVIDER: Laura Childress MD Chief Complaint Patient presents with Sinusitis congestion and facial pressure, Feels like something in throat. SUBJECTIVE 33 y.o. female presents Sinusitis (congestion and facial pressure, Feels like something in throat. ) C/o sinus issues. Has had facial pressure for over a week. Ears plugged off and on. Sore throat yesterday. H/o seasonal allergies. No f/c. Sl cough yesterday. Nasal congestion Sinusitis This is a recurrent problem. The current episode started in the past 7 days. The problem has been gradually worsening since onset. There has been no fever. She is experiencing no pain. Associated symptoms include congestion, sinus pressure and a sore throat. Pertinent negatives include no chills, coughing, ear pain, shortness of breath, sneezing or swollen glands. Past treatments include nothing. MEDICAL ISSUES Past Medical History: Diagnosis Date Disease of thyroid gland There is no problem list on file for this patient. SOCIAL HISTORY Social History Socioeconomic History Marital status: Spouse name: Not on file Number of children: Not on file Years of education: Not on file Highest education level: Not on file Social Needs Financial resource strain: Not on file Food insecurity - worry: Not on file Food insecurity - inability: Not on file Transportation needs - medical: Not on file Transportation needs - non-medical: Not on file Occupational History Not on file Tobacco Use Smoking status: Never Smoker Smokeless tobacco: Never Used Substance and Sexual Activity Alcohol use: Not Currently Frequency: Never Comment: rare Drug use: Never Sexual activity: Not on file Other Topics Concern Not on file Social History Narrative Not on file FAMILY HISTORY History reviewed. No pertinent family history. REVIEW OF SYSTEMS Review of Systems Constitutional: Positive for fatigue. Negative for chills and fever. HENT: Positive for congestion, postnasal drip, sinus pressure and sore throat. Negative for ear discharge, ear pain, rhinorrhea, sinus pain, sneezing and trouble swallowing. Eyes: Negative. Respiratory: Negative for cough and shortness of breath. Cardiovascular: Negative for chest pain. Gastrointestinal: Negative for abdominal pain, diarrhea, nausea and vomiting. Genitourinary: Nocturia - occ once. Not . No gestational diabetes Skin: Negative for rash. MEDICATIONS PRIOR TO VISIT Current Outpatient Medications on File Prior to Visit Medication Sig Dispense Refill levothyroxine (SYNTHROID, LEVOTHROID) 50 MCG tablet TK 1 T PO QD OES FOR THYROID No current facility-administered medications on file prior to visit. ALLERGIES/INTOLERANCES Allergies Allergen Reactions Bactrim [Sulfamethoxazole-Trimethoprim] GI Intolerance Ciprofloxacin GI Intolerance OBJECTIVE BP 112/76 (BP Location: Left arm, Patient Position: Sitting, BP Cuff Size: Adult) Pulse 80 Temp98.1 F (36.7 C) (Oral) Resp 16 Ht 5' 1 Wt 76.4 kg (168 lb 6.4 oz) SpO2 97% BMI 31.82 kg/m Physical Exam Constitutional: She appears well-developed and well-nourished. No distress. HENT: Head: Normocephalic and atraumatic. Right Ear: External ear normal. Left Ear: External ear normal. Mouth/Throat: Oropharynx is clear and moist. No oropharyngeal exudate. Eyes: Conjunctivae are normal. No scleral icterus. Neck: No thyromegaly present. Cardiovascular: Normal rate, regular rhythm and normal heart sounds. Pulmonary/Chest: Breath sounds normal. No respiratory distress. Lymphadenopathy: She has no cervical adenopathy. Neurological: She is alert. Skin: Skin is warm and dry. She is not diaphoretic. Psychiatric: She has a normal mood and affect. Her behavior is normal. PROCEDURE Procedures Results No results found for this or any previous visit (from the past 168 hour(s)). ASSESSMENT/PLAN (expressed as patient instructions): No diagnosis found. No follow-ups on file. ADDITIONAL CLINICAL COMMENTS ORDERS PLACED THIS VISIT No orders of the defined types were placed in this encounter. MEDICATION LIST AT END OF VISIT Current Outpatient Medications Medication Sig Dispense Refill levothyroxine (SYNTHROID, LEVOTHROID) 50 MCG tablet TK 1 T PO QD OES FOR THYROID No current facility-administered medications for this visit. documented in this encounter* Andres Mckeon MD - 01/10/2020 9:15 AM EDT History of Present Illness Hypothyroidism/fatigue: This is her first visit to the office. She was diagnosed with hypothyroidism in 2018 for TSH = 5 and complaints of fatigue. She was started on levothyroxine, which she took for a year and a half without any subjective benefit. She discontinued thyroid hormone in May 2019and has not yet had repeat blood work, but states that there is no worsening or no improvement since discontinuing levothyroxine. She wants to know what is wrong. Thyroid antibody status unknown. Of note, she does only get about 5 hours of sleep per night. No nocturia, just tossing and turning, andstaying up late for her daughter's softball. She works day shift. She is a 10 pound weight gain over the past 6 months. Regular menses. No galactorrhea. No headaches. She does have some mild acanthosis. Wakes tired, r nonrestorative. Review of Systems Vitals: Blood pressure 115/78, pulse 71, temperature 98.3 F (36.8 C), temperature source Temporal, height 1.549 m (5' 1), weight 83.6 kg (184 lb 3.2 oz). Physical Exam Constitutional: General: She is not in acute distress. Appearance: She is not diaphoretic. HENT: Head: Normocephalic. Neck: Trachea: No tracheal deviation. Comments: Mild acanthosis on the back of the neck Cardiovascular: Rate and Rhythm: Normal rate. Pulmonary: Effort: Pulmonary effort is normal. Skin: General: Skin is warm and dry. Comments: Pale stria on the abdomen Neurological: Mental Status: She is alert and oriented to person, place, and time. Psychiatric: Judgment: Judgment normal. Neurologic Exam Mental Status Oriented to person, place, and time. Assessment and Plan Hypothyroidism: We will check thyroid function tests and antibodies. If hypothyroidism is confirmed, may try desiccated visit did not appear she responded to levothyroxine. Fatigue: Thyroid function tests are within range, suspect poor sleep as a possible etiology of her fatigue. Insulin resistance syndrome: We will check fasting blood sugar and fasting insulin level based on acanthosis. * Jia Bell - 01/10/2020 9:15 AM EDT Nurse Note: Review of Systems Constitutional: Positive for fatigue. Negative for unexpected weight change. HENT: Negative for trouble swallowing and voice change. Respiratory: Negative for cough and shortness of breath. Cardiovascular: Negative for chest pain, palpitations and leg swelling. Gastrointestinal: Negative for constipation, diarrhea, nausea and vomiting. Endocrine: Negative for cold intolerance and heat intolerance. Musculoskeletal: Negative for neck pain. Neurological: Positive for headaches. Negative for tremors, weakness and numbness. Psychiatric/Behavioral: Positive for sleep disturbance. The patient is not nervous/anxious. Nursing Assessment: Physical Exam documented in this encounter* Jose Rafael Tucker DPM - 02/28/2019 2:20 PM EDT Associated Order(s): LOWER EXTREMITY INJECTION: right plantar fascia Patient: Mili Thompson Date: 02/28/2019 Chief Complaint: She is a 34 y.o. year old female who presents today with a complaint of right heelpain. History of Present Illness: Mili Thompson describes the pain as sharp and sometimes achy in the heel area. They note that the pain is in the bottom of the heel. This pain has been present for 2 years. The pain is greatest with the first few steps out of bed in the morning. The pain is worse when walking barefoot or wearing a shoe with poor support. Patient has experienced a similar condition inthe past and denies recent trauma. 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 (Patient not taking: Reportedon 02/28/2019), Disp: 10 tablet, Rfl: 0 ibuprofen 800 MG Tab, take 1 tablet by mouth every 6 hours as needed.. (Patient not taking: Reported on 02/28/2019), Disp: 20 tablet, Rfl: 0 ondansetron 4 MG Tab Dispersible tablet, Take 1 tablet by mouth every 8 hours as needed for Nausea.Place on tongue (Patient not taking: Reported on 02/28/2019), Disp: 10 tablet, Rfl: 0 Past Medical History: Diagnosis Date Hypothyroidism Past Surgical History: Procedure Laterality Date TONSILLECTOMY Social History Occupational History Not on file Tobacco Use Smoking status: Never Smoker Smokeless tobacco: Never Used Substance and Sexual Activity Alcohol use: No Drug use: No Sexual activity: Yes Partners: Male Comment: no control in use Patient is here for right heel pain for 2 years Worse when first gets up in mornings 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 There is no acute fracture or subluxation. There is mild degenerative change involving the first MTP joint as evidenced by small osteophyte formation. There is mild calcaneal enthesopathy. No destructive osseous lesion is identified. Review of Systems Constitutional: Negative for fever. HENT: Negative for tinnitus. Respiratory: Negative for shortness of breath. Cardiovascular: Negative for chest pain. Gastrointestinal: Negative for diarrhea, heartburn and nausea. Genitourinary: Negative for flank pain. Musculoskeletal: Positive for joint pain. Negative for falls and myalgias. Right heel pain Skin: Negative for itching and rash. Neurological: Negative for dizziness and headaches. Endo/Heme/Allergies: Does not bruise/bleed easily. Objective: Vitals: 02/28/19 1415 BP: 116/60 Pulse: 70 Weight: 71.7 kg (158 lb) Height: 1.549 m (5' 1) Foot Exam Physical Examination: The patient is appropriately dressed, articulate, awake, alert, and oriented,appears their stated age and appears to be in good health. ? Vascular: Dorsalis pedis and posterior tibial pulses are readily palpable and graded at 2/4 bilateral. Capillary filling time is <3 seconds at the level of the hallux rosangela bilateral. ? Dermatological: There is no evidence of edema, erythema, ecchymosis, open lesions, interdigital maceration or signs of bacterial or fungal infection bilateral lower extremities. Adequate fat padding to the inferior aspect of each heel appreciated. Skin color is noted to be normal. Skin texture isnoted to be normal ? Neurological: Normal muscle mass appreciated to both the lower extremity and foot bilateral. The patient can heel and toe walk with ease as well as arise from a seated position unassisted. Normal light touch sensation bilateral. ? Musculoskeletal: Pain elicited on palpation of the right plantar medial calcaneal tubercle in theregion of the origin of the intrinsic musculature and plantar fascia, but no pain on medial-lateralcompression of the calcaneus. The plantar fascia is tight when the hallux is dorsiflexed. There areno significant foot or ankle deformities bilaterally. Manual muscle testing is 5/5 for all lower extremity groups. Right ankle joint range of motion shows decreased dorsiflexion without pain and normal plantarflexion without pain. Left ankle joint range of motion shows decreased dorsiflexion without pain and normal plantar flexion without pain. Negative pain to palpation of the posterior calcaneus at the insertion of the right Achilles tendon. Assessment: Mili was seen today for foot pain. Diagnoses and all orders for this visit: Plantar fasciitis - LOWER EXTREMITY INJECTION: right plantar fascia Pain in right foot - LOWER EXTREMITY INJECTION: right plantar fascia Treatment/Plan: The patient was seen in clinic today and a complete lower extremity physical exam was completed. The diagnosis and etiology was explained the patient in detail. The following treatments were initiated today. ? Patient instructed to avoid barefoot and to wear a supportive shoe while active ? The belt stretch was demonstrated to the patient - this will be done every morning before getting out of bed in the morning to stretch the calf muscle and plantar fascia. ? Sit in a chair and place a pillow on a ground and place a flexible re- freezable ice pack on top of pillow and then rest foot on ice pack for 15 minutes- this should be done 2-3x day. ? I discussed the benefits and purpose of a night splint that provides a constant static stretch and the benefits of custom or OTC orthotics to provide support to the arch of the foot. A plastic pre-fabricated right static [facility]foot [facility] was fitted and dispensed atthis visit. This device has a soft interface and is adjustable for fit, for positioning and minimalambulation. The device will be utilized for the next 8-12 weeks, 4-6 hrs per day. Due to the moderate-severe pain in the heel when first weight bearing and throughout the day, with diagnosis of reducible joint contracture and related anti-contracture device of the plantar fascia and Achilles tendonand to restrict and limit motion and help reduce excessive stress and strain to the plantar fascia and Achilles tendon. It is being utilized to prevent the plantar contracture of the Achilles tendon and its distal terminus, the plantar fascia, and to serve to decrease the stress of the fibers of the Achilles tendon insertional affect of tension in the proximal fibers of the plantar fascia via itspeirosteal attachment. The contracture is interfering with the patients functional abilities. The goals of this therapy are toe: To reduce the pain and symptoms of post-static dyskinesia Prevent not-weightbearing contracture of the Achilles tendon Provide static stretch of the Achilles tendon Provide a static stretch of the plantar fascia ? The goals and function of this device were explained in detail to the patient. The patient statesthat the device is comfortable when applied at this time. The patient was shown and told in detail how to properly wear and care for the device. The patient was able to apply the device properly. I explained that the device shold be removed to ambulate. The patient was instrcuted to wear the deviceat night time and at other times when they are stationary for an extended period of time. I advisedthe patient not to walk with the night splint on. This is being used to treat a flexible contracture with at lease 10 degrees of overall dorsiflexion and plantarflexion. The expectation is that this brace will help to correct the contracture and the prognosis is good. This AFO is not being used as a stand alone treatment, the patient has also been instructed on active stretching. The splint will be used for 8-12 weeks. We discussed an injection today and the patient did agree to an injection today. Return to clinic in 4 WEEKS for re-evaluation and probable 2nd inj, call with any questions or re-appoint if needed. LOWER EXTREMITY INJECTION: right plantar fascia Date/Time: 02/28/2019 2:37 PM Supporting Documentation Indications: pain Procedure Details Procedure: tendon sheath / ligament injection Location: foot - right plantar fascia Needle size: 25 G Approach: plantar (medial-plantar) Medication Verification: I have personally verified and performed the final check of the medication(s) used in this procedure prior to administration. The following items were included during the verification process for medication(s) administered: drug name, strength, volume, expiration, physical integrity and appearance of the medication(s). Medications administered: 0.5 mL triamcinolone 40 MG/ML; 2 mg dexamethasone 4 MG/ML Patient tolerance: patient tolerated the procedure well with no immediate complications Consent: Consent was obtained prior to the procedure after discussion of the risks, benefits and alternatives, and expected outcomes were discussed with the patient. The possibilities of reaction to medication, bleeding, infection, the need for additional procedures, failure to diagnosis a condition, and creating a complication requiring operation were discussed with the patient. The patient concurred with the proposed plan, giving consent. 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 There is no acute fracture or subluxation. There is mild degenerative change involving the first MTP joint as evidenced by small osteophyte formation. There is mild calcaneal enthesopathy. No destructive osseous lesion is identified. Review of Systems Constitutional: Negative for fever. HENT: Negative for tinnitus. Respiratory: Negative for shortness of breath. Cardiovascular: Negative for chest pain. Gastrointestinal: Negative for diarrhea, heartburn and nausea. Genitourinary: Negative for flank pain. Musculoskeletal: Positive for joint pain. Negative for falls and myalgias. Right heel pain Skin: Negative for itching and rash. Neurological: Negative for dizziness and headaches. Endo/Heme/Allergies: Does not bruise/bleed easily. documented in this encounter Instructions * Patient Instructions* Laura Childress MD - 09/30/2018 12:54 PM EDT Sinusitis: Care Instructions Your Care Instructions Sinusitis is an infection of the lining of the sinus cavities in your head. Sinusitis often followsa cold. It causes pain and pressure in your head and face. In most cases, sinusitis gets better on its own in 1 to 2 weeks. But some mild symptoms may last for several weeks. Sometimes antibiotics are needed. Follow-up care is a sheridan part of your treatment and safety. Be sure to make and go to all appointments, and call your doctor if you are having problems. It's also a good idea to know your test resultsand keep a list of the medicines you take. How can you care for yourself at home? Take an ksra-xwo-blaqsem pain medicine, such as acetaminophen (Tylenol), ibuprofen (Advil, Motrin),or naproxen (Aleve). Read and follow all instructions on the label. If the doctor prescribed antibiotics, take them as directed. Do not stop taking them just because you feel better. You need to take the full course of antibiotics. Be careful when taking pydz-rpc-jceapbq cold or flu medicines and Tylenol at the same time. Many ofthese medicines have acetaminophen, which is Tylenol. Read the labels to make sure that you are nottaking more than the recommended dose. Too much acetaminophen (Tylenol) can be harmful. Breathe warm, moist air from a steamy shower, a hot bath, or a sink filled with hot water. Avoid cold, dry air. Using a humidifier in your home may help. Follow the directions for cleaning the machine. Use saline (saltwater) nasal washes to help keep your nasal passages open and wash out mucus and bacteria. You can buy saline nose drops at a grocery store or drugstore. Or you can make your own at home by adding 1 teaspoon of salt and 1 teaspoon of baking soda to 2 cups of distilled water. If you make your own, fill a bulb syringe with the solution, insert the tip into your nostril, and squeeze gently. Blow your nose. Put a hot, wet towel or a warm gel pack on your face 3 or 4 times a day for 5 to 10 minutes each time. Try a decongestant nasal spray like oxymetazoline (Afrin). Do not use it for more than 3 days in a row. Using it for more than 3 days can make your congestion worse. When should you call for help? Call your doctor now or seek immediate medical care if: You have new or worse swelling or redness in your face or around your eyes. You have a new or higher fever. Watch closely for changes in your health, and be sure to contact your doctor if: You have new or worse facial pain. The mucus from your nose becomes thicker (like pus) or has new blood in it. You are not getting better as expected. Where can you learn more? Log into your personal health record on https://[employer] and enter I933 in the Education box to learn more about Sinusitis: Care Instructions. Current as of: March 06, 2018 Content Version: 12.0 0203-6477 [employer]. Care instructions adapted under license by your healthcare professional. If you have questions about a medical condition or this instruction, always ask your healthcare professional. [employer] disclaims any warranty or liability for your use of this information. Worse to ER. See your provider if not better by Wednesday documented in this encounter* Patient Instructions* Jose Rafael Tucker DPM - 02/28/2019 2:20 PM EDT NIGHT SPLINT Instructions: ? The splint is to be used during times of rest. Walking with with split on can be a falling hazardand potentially break the splint. ? The splint should be worn at least 4-6 hours per day -It does not have to be worn 4-6 hours in a row Good times to wear the splint ? Watching T.V. ? Reading a book ? Working at the computer ? Taking a nap ? While you sleep at night After 4 weeks- add the foam wedge to the front of the boot (between the plastic bottom and the bootlining) ~once the wedge goes in, it stays in After 6 weeks- if more of a stretch is needed- you can pull the side Velcro straps tighter- 1/2 to 1 inch every two weeks. ? The boot should be worn for 8-12 weeks. The purpose of the splint is to apply a constant stretch on the bottom of the foot)plantar fascia) and the back of the leg (calf muscle). Over time this will help alleviate your foot and/or ankle pain. documented in this encounter Discharge Instructions * Attachments The following attachments cannot be sent through Care Everywhere. * Otitis Media (Jordanian) documented in this encounter Chief Complaint and Reason for Visit Chief Complaint General illness Additional Source Comments INFORMATION SOURCE (unrecogn ized section and content) DATE CREATED AUTHOR 11/05/2017 [facility] DATE CREATED AUTHOR AUTHOR'S ORGANIZ ATION 11/10/2017 [facility] DATE CREATED AUTHOR AUTHOR'S ORGANIZ ATION 12/31/2017 [facility] DATE CREATED AUTHOR AUTHOR'S ORGANIZ ATION 01/10/2018 [facility] DATE CREATED AUTHOR AUTHOR'S ORGANIZ ATION 12/24/2018 [facility] DATE CREATED AUTHOR AUTHOR'S ORGANIZ ATION 01/12/2020 [facility] DATE CREATED AUTHOR AUTHOR'S ORGANIZ ATION 02/28/2020 [facility] DATE CREATED AUTHOR AUTHOR'S ORGANIZ ATION 03/21/2020 [facility] DATE CREATED AUTHOR AUTHOR'S ORGANIZ ATION 03/12/2021 [facility] DATE CREATED AUTHOR AUTHOR'S ORGANIZ ATION 08/02/[address] [facility] DATE CREATED AUTHOR AUTHOR'S ORGANIZ ATION 11/16/2021 [facility] DATE CREATED AUTHOR AUTHOR'S ORGANIZ ATION 11/16/2021 [facility] DATE CREATED AUTHOR AUTHOR'S ORGANIZ ATION 11/04/2022 [facility] DATE CREATED AUTHOR AUTHOR'S ORGANIZ ATION 12/18/2022 [facility] DATE CREATED AUTHOR AUTHOR'S ORGANIZ ATION 06/10/2023 [facility] DATE CREATED AUTHOR AUTHOR'S ORGANIZ ATION 06/21/2024 [facility] DATE CREATED AUTHOR AUTHOR'S ORGANIZ ATION 09/13/2024 [facility] DATE CREATED AUTHOR AUTHOR'S ORGANIZ ATION 10/14/2024 [facility] Reason for Visit (unrecogniz ed section and content) Status Reason Specialty Diagnoses / Procedures Referred By Contact Referred To Contact New Request Diagnoses Breast pain Procedures MAMMO DIAGNOSTIC WITH RAOUL BILATERAL Jordy Hernandez MD [address] [place] [address] Reason Comments Thyroid Problem Status Reason Specialty Diagnoses / Procedures Referred By Contact Referred To Contact New Request Diagnoses Breast pain Procedures US BREAST LIMITED UNILATERAL RIGHT Jordy Hernandez MD [address] [place] [address] Reason Comments Plantar fasciitis Reason Comments Sinusitis congestion and facia l pressure, Feels like something in throat. Reason Comments Ear Pain Right ear pain that started last night. Reason Comments New Patient Fatigue Reason Comments Foot Pain Source Comments (unrecognize d section and content) In the event this informatio n is protected by the Federal Confidentiality of Alcohol and Drug Abuse Patient Records regulations: The Federal rules restrict any use of the information to criminally investigate or prosecute any alcohol or drug abuse patient.[facility] HospitalIn the event this information is protected by the Federal Confidentiality of Alcohol and Drug Abuse Patient Records regulations: The Federal rules restrict any use of the information to criminally investigate or prosecute any alcohol or drug abuse patient.[facility] HospitalIn the event this information is protected by the Federal Confidentiality of Alcohol and Drug Abuse Patient Records regulations: The Federal rules restrict any use of the information to criminally investigate or prosecute any alcohol or drug abuse patient.[facility] Care Teams (unrecognized sec tion and content) Team Status: Active Member Role Status Dates Dr. Jordy Hernandez MD Family Provider Active Dr. Laurie Huynh MD Primary Care Provider Active Team Status: Inactive Member Role Status Dates Dr. Laurie Huynh MD Primary Care Provider Active Dr. Malachi Goodman DO Emergency Provider Active Store Facility Technician Relationship Specialty Start Date End Date Kingsley Hernandez MD [address] [place] [address] PCP - General Family Medicine 01/28/16 Store Facility Technician Relationship Specialty Start Date End Date Laurie Huynh MD [address] [id number] PCP - General Internal Medicine 11/01/23 Goals (unrecognized section and content) Goals may be documented in a n alternate section No data available for this section No data available for this section No data available for this section No data available for this section FOR RECORDS PERTAINING TO PATIENTS WHO ARE OR HAVE BEEN ENROLLED IN A CHEMICAL DEPENDENCY/SUBSTANCEABUSE PROGRAM, SOME INFORMATION MAY BE OMITTED. This clinical summary was aggregated from multiple sources. Caution should be exercised in using it in the provision of clinical care. This summary normalizes information from multiple sources, and as a consequence, information in this document may materially change the coding, format and clinical context of patient data. In addition, data may be omitted in some cases. CLINICAL DECISIONS SHOULD BE BASED ON THE PRIMARY CLINICAL RECORDS. [employer] provides no warranty or guarantee of the accuracy or completeness of information in this document.
[2025-05-07] MEDS: 0.9% Normal Saline (1000mL) 1,000 ML 999 ML IV (22:13)
[2025-05-07 22:24] LABS: Hematocrit 42.8 % (37-47); Hemoglobin 13.8 g/dL (12.0-15.0); Immature Granulocytes Count 0.020 X10^3/uL (0.0-0.0); Mean Corp Hgb Conc 32.2 g/dL (32-36); Mean Corpuscular Volume 85.3 fL (81-99); Mean Platelet Vol. 9.6 fl (6.2-12.0); NRBC Flagged by Analyzer 0 % (0-5); Platelet Count 338 K/mm3 (150-450); RBC Distribution Width CV 13.2 % (11.6-14.6); RBC Distribution Width SD 40.4 fl (35.1-43.9); Red Blood Count 5.02 M/mm3 (4.2-5.4); White Blood Count 7.0 K/mm3 (4.4-11.0)
--- NOTE | 2025-05-07 22:25 | CT_ITS ---
PROCEDURE: ABDOMEN/PELVIS W IV CONT ONLY 05/07/2025 REASON FOR EXAM: LLQ ABD PAIN TECHNIQUE: Procedure Code: [id number] Modality: CT Procedure: ABDOMEN/PELVIS W IV CONT ONLY Coronal and Sagittal reconstruction series were provided. CONTRAST: Isovue 370 VOLUME: 98 mL One or more dose reduction techniques were used (e.g., Automated exposure control, adjustment of the mA and/or kV according to patient size, use of iterative reconstruction technique. RADIATION DOSE SUMMARY: CTDlvol: 6+ 21+ 20 mGy DLP: 2375 mGycm COMPARISON: 11/07/2020. FINDINGS: The lung bases are clear. The peripheral soft tissues are unremarkable. No acute osseous abnormalities. Normal caliber abdominal aorta. No suspicious lymphadenopathy. The liver, gallbladder, pancreas, spleen, and adrenals unremarkable. Symmetric enhancement of bilateral kidneys in the corticomedullary phase. The urinary bladder is unremarkable. Anteverted uterus. Normal caliber large and small bowel without surrounding inflammatory changes. Abutting the cephalad surface of an anteverted uterus is a 2.4 x 3.9 cm fluid collection. Further characterization with pelvic ultrasound is recommended. CT/Abdomen/Pelvis W IV Cont ONLY IMPRESSION: 2.4 x 3.9 cm fluid collection abutting the cephalad surface of the anteverted u terus. Recommend further characterization with pelvic ultrasound to determine etiology . Otherwise, no acute abnormalities of the abdomen or pelvis. Reading [facility] [place]
[2025-05-07 22:58] LABS: Lipase 22 U/L (13-75)
[2025-05-07 23:03] LABS: AST(SGOT) 21 U/L (<=31); Alanine Aminotransfer ALT/SGPT 17 U/L (<=34); Albumin, Serum 4.4 g/dL (3.5-5.0); Alkaline Phosphatase 60 U/L (35-104); Anion Gap 11 (7-18); BUN 8 mg/dL (4-19); BUN/Creat Ratio 10.6 RATIO (10-20); Calcium,Total 9.4 mg/dL (7.6-11.0); Carbon Dioxide 24.8 mmol/L (20.0-29.0); Chloride 103 mmol/L (96-106); Estimated Creatinine Clearance 92.17 ml/min (50-250); Globulin 3.1 g/dL (2.2-4.2); Glucose 83 mg/dL (70-99); Potassium 3.8 mmol/L (3.5-5.1)
--- NOTE | 2025-05-07 23:18 | ED.VIS.FEGU ---
HPI HPI - Female History of Present Illness Chief Complaint: Female C/O Narrative Narrative: Patient is a 40-year-old female with a past medical hypothyroidism, history of bilateral salpingectomy, right oophorectomy who presented to the emergency department chief complaint abdominal pain, lower pelvic pain and constipation. States that she has not been passing gas. States that it normally after ending her menstrual cycle she has issues with constipation and notes that she had this to take stool softeners states that this is not helping with worsening pain prompting her to come here for further evaluation management. PFSH PFS Medical History Hypothyroid Hx: UTI (urinary tract infection) Home Medications ?Medication ?Instructions ?Recorded ?Last Taken ?Type levothyroxine 75 mcg tablet 125 mcg PO DAILY 11/07/20 Unknown History omeprazole 40 mg capsule,delayed 40 mg PO DAILY 12/14/22 Unknown History release magnesium oxide 200 mg PO DAILY 05/07/25 Unknown History phentermine 37.5 mg tablet 37.5 mg PO DAILY 05/07/25 Unknown History Allergy/AdvReac Type Severity Reaction Status Date / Time ciprofloxacin (From Cipro) AdvReac Vomiting Verified 05/07/25 18:25 Surgical History H/O bilateral salpingectomy S/P removal of right ovary Hx of tonsillectomy Social History Smoking Status: Never smoker ROS ROS ED ROS Narrative Constitutional: Denies any fevers, chills, headaches Eyes: Denies change in vision double vision blurry vision Cardiovascular: Denies chest pain Respiratory: Denies shortness of breath Abdomen: Complains of lower abdominal pain as noted above as well as not passing gas denies nausea vomiting : Denies any urinary symptoms Neurological: Denies any numbness, weakness, tingling Musculoskeletal: Denies back pain Skin: Denies any rashes or lesions EXAM Physical Exam Narrative Exam Narrative: General: Patient was lying in bed rest comfortably did not appear to be acute distress Head: Atraumatic, normocephalic Eyes: PERRL bilaterally, EOMI bilaterally, no conjunctival injection noted Neck: Soft, supple, trachea midline Cardiovascular: Regular rate and rhythm Respiratory: Clear to auscultation bilaterally Abdomen: Soft, nondistended, diffuse tenderness to palpation no rebound or guarding on exam Extremities: +5/5 strength noted in the bilateral lower extremities Neurological: Patient following commands that she was at [facility] Skin: Warm, dry, intact no rashes or lesions noted Const Vital Signs: 05/07/25 18:24 05/07/25 20:23 05/08/25 00:00 Temperature 98.2 F Temperature Source Temporal Pulse Rate 78 72 72 Respiratory Rate 18 16 16 Blood Pressure 136/94 H 138/103 H 146/94 H Blood Pressure Mean 108 114 111 Pulse Ox 100 98 100 Oxygen Delivery Method Room Air Room Air Room Air MDM MDM MDM Narrative Medical decision making narrative: Patient is a 40-year-old female who presented to the emergency department the chief complaint of concern for constipation and lower abdominal pain. On the differential diagnose includes but not limited to bowel obstruction, constipation, diverticulitis. Once workup is obtained reviewed she will be reevaluated. Patient CBC reviewed and showed a white blood count is normal at 7, hemoglobin is noted to be 13.8, plate count was noted be 338. Patient sodium normal 139, potassium normal 3.8, creatinine was 0.78. Patient's AST and ALT were 21 and 17 respectively total Carter normal at 0.25. Patient lipase normal at 22. Patient's urinalysis was reviewed and showed no evidence of infection. Patient CT abdomen pelvis with IV contrast showed a 2.4 x 3.9 cm fluid collection abutting the cephalad surface of the anteverted uterus they recommend a pelvic ultrasound to determine etiology otherwise no acute findings noted. Patient's transvaginal ultrasound that was added on showed a large nabothian cyst measuring up to 3.3 cm the endometrial stripe is thickened to 12 mm nonspecific. Did discuss results with the patient she would like to go home at this point time. She was advised to use MiraLAX for encouraging bowel movements. She is vies follow-up with her doctor in outpatient and return with worsening symptoms or any concerns. All question concerns answered she was discharged home in stable condition Lab Data Labs: Laboratory Results - last 24 hr 05/07/25 05/07/25 18:33 22:15 WBC 7.0 RBC 5.02 Hgb 13.8 Hct 42.8 MCV 85.3 MCH 27.5 MCHC 32.2 RDW Std Deviation 40.4 RDW Coeff of Todd 13.2 Plt Count 338 MPV 9.6 Immature Gran % (Auto) 0.300 Neut % (Auto) 51.5 Lymph % (Auto) 34.7 [place] % (Auto) 8.0 Eos % (Auto) 4.9 Baso % (Auto) 0.6 Absolute Neuts (auto) 3.6 Absolute Lymphs (auto) 2.43 Nucleated RBC % 0 Sodium 139 Potassium 3.8 Chloride 103 Carbon Dioxide 24.8 Anion Gap 11 BUN 8 Creatinine 0.78 Estim Creat Clear Calc 92.17 Est GFR (MDRD) Non-Af 97 BUN/Creatinine Ratio 10.6 Glucose 83 Calcium 9.4 Total Bilirubin 0.25 AST 21 ALT 17 Alkaline Phosphatase 60 Total Protein 7.4 Albumin 4.4 Globulin 3.1 Albumin/Globulin Ratio 1.4 Lipase 22 Urine Color Straw Urine Clarity Clear Urine pH 6.5 Ur Specific [place] 1.005 Urine Protein Negative Urine Glucose (UA) Normal Urine Ketones Negative Urine Occult Blood Negative Urine Nitrite Negative Urine Bilirubin Negative Urine Urobilinogen Normal Ur Leukocyte Esterase Negative Urine RBC 0 SEEN Urine WBC 0-5 SEEN Ur Squamous Epith Cells 0-5 SEEN Urine Bacteria RARE Urine Mucus 0 SEEN Radiography Diagnostic Testing: Clinical Impression(s) from Imaging Studies Abdomen/Pelvis CT 05/07/25 22:25 IMPRESSION: 2.4 x 3.9 cm fluid collection abutting the cephalad surface of the anteverted uterus. Recommend further characterization with pelvic ultrasound to determine etiology. Otherwise, no acute abnormalities of the abdomen or pelvis. Reading Location: [facility] Discharge Plan Triage Chief Complaint: Female C/O Other Complaint: Back ED Provider: Shiv Drake Dx/Rx/DC Orders Clinical Impression: Abdominal pain, Constipation, Nabothian cyst Prescriptions: No Action levothyroxine 75 mcg tablet 125 mcg PO DAILY Patient Comments: TK 1 T PO QD OES FOR THYROID omeprazole 40 mg capsule,delayed release(DR/EC) 40 mg PO DAILY Patient Comments: TAKE 1 CAPSULE BY MOUTH ONCE DAILY magnesium oxide 200 mg magnesium tablet 200 mg PO DAILY phentermine 37.5 mg tablet 37.5 mg PO DAILY Primary Care Provider: Sujata Huynh Referrals: Sujata Huynh MD [Primary Care Provider, Medical] Activity Restrictions/Additional Instructions: Your blood work did not show any acute findings today your CT did not show any surgical findings. Use MiraLAX as we discussed follow-up your doctor and return with worsening symptoms or other concerns Print Language: Indonesian Disposition Disposition: Home, Self Care
--- NOTE | 2025-05-07 23:27 | US_ITS ---
PROCEDURE: TRANSVAGINAL NON- 05/07/2025 REASON FOR EXAM: ABNORMAL FLUID COLLECTION TECHNIQUE: Procedure Code: USTVAG Modality: US Procedure: TRANSVAGINAL NON- FINDINGS: Uterus measures 10.6 x 5.4 x 4.2 cm. It is anteverted position. Endometrial stripe measures 12 mm. It is hyperechoic. Nabothian cyst measuring 3.1 x 3.3 x 2.3 cm. Right ovary is removed and left ovary measures 2.9 x 3.0 x 2.1 cm. Follicles are noted within the left ovary measuring 1.9 x 1.8 x 1.4 cm. No significant free fluid within the cul-de-sac. US/Transvaginal Non- IMPRESSION: Large nabothian cyst measuring up to 3.3 cm. Endometrial stripe is thickened t o 12 mm, nonspecific. May consider CT for further evaluation. Reading Location: [id number]
[2025-05-08] VITALS: BP 146/94; PULSE 72; RESP 16; O2SAT 100
== END 2025-05-08 01:32 | disposition home or self-care (01) ==
PROVIDERS: Emergency Provider Emergency Medicine; Visit Provider Emergency Medicine
DX: K59.00 Constipation, unspecified (principal); N88.8 Other specified noninflammatory disorders of cervix uteri
CPT/HCPCS: 74177; 76830; 80053; 81001; 83690; 85025; 96360; 99283; Q9967; A4216